=== PATIENT | male | born 1935 | race Caucasian/White ===

== ENCOUNTER 2019-12-09 17:07 | Inpatient (IN) | payer MEDICARE, OTHER ==
[~2019-12-09] VITALS: Ht 154.9 cm; Wt 44.5 kg
--- NOTE | 2019-12-09 17:32 | NUR ---
ED Nurse Note: Pt brought in by [facility] from [facility], reported PT was d/c'd 2 days ago for CVA; PT has dysphagia, A/O x 2; confused, verbal at times; reported PT is alllergic to green vegetables, no pain via FLACC; PT is here for GT placement. Will continue to monitor PT.
--- NOTE | 2019-12-09 17:33 | Emergency Room Report ---
History of Present Illness General Chief Complaint: General Complaint Source: Patient, Medical Record, EMS Present Illness HPI Patient was seen yesterday at [facility]. Apparently had a stroke. Family was not notified that he went to [facility]. He was discharged with a POLST of comfort care. When the family found out they are very upset and want the patient admitted to the hospital for G-tube insertion. Dr. Chakraborty sent the patient in. Although history is difficult to obtain patient denies pain at this time. He denies dyspnea. No vomiting or diarrhea. No dysuria. No joint pain. No rashes. No headache. He states he is thirsty. Allergies: Uncoded Allergies: Green vegetables (Allergy, Unknown, 12/10/19) Patient History Past Medical History: see triage record Social History: Denies: smoking Social History Narrative [facility] DNR status -born in [facility] Reviewed Nursing Documentation: PMH: Agreed; PSxH: Agreed Nursing Documentation-PMH Hx Hypertension: Yes Hx Cerebrovascular Accident: Yes Review of Systems All Other Systems: negative except mentioned in HPI Physical Exam Vital Signs Date Time Temp Pulse Resp B/P (MAP) Pulse Ox O2 Delivery O2 Flow Rate FiO2 12/09/19 17:17 98.1 96 18 134/96 (109) 98 Room Air Sp02 EP Interpretation: reviewed, normal General Appearance: alert, thin, Chronically Ill Head: normocephalic Eyes: bilateral eye EOMI - Eyes deviated right ENT: dry mucus membranes Neck: supple Respiratory: decreased breath sounds Cardiovascular #1: regular rate, rhythm Cardiovascular #2: 2+ radial (R) Gastrointestinal: normal inspection, non tender, no mass, non-distended, decreased bowel sounds, scaphoid Genitourinary: no CVA tenderness Musculoskeletal: back normal, other Neurologic: alert, oriented, DTRs symmetric - Increased, facial droop - Left, motor weakness, responsive, Babinski Psychiatric: other - Halting speech Skin: other - Poor turgor Medical Decision Making Diagnostic Impression: Primary Impression: Right lower lobe pneumonia Qualified Codes: J18.9 - Pneumonia, unspecified organism Additional Impressions: Status post stroke Failure to thrive Qualified Codes: R62.7 - Adult failure to thrive Hypernatremia Renal failure Qualified Codes: N19 - Unspecified kidney failure Dehydration Polycythemia UTI (urinary tract infection) Qualified Codes: N39.0 - Urinary tract infection, site not specified ER Course Patient post recent stroke sent for G-tube insertion. Clinically appears dehydrated and possibly septic. Differential includes dehydration, occult infection, dehydration, electrolyte imbalance, failure to thrive, acute stroke amongst others. Evaluation with EKG, chest x-ray and labs. CT recently done at [facility] [place] and not indicated at this time. Assessment of CODE STATUS after discussion with Dr. Chakraborty. Fluid resuscitation. Placed on traffic monitor specialist. Complex patient with several comorbidities. Antibiotics ordered after chest x-ray reviewed 1823 SEPSIS RE-EVALUATION: Called for elevated lactic acid. Fluid boluses already started. Patient still altered but slightly improved. Capillary fill good. Antibiotics already ordered for pneumonia. Multiple reasons for elevated lactic acid. I, Maverick Garcia MD, Performed the Sepsis Re-evaluation at 19:41. EKG no injury. Chest x-ray with right infiltrate and effusion. White count upper limit of normal. Elevated hemoglobin and hematocrit. Hyponatremia. Renal failure. Elevated BNP. Normal troponin. Pyuria. 22:26 second lactate found to be elevated. Second bolus to be given. Antibiotics already administered. Apparently the second lactic acid was drawn before any bolus was administered. Patient more conversant at this time. Patient admitted to medical floor. Laboratory Tests Test 12/09/19 18:40 12/09/19 20:40 White Blood Count 10.5 K/UL (4.8-10.8) Red Blood Count 5.89 M/UL (4.70-6.10) Hemoglobin 18.3 G/DL (14.2-18.0) *H Hematocrit 55.6 % (42.0-52.0) H Mean Corpuscular Volume 94 FL (80-99) Mean Corpuscular Hemoglobin 31.1 PG (27.0-31.0) H Mean Corpuscular Hemoglobin Concent 32.9 G/DL (32.0-36.0) Red Cell Distribution Width 13.1 % (11.6-14.8) Platelet Count 252 K/UL (150-450) Mean Platelet Volume 6.6 FL (6.5-10.1) Neutrophils (%) (Auto) 77.2 % (45.0-75.0) H Lymphocytes (%) (Auto) 13.4 % (20.0-45.0) L Monocytes (%) (Auto) 8.0 % (1.0-10.0) Eosinophils (%) (Auto) 0.3 % (0.0-3.0) Basophils (%) (Auto) 1.1 % (0.0-2.0) Erythrocyte Sedimentation Rate 7 MM/HR (0-20) Prothrombin Time 10.1 SEC (9.30-11.50) Prothrombin Time INR 0.9 (0.9-1.1) Activated Partial Thromboplast Time 25 SEC (23-33) Sodium Level 152 MMOL/L (136-145) H Potassium Level 3.2 MMOL/L (3.5-5.1) L Chloride Level 117 MMOL/L (98-107) H Carbon Dioxide Level 21 MMOL/L (21-32) Anion Gap 14 mmol/L (5-15) Blood Urea Nitrogen 30 mg/dL (7-18) H Creatinine 1.4 MG/DL (0.55-1.30) H Estimate Glomerular Filtration Rate mL/min (>60) Glucose Level 130 MG/DL (74-106) H Lactic Acid Level 3.20 mmol/L (0.4-2.0) H 4.10 mmol/L (0.66-2.22) H Uric Acid 8.1 MG/DL (2.6-7.2) H Calcium Level 9.8 MG/DL (8.5-10.1) Total Bilirubin 0.8 MG/DL (0.2-1.0) Aspartate Amino Transferase (AST) 31 U/L (15-37) Alanine Aminotransferase (ALT) 33 U/L (12-78) Alkaline Phosphatase 169 U/L (46-116) H Total Creatine Kinase 135 U/L (26-308) Troponin I 0.020 ng/mL (0.000-0.056) Pro-B-Type Natriuretic Peptide 4200 pg/mL (0-125) H Total Protein 9.2 G/DL (6.4-8.2) H Albumin 3.4 G/DL (3.4-5.0) Globulin 5.8 g/dL Albumin/Globulin Ratio 0.6 (1.0-2.7) L Lipase 69 U/L (73-393) L Urine Color Yellow Urine Appearance Cloudy Urine pH 5 (4.5-8.0) Urine Specific [place] 1.020 (1.005-1.035) Urine Protein 3+ (NEGATIVE) H Urine Glucose (UA) Negative (NEGATIVE) Urine Ketones 3+ (NEGATIVE) H Urine Blood 3+ (NEGATIVE) H Urine Nitrite Positive (NEGATIVE) H Urine Bilirubin Negative (NEGATIVE) Urine Urobilinogen Normal MG/DL (0.0-1.0) Urine Leukocyte Esterase 2+ (NEGATIVE) H Urine RBC 5-10 /HPF (0 - 0) H Urine WBC 30-40 /HPF (0 - 0) H Urine Squamous Epithelial Cells Moderate /LPF (NONE/OCC) H Urine Bacteria Many /HPF (NONE) H EKG Diagnostic Results Rate: normal Rhythm: other - Atrial fibrillation ST Segments: no acute changes - T inversions laterally Rhythm Strip Diag. Results EP Interpretation: yes Rhythm: no PVC's, no ectopy, other - Trial fibrillation Chest X-Ray Diagnostic Results Chest X-Ray Diagnostic Results : Chest X-Ray Ordered: Yes # of Views/Limited/Complete: 1 View Indication: Other EP Interpretation: Yes Interpretation: no effusion, no pneumothorax, other - Right lower lobe infiltrate Impression: Other Electronically Signed by: Electronically signed by Maverick Garcia MD Other X-Ray Diagnostic Results Other X-Ray Diagnostic Results : X-Ray ordered: Abdomen # of Views/Limited Vs Complete: 2 View Indication: Other EP Interpretation: Yes Interpretation: nonspecific bowel gas, no sbo, other - No masses, increased stool Impression: Other Electronically Signed by: Electronically signed by Maverick Garcia MD Last Vital Signs Date Time Temp Pulse Resp B/P (MAP) Pulse Ox O2 Delivery O2 Flow Rate FiO2 12/09/19 22:30 98.4 92 19 126/87 98 Room Air Status: improved Disposition: ADMITTED INPATIENT Condition: Serious Maverick Garcia MD Dec 09, 2019 17:33
[2019-12-09] MEDS ORDERED: Piperacillin/Tazobactam 3.375 GM in NS 110 ML IVPB ONE (18:30)
[2019-12-09] MEDS ORDERED: Vancomycin 1 GM in NS 275 ML IVPB ONE (18:30)
[2019-12-09 18:32] VITALS: BP 134/96
--- NOTE | 2019-12-09 19:15 | NUR ---
ED Nurse Note: Recieved report from am nurse to resume care, pt in bed awake, alert and oriented x 4, pt is speaking, pt has tourniquet on left arm, arm is purple, removed, pt also has saline lock in right upper arm with syringe in place, pt has not had meds ordered 3 hours ago, will resume care as ordered and start medications and prepare for admission, pt is incontinent of urine and stool, also given bath and linen change, noted with redness to sacryl,coccyx area.
[2019-12-09 19:18] LABS: ANION GAP 14 mmol/L (5-15); BLOOD UREA NITROGEN 30 mg/dL (7-18); CALCIUM 9.8 MG/DL (8.5-10.1); CARBON DIOXIDE 21 MMOL/L (21-32); CHLORIDE 117 MMOL/L (98-107); CREATININE 1.4 MG/DL (0.55-1.30); POTASSIUM 3.2 MMOL/L (3.5-5.1); SODIUM 152 MMOL/L (136-145)
[2019-12-09 19:25] LABS: BASOPHILS % (AUTO) 1.1 % (0.0-2.0); EOSINOPHILS % (AUTO) 0.3 % (0.0-3.0); HEMATOCRIT 55.6 % (42.0-52.0); LYMPHOCYTES % (AUTO) 13.4 % (20.0-45.0); MEAN CORPUSCULAR VOLUME 94 FL (80-99); NEUTROPHILS % (AUTO) 77.2 % (45.0-75.0); PLATELET COUNT 252 K/UL (150-450); RED BLOOD COUNT 5.89 M/UL (4.70-6.10); RED CELL DISTRIBUTION WIDTH 13.1 % (11.6-14.8); WHITE BLOOD COUNT 10.5 K/UL (4.8-10.8)
[2019-12-09 19:29] LABS: ALANINE AMINOTRANSFERASE 33 U/L (12-78); ALBUMIN 3.4 G/DL (3.4-5.0); ALBUMIN/GLOBULIN RATIO 0.6 (1.0-2.7); ALKALINE PHOSPHATASE 169 U/L (46-116); ASPARTATE AMINO TRANSFERASE 31 U/L (15-37); BILIRUBIN,TOTAL 0.8 MG/DL (0.2-1.0); CREATINE KINASE 135 U/L (26-308); INR 0.9 (0.9-1.1)
[2019-12-09 19:30] LABS: HEMOGLOBIN 18.3 G/DL (14.2-18.0)
[2019-12-09 20:00] VITALS: BP 126/87
--- NOTE | 2019-12-09 21:00 | NUR ---
ED Nurse Note: Pt continues to rest in bed, meds given as ordered, tolerating well with no s/s of adverse reaction noted, pt re-positioned and turned with pillow support, pt remains awake and alert, will continue to monitor and send to floor bed when IV meds given per protocol.
[2019-12-09 21:22] LABS: APPEARANCE,URINE CLOUDY; BILIRUBIN, URINE NEGATIVE (NEGATIVE); GLUCOSE, URINE (UA) NEGATIVE (NEGATIVE); KETONES,URINE 3+ (NEGATIVE); LEUKOCYTE ESTERASE ,URINE 2+ (NEGATIVE); NITRITE,URINE POSITIVE (NEGATIVE); PH,URINE 5 (4.5-8.0); PROTEIN,URINE 3+ (NEGATIVE); UROBILINOGEN,URINE NORMAL MG/DL (0.0-1.0)
[2019-12-09 21:24] LABS: COLOR,URINE YELLOW
[2019-12-09] MEDS ORDERED: Potassium Chloride 10 MEQ in D5 1/2NS 1,000 ML IV SCH (21:30)
[2019-12-09 22:30] VITALS: BP 126/87
[2019-12-09 22:35] VITALS: BP 124/71
[2019-12-09] MEDS ORDERED: Vancomycin 1gm vial IVPB ONE (22:43)
--- NOTE | 2019-12-09 23:15 | NUR ---
ED Nurse Note: Pt incontinent again, given bath and linen change, IV site patent with fluids infusing as ordered, report called to floor nurse, pt being taken for admission via [facility].
--- NOTE | 2019-12-09 23:50 | NUR ---
NURSE NOTES: Pt received from ER, without belongings, vancomycin 1gm running, verbal at times but talking to himself, slurred speech, no skin issues, no signs of distress or c/o pain, head of bed elevated, vitals 99.4T, 114HR 18rr 132/85BP 93 O2, will contact MD for orders.
[2019-12-10] MEDS ORDERED: ACETAMINOPHEN325 M1 ORAL (00:43)
[2019-12-10] MEDS ORDERED: POTASSIUM CHLO20 ME3 PO (00:43)
[2019-12-10] MEDS ORDERED: DOCUSATE SODIU100 M2 ORAL (00:43)
[2019-12-10] MEDS ORDERED: ACETAMINOPHEN650 MG RECTAL (00:43)
[2019-12-10] MEDS ORDERED: SIMETHICONE125 M1 PO (00:43)
[2019-12-10] MEDS ORDERED: ALBUTEROL2.5 MG/3 M INH (00:43)
[2019-12-10] MEDS ORDERED: MORPHINE SULFATE SL (00:43)
[2019-12-10] MEDS ORDERED: D5 1/2NS w/KCL 10meq 1,000 ML IV ONE (02:12)
[2019-12-10] MEDS: Potassium Chloride 10 MEQ in D5 1/2NS 1,000 ML IV SCH ×2 (03:11→10:06)
[2019-12-10 04:00] VITALS: BP 130/90
[2019-12-10] MEDS: Piperacillin/Tazobactam 3.375 GM in NS 110 ML IVPB SCH ×3 (05:39→21:03)
--- NOTE | 2019-12-10 07:15 | NUR ---
HAND-OFF: Report given to ENID Hagan.
--- NOTE | 2019-12-10 07:43 | NUR ---
NURSE NOTES: patient received asleep with nonlabored breathing. on fowlers position. IV access patent and intact. siderails are up x3, bed locked and alarm engaged. will cont to monitor.
[2019-12-10 08:00] VITALS: BP 133/88
[2019-12-10 08:28] LABS: BASOPHILS % (AUTO) 0.6 % (0.0-2.0); HEMATOCRIT 44.7 % (42.0-52.0); HEMOGLOBIN 15.2 G/DL (14.2-18.0); LYMPHOCYTES % (AUTO) 10.1 % (20.0-45.0); MEAN CORPUSCULAR VOLUME 94 FL (80-99); MONOCYTES % (AUTO) 7.8 % (1.0-10.0); NEUTROPHILS % (AUTO) 81.5 % (45.0-75.0); PLATELET COUNT 219 K/UL (150-450); RED BLOOD COUNT 4.76 M/UL (4.70-6.10); RED CELL DISTRIBUTION WIDTH 12.9 % (11.6-14.8); WHITE BLOOD COUNT 13.9 K/UL (4.8-10.8)
--- NOTE | 2019-12-10 09:00 | NUR ---
NURSE NOTES: hand off done with arsenio for CT Head. will cont the plan of care. Addendum: 12/10/19 at 1140 by MAXIME CASTANEDA LVN @ [id number] SCAN
[2019-12-10 09:05] LABS: ALANINE AMINOTRANSFERASE 43 U/L (12-78); ALBUMIN 2.6 G/DL (3.4-5.0); ALBUMIN/GLOBULIN RATIO 0.5 (1.0-2.7); ALKALINE PHOSPHATASE 130 U/L (46-116); ANION GAP 11 mmol/L (5-15); ASPARTATE AMINO TRANSFERASE 50 U/L (15-37); BILIRUBIN,TOTAL 0.9 MG/DL (0.2-1.0); BLOOD UREA NITROGEN 28 mg/dL (7-18); CALCIUM 8.5 MG/DL (8.5-10.1); CARBON DIOXIDE 20 MMOL/L (21-32); CHLORIDE 121 MMOL/L (98-107); CREATININE 1.3 MG/DL (0.55-1.30); SODIUM 151 MMOL/L (136-145)
[2019-12-10 09:12] LABS: POTASSIUM 2.6 MMOL/L (3.5-5.1)
--- NOTE | 2019-12-10 09:17 | NUR ---
NURSE NOTES: made Dr Chakraborty aware of the K+2.6. awaits for a call back.
[2019-12-10] MEDS: Pantoprazole Inj IVP SCH (09:49)
--- NOTE | 2019-12-10 10:00 | History and Physical Report ---
DATE OF ADMISSION: 12/09/2019 CHIEF COMPLAINT: Acute stroke. HISTORY OF PRESENT ILLNESS: The patient is an 84-year-old male. He has a history of congestive heart failure, chronic kidney disease, hypertension, and dementia. [facility] a [facility] facility with complaints of slurred speech, left-sided weakness, and left-sided facial droop. On evaluation in the ER, the patient's labs were significant for sodium of 152, potassium 3.2, lactic acid level 3.2. CT scan of the head is pending. UA did show 30 to 40 wbc's. PAST MEDICAL HISTORY: As above. PAST SURGICAL HISTORY: Unknown. CURRENT MEDICATIONS: Reconciled and reviewed. ALLERGIES: None. FAMILY HISTORY: None. SOCIAL HISTORY: There is no known history of tobacco, ethanol, or drugs. REVIEW OF SYSTEMS: Unobtainable as the patient is confused. PHYSICAL EXAMINATION: VITAL SIGNS: Temperature 98.9, pulse 92, respirations 19, and blood pressure 130/90. GENERAL: The patient is well developed, in no apparent distress. HEART: Regular rate and rhythm. LUNGS: Clear. ABDOMEN: Soft, nontender, and nondistended. EXTREMITIES: Without clubbing, cyanosis, or edema. NEUROLOGIC: The patient opens his eyes. There is a left facial droop noted and left-sided weakness. LABORATORY DATA: Labs were reviewed. ASSESSMENT: This is an 84-year-old male who presents with new-onset left-sided weakness and left-sided facial droop, slurred speech consistent with the acute stroke. PROBLEM LIST: 1. Acute CVA. 2. Sepsis and UTI. 3. Hypertension and congestive heart failure. 4. History of chronic kidney disease. PLAN: 1. Follow up CT scan of the head. 2. Cardiology, neuro, and ID consultations will be obtained. 3. Plan of care and the test results have been discussed with the patient's daughter, who is agreeable. We will continue the patient as DNR, but she would like to consider possible G-tube if needed. Jamie Chakraborty M.D. DR: KELLEY JOB#: [id number] CC:
--- NOTE | 2019-12-10 10:18 | Diagnostic Imaging Report ---
Indication: Headache Technique: Contiguous 5 mm thick transaxial imaging of the head obtained in a Siemens Sensation [address] scanner. Soft tissue and bone windows generated. Automatic Exposure Control was utilized. Total Dose length Product (DLP): [address] Dose Index Volume (CTDIvol): 62.7 mGy Comparison: none Findings: There is an abnormal area of low attenuation involving the right temporal lobe extending into the parietal lobe consistent with a acute to subacute CVA. There is no hemorrhage associated with this. The area of low attenuation is associated with sulcal effacement. There is some minimal mass effect on the posterior part of the right lateral ventricle which is slightly indented. There is also abnormal low attenuation in the right caudate lobe extending through the anterior limb of internal capsule into the putamen. This is in the same vascular distribution as the after mentioned infarct involving the cortex more laterally. There is evidence of encephalomalacia in the left posterior parietal lobe consistent with an old infarct. There is moderate prominence of the ventricles and basal cisterns and cerebral sulci globally consistent with the moderate atrophy. There is an aneurysm coil present within the right aspect of the suprasellar cistern. This there is mucosal thickening demonstrated within the right sphenoid sinus. IMPRESSION: Acute to subacute nonhemorrhagic CVA involving right middle cerebral artery territory with involvement of the right temporal lobe and parietal cortex as well as portion of the right basal ganglia. Moderate generalized atrophy. Evidence of extensive chronic small vessel disease involving periventricular white matter. Old infarct left posterior parietal lobe. 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 Critical value communication. Findings were discussed via telephone with the floor nurse on 4 E. 10:00 AM, 12/10/2019. The CT scanner at [facility] is accredited by the [employer] and the scans are performed using dose optimization techniques as appropriate to a performed exam including Automatic Exposure control.
[2019-12-10] MEDS: Heparin 5000 units/ml inj SUBQ SCH ×2 (10:23→21:04)
--- NOTE | 2019-12-10 10:25 | NUR ---
NURSE NOTES: received new order for K+2.6. Dr Chakraborty made aware of the result of CT head called made by radiologist and no new order obtained. will cont to monitor.
[2019-12-10] MEDS: [UNRECOGNIZED DRUG - OTHER] IV SCH ×2 (11:36→21:39)
[2019-12-10] MEDS: D5 IV SCH ×2 (11:36→21:39)
[2019-12-10] MEDS: POTASSIUM CHLORIDE IV SCH ×2 (11:36→21:39)
[2019-12-10 12:00] VITALS: BP 130/79
--- NOTE | 2019-12-10 12:22 | Diagnostic Imaging Report ---
Indication: Abdominal pain Comparison: None Single view of the abdomen obtained Findings: Bowel gas pattern is nonspecific. There is moderate fecal retention in the colon. The colon is moderately distended. No mass, ectopic calcifications, or abnormal gas collections are identified. The bones are osteopenic. Impression: Distended colon with moderate stool
--- NOTE | 2019-12-10 12:23 | Diagnostic Imaging Report ---
Indication: Dyspnea Comparison: None A single view chest radiograph was obtained. Findings: Exam is limited by rotation. There is mild pulmonary vascular congestion with cardiomegaly. Aorta is ectatic. Bones are osteopenic. IMPRESSION: Pulmonary vascular congestion
--- NOTE | 2019-12-10 13:53 | NUR ---
CASE MANAGEMENT:INITIAL REVIEW 84 YR OLD MALE BIBA FROM [facility] CC;GENERAL COMPLAINT. UNABLE TO SWALLOW SI;RLL PNA. POLYCYTHEMIA. FTT. 98.4 92 19 124/71 98% IN RA NA 151 K+ 3.2 BUN 30 AST 50 ALK PHOS 130 CXR - PULMONARY VASCULAR CONGESTION ABD XRAY - DISTENDED COLON IS;IVF NS BOLUS X1 VANCOMYCIN IV X1 ZOSYN IV X1 LEVAQUIN IV X1 ADMITTED TO MED SURG MED SURG STATUS DCP;FROM [facility]
--- NOTE | 2019-12-10 15:01 | NUR ---
RD ASSESSMENT & RECOMMENDATIONS SEE CARE ACTIVITY FOR COMPLETE ASSESSMENT DAILY ESTIMATED NEEDS: Needs based on Underweight, cardiac/ 49kg 30-35 kcals/kg 1654-3555 total kcals 1-1.5 g protein/kg 49-74 g total protein 25-30 mL/kg 6892-4147 total fluid mLs NUTRITION DIAGNOSIS: * Swallowing difficulty R/T dysphagia, s/p acute CVA as evidenced by NPO, pending COURT OPERATIONS CLERK eval, possible PEG placement. CURRENT DIET:NPO PO DIET RECOMMENDATIONS: IF SAFE FOR ORAL DIET -> LOW NA/ texture per COURT OPERATIONS CLERK ENTERAL NUTRITION RECOMMENDATIONS: IF MEDICALLY APPROPRIATE AND PART OF POC -> Glucerna 1.2 @ 55ml/hr x 24 hrs to provide 1320ml, 1584kcal, 79g prot, 1063ml free water * IF PART OF POC AND MEDICALLY INDICATED, OBTAIN GI ACCESS -> initiate Glucerna 1.2 @ 15ml/hr x 6 hrs -> advance 10ml q 4-6 hrs as tolerated to goal rate -> HOB over 30 degrees/ water flush per MDD ADDITIONAL RECOMMENDATIONS: * Calibrated bedscale wt for accurate CBW * F/up w/ COURT OPERATIONS CLERK rec: oral diet vs NPO * Check A1C and lipid panel: s/p acute CVA * Monitor lytes, replete as needed
--- NOTE | 2019-12-10 15:05 | NUR ---
SWALLOW / SPEECH THERAPY NOTE: REFERRED FOR A SWALLOW EVALUATION BY DR CLEMONS, SEE FULL REPORT. DYSPHAGIA RISK FACTORS FOR THIS ADVANCED AGED RIGHT-HAND DOMINANT 84 Y.O.M.: ACUTE ISSUES: 2 DAYS S/P RIGHT MCA CVA (12/08/19) PER CT HEAD AT [facility] [place] 12/10/19 PER CTA HEAD AT [facility]. PER [facility] [place] 12/10/19: Acute to subacute nonhemorrhagic CVA involving right middle cerebral artery territory with involvement of the right temporal lobe and parietal cortex as well as portion of the right basal ganglia. Moderate generalized atrophy. Evidence of extensive chronic small vessel disease involving periventricular white matter. Old infarct left posterior parietal lobe. 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 ADULT FTT WITH LIKELY WORSENED DYSPHAGIA (LIKELY PEG PLACEMENT PER FAMILY), RIGHT LL PNA, KIDNEY FAILURE, UTI, DEHYDRATION. H/O DYSPHAGIA (? 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 SOCIAL: PRIOR TO CVA, THE PATIENT WAS AT [facility]. HE HAS A DAUGHTER AND A SON-[place] AND IN [place]. SPOKE WITH HIS DAUGHTER BRIEFLY AND GAVE HER THE NAME OF THE [employer]. PER POLST, DNR AND INITIALLY COMFORT-FOCUSED WITH NO TUBE FEEDINGS BUT FAMILY NOW RECEPTIVE TO PEG (TRANSFERRED FROM [facility] AND D/C ON COMFORT CARE BUT FAMILY WANTS PEG NOW). PRIOR TO ADMIT AT SNF ON A CARB CONTROLLED REGULAR TEXTURE DIET AND THIN LIQUIDS WITH SF HPN TID WITH MEALS 09/04/19 AND DYSPHAGIA DX. NOW NPO. THE PATIENT IS ALERT WITH CUES AND SPEAKING AT SENTENCE LEVEL. SPEECH IS IMPRECISE BUT USUALLY INTELLGIBLE WITH IN CONTEXT WHEN TOPIC KNOWN. WILL HOLD ON PO TRIALS AT THIS TIME. INITIAL IMPRESSIONS: HIGH RISK FOR A SIGNIFICANT OROPHARYNGEAL DYSPHAGIA WITH SILENT ASPIRATION RISK (DUE TO NEW CVA AND OLD STROKES) NOT CONSISTENTLY ALERT ENOUGH FOR PO TRIAL TO SEE IF HE IS READY FOR A MODIFIED SWALLOW STUDY SEVERE FACIAL/LABIAL WEAKNESS ON THE LEFT TONGUE DEVIATES TO THE LEFT WITH PROTRUSION AND HAS GOOD ROM BUT HE HAS REDUCED SPEED OF MOVEMENT AND STRENGTH DIFFICULT TO TEST (LIKELY REDUCED ALSO SPEECH IS LESS PRECISE) RECOMMENDATIONS: CONSIDER KEEPING PATIENT NPO AND IF HE NEEDS PO MEDS CONSIDER 12 [place] NGT FOR MEDS AND FORMULA PER RD. COMPLETE MODIFIED BARIUM SWALLOW STUDY WHEN READY IN ORDER TO FURTHER ASSESS SWALLOW, DETERMINE SILENT ASPIRATION RISK, AND ATTEMPT TRIAL TX TECHNIQUES. SKILLED DYSPHAGIA MANAGEMENT, SWALLOW AND COMPENSATORY STRATEGY TRAINING, EDUCATION/COUNSELING. EDUCATED/TRAINED RN, SADIQ, IN POSTED ORAL CARE SIGN. Addendum: 12/10/19 at 1508 by MISTY ACEVEDO DAIRY POWDER MIXER OPERATOR D/W DR CLEMONS WHO AGREED WITH RECOMMENDATION
[2019-12-10 16:00] VITALS: BP 135/84
--- NOTE | 2019-12-10 18:39 | NUR ---
NURSE NOTES: DAUGHTERKAY CALLED AND WILL COME BY TOMORROW TO UPDATE THE POLST. WILL RELAY THE MSG TO INCOMING NURSE. WILL CONT THE PLAN OF CARE
--- NOTE | 2019-12-10 19:07 | NUR ---
HAND-OFF: Report given to
--- NOTE | 2019-12-10 19:20 | NUR ---
NURSE NOTES: Received patient comfortably sleeping, no SOB noted, kept clean and dry.
[2019-12-10 20:41] VITALS: BP 125/89
--- NOTE | 2019-12-10 22:18 | General Progress Note ---
Assessment/Plan Assessment/Plan: GI Consult Dictated Message left for family to discuss possible PEG Thank you Yanni Matute MD Subjective Allergies: Uncoded Allergies: Green vegetables (Allergy, Unknown, 12/10/19) Objective Last 24 Hour Vital Signs Date Time Temp Pulse Resp B/P (MAP) Pulse Ox O2 Delivery O2 Flow Rate FiO2 12/10/19 20:41 98.4 74 18 125/89 (101) 95 12/10/19 20:27 Room Air 12/10/19 16:00 98.2 100 18 135/84 (101) 97 12/10/19 12:00 98.4 87 18 130/79 (96) 97 12/10/19 09:00 Room Air 12/10/19 08:00 98.7 99 19 133/88 (103) 97 12/10/19 04:00 98.9 111 18 130/90 (103) 94 12/10/19 00:56 Room Air 12/09/19 23:45 98.4 92 19 124/71 98 Room Air 12/09/19 22:35 98.4 92 19 124/71 98 Room Air 12/09/19 22:30 98.4 92 19 126/87 98 Room Air Intake and Output 12/09/19 12/10/19 19:00 07:00 # Voids 3 Laboratory Tests 12/10/19 08:09: White Blood Count 13.9H, Red Blood Count 4.76, Hemoglobin 15.2, Hematocrit 44.7 , Mean Corpuscular Volume 94, Mean Corpuscular Hemoglobin 31.9H, Mean Corpuscular Hemoglobin Concent 33.9, Red Cell Distribution Width 12.9, Platelet Count 219, Mean Platelet Volume 6.5, Neutrophils (%) (Auto) 81.5H, Lymphocytes ( %) (Auto) 10.1L, Monocytes (%) (Auto) 7.8, Eosinophils (%) (Auto) 0.0, Basophils (%) (Auto) 0.6, Sodium Level 151H, Potassium Level 2.6*L, Chloride Level 121H, Carbon Dioxide Level 20L, Anion Gap 11, Blood Urea Nitrogen 28H, Creatinine 1.3, Estimat Glomerular Filtration Rate , Glucose Level 171H, Lactic Acid Level 1.40, Calcium Level 8.5, Total Bilirubin 0.9, Aspartate Amino Transf (AST/SGOT) 50H, Alanine Aminotransferase (ALT/SGPT) 43, Alkaline Phosphatase 130H, Total Protein 7.6, Albumin 2.6L, Globulin 5.0, Albumin/Globulin Ratio 0.5L Height (Feet): 5 Height (Inches): 5.00 Weight (Pounds): 120 Paul Matute MD Dec 10, 2019 22:17
--- NOTE | 2019-12-11 | Consultation ---
DATE OF CONSULTATION: 12/10/2019 GASTROENTEROLOGY CONSULTATION CONSULTING PHYSICIAN: Paul Matute M.D. CHIEF COMPLAINT: I was asked to see this patient by Dr. Jamie Chakraborty for possible gastrostomy tube placement. HISTORY OF PRESENT ILLNESS: The patient is an unfortunate 84-year-old white man with a history of stroke who was sent to a group home and now readmitted to the hospital due to slurring of his speech and worsening mental status. The patient has free water deficit and has been dehydrated with lactic acidosis. He has been resuscitated. The family apparently now wanting to proceed with a gastrostomy tube placement for feeding and nutritional support. I left the family a message to call me back to discuss these matters. The patient himself is unable to provide any history. Most of the information is only available from the chart. PAST MEDICAL HISTORY: History of congestive heart failure, chronic kidney disease, hypertension, dementia, status post stroke. FAMILY HISTORY: Unavailable. SOCIAL HISTORY: The patient is from a group home. Apparently has a daughter who looks after his affairs. REVIEW OF SYSTEMS: Unobtainable. ALLERGIES: Per chart report none. PHYSICAL EXAMINATION: GENERAL: Elderly white man, who is mumbling incoherently, seen in his room. HEENT: Normocephalic and atraumatic. NECK: Appears supple. CHEST: Coarse breath sounds. CARDIOVASCULAR: Regular rhythm and rate. ABDOMEN: Soft with a midline vertical scar above the umbilicus. EXTREMITIES: Revealed no edema. DIAGNOSTIC AND LABORATORY DATA: CT scan showed acute to subacute nonhemorrhagic stroke involving the right middle cerebral artery territory with mild generalized atrophy and chronic small vessel disease. The patient's labs today were notable for potassium of 2.6, some mild elevation in AST and alkaline phosphatase. His lactic acid has been declining to normal today. ASSESSMENT: This patient has a significant dehydration with free water deficit. These metabolic derangements are being treated with supportive care. A message has been left to the patient's daughter and discussed the patient's goals and values and plan of action. In the meantime, his fluid resuscitation can be continued and his electrolytes should be followed closely. Proton pump inhibitor has been given and can be continued for now. RECOMMENDATIONS: Per above discussion and per orders in the chart. Thank you for asking me to participate in the care of this patient. Paul Matute M.D. DR: DARLENE JOB#: [id number] CC: [email or web address]
[2019-12-11 00:22] VITALS: BP 130/84
[2019-12-11 04:10] VITALS: BP 115/87
[2019-12-11] MEDS: Piperacillin/Tazobactam 3.375 GM in NS 110 ML IVPB SCH ×3 (04:55→20:23)
[2019-12-11] MEDS: POTASSIUM CHLORIDE IV SCH ×2 (04:56→17:57)
[2019-12-11] MEDS: D5 IV SCH ×2 (04:56→17:57)
[2019-12-11] MEDS: [UNRECOGNIZED DRUG - OTHER] IV SCH ×2 (04:56→17:57)
[2019-12-11 06:42] LABS: BASOPHILS % (AUTO) 1.2 % (0.0-2.0); EOSINOPHILS % (AUTO) 2.1 % (0.0-3.0); HEMOGLOBIN 14.9 G/DL (14.2-18.0); LYMPHOCYTES % (AUTO) 18.9 % (20.0-45.0); MEAN CORPUSCULAR VOLUME 94 FL (80-99); MONOCYTES % (AUTO) 7.9 % (1.0-10.0); NEUTROPHILS % (AUTO) 69.9 % (45.0-75.0); PLATELET COUNT 224 K/UL (150-450); RED BLOOD COUNT 4.67 M/UL (4.70-6.10); RED CELL DISTRIBUTION WIDTH 12.9 % (11.6-14.8); WHITE BLOOD COUNT 9.2 K/UL (4.8-10.8)
--- NOTE | 2019-12-11 07:28 | NUR ---
HAND-OFF: Report given to Zhanna Marcelo RN.
--- NOTE | 2019-12-11 07:30 | NUR ---
NURSE NOTES: Nurse report given by SUBHASH Jones. Patient's in bed, sleeping in supine position, no s/s of distress or SOB, bed low and locked, call light within reach, pilot boat operator rails x 3, bed alarm is armed. IV is running fluid, no s/s of infiltration or tenderness. Will continue to monitor.
[2019-12-11 08:00] VITALS: BP 141/90
[2019-12-11 08:01] LABS: ALANINE AMINOTRANSFERASE 56 U/L (12-78); ALBUMIN 2.5 G/DL (3.4-5.0); ALBUMIN/GLOBULIN RATIO 0.5 (1.0-2.7); ALKALINE PHOSPHATASE 119 U/L (46-116); ANION GAP 13 mmol/L (5-15); ASPARTATE AMINO TRANSFERASE 70 U/L (15-37); BLOOD UREA NITROGEN 23 mg/dL (7-18); CALCIUM 8.7 MG/DL (8.5-10.1); CARBON DIOXIDE 20 MMOL/L (21-32); CHLORIDE 121 MMOL/L (98-107); CREATININE 1.3 MG/DL (0.55-1.30); POTASSIUM 3.1 MMOL/L (3.5-5.1); SODIUM 154 MMOL/L (136-145)
[2019-12-11] MEDS: Pantoprazole Inj IVP SCH (09:39)
--- NOTE | 2019-12-11 10:00 | General Progress Note ---
Assessment/Plan Problem List: (1) Dehydration ICD Codes: E86.0 - Dehydration SNOMED: 30073535 (2) Status post stroke ICD Codes: Z86.73 - Personal history of transient ischemic attack (TIA), and cerebral infarction without residual deficits SNOMED: 844908586 (3) Failure to thrive SNOMED: 24394215 Qualifiers: Qualified Codes: R62.7 - Adult failure to thrive (4) Renal failure ICD Codes: N19 - Unspecified kidney failure SNOMED: 43531745 Qualifiers: Qualified Codes: N19 - Unspecified kidney failure (5) UTI (urinary tract infection) ICD Codes: N39.0 - Urinary tract infection, site not specified SNOMED: 61939319 Qualifiers: Qualified Codes: N39.0 - Urinary tract infection, site not specified (6) Right lower lobe pneumonia ICD Codes: J18.9 - Pneumonia, unspecified organism SNOMED: 119725400 Qualifiers: Qualified Codes: J18.9 - Pneumonia, unspecified organism Status: stable Assessment/Plan: video swallow cardiac rx bp control neuro eval antiplt Subjective ROS Limited/Unobtainable: No Constitutional: Reports: malaise, weakness HEENT: Reports: no symptoms Cardiovascular: Reports: no symptoms Respiratory: Reports: no symptoms Gastrointestinal/Abdominal: Reports: difficulty swallowing Genitourinary: Reports: no symptoms Neurologic/Psychiatric: Reports: weakness Endocrine: Reports: no symptoms Hematologic/Lymphatic: Reports: no symptoms Allergies: Uncoded Allergies: Green vegetables (Allergy, Unknown, 12/10/19) Subjective no events. ct with +cva. +left facial droop and left sided weakness Objective Last 24 Hour Vital Signs Date Time Temp Pulse Resp B/P (MAP) Pulse Ox O2 Delivery O2 Flow Rate FiO2 12/11/19 04:10 98.5 77 16 115/87 (96) 95 12/11/19 00:22 98.2 81 18 130/84 (99) 95 12/10/19 20:41 98.4 74 18 125/89 (101) 95 12/10/19 20:27 Room Air 12/10/19 16:00 98.2 100 18 135/84 (101) 97 12/10/19 12:00 98.4 87 18 130/79 (96) 97 Intake and Output 12/10/19 12/11/19 19:00 07:00 Intake Total 420.0 ml 815.0 ml Output Total 800 ml Balance -380.0 ml 815.0 ml Intake IV Total 420.0 ml 815.0 ml Output Urine Total 800 ml # Voids 2 # Bowel Movements 1 Laboratory Tests 12/11/19 05:10: White Blood Count 9.2, Red Blood Count 4.67L, Hemoglobin 14.9, Hematocrit 44.0, Mean Corpuscular Volume 94, Mean Corpuscular Hemoglobin 31.9H, Mean Corpuscular Hemoglobin Concent 33.8, Red Cell Distribution Width 12.9, Platelet Count 224, Mean Platelet Volume 6.1L, Neutrophils (%) (Auto) 69.9, Lymphocytes (%) (Auto) 18.9L, Monocytes (%) (Auto) 7.9, Eosinophils (%) (Auto) 2.1, Basophils (%) (Auto ) 1.2, Sodium Level 154H, Potassium Level 3.1L, Chloride Level 121H, Carbon Dioxide Level 20L, Anion Gap 13, Blood Urea Nitrogen 23H, Creatinine 1.3, Estimat Glomerular Filtration Rate , Glucose Level 150H, Calcium Level 8.7, Magnesium Level 2.1, Total Bilirubin 1.0, Aspartate Amino Transf (AST/SGOT) 70H , Alanine Aminotransferase (ALT/SGPT) 56, Alkaline Phosphatase 119H, Total Protein 7.4, Albumin 2.5L, Globulin 4.9, Albumin/Globulin Ratio 0.5L Height (Feet): 5 Height (Inches): 5.00 Weight (Pounds): 120 General Appearance: WD/WN, alert Neck: supple Cardiovascular: regular rhythm Respiratory/Chest: chest wall non-tender, lungs clear Edema: no edema noted Arm (L), no edema noted Arm (R), no edema noted Leg (L), no edema noted Leg (R), no edema noted Pedal (L), no edema noted Pedal (R), no edema noted Generalized Neurologic: motor weakness Jamie Chakraborty MD Dec 11, 2019 10:00
[2019-12-11] MEDS: Heparin 5000 units/ml inj SUBQ SCH ×2 (10:13→20:24)
[2019-12-11 12:00] VITALS: BP 134/97
--- NOTE | 2019-12-11 14:13 | NUR ---
NURSE NOTES:WOUND CARE NOTES:Pt's skin assessment complete with Primary nurse in attendance. All bony prominences assessed. Sacrum and both hips without erythema or evidence of skin breakdown. Both heels boggy with non-blanching erythema.NO other skin concerns noted. Moisture Barrier Paste applied to buttocks. Optifoam drsg placed over Sacrum to minimize friction.Cavilon Skin Barrier applied to both heels. Each Heel covered with Optifoam drsg. Pt positioned with pillow on his side. Both heels floated off mattress with pillow. Recommendations:Apply Moisture Barrier Paste to Sacrum. Cover with Optifoam drsg. Change every 3 days and prn. Apply Cavilon Skin Barrier to both heels. Cover each heel with Optifoam drsg. Change every 7 days and PRN. Reposition at least every 2hours or as tolerated. Off-load heels with pillow.
--- NOTE | 2019-12-11 14:29 | NUR ---
CASE MANAGEMENT:REVIEW SI;DEHYDRATION. RENAL FAILURE. UTI. RLL PNA. FTT. 98.5 91 20 141/90 94% ON RA NA 154 K+ 3.1 CL 121 BUN 23 IS;KCL IN D5NS IV @ 100ML/HR ZOSYN IV Q8 HRS HEPARIN SUBQ Q12 HRS PROTONIX IV QD MED SURG STATUS PLAN;VIDEO SWALLOW STUDY NEURO EVAL DCP;FROM [facility]
[2019-12-11 16:00] VITALS: BP 148/94
--- NOTE | 2019-12-11 19:07 | NUR ---
HAND-OFF: Report given to SUBHASH Jones. Patient's stable, plan of care endorsed.
--- NOTE | 2019-12-11 19:31 | NUR ---
NURSE NOTES: Received patient asleep, no SOB, comfortable. Kept clean and dry.
[2019-12-11 20:44] VITALS: BP 131/92
--- NOTE | 2019-12-11 21:36 | General Progress Note ---
Assessment/Plan Status: stable Assessment/Plan: Assessment - dysphagia - hypernatremia - hypokalemia Recommendations - NPO - correct electrolytes - PEG placement Subjective Allergies: Uncoded Allergies: Green vegetables (Allergy, Unknown, 12/10/19) Subjective d/w DTR over the phone indications and risks of PEG placement explained all questions answered DTR requested to proceed with GT placement scheduled for am Objective Last 24 Hour Vital Signs Date Time Temp Pulse Resp B/P (MAP) Pulse Ox O2 Delivery O2 Flow Rate FiO2 12/11/19 20:58 Room Air 12/11/19 20:44 98.3 84 12 131/92 (105) 97 12/11/19 16:00 98.0 90 18 148/94 (112) 97 12/11/19 12:00 98.2 91 20 134/97 (109) 97 12/11/19 09:00 Room Air 12/11/19 08:00 98.0 77 18 141/90 (107) 94 12/11/19 04:10 98.5 77 16 115/87 (96) 95 12/11/19 00:22 98.2 81 18 130/84 (99) 95 Intake and Output 12/10/19 12/11/19 19:00 07:00 Intake Total 420.0 ml 815.0 ml Output Total 800 ml Balance -380.0 ml 815.0 ml Intake IV Total 420.0 ml 815.0 ml Output Urine Total 800 ml # Voids 2 # Bowel Movements 1 Laboratory Tests 12/11/19 05:10: White Blood Count 9.2, Red Blood Count 4.67L, Hemoglobin 14.9, Hematocrit 44.0, Mean Corpuscular Volume 94, Mean Corpuscular Hemoglobin 31.9H, Mean Corpuscular Hemoglobin Concent 33.8, Red Cell Distribution Width 12.9, Platelet Count 224, Mean Platelet Volume 6.1L, Neutrophils (%) (Auto) 69.9, Lymphocytes (%) (Auto) 18.9L, Monocytes (%) (Auto) 7.9, Eosinophils (%) (Auto) 2.1, Basophils (%) (Auto ) 1.2, Sodium Level 154H, Potassium Level 3.1L, Chloride Level 121H, Carbon Dioxide Level 20L, Anion Gap 13, Blood Urea Nitrogen 23H, Creatinine 1.3, Estimat Glomerular Filtration Rate , Glucose Level 150H, Calcium Level 8.7, Magnesium Level 2.1, Total Bilirubin 1.0, Aspartate Amino Transf (AST/SGOT) 70H , Alanine Aminotransferase (ALT/SGPT) 56, Alkaline Phosphatase 119H, Total Protein 7.4, Albumin 2.5L, Globulin 4.9, Albumin/Globulin Ratio 0.5L Height (Feet): 5 Height (Inches): 5.00 Weight (Pounds): 120 Paul Matute MD Dec 11, 2019 21:36
[2019-12-12 00:52] VITALS: BP 127/93
[2019-12-12] MEDS: POTASSIUM CHLORIDE IV SCH (04:11)
[2019-12-12] MEDS: [UNRECOGNIZED DRUG - OTHER] IV SCH (04:11)
[2019-12-12] MEDS: Piperacillin/Tazobactam 3.375 GM in NS 110 ML IVPB SCH ×3 (04:11→22:01)
[2019-12-12] MEDS: D5 IV SCH (04:11)
[2019-12-12 04:32] VITALS: BP 139/82
[2019-12-12 06:40] LABS: BASOPHILS % (AUTO) 1.1 % (0.0-2.0); EOSINOPHILS % (AUTO) 1.8 % (0.0-3.0); HEMATOCRIT 46.2 % (42.0-52.0); HEMOGLOBIN 15.5 G/DL (14.2-18.0); INR 0.9 (0.9-1.1); LYMPHOCYTES % (AUTO) 14.5 % (20.0-45.0); MEAN CORPUSCULAR VOLUME 94 FL (80-99); MONOCYTES % (AUTO) 6.1 % (1.0-10.0); NEUTROPHILS % (AUTO) 76.5 % (45.0-75.0); PLATELET COUNT 247 K/UL (150-450); RED BLOOD COUNT 4.93 M/UL (4.70-6.10); WHITE BLOOD COUNT 10.9 K/UL (4.8-10.8)
--- NOTE | 2019-12-12 07:20 | NUR ---
HAND-OFF: Report given to Danya De Guzman LVN.
[2019-12-12 07:27] LABS: ALANINE AMINOTRANSFERASE 50 U/L (12-78); ALBUMIN 2.6 G/DL (3.4-5.0); ALBUMIN/GLOBULIN RATIO 0.5 (1.0-2.7); ALKALINE PHOSPHATASE 117 U/L (46-116); ANION GAP 15 mmol/L (5-15); ASPARTATE AMINO TRANSFERASE 41 U/L (15-37); BILIRUBIN,TOTAL 0.9 MG/DL (0.2-1.0); BLOOD UREA NITROGEN 19 mg/dL (7-18); CALCIUM 8.9 MG/DL (8.5-10.1); CARBON DIOXIDE 21 MMOL/L (21-32); CHLORIDE 123 MMOL/L (98-107); CREATININE 1.3 MG/DL (0.55-1.30); POTASSIUM 2.8 MMOL/L (3.5-5.1); SODIUM 157 MMOL/L (136-145)
--- NOTE | 2019-12-12 07:35 | NUR ---
NURSE NOTES: patient received in bed A/A/Ox2. impulsive. on fowlers position. contracted. IV access patent and intact. IVF infusing well. kept patient NPO. keep bed in the lowest position. siderails are up x3, bed locked and alarm engaged. will cont to monitor.
--- NOTE | 2019-12-12 07:40 | General Progress Note ---
Assessment/Plan Problem List: (1) Dehydration ICD Codes: E86.0 - Dehydration SNOMED: 05131622 (2) Status post stroke ICD Codes: Z86.73 - Personal history of transient ischemic attack (TIA), and cerebral infarction without residual deficits SNOMED: 762121543 (3) Failure to thrive SNOMED: 42536355 Qualifiers: Qualified Codes: R62.7 - Adult failure to thrive (4) Renal failure ICD Codes: N19 - Unspecified kidney failure SNOMED: 59565995 Qualifiers: Qualified Codes: N19 - Unspecified kidney failure (5) UTI (urinary tract infection) ICD Codes: N39.0 - Urinary tract infection, site not specified SNOMED: 23269212 Qualifiers: Qualified Codes: N39.0 - Urinary tract infection, site not specified (6) Right lower lobe pneumonia ICD Codes: J18.9 - Pneumonia, unspecified organism SNOMED: 770158006 Qualifiers: Qualified Codes: J18.9 - Pneumonia, unspecified organism Status: stable Assessment/Plan: GT tomorrow ivf adjusted repeat labs tonite and tomorrow cardiac rx bp control neuro eval antiplt Subjective ROS Limited/Unobtainable: No Constitutional: Reports: malaise, weakness HEENT: Reports: no symptoms Cardiovascular: Reports: no symptoms Respiratory: Reports: no symptoms Gastrointestinal/Abdominal: Reports: no symptoms Genitourinary: Reports: no symptoms Neurologic/Psychiatric: Reports: pre-existing deficit Endocrine: Reports: no symptoms Hematologic/Lymphatic: Reports: no symptoms Allergies: Uncoded Allergies: Green vegetables (Allergy, Unknown, 12/10/19) All Systems: reviewed and negative except above Subjective lethargic. failed swallow eval. on ivf. Na elevated. Objective Last 24 Hour Vital Signs Date Time Temp Pulse Resp B/P (MAP) Pulse Ox O2 Delivery O2 Flow Rate FiO2 12/12/19 04:32 96.8 94 18 139/82 (101) 94 12/12/19 00:52 98.7 87 16 127/93 (104) 92 12/11/19 20:58 Room Air 12/11/19 20:44 98.3 84 12 131/92 (105) 97 12/11/19 16:00 98.0 90 18 148/94 (112) 97 12/11/19 12:00 98.2 91 20 134/97 (109) 97 12/11/19 09:00 Room Air 12/11/19 08:00 98.0 77 18 141/90 (107) 94 Intake and Output 12/11/19 12/12/19 19:00 07:00 Intake Total 100 ml 542.5 ml Output Total 500 ml Balance 100 ml 42.5 ml Intake IV Total 100 ml 542.5 ml Output Urine Total 500 ml # Voids 2 Laboratory Tests 12/12/19 05:50: White Blood Count 10.9H, Red Blood Count 4.93, Hemoglobin 15.5, Hematocrit 46.2 , Mean Corpuscular Volume 94, Mean Corpuscular Hemoglobin 31.4H, Mean Corpuscular Hemoglobin Concent 33.5, Red Cell Distribution Width 13.0, Platelet Count 247, Mean Platelet Volume 6.7, Neutrophils (%) (Auto) 76.5H, Lymphocytes ( %) (Auto) 14.5L, Monocytes (%) (Auto) 6.1, Eosinophils (%) (Auto) 1.8, Basophils (%) (Auto) 1.1, Prothrombin Time 10.1, Prothromb Time International Ratio 0.9, Sodium Level 157H, Potassium Level 2.8L, Chloride Level 123H, Carbon Dioxide Level 21, Anion Gap 15, Blood Urea Nitrogen 19H, Creatinine 1.3, Estimat Glomerular Filtration Rate , Glucose Level 147H, Calcium Level 8.9, Total Bilirubin 0.9, Aspartate Amino Transf (AST/SGOT) 41H, Alanine Aminotransferase (ALT/SGPT) 50, Alkaline Phosphatase 117H, Total Protein 7.8, Albumin 2.6L, Globulin 5.2, Albumin/Globulin Ratio 0.5L Height (Feet): 5 Height (Inches): 5.00 Weight (Pounds): 121 General Appearance: WD/WN, lethargic, confused Cardiovascular: regular rhythm Respiratory/Chest: lungs clear, normal breath sounds Abdomen: normal bowel sounds, non tender, soft, no organomegaly Edema: no edema noted Arm (L), no edema noted Arm (R), no edema noted Leg (L), no edema noted Leg (R), no edema noted Pedal (L), no edema noted Pedal (R), no edema noted Generalized Neurologic: motor weakness Jamie Chakraborty MD Dec 12, 2019 07:40
[2019-12-12 08:00] VITALS: BP 129/90
[2019-12-12] MEDS: Heparin 5000 units/ml inj SUBQ SCH ×2 (08:34→21:00)
[2019-12-12] MEDS: D5W w/KCl 20mEq 1,000 ML IV SCH ×2 (08:46→22:01)
--- NOTE | 2019-12-12 09:00 | NUR ---
NURSE NOTES: Dr Chakraborty made aware of the K+2.8. present. will cont to monitor.
[2019-12-12] MEDS: Pantoprazole Inj IVP SCH (10:05)
[2019-12-12 12:05] VITALS: BP 137/106
[2019-12-12] MEDS ORDERED: Varibar Nectar 240ml MC PRN (12:15)
[2019-12-12] MEDS ORDERED: Varibar Pudding 230ml MC PRN (12:15)
[2019-12-12] MEDS ORDERED: Varibar Honey 250ml MC PRN (12:15)
--- NOTE | 2019-12-12 13:57 | NUR ---
SWALLOW AND SPEECH THERAPY NOTE: COMPLETED MODIFIED BARIUM SWALLOW STUDY, SEE FULL REPORT TO FOLLOW. 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 PRIOR TO STUDY, REQUIRED MILD AMOUNTS OF THICK WHITISH PHLEGM REMOVED FROM THE BACK OF HIS THROAT. THIN LIQUIDS: CUP SIP: TRACE AUDIBLE ASPIRATION BELOW THE VOCAL FOLDS WITH EJECTION DUE TO DELAYED SWALLOW, LATE CLOSURE OF LARYNGEAL VESTIBULE, AND REDUCED HYOLARYNGEAL EXCURSION. TSP (X2): NO ASPIRATION BUT HAD TRACE LARYNGEAL PENETRATION (LP) ABOVE THE VOCAL FOLDS WITH EJECTION AND BEFORE THE SWALLOW DUE TO DELAYED SWALLOW AND LATE CLOSURE OF LARYNGEAL VESTIBULE. ADDITIONAL ASPIRATION RISK AFTER THE SWALLOW DUE TO REDUCED OROPHARYNGEAL DYSMOTILITY AND RESIDUE THAT HE DID NOT FEEL. NECTAR THICK LIQUIDS CUP SIP: NO ASPIRATION BUT HAD TRACE AND AUDIBLE LP TO THE VOCAL FOLDS NOT EJECTED DUE TO DELAYED SWALLOW, LATE AND INCOMPLETE LARYNGEAL VESTIBULE CLOSURE (LVC), AND HYOLARYNGEAL EXCURSION. TSP: NO ASPIRATION BUT HAD TRACE SILENT LP ABOVE VOCAL FOLDS WITH EJECTION DUE TO LATE SWALLOW/LVC. ADDITIONAL ASPIRATION AFTER THE SWALLOW DUE TO REDUCED OROPHARYNGEAL DYSMOTILITY AND POOR SENSATION FOR RESIDUE. ESOPHAGEAL PHASE: LIMITED VIEW BUT APPEARED GROSSLY FUNCTIONAL TRIAL TX: SOMETIMES BENEFITS FROM SMALLER AMOUNTS (TSP), EXTRA HARD SWALLOWS (2-3), MORE TIME. UNABLE TO TUCK CHIN BUT THIS WOULD MAKE IT MORE DIFFICULT TO MOVE BOLUS POSTERIORLY. REQUIRED SUCTION AFTER STUDY AND NOT GIVEN ADDITIONAL CONSISTENCIES DUE POOR BOLUS TRANSPORT, WEAK SWALLOW, AND SIGNIFICANT OROPHARYNGEAL RESIDUE AFTER THE SWALLOW. RECOMMENDATIONS: CONTINUE WITH NPO STATUS AND ORAL CARE/SUCTION PEG TOMORROW DISCUSSED ABOVE INFORMATION WITH PATIENT, HIS DTR, AND DR. CLEMONS SKILLED DYSPHAGIA MANAGEMENT AND TX AND REPEAT MBSS AN OUTPATIENT AFTER THERAPY AT [facility] FOR A FEW WEEKS. ADDITIONAL RISK OF Addendum: 12/12/19 at 1358 by MISTY ACEVEDO PUFF IRON OPERATOR SWALLOW STATUS: PATIENT SEEN FOR MODIFIED BARIUM SWALLOW STUDY, SEE SUMMARY WITH FULL REPORT TO FOLLOW. SPOKE TO PATIENT'S DTR ABOUT STUDY RESULTS AND SHE IS RECEPTIVE TO PEG WHICH IS PLANNED FOR TOMORROW WITH DR PAREDES. D/W DR CLEMONS, PATIENT, AND RN (DONNA) RESULTS OF STUDY AND PLAN FOR PEG. PLAN: KEEP NPO AND CONTINUE ORAL CARE/SUCTION PRN PEG TOMORROW F/UP WITH SKILLED DYSPHAGIA MANAGEMENT AND TX, REPEAT MOD BARIUM SWALLOW OUTPT WHEN HE HAS THERAPY FOR A FEW WEEKS AT SNF.
--- NOTE | 2019-12-12 14:57 | NUR ---
NURSE NOTES: CONSENT OBTAINED FOR EGD WITH PEG FROM KAY BOLDEN. ALSO, INFORMED DAUGHTER TO UPDATE THE POLST AND STATED THAT ONLY DO NOTE RESUSCITATE BUT PLACE GTUBE. ASKED TO SEND PATIENT'S ADVANCE DIRECTIVE. INFORMED AIYANA, DIRECTOR REGARDING THE MATTER ABOVE. WILL CONT THE PLAN OF CARE.
[2019-12-12 16:00] VITALS: BP 119/71
--- NOTE | 2019-12-12 17:00 | NUR ---
CASE MANAGEMENT:REVIEW SI;FTT. DEHYDRATION. RENAL FAILURE. UTI. RLL PNA. 96.8 101 20 139/82 91% ON RA IS;IVF D5 @ 100 ML/HR ZOSYN IV Q8 HRS HEPARIN SUBQ Q12 HRS MED SURG STATUS DCP;FROM [facility]
[2019-12-12 18:42] LABS: ANION GAP 15 mmol/L (5-15); BLOOD UREA NITROGEN 20 mg/dL (7-18); CALCIUM 8.9 MG/DL (8.5-10.1); CARBON DIOXIDE 22 MMOL/L (21-32); CHLORIDE 120 MMOL/L (98-107); CREATININE 1.4 MG/DL (0.55-1.30); POTASSIUM 3.2 MMOL/L (3.5-5.1); SODIUM 157 MMOL/L (136-145)
--- NOTE | 2019-12-12 18:53 | NUR ---
HAND-OFF: Report given to
--- NOTE | 2019-12-12 19:50 | NUR ---
NURSE NOTES: Received patient awake, confused, resting in bed, kept clean and dry.
[2019-12-12 20:10] VITALS: BP 149/92
--- NOTE | 2019-12-12 20:15 | General Progress Note ---
Assessment/Plan Status: stable Assessment/Plan: Assessment - dysphagia - hypernatremia - hypokalemia Recommendations - NPO - abx - correct electrolytes - PEG placement Subjective Allergies: Uncoded Allergies: Green vegetables (Allergy, Unknown, 12/10/19) Subjective confused no change scheduled for TH am Objective Last 24 Hour Vital Signs Date Time Temp Pulse Resp B/P (MAP) Pulse Ox O2 Delivery O2 Flow Rate FiO2 12/12/19 20:10 98.2 78 16 149/92 (111) 98 12/12/19 16:00 97.5 101 19 119/71 (87) 93 12/12/19 12:05 97.5 100 20 137/106 (116) 91 12/12/19 09:00 Room Air 12/12/19 08:00 97.7 93 18 129/90 (103) 96 12/12/19 04:32 96.8 94 18 139/82 (101) 94 12/12/19 00:52 98.7 87 16 127/93 (104) 92 12/11/19 20:58 Room Air 12/11/19 20:44 98.3 84 12 131/92 (105) 97 Intake and Output 12/11/19 12/12/19 19:00 07:00 Intake Total 100 ml 542.5 ml Output Total 500 ml Balance 100 ml 42.5 ml Intake IV Total 100 ml 542.5 ml Output Urine Total 500 ml # Voids 2 Laboratory Tests 12/12/19 05:50: White Blood Count 10.9H, Red Blood Count 4.93, Hemoglobin 15.5, Hematocrit 46.2 , Mean Corpuscular Volume 94, Mean Corpuscular Hemoglobin 31.4H, Mean Corpuscular Hemoglobin Concent 33.5, Red Cell Distribution Width 13.0, Platelet Count 247, Mean Platelet Volume 6.7, Neutrophils (%) (Auto) 76.5H, Lymphocytes ( %) (Auto) 14.5L, Monocytes (%) (Auto) 6.1, Eosinophils (%) (Auto) 1.8, Basophils (%) (Auto) 1.1, Prothrombin Time 10.1, Prothromb Time International Ratio 0.9, Sodium Level 157H, Potassium Level 2.8L, Chloride Level 123H, Carbon Dioxide Level 21, Anion Gap 15, Blood Urea Nitrogen 19H, Creatinine 1.3, Estimat Glomerular Filtration Rate , Glucose Level 147H, Calcium Level 8.9, Total Bilirubin 0.9, Aspartate Amino Transf (AST/SGOT) 41H, Alanine Aminotransferase (ALT/SGPT) 50, Alkaline Phosphatase 117H, Total Protein 7.8, Albumin 2.6L, Globulin 5.2, Albumin/Globulin Ratio 0.5L 12/12/19 17:50: Sodium Level 157H, Potassium Level 3.2L, Chloride Level 120H, Carbon Dioxide Level 22, Anion Gap 15, Blood Urea Nitrogen 20H, Creatinine 1.4H, Estimat Glomerular Filtration Rate , Glucose Level 176H, Calcium Level 8.9 Height (Feet): 5 Height (Inches): 5.00 Weight (Pounds): 121 Paul Matute MD Dec 12, 2019 20:15
[2019-12-13] VITALS (9 sets, daily range): BP systolic 112–150; BP diastolic 76–100
[2019-12-13] MEDS: Piperacillin/Tazobactam 3.375 GM in NS 110 ML IVPB SCH ×3 (04:54→21:01)
[2019-12-13] MEDS: D5W w/KCl 20mEq 1,000 ML IV SCH ×4 (04:54→21:00)
[2019-12-13 07:15] LABS: ANION GAP 11 mmol/L (5-15); BLOOD UREA NITROGEN 19 mg/dL (7-18); CARBON DIOXIDE 23 MMOL/L (21-32); CHLORIDE 122 MMOL/L (98-107); CREATININE 1.4 MG/DL (0.55-1.30); POTASSIUM 3.1 MMOL/L (3.5-5.1); SODIUM 156 MMOL/L (136-145)
--- NOTE | 2019-12-13 07:27 | General Progress Note ---
Assessment/Plan Problem List: (1) Dehydration ICD Codes: E86.0 - Dehydration SNOMED: 78914425 (2) Status post stroke ICD Codes: Z86.73 - Personal history of transient ischemic attack (TIA), and cerebral infarction without residual deficits SNOMED: 888928676 (3) Failure to thrive SNOMED: 81330322 Qualifiers: Qualified Codes: R62.7 - Adult failure to thrive (4) Renal failure ICD Codes: N19 - Unspecified kidney failure SNOMED: 35995964 Qualifiers: Qualified Codes: N19 - Unspecified kidney failure (5) UTI (urinary tract infection) ICD Codes: N39.0 - Urinary tract infection, site not specified SNOMED: 56099541 Qualifiers: Qualified Codes: N39.0 - Urinary tract infection, site not specified (6) Right lower lobe pneumonia ICD Codes: J18.9 - Pneumonia, unspecified organism SNOMED: 099534241 Qualifiers: Qualified Codes: J18.9 - Pneumonia, unspecified organism Status: stable Assessment/Plan: GT today ivf increased replace k cardiac rx bp control antiplt Subjective ROS Limited/Unobtainable: No Constitutional: Reports: malaise, weakness HEENT: Reports: no symptoms Cardiovascular: Reports: no symptoms Respiratory: Reports: no symptoms Gastrointestinal/Abdominal: Reports: difficulty swallowing Genitourinary: Reports: no symptoms Neurologic/Psychiatric: Reports: pre-existing deficit Endocrine: Reports: no symptoms Hematologic/Lymphatic: Reports: no symptoms Allergies: Uncoded Allergies: Green vegetables (Allergy, Unknown, 12/10/19) All Systems: reviewed and negative except above Subjective lethargic. failed swallow eval. on ivf. Na elevated- trending down. Objective Last 24 Hour Vital Signs Date Time Temp Pulse Resp B/P (MAP) Pulse Ox O2 Delivery O2 Flow Rate FiO2 12/13/19 04:01 97.8 92 16 134/83 (100) 96 12/13/19 00:10 98.2 82 16 112/78 (89) 92 12/12/19 20:12 Room Air 12/12/19 20:10 98.2 78 16 149/92 (111) 98 12/12/19 16:00 97.5 101 19 119/71 (87) 93 12/12/19 12:05 97.5 100 20 137/106 (116) 91 12/12/19 09:00 Room Air 12/12/19 08:00 97.7 93 18 129/90 (103) 96 Intake and Output 12/12/19 12/13/19 19:00 07:00 Intake Total 882.5 ml 565.0 ml Balance 882.5 ml 565.0 ml Intake IV Total 882.5 ml 565.0 ml # Voids 2 Laboratory Tests 12/12/19 17:50: Sodium Level 157H, Potassium Level 3.2L, Chloride Level 120H, Carbon Dioxide Level 22, Anion Gap 15, Blood Urea Nitrogen 20H, Creatinine 1.4H, Estimat Glomerular Filtration Rate , Glucose Level 176H, Calcium Level 8.9 12/13/19 06:00: Sodium Level 156H, Potassium Level 3.1L, Chloride Level 122H, Carbon Dioxide Level 23, Anion Gap 11, Blood Urea Nitrogen 19H, Creatinine 1.4H, Estimat Glomerular Filtration Rate , Glucose Level 139H, Calcium Level 9.0 Height (Feet): 5 Height (Inches): 5.00 Weight (Pounds): 121 General Appearance: WD/WN, alert Neck: supple Cardiovascular: normal rate, regular rhythm Respiratory/Chest: chest wall non-tender, lungs clear, normal breath sounds, no respiratory distress Abdomen: normal bowel sounds, non tender, soft, no organomegaly Edema: no edema noted Arm (L), no edema noted Arm (R), no edema noted Leg (L), no edema noted Leg (R), no edema noted Pedal (L), no edema noted Pedal (R), no edema noted Generalized Neurologic: motor weakness Jamie Chakraborty MD Dec 13, 2019 07:27
--- NOTE | 2019-12-13 07:33 | NUR ---
HAND-OFF: Report given to Angelo Eden RN.
--- NOTE | 2019-12-13 07:51 | NUR ---
NURSE NOTES: received report from SUBHASH Jones. patient in bed, sleeping. no respiratory distress noted. no facial grimacing. EGD/PEG placement scheduled today.consent in the chart signed by daughter. IV on LFA24 running [id number]@125/hr. bed in the lowest position and locked. call light within reach. will continue to provide plan of care.
[2019-12-13] MEDS: Heparin 5000 units/ml inj SUBQ SCH ×2 (09:00→21:02)
[2019-12-13] MEDS: Pantoprazole Inj IVP SCH (09:07)
--- NOTE | 2019-12-13 10:39 | Anethesia Preoperative Eval ---
Anesthesia Pre-op PMH/ROS General Date of Evaluation: Dec 13, 2019 Time of Evaluation: 10:32 Anesthesiologist: Miguel ASA Score: ASA 4 Mallampati Score Class I : Soft palate, uvula, fauces, pillars visible Class II: Soft palate, uvula, fauces visible Class III: Soft palate, base of uvula visible Class IV: Only hard plate visible Mallampati Classification: Class III Surgeon: Cornell Diagnosis: Dysphagia Surgical Procedure: EGD PEG placement Anesthesia History: none Family History: no anesthesia problems Allergies: Uncoded Allergies: Green vegetables (Allergy, Unknown, 12/10/19) Medications: see eMAR Patient NPO?: Yes Past Medical History Cardiovascular: Reports: HTN, other - CHF; Denies: CAD, [place], valve dz, arrhythmia Pulmonary: Denies: asthma, COPD, LIN[place], other Gastrointestinal/Genitourinary: Reports: GERD, CRI, other - DYsphagia Neurologic/Psychiatric: Reports: dementia, CVA; Denies: depression/anxiety, TIA, other Endocrine: Reports: hypothyroidism; Denies: DM, steroids, other HEENT: Denies: cataract (L), cataract (R), glaucoma, [place] (L[place] (R[place] other Hematology/Immune: Reports: anemia; Denies: DVT, bleeding disorder, other Musculoskeletal/Integumentary: Reports: OA, other - contrructed; Denies: RA, DJD, DDD, edema Other: other - malnourished PMH Narrative: as above PSxH Narrative: see H&P Anesthesia Pre-op Phys. Exam Physician Exam Last Vital Signs Date Time Temp Pulse Resp B/P (MAP) Pulse Ox O2 Delivery O2 Flow Rate FiO2 12/13/19 08:00 97.2 85 20 120/83 (95) 98 12/12/19 20:12 Room Air Constitutional: NAD Neurologic: other - unable to obtaine Cardiovascular: RRR, no M/R/G Respiratory: CTA Gastrointestinal: S/NT/ND Airway Exam Mallampati Score: Class III MO: limited Neck: stiff ROM: limited Teeth: missing Dentures: no upper, no lower Anesthesia Pre-op A/P Labs Chemistry Test 12/12/19 17:50 12/13/19 06:00 Sodium Level 157 MMOL/L (136-145) H 156 MMOL/L (136-145) H Potassium Level 3.2 MMOL/L (3.5-5.1) L 3.1 MMOL/L (3.5-5.1) L Chloride Level 120 MMOL/L (98-107) H 122 MMOL/L (98-107) H Carbon Dioxide Level 22 MMOL/L (21-32) 23 MMOL/L (21-32) Anion Gap 15 mmol/L (5-15) 11 mmol/L (5-15) Blood Urea Nitrogen 20 mg/dL (7-18) H 19 mg/dL (7-18) H Creatinine 1.4 MG/DL (0.55-1.30) H 1.4 MG/DL (0.55-1.30) H Estimat Glomerular Filtration Rate mL/min (>60) mL/min (>60) Glucose Level 176 MG/DL (74-106) H 139 MG/DL (74-106) H Calcium Level 8.9 MG/DL (8.5-10.1) 9.0 MG/DL (8.5-10.1) Risk Assessment & Plan Assessment: ASA 4 Plan: Roland Ruiz MD Dec 13, 2019 10:39
--- NOTE | 2019-12-13 10:50 | NUR ---
NURSE NOTES: patient left unit via gurney for EGD/PEG placement with fair condition. consent in the chart. IV on LH 22g saline lock. LFA24g. peripheral IV intact.
[2019-12-13] MEDS ORDERED: fentaNYL 100 mcg/2 mL IV ONE (11:00)
[2019-12-13] MEDS ORDERED: Propofol 200mg/20ml IV ONE (11:00)
--- NOTE | 2019-12-13 11:03 | General Progress Note ---
Assessment/Plan Status: stable Assessment/Plan: Assessment - dysphagia - hypernatremia - hypokalemia Recommendations - NPO - abx - correct electrolytes - PEG placement today Subjective Allergies: Uncoded Allergies: Green vegetables (Allergy, Unknown, 12/10/19) Subjective confused no change scheduled for PEG today labs noted Objective Last 24 Hour Vital Signs Date Time Temp Pulse Resp B/P (MAP) Pulse Ox O2 Delivery O2 Flow Rate FiO2 12/13/19 09:00 Room Air 12/13/19 08:00 97.2 85 20 120/83 (95) 98 12/13/19 04:01 97.8 92 16 134/83 (100) 96 12/13/19 00:10 98.2 82 16 112/78 (89) 92 12/12/19 20:12 Room Air 12/12/19 20:10 98.2 78 16 149/92 (111) 98 12/12/19 16:00 97.5 101 19 119/71 (87) 93 12/12/19 12:05 97.5 100 20 137/106 (116) 91 Intake and Output 12/12/19 12/13/19 19:00 07:00 Intake Total 882.5 ml 620.0 ml Balance 882.5 ml 620.0 ml Intake IV Total 882.5 ml 620.0 ml # Voids 2 Laboratory Tests 12/12/19 17:50: Sodium Level 157H, Potassium Level 3.2L, Chloride Level 120H, Carbon Dioxide Level 22, Anion Gap 15, Blood Urea Nitrogen 20H, Creatinine 1.4H, Estimat Glomerular Filtration Rate , Glucose Level 176H, Calcium Level 8.9 12/13/19 06:00: Sodium Level 156H, Potassium Level 3.1L, Chloride Level 122H, Carbon Dioxide Level 23, Anion Gap 11, Blood Urea Nitrogen 19H, Creatinine 1.4H, Estimat Glomerular Filtration Rate , Glucose Level 139H, Calcium Level 9.0 Height (Feet): 5 Height (Inches): 5.00 Weight (Pounds): 121 Paul Matute MD Dec 13, 2019 11:03
--- NOTE | 2019-12-13 11:04 | Pre-Procedure Note/Attestation ---
Pre-Procedure Note/Attestation Complete Prior to Procedure Planned Procedure: not applicable Procedure Narrative: PEG Indications for Procedure Pre-Operative Diagnosis: dysphagia Attestation I attest that I discussed the nature of the procedure; its benefits; risks and complications; and alternatives (and the risks and benefits of such alternatives ), prior to the procedure, with the patient (or the patient's legal quality audit representative). I attest that, if there was a reasonable possibility of needing a blood transfusion, the patient (or the patient's legal quality audit representative) was given the [facility] standardized written summary, pursuant to the [place] Blood Safety Act ([place] Health and Safety Code # 1645, as amended). I attest that I re-evaluated the patient just prior to the surgery and that there has been no change in the patient's H&P, except as documented below: Paul Matute MD Dec 13, 2019 11:03
[2019-12-13] MEDS ORDERED: NS 500ML IVPB ONE (11:10)
--- NOTE | 2019-12-13 11:32 | Endoscopy Procedure Note ---
Endoscopy Procedure Note General Indication for Procedure: dysphagia Procedures Performed: EGD Operative Findings/Diagnosis: s/p grisel II, cardia fold vs polyp biopsied, failed PEG Specimen: yes Pt Tolerated Procedure Well: Yes Estimated Blood Loss: none Anesthesia Anesthesiologist: Jeanne Anesthesia: MAC Medications Medication Given: see anesthesia record Inserted Devices Implant(s) used?: No GI Core Measures 50 yrs or older w/o bx or poly: Not Applicable 10yrs. F/U recommended: Not Applicable Paul Matute MD Dec 13, 2019 11:31
--- NOTE | 2019-12-13 11:33 | Brief Operative Note ---
Immediate Post Operative Note Operative Note Chief Complaint: dysphagia Pre-op Diagnosis: dysphagia Procedure: EGD Bx Post-op Diagnosis: s/p Moncho II, cardia fold biopsied, failed PEG landmarks Surgeon: mayi Anesthesiologist: Jeanne Anesthesia: MAC Specimen: yes Complications: none Condition: stable Fluids: recorded Implant(s) used?: No Paul Matute MD Dec 13, 2019 11:33
--- NOTE | 2019-12-13 11:41 | Immediate Post-Op Evaluation ---
Immediate Post-Op Evalulation Immediate Post-Op Evalulation Procedure: EGD with Bx Date of Evaluation: Dec 13, 2019 Time of Evaluation: 11:39 IV Fluids: 300 Blood Products: none Estimated Blood Loss: none Urinary Output: none Blood Pressure Systolic: 116 Blood Pressure Diastolic: 72 Pulse Rate: 86 Respiratory Rate: 20 O2 Sat by Pulse Oximetry: 99 Temperature (Fahrenheit): 97.5 Pain Score (1-10): 1 Nausea: No Vomiting: No Complications none Patient Status: reacts, patent, none Hydration Status: adequate Roland Rivera MD Dec 13, 2019 11:41
--- NOTE | 2019-12-13 12:11 | NUR ---
NURSE NOTES: Patient came back to unit after procedure. Falied PEG placement. done EGD with biopsy and sent polyp. VS 122/94/79.97.2, 12, no respiratory distress noted with 2l via NC. no facial grimacing noted. received report from SUBHASH Ojeda,OR.
--- NOTE | 2019-12-13 12:45 | Diagnostic Imaging Report ---
Indication: History of TIA and infarct, history of altered mental status Technique: Grayscale and duplex images of the bilateral extracranial carotid and vertebral arteries Comparison: none Findings: Bilaterally, grayscale and duplex images demonstrate atherosclerotic plaquing resulting in less than 50% diameter narrowing. Normal Doppler waveforms. Diffusely somewhat slow flow velocities bilaterally. Patent bilateral vertebral arteries, antegrade flow. Impression: Less than 50% diameter stenosis bilaterally All stenosis was measured based on the NASCET criteria. Velocity criteria are extrapolated from diameter data as defined by the Society of radiologists in ultrasound consensus conference. Radiology 2003:229; 340-346
--- NOTE | 2019-12-13 13:18 | Consultation ---
History of Present Illness General Date patient seen: Dec 13, 2019 Chief Complaint: General Complaint Present Illness HPI The patient is an unfortunate 84-year-old white man with a history of stroke who was sent to a snf and now readmitted to the hospital due to slurring of his speech and worsening mental status. The patient has free water deficit and has been dehydrated with lactic acidosis. He has been resuscitated. The family apparently now wanting to proceed with a gastrostomy tube placement for feeding and nutritional support. The patient himself is unable to provide any history. Most of the information is only available from the chart. Unable to have PEG via GI scope given prior gastric surgery. Surgery called to evaluate and assist with care. patient seen, chart reviewed, patient examined. Allergies: Uncoded Allergies: Green vegetables (Allergy, Unknown, 12/10/19) Medication History Scheduled Docusate Sodium (Docusate Sodium), 100 MG ORAL DAILY, (Reported) Potassium Chloride (Potassium Chloride), 20 MEQ PO DAILY, (Reported) Scheduled PRN Acetaminophen* (Acetaminophen*), 650 MG RECTAL Q6H PRN for temp >100.3, ( Reported) Acetaminophen* (Acetaminophen 325MG Tablet*), 650 MG ORAL Q6H PRN for Mild Pain (Pain Scale 1-3), (Reported) Albuterol Sulfate* (Albuterol Sulfate Hhn*), 3 ML INH Q6H PRN for Shortness of Breath, (Reported) Simethicone (Simethicone), 125 MG PO Q6HR PRN for stomach pain/bloating, ( Reported) [Morphine Sulfate], 0.25 ML SL Q4HR PRN for respiratory distress, (Reported) Patient History Limited by: medical condition History Provided By: Medical Record, PMD Healthcare decision maker Anay Molina Resuscitation status Do Not Resuscitate Advanced Directive on File Past Medical/Surgical History Past Medical/Surgical History: (1) Dehydration (2) Polycythemia (3) Hypernatremia (4) Renal failure (5) UTI (urinary tract infection) (6) Right lower lobe pneumonia (7) Status post stroke (8) Failure to thrive Review of Systems All Other Systems: negative except mentioned in HPI ROS Narrative unable to provide given medical condition Physical Exam General Appearance: no apparent distress Lines, tubes and drains: peripheral HEENT: mucous membranes moist Neck: normal inspection Respiratory/Chest: normal breath sounds, no respiratory distress, no accessory muscle use Cardiovascular/Chest: normal rate, regular rhythm, regularly irregular Abdomen: soft, no organomegaly, no mass, other Extremities: non-tender, normal inspection, no calf tenderness Skin Exam: warm/dry Neurologic: unresponsiveness Last 24 Hour Vital Signs Date Time Temp Pulse Resp B/P (MAP) Pulse Ox O2 Delivery O2 Flow Rate FiO2 12/13/19 12:00 97.4 79 20 125/76 (92) 98 12/13/19 12:00 97.2 83 19 122/94 98 Nasal Cannula 2 12/13/19 11:45 80 18 124/94 100 Nasal Cannula 2 12/13/19 11:41 86 20 99 12/13/19 11:40 82 18 115/83 100 Nasal Cannula 2 12/13/19 11:36 97.6 82 19 131/90 100 Nasal Cannula 2 12/13/19 09:00 Room Air 12/13/19 08:00 97.2 85 20 120/83 (95) 98 12/13/19 04:01 97.8 92 16 134/83 (100) 96 12/13/19 00:10 98.2 82 16 112/78 (89) 92 12/12/19 20:12 Room Air 12/12/19 20:10 98.2 78 16 149/92 (111) 98 12/12/19 16:00 97.5 101 19 119/71 (87) 93 Intake and Output 12/12/19 12/13/19 19:00 07:00 Intake Total 882.5 ml 620.0 ml Balance 882.5 ml 620.0 ml Intake IV Total 882.5 ml 620.0 ml # Voids 2 Laboratory Tests Test 12/12/19 17:50 12/13/19 06:00 Sodium Level 157 MMOL/L (136-145) H 156 MMOL/L (136-145) H Potassium Level 3.2 MMOL/L (3.5-5.1) L 3.1 MMOL/L (3.5-5.1) L Chloride Level 120 MMOL/L (98-107) H 122 MMOL/L (98-107) H Carbon Dioxide Level 22 MMOL/L (21-32) 23 MMOL/L (21-32) Anion Gap 15 mmol/L (5-15) 11 mmol/L (5-15) Blood Urea Nitrogen 20 mg/dL (7-18) H 19 mg/dL (7-18) H Creatinine 1.4 MG/DL (0.55-1.30) H 1.4 MG/DL (0.55-1.30) H Estimat Glomerular Filtration Rate mL/min (>60) mL/min (>60) Glucose Level 176 MG/DL (74-106) H 139 MG/DL (74-106) H Calcium Level 8.9 MG/DL (8.5-10.1) 9.0 MG/DL (8.5-10.1) Height (Feet): 5 Height (Inches): 5.00 Weight (Pounds): 121 Medications Current Medications Medications (Trade) Dose Ordered Sig/Leandra Route PRN Reason Start Time Stop Time Status Last Admin Dose Admin Barium Sulfate (Varibar Honey) 250 ml NOW PRN MC RAD 12/12/19 12:15 12/15/19 12:14 Barium Sulfate (Varibar Hauula) 240 ml NOW PRN MC RAD 12/12/19 12:15 12/15/19 12:14 Barium Sulfate (Varibar Pudding) 230 ml NOW PRN MC RAD 12/12/19 12:15 12/15/19 12:14 Dextrose/ Electrolytes 1,000 ml @ 125 mls/hr Q8H IV 12/13/19 07:26 01/12/20 07:25 12/13/19 07:26 Heparin Sodium (Porcine) (Heparin 5000 units/ml) 5,000 units EVERY 12 HOURS SUBQ 12/10/19 09:00 01/09/20 08:59 12/11/19 20:24 Pantoprazole (Protonix) 40 mg DAILY IVP 12/10/19 09:00 01/09/20 08:59 12/13/19 09:07 Piperacillin Sod/ Tazobactam Sod 3.375 gm/Sodium Chloride 110 ml @ 27.5 mls/hr EVERY 8 HOURS IVPB 12/10/19 06:00 12/17/19 05:59 12/13/19 04:54 Assessment/Plan Problem List: (1) Failure to thrive Assessment & Plan: This is a 84-year-old male with failure to thrive, unfortunate history of stroke unable to have significant oral intake and indicating recommended for feeding tube placement. Unfortunately given prior gastric surgery unable to have endoscopic PEG tube placement. Surgical feeding tube placement indicated recommended. Will discuss with patient's family to obtain consent and schedule when appropriate. Thank you for let me participate in patient's care DAILY ESTIMATED NEEDS: Needs based on Underweight, cardiac/ 49kg 30-35 kcals/kg 8312-0911 total kcals 1-1.5 g protein/kg 49-74 g total protein 25-30 mL/kg 0052-9560 total fluid mLs NUTRITION DIAGNOSIS: * Swallowing difficulty R/T dysphagia, s/p acute CVA as evidenced by NPO, pending COMPONENT ASSEMBLER eval, possible PEG placement. CURRENT DIET:NPO PO DIET RECOMMENDATIONS: IF SAFE FOR ORAL DIET -> LOW NA/ texture per COMPONENT ASSEMBLER ENTERAL NUTRITION RECOMMENDATIONS: IF MEDICALLY APPROPRIATE AND PART OF POC -> Glucerna 1.2 @ 55ml/hr x 24 hrs to provide 1320ml, 1584kcal, 79g prot, 1063ml free water * IF PART OF POC AND MEDICALLY INDICATED, OBTAIN GI ACCESS -> initiate Glucerna 1.2 @ 15ml/hr x 6 hrs -> advance 10ml q 4-6 hrs as tolerated to goal rate -> HOB over 30 degrees/ water flush per MDD ADDITIONAL RECOMMENDATIONS: * Calibrated bedscale wt for accurate CBW * F/up w/ COMPONENT ASSEMBLER rec: oral diet vs NPO * Check A1C and lipid panel: s/p acute CVA * Monitor lytes, replete as needed Pt's skin assessment complete with Primary nurse in attendance. All bony prominences assessed. Sacrum and both hips without erythema or evidence of skin breakdown. Both heels boggy with non-blanching erythema.NO other skin concerns noted. Moisture Barrier Paste applied to buttocks. Optifoam drsg placed over Sacrum to minimize friction.Cavilon Skin Barrier applied to both heels. Each Heel covered with Optifoam drsg. Pt positioned with pillow on his side. Both heels floated off mattress with pillow. Recommendations:Apply Moisture Barrier Paste to Sacrum. Cover with Optifoam drsg. Change every 3 days and prn. Apply Cavilon Skin Barrier to both heels. Cover each heel with Optifoam drsg. Change every 7 days and PRN. Reposition at least every 2hours or as tolerated. Off-load heels with pillow. SNOMED: [id number] Qualifiers: Qualified Codes: R62.7 - Adult failure to thrive Andrei Fischer Dec 13, 2019 13:18
--- NOTE | 2019-12-13 13:49 | NUR ---
NURSE NOTES: patient failed PEG placement procedure. Notified Dr. Matute and waiting for new diet order for the patient.
--- NOTE | 2019-12-13 14:05 | NUR ---
RD ASSESSMENT & RECOMMENDATIONS SEE CARE ACTIVITY FOR COMPLETE ASSESSMENT DAILY ESTIMATED NEEDS: Needs based on Underweight, cardiac/ 49kg 30-35 kcals/kg 9902-2570 total kcals 1-1.5 g protein/kg 49-74 g total protein 25-30 mL/kg 8688-3624 total fluid mLs NUTRITION DIAGNOSIS: * Swallowing difficulty R/T dysphagia, s/p acute CVA as evidenced by s/p MBSS w/ rec for nonoral feeds, pending surgical PEG placement, remains NPO. CURRENT DIET:NPO ENTERAL NUTRITION RECOMMENDATIONS: W/ GI access: Glucerna 1.2 @ 55ml/hr x 24 hrs to provide 1320ml, 1584kcal, 79g prot, 1063ml free water * W/ GI access: -> initiate Glucerna 1.2 @ 15ml/hr x 6 hrs -> advance 10ml q 4-6 hrs as tolerated to goal rate -> HOB over 30 degrees/ water flush per MD ADDITIONAL RECOMMENDATIONS: * Calibrated bedscale wt for accurate CBW * Consider NGT feeds until surgical PEG placement done -> pt is NPO day 4 today * Check A1C and lipid panel: s/p acute CVA * Monitor lytes, replete as needed * NISS w/ TF: elev FBSs
--- NOTE | 2019-12-13 14:10 | 48 Hour Post Anesthesia Eval ---
Post Anesthesia Evaluation Procedure: EGD with Bx Date of Evaluation: Dec 13, 2019 Time of Evaluation: 14:09 Blood Pressure Systolic: 104 0: 58 Pulse Rate: 76 Respiratory Rate: 20 Temperature (Fahrenheit): 97.6 O2 Sat by Pulse Oximetry: 98 Airway: patent Nausea: No Vomiting: No Pain Intensity: 1 Hydration Status: adequate Cardiopulmonary Status: stable Mental Status/LOC: patient returned to baseline Follow-up Care/Observations: n/a Post-Anesthesia Complications: none Follow-up care needed: N/A Roland Rivera MD Dec 13, 2019 14:10
--- NOTE | 2019-12-13 14:37 | NUR ---
CASE MANAGEMENT:REVIEW SI;FTT. DEHYDRATION. RENAL FAILURE. UTI. RLL PNA. 97.6 83 20 131/90 98% 2L NC IS;K CL IV X1 IVF D5 @125 ML/HR HEPARIN SUBQ Q12 HRS ZOSYN IV Q8 HRS S/P GTUBE PLACEMENT MED SURG STATUS DCP;FROM [facility]
--- NOTE | 2019-12-13 16:01 | NUR ---
NOTES: REVIEWED MOD BARIUM SWALLOW STUDY IMAGES, SEE UPDATED SUMMARY BELOW AND FULL REPORT IN CARE ACTIVITY SECTION. PATIENT UNABLE TO HAVE PEG TODAY PER RN, NEEDS NGT 12 [place] OVER NOW AND OVER THE WEEKEND UNTIL HE CAN HAVE THE PEG PLACEMENT. CONTINUE WITH ORAL CARE/SUCTION PRN. 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 PRIOR TO STUDY, REQUIRED MILD AMOUNTS OF THICK WHITISH PHLEGM REMOVED FROM THE BACK OF HIS THROAT. THIN LIQUIDS: CUP SIP: TRACE TO 5% AUDIBLE ASPIRATION NOT EJECTED DUE TO DELAYED SWALLOW, LATE CLOSURE OF LARYNGEAL VESTIBULE, AND REDUCED HYOLARYNGEAL EXCURSION. TSP (X2): NO ASPIRATION BUT HAD TRACE LARYNGEAL PENETRATION (LP) ABOVE THE VOCAL FOLDS WITH EJECTION AND BEFORE THE SWALLOW DUE TO DELAYED SWALLOW AND LATE CLOSURE OF LARYNGEAL VESTIBULE. ADDITIONAL ASPIRATION RISK AFTER THE SWALLOW DUE TO REDUCED OROPHARYNGEAL DYSMOTILITY AND RESIDUE THAT HE DID NOT FEEL. NECTAR THICK LIQUIDS CUP SIP: NO ASPIRATION BUT HAD TRACE AND AUDIBLE LP TO THE VOCAL FOLDS NOT EJECTED DUE TO DELAYED SWALLOW, LATE AND INCOMPLETE LARYNGEAL VESTIBULE CLOSURE (LVC), AND HYOLARYNGEAL EXCURSION. TSP: NO ASPIRATION BUT HAD TRACE SILENT LP ABOVE VOCAL FOLDS WITH EJECTION DUE TO LATE SWALLOW/LVC. ADDITIONAL ASPIRATION AFTER THE SWALLOW DUE TO REDUCED OROPHARYNGEAL DYSMOTILITY AND POOR SENSATION FOR RESIDUE. HIGH ASPIRATION/PENETRATION RISK AND REDUCED SWALLOW EFFICIENCY DUE TO THE FOLLOWING COMPONENTS: Oral Impairment Lip Closure (MOUTH OPEN ? APRAXIC / SOB ALSO POURED IN LIQUID) L SIDE WORSE Tongue Control Bolus transport/lingual motion Oral residue Init. pharyngeal swallow Pharyngeal Impairment Laryngeal elevation (LE) Epiglottic movement Laryng vestibular closure Pharyngeal stripping wave PES Opening Tongue base retraction Pharyngeal residue Decreased pharyngeal sensation ESOPHAGEAL PHASE: LIMITED VIEW BUT APPEARED GROSSLY FUNCTIONAL TRIAL TX: SOMETIMES BENEFITS FROM SMALLER AMOUNTS (TSP), EXTRA HARD SWALLOWS (2-3), MORE TIME. UNABLE TO TUCK CHIN BUT THIS WOULD MAKE IT MORE DIFFICULT TO MOVE BOLUS POSTERIORLY. REQUIRED SUCTION AFTER STUDY AND NOT GIVEN ADDITIONAL CONSISTENCIES DUE POOR BOLUS TRANSPORT, WEAK SWALLOW, AND SIGNIFICANT OROPHARYNGEAL RESIDUE AFTER THE SWALLOW. RECOMMENDATIONS: CONTINUE WITH NPO STATUS AND ORAL CARE/SUCTION PEG TOMORROW (NOT SUCCESSFUL PER RN TODAY) DISCUSSED ABOVE INFORMATION WITH PATIENT, HIS DTR, AND DR. CLEMONS SKILLED DYSPHAGIA MANAGEMENT AND TX AND REPEAT MBSS AN OUTPATIENT AFTER THERAPY AT SNF FOR A FEW WEEKS.
--- NOTE | 2019-12-13 16:24 | NUR ---
CHARGE NURSE NOTE: Carotid duplex result (50% stenosis bilaterally) reported to . No new orders given.
--- NOTE | 2019-12-13 16:28 | Consultation ---
Consult Note Consult Note HISTORY OF PRESENT ILLNESS: The patient is an 84-year-old male. He has a history of congestive heart failure, chronic kidney disease, hypertension, and dementia. He was transferred from a residential facility with complaints of slurred speech, left-sided weakness, and left-sided facial droop. On evaluation in the ER, the patient's labs were significant for sodium of 152, potassium 3.2, lactic acid level 3.2. CT scan of the head is pending. UA did show 30 to 40 wbc's. he has been hydrated over last few days, he underwent gastrostomy tube placement attemp today however was unsuccessful due to his previous gastric surgery. PAST MEDICAL HISTORY: As above. PAST SURGICAL HISTORY: Unknown. previous gastric surgery CURRENT MEDICATIONS: Reconciled and reviewed. ALLERGIES: None. FAMILY HISTORY: None. SOCIAL HISTORY: There is no known history of tobacco, ethanol, or drugs. REVIEW OF SYSTEMS: Unobtainable as the patient is confused. PHYSICAL EXAMINATION: VITAL SIGNS: Temperature 98.9, pulse 92, respirations 19, and blood pressure 130/90. GENERAL: The patient is well developed, in no apparent distress. HEART: Regular rate and rhythm. LUNGS: Clear. ABDOMEN: Soft, nontender, and nondistended. EXTREMITIES: Without clubbing, cyanosis, or edema. NEUROLOGIC: The patient opens his eyes. There is a left facial droop noted and left-sided weakness. LABORATORY DATA: Labs were reviewed. ASSESSMENT: This is an 84-year-old male who presents with new-onset left-sided weakness and left-sided facial droop, slurred speech consistent with the acute stroke. PROBLEM LIST: 1. Acute CVA. 2. Sepsis and UTI. 3. Hypertension and congestive heart failure. 4. History of chronic kidney disease. 5. Failure to thrive PLAN: 1. Follow up CT scan of the head. 2. Cardiology, neuro, and ID consultations will be obtained. 3. I have assumed care due Insurance. 4. surgical consultation due to need for open gastrostomy requested Salomón Bacon M.D. Salomón Bacon MD Dec 13, 2019 16:28
--- NOTE | 2019-12-13 17:03 | NUR ---
CHARGE NURSE NOTE: Pt failed swallow eval. according to [facility]. She recommends NG tube insertion for feeding and meds. notified, message left. Awaiting call back.
--- NOTE | 2019-12-13 19:30 | NUR ---
HAND-OFF: Report given to SUBHASH Perez.
--- NOTE | 2019-12-13 19:50 | NUR ---
NURSE NOTES: Received pt from SUBHASH Stephens. AAO x 1, on NC 2 L. IV site intact and running IVF. Inserted NG tube and called x ray department for NGT placement. No labored breathing. Bed locked, lowest position, alarm on, side rails up, call light within reach. Will continue to monitor.
--- NOTE | 2019-12-13 21:31 | Diagnostic Imaging Report ---
Indication: Abdominal pain Comparison: 12/09/2019 Single view of the abdomen obtained Findings: Is an NG tube has been passed and is in good position with the catheter projected over the stomach lumen. There are dilated loops of bowel which appear to be primarily large bowel. This is, in general similar in appearance from the previous exam. Extensive vascular calcifications are present. Bones are osteopenic. IMPRESSION: Nasogastric tube in good position. No significant change otherwise
--- NOTE | 2019-12-13 22:30 | NUR ---
NURSE NOTES: NGT placement confirmed by x ray. Received order Jevity 1.2 @ 30cc/hr from Dr. Bacon. Order noted and carried out
--- NOTE | 2019-12-13 23:46 | Operative Note - Dictated ---
DATE OF OPERATION: 12/13/2019 GASTROENTEROLOGY PROCEDURE REPORT PROCEDURE: Upper gastrointestinal endoscopy with enteroscopy and biopsy. SURGEON: Paul Matute M.D. ANESTHESIA: Please see the separate anesthesiologist notes for details. PRE-ENDOSCOPIC DIAGNOSIS: Dysphagia. POST-ENDOSCOPIC DIAGNOSES: 1. Attempted, but failed gastrostomy tube placement. 2. Polyp versus fold in the gastric cardia, status post biopsy. DESCRIPTION OF PROCEDURE: The procedure its risks, indications, alternatives, and possible complications were explained to the patient's family and informed consent was obtained. The patient was sedated and a diagnostic upper endoscope was introduced through the oropharynx and advanced to the stomach. Upon entering the stomach, it was apparent that the patient had a distal gastrectomy with Billroth II anastomosis. There was a thickened fold in the cardia, which was biopsied. The location for placement of gastrostomy tube could not be identified by usual palpation and transillumination techniques and therefore a gastrostomy tube placement was aborted. The endoscope was removed and the patient was sent to recovery in good condition. COMPLICATIONS: None. ASSESSMENT: This patient has had a distal gastrectomy with Billroth II anastomosis. Safe landmark for placement of the gastrostomy tube using a standard endoscopic technique could not be identified and therefore the patient will have to undergo surgical evaluation for feeding tube placement. RECOMMENDATIONS: 1. Follow up biopsy results. 2. Surgical consultation. Paul Matute M.D. DR: ANNMARIE JOB#: [id number] CC: SRIDHAR
[2019-12-14] VITALS: BP 155/106
[2019-12-14 04:00] VITALS: BP 133/95
[2019-12-14] MEDS: Piperacillin/Tazobactam 3.375 GM in NS 110 ML IVPB SCH ×3 (05:33→21:00)
[2019-12-14] MEDS: D5W w/KCl 20mEq 1,000 ML IV SCH ×3 (05:36→21:00)
--- NOTE | 2019-12-14 06:17 | NUR ---
NURSE NOTES: Pt tolerating well NGT feeding. HOB elevated. Will continue to monitor.
[2019-12-14 06:45] LABS: ALANINE AMINOTRANSFERASE 30 U/L (12-78); ALBUMIN 2.4 G/DL (3.4-5.0); ALBUMIN/GLOBULIN RATIO 0.5 (1.0-2.7); ALKALINE PHOSPHATASE 102 U/L (46-116); ANION GAP 9 mmol/L (5-15); ASPARTATE AMINO TRANSFERASE 21 U/L (15-37); BILIRUBIN,TOTAL 0.9 MG/DL (0.2-1.0); BLOOD UREA NITROGEN 14 mg/dL (7-18); CALCIUM 8.2 MG/DL (8.5-10.1); CARBON DIOXIDE 26 MMOL/L (21-32); CHLORIDE 113 MMOL/L (98-107); CREATININE 1.3 MG/DL (0.55-1.30); SODIUM 147 MMOL/L (136-145)
[2019-12-14 06:49] LABS: POTASSIUM 2.7 MMOL/L (3.5-5.1)
--- NOTE | 2019-12-14 06:54 | NUR ---
NURSE NOTES: Left message to Dr. Bacon for 2.7 K level. Waiting for call back.
--- NOTE | 2019-12-14 07:03 | NUR ---
HAND-OFF: Report given to SUBHASH Stephens.
--- NOTE | 2019-12-14 07:50 | NUR ---
NURSE NOTES: received report from SUBHASH Hinds. patient in bed. disoriented. limited verbal response d/t impaired cognition. no respiratory distress noted. no facial grimacing. NG tube running Jevity 1.2 @30/hr. HOB at all times. soft restraints on both wrists for not removing devices. skin intact. IV on Right wrist intact. running d5w 30meq@125/hr. bed in the lowest position and locked. call light within reach. alarm on. will continue to provide plan of care.
--- NOTE | 2019-12-14 07:53 | NUR ---
NURSE NOTES: patient potassium 2.7 this morning. received call from Dr. Bacon. give patient Potassium 10meq/100ml x 4bags. order noted and carried out.
[2019-12-14 08:00] VITALS: BP 136/94
[2019-12-14] MEDS: Pantoprazole Inj IVP SCH (08:27)
[2019-12-14] MEDS: Heparin 5000 units/ml inj SUBQ SCH ×2 (08:28→21:00)
--- NOTE | 2019-12-14 10:29 | Pulmonology Progress Note ---
Assessment/Plan Assessment/Plan PROBLEM LIST: 1. Acute CVA. 2. Sepsis and UTI. 3. Hypertension and congestive heart failure. 4. History of chronic kidney disease. 5. Failure to thrive PLAN: 1. Follow up CT scan of the head. 2. Cardiology, neuro, and ID consultations will be obtained. 3. I have assumed care due Insurance. 4. Surgical consultation noted due to need for open gastrostomy requested Salomón Bacon M.D. Subjective Interval Events: Hypokalemic this AM Constitutional: Reports: no symptoms HEENT: Repors: no symptoms Respiratory: Reports: no symptoms Cardiovascular: Reports: no symptoms Gastrointestinal/Abdominal: Reports: no symptoms Allergies: Uncoded Allergies: Green vegetables (Allergy, Unknown, 12/10/19) Objective Last 24 Hour Vital Signs Date Time Temp Pulse Resp B/P (MAP) Pulse Ox O2 Delivery O2 Flow Rate FiO2 12/14/19 08:00 97.4 82 18 136/94 (108) 96 12/14/19 04:00 97.5 78 18 133/95 (108) 96 12/14/19 00:00 97.7 91 20 155/106 (122) 98 12/13/19 21:00 Room Air 12/13/19 20:00 97.3 100 20 150/100 (117) 96 12/13/19 16:00 97.5 82 20 137/100 (112) 99 12/13/19 14:10 76 20 98 12/13/19 12:00 97.4 79 20 125/76 (92) 98 12/13/19 12:00 97.2 83 19 122/94 98 Nasal Cannula 2 12/13/19 11:45 80 18 124/94 100 Nasal Cannula 2 12/13/19 11:41 86 20 99 12/13/19 11:40 82 18 115/83 100 Nasal Cannula 2 12/13/19 11:36 97.6 82 19 131/90 100 Nasal Cannula 2 Intake and Output 12/13/19 12/14/19 19:00 07:00 Intake Total 1487.5 ml 1430 ml Balance 1487.5 ml 1430 ml Intake IV Total 1487.5 ml 1250 ml Tube Feeding 180 ml # Voids 3 # Bowel Movements 1 General Appearance: no acute distress HEENT: normocephalic Respiratory/Chest: chest wall non-tender, lungs clear Cardiovascular: normal peripheral pulses, normal rate Abdomen: normal bowel sounds Laboratory Tests 12/14/19 05:28: Sodium Level 147H, Potassium Level 2.7*L, Chloride Level 113H, Carbon Dioxide Level 26, Anion Gap 9, Blood Urea Nitrogen 14, Creatinine 1.3, Estimat Glomerular Filtration Rate , Glucose Level 212H, Calcium Level 8.2L, Total Bilirubin 0.9, Aspartate Amino Transf (AST/SGOT) 21, Alanine Aminotransferase ( ALT/SGPT) 30, Alkaline Phosphatase 102, Total Protein 7.4, Albumin 2.4L, Globulin 5.0, Albumin/Globulin Ratio 0.5L Current Medications Medications (Trade) Dose Ordered Sig/Leandra Route PRN Reason Start Time Stop Time Status Last Admin Dose Admin Barium Sulfate (Varibar Honey) 250 ml NOW PRN MC RAD 12/12/19 12:15 12/15/19 12:14 Barium Sulfate (Varibar [place]) 240 ml NOW PRN MC RAD 12/12/19 12:15 12/15/19 12:14 Barium Sulfate (Varibar Pudding) 230 ml NOW PRN MC RAD 12/12/19 12:15 12/15/19 12:14 Dextrose/ Electrolytes 1,000 ml @ 125 mls/hr Q8H IV 12/13/19 07:26 01/12/20 07:25 12/14/19 05:36 Heparin Sodium (Porcine) (Heparin 5000 units/ml) 5,000 units EVERY 12 HOURS SUBQ 12/10/19 09:00 01/09/20 08:59 12/14/19 08:28 Pantoprazole (Protonix) 40 mg DAILY IVP 12/10/19 09:00 01/09/20 08:59 12/14/19 08:27 Piperacillin Sod/ Tazobactam Sod 3.375 gm/Sodium Chloride 110 ml @ 27.5 mls/hr EVERY 8 HOURS IVPB 12/10/19 06:00 12/17/19 05:59 12/14/19 05:33 Potassium Chloride 100 ml @ 100 mls/hr NOW ONCE IVPB 12/14/19 10:00 12/14/19 10:59 Potassium Chloride 100 ml @ 100 mls/hr NOW ONCE IVPB 12/14/19 11:00 12/14/19 11:59 Salomón Bacon MD Dec 14, 2019 10:29
[2019-12-14 12:00] VITALS: BP 129/89
--- NOTE | 2019-12-14 14:55 | Surgery Progress Note ---
Surgery Progress Note Subjective Additional Comments no acute events comfortable appearing Objective Last 24 Hour Vital Signs Date Time Temp Pulse Resp B/P (MAP) Pulse Ox O2 Delivery O2 Flow Rate FiO2 12/14/19 12:00 98.4 85 18 129/89 (102) 96 12/14/19 09:00 Room Air 12/14/19 08:00 97.4 82 18 136/94 (108) 96 12/14/19 04:00 97.5 78 18 133/95 (108) 96 12/14/19 00:00 97.7 91 20 155/106 (122) 98 12/13/19 21:00 Room Air 12/13/19 20:00 97.3 100 20 150/100 (117) 96 12/13/19 16:00 97.5 82 20 137/100 (112) 99 I&O Intake and Output 12/13/19 12/14/19 19:00 07:00 Intake Total 1487.5 ml 1487.5 ml Balance 1487.5 ml 1487.5 ml Intake IV Total 1487.5 ml 1277.5 ml Tube Feeding 210 ml # Voids 3 # Bowel Movements 1 Dressing: other Wound: other Drains: other Cardiovascular: RSR Respiratory: clear, decreased breath sounds Abdomen: soft, non-tender, present bowel sounds, other Extremities: no tenderness, no cyanosis Laboratory Tests Test 12/14/19 05:28 Sodium Level 147 MMOL/L (136-145) H Potassium Level 2.7 MMOL/L (3.5-5.1) *L Chloride Level 113 MMOL/L (98-107) H Carbon Dioxide Level 26 MMOL/L (21-32) Anion Gap 9 mmol/L (5-15) Blood Urea Nitrogen 14 mg/dL (7-18) Creatinine 1.3 MG/DL (0.55-1.30) Estimat Glomerular Filtration Rate mL/min (>60) Glucose Level 212 MG/DL (74-106) H Calcium Level 8.2 MG/DL (8.5-10.1) L Total Bilirubin 0.9 MG/DL (0.2-1.0) Aspartate Amino Transf (AST/SGOT) 21 U/L (15-37) Alanine Aminotransferase (ALT/SGPT) 30 U/L (12-78) Alkaline Phosphatase 102 U/L (46-116) Total Protein 7.4 G/DL (6.4-8.2) Albumin 2.4 G/DL (3.4-5.0) L Globulin 5.0 g/dL Albumin/Globulin Ratio 0.5 (1.0-2.7) L Plan Problems: (1) Failure to thrive Assessment & Plan: This is a 84-year-old male with failure to thrive, unfortunate history of stroke unable to have significant oral intake and indicating recommended for feeding tube placement. Unfortunately given prior gastric surgery unable to have endoscopic PEG tube placement. Surgical feeding tube placement indicated recommended. Will discuss with patient's family to obtain consent and schedule when appropriate. Thank you for let me participate in patient's care DAILY ESTIMATED NEEDS: Needs based on Underweight, cardiac/ 49kg 30-35 kcals/kg 4109-5703 total kcals 1-1.5 g protein/kg 49-74 g total protein 25-30 mL/kg 9584-2234 total fluid mLs NUTRITION DIAGNOSIS: * Swallowing difficulty R/T dysphagia, s/p acute CVA as evidenced by NPO, pending SMOKING PIPE MOUNTER eval, possible PEG placement. CURRENT DIET:NPO PO DIET RECOMMENDATIONS: IF SAFE FOR ORAL DIET -> LOW NA/ texture per SMOKING PIPE MOUNTER ENTERAL NUTRITION RECOMMENDATIONS: IF MEDICALLY APPROPRIATE AND PART OF POC -> Glucerna 1.2 @ 55ml/hr x 24 hrs to provide 1320ml, 1584kcal, 79g prot, 1063ml free water * IF PART OF POC AND MEDICALLY INDICATED, OBTAIN GI ACCESS -> initiate Glucerna 1.2 @ 15ml/hr x 6 hrs -> advance 10ml q 4-6 hrs as tolerated to goal rate -> HOB over 30 degrees/ water flush per MDD ADDITIONAL RECOMMENDATIONS: * Calibrated bedscale wt for accurate CBW * F/up w/ SMOKING PIPE MOUNTER rec: oral diet vs NPO * Check A1C and lipid panel: s/p acute CVA * Monitor lytes, replete as needed Pt's skin assessment complete with Primary nurse in attendance. All bony prominences assessed. Sacrum and both hips without erythema or evidence of skin breakdown. Both heels boggy with non-blanching erythema.NO other skin concerns noted. Moisture Barrier Paste applied to buttocks. Optifoam drsg placed over Sacrum to minimize friction.Cavilon Skin Barrier applied to both heels. Each Heel covered with Optifoam drsg. Pt positioned with pillow on his side. Both heels floated off mattress with pillow. Recommendations:Apply Moisture Barrier Paste to Sacrum. Cover with Optifoam drsg. Change every 3 days and prn. Apply Cavilon Skin Barrier to both heels. Cover each heel with Optifoam drsg. Change every 7 days and PRN. Reposition at least every 2hours or as tolerated. Off-load heels with pillow. Andrei Fischer Dec 14, 2019 14:55
--- NOTE | 2019-12-14 15:26 | NUR ---
CASE MANAGEMENT:REVIEW SI;AC CVA. SEPSIS. UTI. FTT. 98.4 91 20 155/106 96% ON RA IS;K CL IV IVF D5 @ 125 ML/HR HEPARIN SUBQ Q12 HRS ZOSYN IB Q8 HRS MED SURG STATUS DCP;FROM [facility]
--- NOTE | 2019-12-14 15:57 | Diagnostic Imaging Report ---
Indication: Dysphagia Procedure and findings: A single garage door hanger fluoroscopic image of the neck performed in the lateral projection followed by real-time fluoroscopic video/cine imaging performed in a lateral projection in conjunction with the speech pathologist evaluation. Variable consistencies of barium given per mouth. Findings: Significant abnormalities of both oral and pharyngeal phases of swallowing are demonstrated. Total fluoroscopic time: 212 seconds. Total number of fluoroscopic images obtained: 7 Patient was notably drowsy and not alert. There are positioning challenges. Trace aspiration was noted on several challenges with thin barium.. No aspiration demonstrated with nectar. Laryngeal penetration was noted on several challenges. Abnormal video swallow. Please refer to speech pathology evaluation for more information.
[2019-12-14 16:00] VITALS: BP 146/101
--- NOTE | 2019-12-14 16:15 | General Progress Note ---
Assessment/Plan Status: stable Assessment/Plan: Assessment - dysphagia - hypernatremia - s/p past distal gastrectomy with Moncho II - hypokalemia Recommendations - NPO - abx - correct electrolytes - NGT feeds - surgical f/u Subjective Allergies: Uncoded Allergies: Green vegetables (Allergy, Unknown, 12/10/19) Subjective confused no change has NGT Objective Last 24 Hour Vital Signs Date Time Temp Pulse Resp B/P (MAP) Pulse Ox O2 Delivery O2 Flow Rate FiO2 12/14/19 16:00 97.8 79 18 146/101 (116) 98 12/14/19 12:00 98.4 85 18 129/89 (102) 96 12/14/19 09:00 Room Air 12/14/19 08:00 97.4 82 18 136/94 (108) 96 12/14/19 04:00 97.5 78 18 133/95 (108) 96 12/14/19 00:00 97.7 91 20 155/106 (122) 98 12/13/19 21:00 Room Air 12/13/19 20:00 97.3 100 20 150/100 (117) 96 Intake and Output 12/13/19 12/14/19 19:00 07:00 Intake Total 1487.5 ml 1487.5 ml Balance 1487.5 ml 1487.5 ml Intake IV Total 1487.5 ml 1277.5 ml Tube Feeding 210 ml # Voids 3 # Bowel Movements 1 Laboratory Tests 12/14/19 05:28: Sodium Level 147H, Potassium Level 2.7*L, Chloride Level 113H, Carbon Dioxide Level 26, Anion Gap 9, Blood Urea Nitrogen 14, Creatinine 1.3, Estimat Glomerular Filtration Rate , Glucose Level 212H, Calcium Level 8.2L, Total Bilirubin 0.9, Aspartate Amino Transf (AST/SGOT) 21, Alanine Aminotransferase ( ALT/SGPT) 30, Alkaline Phosphatase 102, Total Protein 7.4, Albumin 2.4L, Globulin 5.0, Albumin/Globulin Ratio 0.5L Height (Feet): 5 Height (Inches): 5.00 Weight (Pounds): 121 Paul Matute MD Dec 14, 2019 16:15
--- NOTE | 2019-12-14 19:10 | NUR ---
NURSE NOTES: Received pt from SUBHASH Stephens. Pt AAO x 1, confused. Pt tolerating NGT feeding well. HOB elevated. IV site intact and running IVF. Bilateral soft restraints in place and skin under the restraints intact. No acute distress noted. Bed locked, lowest position, side rails up, call light within reach. Will continue to monitor.
--- NOTE | 2019-12-14 19:36 | NUR ---
HAND-OFF: Report given to SUBHASH Hinds.
[2019-12-14 20:00] VITALS: BP 141/96
[2019-12-15] VITALS: BP 150/102
[2019-12-15 04:00] VITALS: BP 150/103
[2019-12-15] MEDS: D5W w/KCl 20mEq 1,000 ML IV SCH ×2 (05:08→14:17)
[2019-12-15] MEDS: Piperacillin/Tazobactam 3.375 GM in NS 110 ML IVPB SCH ×3 (05:08→21:08)
--- NOTE | 2019-12-15 07:01 | NUR ---
HAND-OFF: Report given to SUBHASH Stephens.
[2019-12-15 07:19] LABS: ANION GAP 9 mmol/L (5-15); BLOOD UREA NITROGEN 8 mg/dL (7-18); CALCIUM 8.3 MG/DL (8.5-10.1); CARBON DIOXIDE 25 MMOL/L (21-32); CHLORIDE 108 MMOL/L (98-107); CREATININE 1.1 MG/DL (0.55-1.30); SODIUM 142 MMOL/L (136-145)
[2019-12-15 07:20] LABS: BASOPHILS % (AUTO) 0.7 % (0.0-2.0); EOSINOPHILS % (AUTO) 7.5 % (0.0-3.0); HEMOGLOBIN 15.5 G/DL (14.2-18.0); LYMPHOCYTES % (AUTO) 19.9 % (20.0-45.0); MEAN CORPUSCULAR VOLUME 93 FL (80-99); MONOCYTES % (AUTO) 7.6 % (1.0-10.0); NEUTROPHILS % (AUTO) 64.4 % (45.0-75.0); PLATELET COUNT 247 K/UL (150-450); RED BLOOD COUNT 4.86 M/UL (4.70-6.10); RED CELL DISTRIBUTION WIDTH 12.6 % (11.6-14.8); WHITE BLOOD COUNT 9.7 K/UL (4.8-10.8)
--- NOTE | 2019-12-15 07:26 | NUR ---
NURSE NOTES: received report from SUBHASH Hinds. patient in bed. sleeping.no respiratory distress noted. no facial grimacing. IV on Left upper arm running Zosyn and fD5w 30meq kcl @125/hr. condom cath draining. holding NG tube feeding d/t possible gt surgical procedure today. HOB at all times. soft restraint on both wrists for preventing pulling out devices. bed in the lowest position and locked. call light within reach. alarm on. will continue to provide plan of care.
[2019-12-15 08:00] VITALS: BP 113/81
[2019-12-15 08:03] LABS: POTASSIUM 2.7 MMOL/L (3.5-5.1)
--- NOTE | 2019-12-15 08:11 | NUR ---
NURSE NOTES: Potassium 2.7 this morning. received note from SUBHASH Melgar,Charge nurse. notified Dr. Bacon and waiting for further order. Patient had episodes of diarrhea x4 since yesterday. C diff toxin negative.
[2019-12-15] MEDS: Heparin 5000 units/ml inj SUBQ SCH ×2 (08:15→21:11)
[2019-12-15] MEDS: Pantoprazole Inj IVP SCH (08:39)
--- NOTE | 2019-12-15 08:51 | NUR ---
NURSE NOTES patient had an diarrhea. Patient has had episode of diarrhea x 5times since yesterday. C-diff negative. Notified Dr. Bacon and waiting for further order.
--- NOTE | 2019-12-15 09:12 | NUR ---
NURSE NOTES: Called Dr. Fischer regarding gastric tube insertion procedure. Dr. Fischer said no plan for the procedure today since it is tuesday today. ok to resume ng tube feeding.
--- NOTE | 2019-12-15 09:56 | Pulmonology Progress Note ---
Assessment/Plan Assessment/Plan PROBLEM LIST: 1. Acute CVA. 2. Sepsis and UTI. 3. Hypertension and congestive heart failure. 4. History of chronic kidney disease. 5. Failure to thrive 6. Diarrhea 7. Hypokalemia PLAN: 1. Replace K 2. Cardiology, neuro, and ID consultations will be obtained. 3. I have assumed care due Insurance. 4. Surgical consultation noted due to need for open gastrostomy requested 5. Sent stool for c diff Salomón Bacon M.D. Subjective Interval Events: Tolerating enteral feedings; has diarrhea Constitutional: Reports: no symptoms HEENT: Repors: no symptoms Respiratory: Reports: no symptoms Cardiovascular: Reports: no symptoms Gastrointestinal/Abdominal: Reports: no symptoms Allergies: Uncoded Allergies: Green vegetables (Allergy, Unknown, 12/10/19) Objective Last 24 Hour Vital Signs Date Time Temp Pulse Resp B/P (MAP) Pulse Ox O2 Delivery O2 Flow Rate FiO2 12/15/19 09:00 Room Air 12/15/19 08:00 98.4 80 20 113/81 (92) 96 12/15/19 04:00 98.6 85 16 150/103 (119) 96 12/15/19 00:00 98.2 85 18 150/102 (118) 92 12/14/19 20:00 97.8 100 18 141/96 (111) 98 12/14/19 19:57 Room Air 12/14/19 16:00 97.8 79 18 146/101 (116) 98 12/14/19 12:00 98.4 85 18 129/89 (102) 96 Intake and Output 12/14/19 12/15/19 19:00 07:00 Intake Total 1622.5 ml 150 ml Output Total 500 ml Balance 1122.5 ml 150 ml Intake IV Total 1262.5 ml Tube Feeding 360 ml 150 ml Output Urine Total 500 ml # Bowel Movements 2 General Appearance: no acute distress HEENT: normocephalic Respiratory/Chest: chest wall non-tender, lungs clear Cardiovascular: normal peripheral pulses Abdomen: normal bowel sounds Microbiology Date/Time Source Procedure Growth Status 12/14/19 19:05 Stool Clostridium difficile Toxin Assay - Final Complete Laboratory Tests 12/15/19 06:00: White Blood Count 9.7, Red Blood Count 4.86, Hemoglobin 15.5, Hematocrit 45.0, Mean Corpuscular Volume 93, Mean Corpuscular Hemoglobin 31.9H, Mean Corpuscular Hemoglobin Concent 34.4, Red Cell Distribution Width 12.6, Platelet Count 247, Mean Platelet Volume 7.1, Neutrophils (%) (Auto) 64.4, Lymphocytes (%) (Auto) 19.9L, Monocytes (%) (Auto) 7.6, Eosinophils (%) (Auto) 7.5H, Basophils (%) ( Auto) 0.7, Sodium Level 142, Potassium Level 2.7*L, Chloride Level 108H, Carbon Dioxide Level 25, Anion Gap 9, Blood Urea Nitrogen 8, Creatinine 1.1, Estimat Glomerular Filtration Rate , Glucose Level 240H, Calcium Level 8.3L Current Medications Medications (Trade) Dose Ordered Sig/Leandra Route PRN Reason Start Time Stop Time Status Last Admin Dose Admin Dextrose/ Electrolytes 1,000 ml @ 125 mls/hr Q8H IV 12/13/19 07:26 01/12/20 07:25 12/15/19 05:08 Heparin Sodium (Porcine) (Heparin 5000 units/ml) 5,000 units EVERY 12 HOURS SUBQ 12/10/19 09:00 01/09/20 08:59 12/14/19 21:00 Pantoprazole (Protonix) 40 mg DAILY IVP 12/10/19 09:00 01/09/20 08:59 12/15/19 08:39 Piperacillin Sod/ Tazobactam Sod 3.375 gm/Sodium Chloride 110 ml @ 27.5 mls/hr EVERY 8 HOURS IVPB 12/10/19 06:00 12/17/19 05:59 12/15/19 05:08 Salomón Bacon MD Dec 15, 2019 09:56
--- NOTE | 2019-12-15 10:00 | NUR ---
NURSE NOTES: Seen by Dr. Bacon. new order of Kdur 60meq once via NG tube for low potassium level. lomotil 7.5mg via NG tube for diarrhea. Order noted and carried out. Addendum: 12/15/19 at 1256 by SANJU JORGENSEN RN lomotil 1mg/7.5ml
[2019-12-15 12:00] VITALS: BP 116/92
--- NOTE | 2019-12-15 13:27 | Surgery Progress Note ---
Surgery Progress Note Subjective Additional Comments no acute events comfortable plan for surgery tuesday or tuesday Objective Last 24 Hour Vital Signs Date Time Temp Pulse Resp B/P (MAP) Pulse Ox O2 Delivery O2 Flow Rate FiO2 12/15/19 12:00 98.2 81 18 116/92 (100) 96 12/15/19 09:00 Room Air 12/15/19 08:00 98.4 80 20 113/81 (92) 96 12/15/19 04:00 98.6 85 16 150/103 (119) 96 12/15/19 00:00 98.2 85 18 150/102 (118) 92 12/14/19 20:00 97.8 100 18 141/96 (111) 98 12/14/19 19:57 Room Air 12/14/19 16:00 97.8 79 18 146/101 (116) 98 I&O Intake and Output 12/14/19 12/15/19 19:00 07:00 Intake Total 1622.5 ml 302.5 ml Output Total 500 ml Balance 1122.5 ml 302.5 ml Intake IV Total 1262.5 ml 152.5 ml Tube Feeding 360 ml 150 ml Output Urine Total 500 ml # Bowel Movements 2 Cardiovascular: RSR Respiratory: clear Abdomen: soft, flat, non-tender, present bowel sounds, other Extremities: no tenderness, no cyanosis Laboratory Tests Test 12/15/19 06:00 White Blood Count 9.7 K/UL (4.8-10.8) Red Blood Count 4.86 M/UL (4.70-6.10) Hemoglobin 15.5 G/DL (14.2-18.0) Hematocrit 45.0 % (42.0-52.0) Mean Corpuscular Volume 93 FL (80-99) Mean Corpuscular Hemoglobin 31.9 PG (27.0-31.0) H Mean Corpuscular Hemoglobin Concent 34.4 G/DL (32.0-36.0) Red Cell Distribution Width 12.6 % (11.6-14.8) Platelet Count 247 K/UL (150-450) Mean Platelet Volume 7.1 FL (6.5-10.1) Neutrophils (%) (Auto) 64.4 % (45.0-75.0) Lymphocytes (%) (Auto) 19.9 % (20.0-45.0) L Monocytes (%) (Auto) 7.6 % (1.0-10.0) Eosinophils (%) (Auto) 7.5 % (0.0-3.0) H Basophils (%) (Auto) 0.7 % (0.0-2.0) Sodium Level 142 MMOL/L (136-145) Potassium Level 2.7 MMOL/L (3.5-5.1) *L Chloride Level 108 MMOL/L (98-107) H Carbon Dioxide Level 25 MMOL/L (21-32) Anion Gap 9 mmol/L (5-15) Blood Urea Nitrogen 8 mg/dL (7-18) Creatinine 1.1 MG/DL (0.55-1.30) Estimat Glomerular Filtration Rate mL/min (>60) Glucose Level 240 MG/DL (74-106) H Calcium Level 8.3 MG/DL (8.5-10.1) L Plan Problems: (1) Failure to thrive Assessment & Plan: This is a 84-year-old male with failure to thrive, unfortunate history of stroke unable to have significant oral intake and indicating recommended for feeding tube placement. Unfortunately given prior gastric surgery unable to have endoscopic PEG tube placement. Surgical feeding tube placement indicated recommended. Will discuss with patient's family to obtain consent and schedule when appropriate. Thank you for let me participate in patient's care spoke with family obtained consent will plan for surgical feeding tube placement tuesday or tuesday DAILY ESTIMATED NEEDS: Needs based on Underweight, cardiac/ 49kg 30-35 kcals/kg 8982-7950 total kcals 1-1.5 g protein/kg 49-74 g total protein 25-30 mL/kg 5133-7157 total fluid mLs NUTRITION DIAGNOSIS: * Swallowing difficulty R/T dysphagia, s/p acute CVA as evidenced by NPO, pending FAMILY SUPPORT WORKER eval, possible PEG placement. CURRENT DIET:NPO PO DIET RECOMMENDATIONS: IF SAFE FOR ORAL DIET -> LOW NA/ texture per FAMILY SUPPORT WORKER ENTERAL NUTRITION RECOMMENDATIONS: IF MEDICALLY APPROPRIATE AND PART OF POC -> Glucerna 1.2 @ 55ml/hr x 24 hrs to provide 1320ml, 1584kcal, 79g prot, 1063ml free water * IF PART OF POC AND MEDICALLY INDICATED, OBTAIN GI ACCESS -> initiate Glucerna 1.2 @ 15ml/hr x 6 hrs -> advance 10ml q 4-6 hrs as tolerated to goal rate -> HOB over 30 degrees/ water flush per MDD ADDITIONAL RECOMMENDATIONS: * Calibrated bedscale wt for accurate CBW * F/up w/ FAMILY SUPPORT WORKER rec: oral diet vs NPO * Check A1C and lipid panel: s/p acute CVA * Monitor lytes, replete as needed Pt's skin assessment complete with Primary nurse in attendance. All bony prominences assessed. Sacrum and both hips without erythema or evidence of skin breakdown. Both heels boggy with non-blanching erythema.NO other skin concerns noted. Moisture Barrier Paste applied to buttocks. Optifoam drsg placed over Sacrum to minimize friction.Cavilon Skin Barrier applied to both heels. Each Heel covered with Optifoam drsg. Pt positioned with pillow on his side. Both heels floated off mattress with pillow. Recommendations:Apply Moisture Barrier Paste to Sacrum. Cover with Optifoam drsg. Change every 3 days and prn. Apply Cavilon Skin Barrier to both heels. Cover each heel with Optifoam drsg. Change every 7 days and PRN. Reposition at least every 2hours or as tolerated. Off-load heels with pillow. Andrei Fischer Dec 15, 2019 13:27
--- NOTE | 2019-12-15 13:45 | NUR ---
NURSE NOTES: After patient tried to pull out NG tube during hygiene care, not able to flush tube with syringe. Notified Dr Matute and received order reinsert tube d/t possible kink and get KUB for placement. order noted and carried out.
--- NOTE | 2019-12-15 14:00 | NUR ---
NURSE NOTES: RN inserted NG tube advanced till 55. auscultated tube placement. secure tube on nose. called radiology for KUB.
--- NOTE | 2019-12-15 14:00 | NUR ---
NURSE NOTES: Patient left hand swollen +2. IV on left upper arm running d5w 20meq@125. IV site intact. RN disconnect IV. inserted IV on right upper arm and continue to infuse IV fluid. will continue to monitor.
--- NOTE | 2019-12-15 14:29 | Diagnostic Imaging Report ---
EXAM: XR Abdomen, 2 Views CLINICAL HISTORY: NGT TECHNIQUE: Frontal view of the abdomen/pelvis with upright view of the abdomen. COMPARISON: 12/13/19 FINDINGS/IMPRESSION: The sidehole of the enteric tube is near the GE junction. Recommend advancing another 5 cm.
--- NOTE | 2019-12-15 15:00 | NUR ---
NURSE NOTES: KUB for ng tube placement resulted. recommended advance 5cm more. residential air sealing technician ng tube 5cm more till 60. auscultated tube placement. HOB at all times. no difficulty flush. no resistance.
[2019-12-15 16:00] VITALS: BP 153/101
--- NOTE | 2019-12-15 19:28 | NUR ---
HAND-OFF: Report given to SUBHASH Schaefer.
[2019-12-15 20:00] VITALS: BP 141/92
--- NOTE | 2019-12-15 20:00 | NUR ---
NURSE NOTES: Patient in bed, asleep, unable to make needs known. Respiration is even and unlabored. NG tube noted, feeding noted. Kept clean and comfortable. provided safe environment. Abdomen is soft and non distended. Skin is warm and dry to touch. Bed in low and locked position. Provided safe environment. Call light is at bedside. Will continue plan of care.
--- NOTE | 2019-12-15 20:20 | General Progress Note ---
Assessment/Plan Status: stable Assessment/Plan: Assessment - dysphagia - hypernatremia - s/p past distal gastrectomy with Moncho II - hypokalemia Recommendations - NPO - abx - correct electrolytes - NGT feeds - surgical f/u Subjective Allergies: Uncoded Allergies: Green vegetables (Allergy, Unknown, 12/10/19) Subjective confused no change has NGT Objective Last 24 Hour Vital Signs Date Time Temp Pulse Resp B/P (MAP) Pulse Ox O2 Delivery O2 Flow Rate FiO2 12/15/19 16:00 97.8 85 18 153/101 (118) 96 12/15/19 12:00 98.2 81 18 116/92 (100) 96 12/15/19 09:00 Room Air 12/15/19 08:00 98.4 80 20 113/81 (92) 96 12/15/19 04:00 98.6 85 16 150/103 (119) 96 12/15/19 00:00 98.2 85 18 150/102 (118) 92 Intake and Output 12/14/19 12/15/19 19:00 07:00 Intake Total 1622.5 ml 302.5 ml Output Total 500 ml Balance 1122.5 ml 302.5 ml Intake IV Total 1262.5 ml 152.5 ml Tube Feeding 360 ml 150 ml Output Urine Total 500 ml # Bowel Movements 2 Laboratory Tests 12/15/19 06:00: White Blood Count 9.7, Red Blood Count 4.86, Hemoglobin 15.5, Hematocrit 45.0, Mean Corpuscular Volume 93, Mean Corpuscular Hemoglobin 31.9H, Mean Corpuscular Hemoglobin Concent 34.4, Red Cell Distribution Width 12.6, Platelet Count 247, Mean Platelet Volume 7.1, Neutrophils (%) (Auto) 64.4, Lymphocytes (%) (Auto) 19.9L, Monocytes (%) (Auto) 7.6, Eosinophils (%) (Auto) 7.5H, Basophils (%) ( Auto) 0.7, Sodium Level 142, Potassium Level 2.7*L, Chloride Level 108H, Carbon Dioxide Level 25, Anion Gap 9, Blood Urea Nitrogen 8, Creatinine 1.1, Estimat Glomerular Filtration Rate , Glucose Level 240H, Calcium Level 8.3L Height (Feet): 5 Height (Inches): 5.00 Weight (Pounds): 121 Paul Matute MD Dec 15, 2019 20:20
[2019-12-16] VITALS: BP 125/85
[2019-12-16] MEDS: D5W w/KCl 20mEq 1,000 ML IV SCH ×4 (00:13→17:05)
[2019-12-16 04:00] VITALS: BP 140/93
[2019-12-16] MEDS: Piperacillin/Tazobactam 3.375 GM in NS 110 ML IVPB SCH ×3 (05:40→21:39)
--- NOTE | 2019-12-16 07:31 | NUR ---
HAND-OFF: Report given to SUBHASH Jacobson.
--- NOTE | 2019-12-16 07:32 | NUR ---
NURSE NOTES: Received patient in bed,awake, verbally responsive but patient is confused.No s/s of pain or discomfort. NGT is on left nares with 60cm. IV's are intact, no s/s of infiltrations. Patient is on bilateral soft restraints due to episodes of trying to pull out NGT. Will continue to monitor. HOB elevated and Formula is running. Frequent visual check for safety and needs. Will continue plan of care.
[2019-12-16 08:00] VITALS: BP 133/96
[2019-12-16] MEDS: Pantoprazole Inj IVP SCH (08:46)
[2019-12-16] MEDS: Heparin 5000 units/ml inj SUBQ SCH ×2 (08:48→21:29)
[2019-12-16 09:38] LABS: BASOPHILS % (AUTO) 0.9 % (0.0-2.0); EOSINOPHILS % (AUTO) 4.2 % (0.0-3.0); HEMATOCRIT 45.8 % (42.0-52.0); LYMPHOCYTES % (AUTO) 12.6 % (20.0-45.0); MEAN CORPUSCULAR VOLUME 91 FL (80-99); MONOCYTES % (AUTO) 7.1 % (1.0-10.0); NEUTROPHILS % (AUTO) 75.1 % (45.0-75.0); PLATELET COUNT 271 K/UL (150-450); RED BLOOD COUNT 5.02 M/UL (4.70-6.10); RED CELL DISTRIBUTION WIDTH 12.5 % (11.6-14.8); WHITE BLOOD COUNT 13.3 K/UL (4.8-10.8)
[2019-12-16 09:54] LABS: ANION GAP 7 mmol/L (5-15); BLOOD UREA NITROGEN 10 mg/dL (7-18); CALCIUM 8.3 MG/DL (8.5-10.1); CARBON DIOXIDE 24 MMOL/L (21-32); CHLORIDE 105 MMOL/L (98-107); CREATININE 1.1 MG/DL (0.55-1.30); POTASSIUM 3.3 MMOL/L (3.5-5.1); SODIUM 136 MMOL/L (136-145)
--- NOTE | 2019-12-16 11:18 | Pulmonology Progress Note ---
Assessment/Plan Assessment/Plan PROBLEM LIST: 1. Acute CVA. 2. Sepsis and UTI. 3. Hypertension and congestive heart failure. 4. History of chronic kidney disease. 5. Failure to thrive 6. Diarrhea 7. Hypokalemia PLAN: 1. Replaced K 2. Cardiology, neuro, and ID consultations noted. 3. I have assumed care due Insurance. 4. Surgical consultation noted due to need for open gastrostomy requested 5. Sent stool for c diff Salomón Bacon M.D. Subjective Interval Events: None new Constitutional: Reports: no symptoms HEENT: Repors: no symptoms Respiratory: Reports: no symptoms Cardiovascular: Reports: no symptoms Gastrointestinal/Abdominal: Reports: no symptoms Allergies: Uncoded Allergies: Green vegetables (Allergy, Unknown, 12/10/19) Objective Last 24 Hour Vital Signs Date Time Temp Pulse Resp B/P (MAP) Pulse Ox O2 Delivery O2 Flow Rate FiO2 12/16/19 09:00 Room Air 12/16/19 08:00 98.5 99 20 133/96 (108) 92 12/16/19 04:00 98.0 85 22 140/93 (109) 95 12/16/19 00:00 98.3 81 22 125/85 (98) 95 12/15/19 20:58 Room Air 12/15/19 20:00 98.6 88 22 141/92 (108) 96 12/15/19 16:00 97.8 85 18 153/101 (118) 96 12/15/19 12:00 98.2 81 18 116/92 (100) 96 Intake and Output 12/15/19 12/16/19 19:00 07:00 Intake Total 1617.5 ml 1532.5 ml Output Total 1000 ml 750 ml Balance 617.5 ml 782.5 ml Intake Free Water 50 ml 200 ml IV Total 1567.5 ml 1332.5 ml Tube Feeding 0 ml 0 ml Output Urine Total 1000 ml 750 ml # Bowel Movements 2 2 General Appearance: no acute distress HEENT: normocephalic Respiratory/Chest: chest wall non-tender, lungs clear Cardiovascular: normal peripheral pulses, normal rate Abdomen: normal bowel sounds Microbiology Date/Time Source Procedure Growth Status 12/14/19 19:05 Stool Clostridium difficile Toxin Assay - Final Complete Laboratory Tests 12/16/19 09:15: White Blood Count 13.3H, Red Blood Count 5.02, Hemoglobin 16.0, Hematocrit 45.8 , Mean Corpuscular Volume 91, Mean Corpuscular Hemoglobin 31.9H, Mean Corpuscular Hemoglobin Concent 34.9, Red Cell Distribution Width 12.5, Platelet Count 271, Mean Platelet Volume 7.0, Neutrophils (%) (Auto) 75.1H, Lymphocytes ( %) (Auto) 12.6L, Monocytes (%) (Auto) 7.1, Eosinophils (%) (Auto) 4.2H, Basophils (%) (Auto) 0.9, Sodium Level 136, Potassium Level 3.3L, Chloride Level 105, Carbon Dioxide Level 24, Anion Gap 7, Blood Urea Nitrogen 10, Creatinine 1.1, Estimat Glomerular Filtration Rate , Glucose Level 231H, Calcium Level 8.3L Current Medications Medications (Trade) Dose Ordered Sig/Leandra Route PRN Reason Start Time Stop Time Status Last Admin Dose Admin Dextrose/ Electrolytes 1,000 ml @ 125 mls/hr Q8H IV 12/13/19 07:26 01/12/20 07:25 12/16/19 08:47 Heparin Sodium (Porcine) (Heparin 5000 units/ml) 5,000 units EVERY 12 HOURS SUBQ 12/10/19 09:00 01/09/20 08:59 12/16/19 08:48 Loperamide HCl (Imodium) 1 mg BID PRN NG Diarrhea 12/15/19 10:15 01/14/20 10:14 12/15/19 10:50 Pantoprazole (Protonix) 40 mg DAILY IVP 12/10/19 09:00 01/09/20 08:59 12/16/19 08:46 Piperacillin Sod/ Tazobactam Sod 3.375 gm/Sodium Chloride 110 ml @ 27.5 mls/hr EVERY 8 HOURS IVPB 12/10/19 06:00 12/17/19 05:59 12/16/19 05:40 Salomón Bacon MD Dec 16, 2019 11:18
--- NOTE | 2019-12-16 11:21 | Surgery Progress Note ---
Surgery Progress Note Subjective Additional Comments doing okay alert responsive Objective Last 24 Hour Vital Signs Date Time Temp Pulse Resp B/P (MAP) Pulse Ox O2 Delivery O2 Flow Rate FiO2 12/16/19 09:00 Room Air 12/16/19 08:00 98.5 99 20 133/96 (108) 92 12/16/19 04:00 98.0 85 22 140/93 (109) 95 12/16/19 00:00 98.3 81 22 125/85 (98) 95 12/15/19 20:58 Room Air 12/15/19 20:00 98.6 88 22 141/92 (108) 96 12/15/19 16:00 97.8 85 18 153/101 (118) 96 12/15/19 12:00 98.2 81 18 116/92 (100) 96 I&O Intake and Output 12/15/19 12/16/19 19:00 07:00 Intake Total 1617.5 ml 1532.5 ml Output Total 1000 ml 750 ml Balance 617.5 ml 782.5 ml Intake Free Water 50 ml 200 ml IV Total 1567.5 ml 1332.5 ml Tube Feeding 0 ml 0 ml Output Urine Total 1000 ml 750 ml # Bowel Movements 2 2 Dressing: dry Wound: clean Cardiovascular: RSR Respiratory: clear Abdomen: soft, non-tender, present bowel sounds, non-distended Extremities: no edema, no tenderness, no cyanosis Laboratory Tests Test 12/16/19 09:15 White Blood Count 13.3 K/UL (4.8-10.8) H Red Blood Count 5.02 M/UL (4.70-6.10) Hemoglobin 16.0 G/DL (14.2-18.0) Hematocrit 45.8 % (42.0-52.0) Mean Corpuscular Volume 91 FL (80-99) Mean Corpuscular Hemoglobin 31.9 PG (27.0-31.0) H Mean Corpuscular Hemoglobin Concent 34.9 G/DL (32.0-36.0) Red Cell Distribution Width 12.5 % (11.6-14.8) Platelet Count 271 K/UL (150-450) Mean Platelet Volume 7.0 FL (6.5-10.1) Neutrophils (%) (Auto) 75.1 % (45.0-75.0) H Lymphocytes (%) (Auto) 12.6 % (20.0-45.0) L Monocytes (%) (Auto) 7.1 % (1.0-10.0) Eosinophils (%) (Auto) 4.2 % (0.0-3.0) H Basophils (%) (Auto) 0.9 % (0.0-2.0) Sodium Level 136 MMOL/L (136-145) Potassium Level 3.3 MMOL/L (3.5-5.1) L Chloride Level 105 MMOL/L (98-107) Carbon Dioxide Level 24 MMOL/L (21-32) Anion Gap 7 mmol/L (5-15) Blood Urea Nitrogen 10 mg/dL (7-18) Creatinine 1.1 MG/DL (0.55-1.30) Estimat Glomerular Filtration Rate mL/min (>60) Glucose Level 231 MG/DL (74-106) H Calcium Level 8.3 MG/DL (8.5-10.1) L Plan Problems: (1) Failure to thrive Assessment & Plan: This is a 84-year-old male with failure to thrive, unfortunate history of stroke unable to have significant oral intake and indicating recommended for feeding tube placement. Unfortunately given prior gastric surgery unable to have endoscopic PEG tube placement. Surgical feeding tube placement indicated recommended. Will discuss with patient's family to obtain consent and schedule when appropriate. Thank you for let me participate in patient's care spoke with family obtained consent will plan for surgical feeding tube placement tuesday or tuesday DAILY ESTIMATED NEEDS: Needs based on Underweight, cardiac/ 49kg 30-35 kcals/kg 4838-3727 total kcals 1-1.5 g protein/kg 49-74 g total protein 25-30 mL/kg 8812-9044 total fluid mLs NUTRITION DIAGNOSIS: * Swallowing difficulty R/T dysphagia, s/p acute CVA as evidenced by NPO, pending RACK WORKER eval, possible PEG placement. CURRENT DIET:NPO PO DIET RECOMMENDATIONS: IF SAFE FOR ORAL DIET -> LOW NA/ texture per RACK WORKER ENTERAL NUTRITION RECOMMENDATIONS: IF MEDICALLY APPROPRIATE AND PART OF POC -> Glucerna 1.2 @ 55ml/hr x 24 hrs to provide 1320ml, 1584kcal, 79g prot, 1063ml free water * IF PART OF POC AND MEDICALLY INDICATED, OBTAIN GI ACCESS -> initiate Glucerna 1.2 @ 15ml/hr x 6 hrs -> advance 10ml q 4-6 hrs as tolerated to goal rate -> HOB over 30 degrees/ water flush per MDD ADDITIONAL RECOMMENDATIONS: * Calibrated bedscale wt for accurate CBW * F/up w/ RACK WORKER rec: oral diet vs NPO * Check A1C and lipid panel: s/p acute CVA * Monitor lytes, replete as needed Pt's skin assessment complete with Primary nurse in attendance. All bony prominences assessed. Sacrum and both hips without erythema or evidence of skin breakdown. Both heels boggy with non-blanching erythema.NO other skin concerns noted. Moisture Barrier Paste applied to buttocks. Optifoam drsg placed over Sacrum to minimize friction.Cavilon Skin Barrier applied to both heels. Each Heel covered with Optifoam drsg. Pt positioned with pillow on his side. Both heels floated off mattress with pillow. Recommendations:Apply Moisture Barrier Paste to Sacrum. Cover with Optifoam drsg. Change every 3 days and prn. Apply Cavilon Skin Barrier to both heels. Cover each heel with Optifoam drsg. Change every 7 days and PRN. Reposition at least every 2hours or as tolerated. Off-load heels with pillow. Andrei Fischer Dec 16, 2019 11:21
[2019-12-16 12:00] VITALS: BP 129/91
--- NOTE | 2019-12-16 12:52 | NUR ---
NURSE NOTES: potassium 20 MEQ was ordered by [address] Fontanez due to potassium level of 3.3 today and administered med.
[2019-12-16 16:00] VITALS: BP 125/84
--- NOTE | 2019-12-16 16:32 | General Progress Note ---
Assessment/Plan Status: stable Assessment/Plan: Assessment - dysphagia - hypernatremia - s/p past distal gastrectomy with Moncho II - hypokalemia Recommendations - NPO - abx - correct electrolytes - NGT feeds - surgical f/u Subjective Allergies: Uncoded Allergies: Green vegetables (Allergy, Unknown, 12/10/19) Subjective confused no change has NGT Objective Last 24 Hour Vital Signs Date Time Temp Pulse Resp B/P (MAP) Pulse Ox O2 Delivery O2 Flow Rate FiO2 12/16/19 16:00 98.5 94 20 125/84 (98) 95 12/16/19 12:00 98.5 90 20 129/91 (104) 95 12/16/19 09:00 Room Air 12/16/19 08:00 98.5 99 20 133/96 (108) 92 12/16/19 04:00 98.0 85 22 140/93 (109) 95 12/16/19 00:00 98.3 81 22 125/85 (98) 95 12/15/19 20:58 Room Air 12/15/19 20:00 98.6 88 22 141/92 (108) 96 Intake and Output 12/15/19 12/16/19 19:00 07:00 Intake Total 1617.5 ml 1687.5 ml Output Total 1000 ml 750 ml Balance 617.5 ml 937.5 ml Intake Free Water 50 ml 200 ml IV Total 1567.5 ml 1457.5 ml Tube Feeding 0 ml 30 ml Output Urine Total 1000 ml 750 ml # Bowel Movements 2 2 Laboratory Tests 12/16/19 09:15: White Blood Count 13.3H, Red Blood Count 5.02, Hemoglobin 16.0, Hematocrit 45.8 , Mean Corpuscular Volume 91, Mean Corpuscular Hemoglobin 31.9H, Mean Corpuscular Hemoglobin Concent 34.9, Red Cell Distribution Width 12.5, Platelet Count 271, Mean Platelet Volume 7.0, Neutrophils (%) (Auto) 75.1H, Lymphocytes ( %) (Auto) 12.6L, Monocytes (%) (Auto) 7.1, Eosinophils (%) (Auto) 4.2H, Basophils (%) (Auto) 0.9, Sodium Level 136, Potassium Level 3.3L, Chloride Level 105, Carbon Dioxide Level 24, Anion Gap 7, Blood Urea Nitrogen 10, Creatinine 1.1, Estimat Glomerular Filtration Rate , Glucose Level 231H, Calcium Level 8.3L Height (Feet): 5 Height (Inches): 5.00 Weight (Pounds): 121 Paul Matute MD Dec 16, 2019 16:32
--- NOTE | 2019-12-16 18:01 | NUR ---
NURSE NOTES: Reassessed need of restraint. Removed restraints and monitored patient. Patient tired to remove NGT and IV's. Explained the importance of following plan of care but patient is unable to understand. Diversional activities done but unsuccessful. Will continue with restraint.
--- NOTE | 2019-12-16 19:00 | NUR ---
NURSE NOTES: NGT is in place and patient is tolerating well to tube feeding. No new skin issue.Proper incontinent care and re position done throughout shift.
--- NOTE | 2019-12-16 19:30 | NUR ---
HAND-OFF: Report given to Nazanin and endorsed plan of care.
[2019-12-16 20:00] VITALS: BP 145/90
--- NOTE | 2019-12-16 20:00 | NUR ---
NURSE NOTES: RECEIVED PATIENT FROM SUBHASH GOMES. PATIENT IS ASLEEP, AROUSABLE TO VOICE, ON ROOM AIR, NO ACUTE DISTRESS NOTED. NGT IN PLACE, ON LEFT NARE, INTACT, RUNNING CONTINUOUS JEVITY AT 30CC. IV ARE INTACT AND PATENT. RESTRAINTS ON BILATERAL WRISTS. PULSES PRESENT. BED IS LOCKED AND LOW, BED ALARMS ACTIVE, SIDE RAILS UP X2 AND CALL LIGHT IS WITHIN REACH. WILL CONTINUE TO MONITOR.
[2019-12-17] VITALS: BP 150/92
[2019-12-17] MEDS: D5W w/KCl 20mEq 1,000 ML IV SCH ×3 (01:52→23:26)
[2019-12-17 04:00] VITALS: BP 145/85
[2019-12-17 07:57] LABS: EOSINOPHILS % (AUTO) 6.6 % (0.0-3.0); HEMATOCRIT 43.7 % (42.0-52.0); HEMOGLOBIN 15.1 G/DL (14.2-18.0); LYMPHOCYTES % (AUTO) 18.4 % (20.0-45.0); MEAN CORPUSCULAR VOLUME 92 FL (80-99); MONOCYTES % (AUTO) 8.2 % (1.0-10.0); NEUTROPHILS % (AUTO) 65.7 % (45.0-75.0); PLATELET COUNT 255 K/UL (150-450); RED BLOOD COUNT 4.73 M/UL (4.70-6.10); RED CELL DISTRIBUTION WIDTH 12.7 % (11.6-14.8); WHITE BLOOD COUNT 11.4 K/UL (4.8-10.8)
[2019-12-17 08:00] VITALS: BP 122/82
--- NOTE | 2019-12-17 08:06 | NUR ---
HAND-OFF: Report given to SUBHASH SANCHEZ.
--- NOTE | 2019-12-17 08:07 | NUR ---
NURSE NOTES: Received patient in bed asleep. IV lines intact and patent. NG tube in place, with feeding ongoing. Right soft wrist restraint in place, pulse palpable, no skin issues noted on site. Condom catheter in place draining yellow colored urine. HOB elevated. Bed locked in lowest position. Call light within reach. Will continue plan of care.
[2019-12-17 08:19] LABS: ANION GAP 7 mmol/L (5-15); BLOOD UREA NITROGEN 8 mg/dL (7-18); CALCIUM 8.4 MG/DL (8.5-10.1); CARBON DIOXIDE 27 MMOL/L (21-32); CHLORIDE 103 MMOL/L (98-107); POTASSIUM 3.8 MMOL/L (3.5-5.1); SODIUM 137 MMOL/L (136-145)
--- NOTE | 2019-12-17 09:59 | Pulmonology Progress Note ---
Assessment/Plan Assessment/Plan PROBLEM LIST: 1. Acute CVA. 2. Sepsis and UTI. Resolved 3. Hypertension and congestive heart failure. 4. History of chronic kidney disease. 5. Failure to thrive 6. Diarrhea; resolved; C diff negative 7. Hypokalemia; corrected PLAN: 1. Replaced K 2. Cardiology, neuro, and ID consultations noted. 3. I have assumed care due Insurance. 4. Surgical consultation noted due to need for open gastrostomy requested 5. Sent stool for c diff'; negative 6. Surgical G tube per Dr Keen Salomón Bacon M.D. Subjective Interval Events: None new Constitutional: Reports: no symptoms HEENT: Repors: no symptoms Respiratory: Reports: no symptoms Cardiovascular: Reports: no symptoms Gastrointestinal/Abdominal: Reports: no symptoms Allergies: Uncoded Allergies: Green vegetables (Allergy, Unknown, 12/10/19) Objective Last 24 Hour Vital Signs Date Time Temp Pulse Resp B/P (MAP) Pulse Ox O2 Delivery O2 Flow Rate FiO2 12/17/19 08:00 98.2 81 20 122/82 (95) 95 12/17/19 04:00 97.8 85 22 145/85 (105) 99 12/17/19 00:00 98.2 87 23 150/92 (111) 100 12/16/19 21:00 Room Air 12/16/19 20:00 98.5 85 23 145/90 (108) 100 12/16/19 16:00 98.5 94 20 125/84 (98) 95 12/16/19 12:00 98.5 90 20 129/91 (104) 95 Intake and Output 12/16/19 12/17/19 19:00 07:00 Intake Total 1987.5 ml 922.5 ml Output Total 450 ml Balance 1987.5 ml 472.5 ml Intake Free Water 90 ml 30 ml IV Total 1567.5 ml 862.5 ml Tube Feeding 330 ml 30 ml Output Urine Total 450 ml # Voids 2 General Appearance: no acute distress HEENT: normocephalic Respiratory/Chest: chest wall non-tender, lungs clear Cardiovascular: normal peripheral pulses Abdomen: normal bowel sounds Microbiology Date/Time Source Procedure Growth Status 12/14/19 19:05 Stool Clostridium difficile Toxin Assay - Final Complete Laboratory Tests 12/17/19 06:10: White Blood Count 11.4H, Red Blood Count 4.73, Hemoglobin 15.1, Hematocrit 43.7 , Mean Corpuscular Volume 92, Mean Corpuscular Hemoglobin 31.9H, Mean Corpuscular Hemoglobin Concent 34.6, Red Cell Distribution Width 12.7, Platelet Count 255, Mean Platelet Volume 6.6, Neutrophils (%) (Auto) 65.7, Lymphocytes (% ) (Auto) 18.4L, Monocytes (%) (Auto) 8.2, Eosinophils (%) (Auto) 6.6H, Basophils (%) (Auto) 1.0, Sodium Level 137, Potassium Level 3.8, Chloride Level 103, Carbon Dioxide Level 27, Anion Gap 7, Blood Urea Nitrogen 8, Creatinine 1.0 , Estimat Glomerular Filtration Rate , Glucose Level 218H, Calcium Level 8.4L Current Medications Medications (Trade) Dose Ordered Sig/Leandra Route PRN Reason Start Time Stop Time Status Last Admin Dose Admin Dextrose/ Electrolytes 1,000 ml @ 125 mls/hr Q8H IV 12/13/19 07:26 01/12/20 07:25 12/17/19 01:52 Heparin Sodium (Porcine) (Heparin 5000 units/ml) 5,000 units EVERY 12 HOURS SUBQ 12/10/19 09:00 01/09/20 08:59 12/16/19 21:29 Loperamide HCl (Imodium) 1 mg BID PRN NG Diarrhea 12/15/19 10:15 01/14/20 10:14 12/15/19 10:50 Pantoprazole (Protonix) 40 mg DAILY IVP 12/10/19 09:00 01/09/20 08:59 12/16/19 08:46 Salomón Bacon MD Dec 17, 2019 09:59
[2019-12-17] MEDS: Pantoprazole Inj IVP SCH (10:05)
[2019-12-17] MEDS: Heparin 5000 units/ml inj SUBQ SCH ×3 (10:07→21:00)
--- NOTE | 2019-12-17 11:35 | Surgery Progress Note ---
Surgery Progress Note Subjective Additional Comments OR tomorrow no acute events Objective Last 24 Hour Vital Signs Date Time Temp Pulse Resp B/P (MAP) Pulse Ox O2 Delivery O2 Flow Rate FiO2 12/17/19 09:00 Room Air 12/17/19 08:00 98.2 81 20 122/82 (95) 95 12/17/19 04:00 97.8 85 22 145/85 (105) 99 12/17/19 00:00 98.2 87 23 150/92 (111) 100 12/16/19 21:00 Room Air 12/16/19 20:00 98.5 85 23 145/90 (108) 100 12/16/19 16:00 98.5 94 20 125/84 (98) 95 12/16/19 12:00 98.5 90 20 129/91 (104) 95 I&O Intake and Output 12/16/19 12/17/19 19:00 07:00 Intake Total 1987.5 ml 922.5 ml Output Total 450 ml Balance 1987.5 ml 472.5 ml Intake Free Water 90 ml 30 ml IV Total 1567.5 ml 862.5 ml Tube Feeding 330 ml 30 ml Output Urine Total 450 ml # Voids 2 Dressing: dry Wound: clean Cardiovascular: RSR Respiratory: clear Abdomen: soft, non-tender, present bowel sounds Extremities: no edema, no tenderness, no cyanosis Laboratory Tests Test 12/17/19 06:10 White Blood Count 11.4 K/UL (4.8-10.8) H Red Blood Count 4.73 M/UL (4.70-6.10) Hemoglobin 15.1 G/DL (14.2-18.0) Hematocrit 43.7 % (42.0-52.0) Mean Corpuscular Volume 92 FL (80-99) Mean Corpuscular Hemoglobin 31.9 PG (27.0-31.0) H Mean Corpuscular Hemoglobin Concent 34.6 G/DL (32.0-36.0) Red Cell Distribution Width 12.7 % (11.6-14.8) Platelet Count 255 K/UL (150-450) Mean Platelet Volume 6.6 FL (6.5-10.1) Neutrophils (%) (Auto) 65.7 % (45.0-75.0) Lymphocytes (%) (Auto) 18.4 % (20.0-45.0) L Monocytes (%) (Auto) 8.2 % (1.0-10.0) Eosinophils (%) (Auto) 6.6 % (0.0-3.0) H Basophils (%) (Auto) 1.0 % (0.0-2.0) Sodium Level 137 MMOL/L (136-145) Potassium Level 3.8 MMOL/L (3.5-5.1) Chloride Level 103 MMOL/L (98-107) Carbon Dioxide Level 27 MMOL/L (21-32) Anion Gap 7 mmol/L (5-15) Blood Urea Nitrogen 8 mg/dL (7-18) Creatinine 1.0 MG/DL (0.55-1.30) Estimat Glomerular Filtration Rate mL/min (>60) Glucose Level 218 MG/DL (74-106) H Calcium Level 8.4 MG/DL (8.5-10.1) L Plan Problems: (1) Failure to thrive Assessment & Plan: This is a 84-year-old male with failure to thrive, unfortunate history of stroke unable to have significant oral intake and indicating recommended for feeding tube placement. Unfortunately given prior gastric surgery unable to have endoscopic PEG tube placement. Surgical feeding tube placement indicated recommended. Will discuss with patient's family to obtain consent and schedule when appropriate. Thank you for let me participate in patient's care spoke with family obtained consent will plan for surgical feeding tube placement tomorrow npo p mn DAILY ESTIMATED NEEDS: Needs based on Underweight, cardiac/ 49kg 30-35 kcals/kg 1339-8680 total kcals 1-1.5 g protein/kg 49-74 g total protein 25-30 mL/kg 8575-0590 total fluid mLs NUTRITION DIAGNOSIS: * Swallowing difficulty R/T dysphagia, s/p acute CVA as evidenced by NPO, pending ENTERTAINMENT AGENT eval, possible PEG placement. CURRENT DIET:NPO PO DIET RECOMMENDATIONS: IF SAFE FOR ORAL DIET -> LOW NA/ texture per ENTERTAINMENT AGENT ENTERAL NUTRITION RECOMMENDATIONS: IF MEDICALLY APPROPRIATE AND PART OF POC -> Glucerna 1.2 @ 55ml/hr x 24 hrs to provide 1320ml, 1584kcal, 79g prot, 1063ml free water * IF PART OF POC AND MEDICALLY INDICATED, OBTAIN GI ACCESS -> initiate Glucerna 1.2 @ 15ml/hr x 6 hrs -> advance 10ml q 4-6 hrs as tolerated to goal rate -> HOB over 30 degrees/ water flush per MDD ADDITIONAL RECOMMENDATIONS: * Calibrated bedscale wt for accurate CBW * F/up w/ ENTERTAINMENT AGENT rec: oral diet vs NPO * Check A1C and lipid panel: s/p acute CVA * Monitor lytes, replete as needed Pt's skin assessment complete with Primary nurse in attendance. All bony prominences assessed. Sacrum and both hips without erythema or evidence of skin breakdown. Both heels boggy with non-blanching erythema.NO other skin concerns noted. Moisture Barrier Paste applied to buttocks. Optifoam drsg placed over Sacrum to minimize friction.Cavilon Skin Barrier applied to both heels. Each Heel covered with Optifoam drsg. Pt positioned with pillow on his side. Both heels floated off mattress with pillow. Recommendations:Apply Moisture Barrier Paste to Sacrum. Cover with Optifoam drsg. Change every 3 days and prn. Apply Cavilon Skin Barrier to both heels. Cover each heel with Optifoam drsg. Change every 7 days and PRN. Reposition at least every 2hours or as tolerated. Off-load heels with pillow. Andrei Fischer Dec 17, 2019 11:35
--- NOTE | 2019-12-17 11:36 | Pre-Procedure Note/Attestation ---
Pre-Procedure Note/Attestation Complete Prior to Procedure Procedure Narrative: gastric vs small bowel feeding tube insertion Indications for Procedure Pre-Operative Diagnosis: failure to thrive, malnutrition Attestation I attest that I discussed the nature of the procedure; its benefits; risks and complications; and alternatives (and the risks and benefits of such alternatives ), prior to the procedure, with the patient (or the patient's legal operations support representative). I attest that, if there was a reasonable possibility of needing a blood transfusion, the patient (or the patient's legal operations support representative) was given the [facility] standardized written summary, pursuant to the [place] Blood Safety Act ([place] Health and Safety Code # 1645, as amended). I attest that I re-evaluated the patient just prior to the surgery and that there has been no change in the patient's H&P, except as documented below: Andrei Fischer Dec 17, 2019 11:36
[2019-12-17 12:00] VITALS: BP 134/88
--- NOTE | 2019-12-17 12:26 | Anethesia Preoperative Eval ---
Anesthesia Pre-op PMH/ROS General Date of Evaluation: Dec 17, 2019 Time of Evaluation: 11:55 Anesthesiologist: Renee ASA Score: ASA 4 Mallampati Score Class I : Soft palate, uvula, fauces, pillars visible Class II: Soft palate, uvula, fauces visible Class III: Soft palate, base of uvula visible Class IV: Only hard plate visible Mallampati Classification: Class III Surgeon: Aaliyah Diagnosis: Unable to feed self Surgical Procedure: Open G-Tube Placement Anesthesia History: none Family History: no anesthesia problems Allergies: Uncoded Allergies: Green vegetables (Allergy, Unknown, 12/10/19) Medications: see eMAR Patient NPO?: Yes Past Medical History Cardiovascular: Reports: HTN, other - CHF Gastrointestinal/Genitourinary: Reports: GERD, CRI, other - Dysphagia Neurologic/Psychiatric: Reports: dementia, CVA Endocrine: Reports: hypothyroidism Hematology/Immune: Reports: anemia Musculoskeletal/Integumentary: 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 Exam Physician Exam Last Vital Signs Date Time Temp Pulse Resp B/P (MAP) Pulse Ox O2 Delivery O2 Flow Rate FiO2 12/17/19 12:00 97.7 84 20 134/88 (103) 96 12/17/19 09:00 Room Air 12/13/19 12:00 2 Constitutional: NAD Neurologic: CN 2-12 intact Cardiovascular: RRR Respiratory: CTA Gastrointestinal: S/NT/ND Airway Exam Mallampati Score: Class III MO: limited ROM: limited Teeth: missing, intact Anesthesia Pre-op A/P Labs Hematology Test 12/17/19 06:10 White Blood Count 11.4 K/UL (4.8-10.8) H Red Blood Count 4.73 M/UL (4.70-6.10) Hemoglobin 15.1 G/DL (14.2-18.0) Hematocrit 43.7 % (42.0-52.0) Mean Corpuscular Volume 92 FL (80-99) Mean Corpuscular Hemoglobin 31.9 PG (27.0-31.0) H Mean Corpuscular Hemoglobin Concent 34.6 G/DL (32.0-36.0) Red Cell Distribution Width 12.7 % (11.6-14.8) Platelet Count 255 K/UL (150-450) Mean Platelet Volume 6.6 FL (6.5-10.1) Neutrophils (%) (Auto) 65.7 % (45.0-75.0) Lymphocytes (%) (Auto) 18.4 % (20.0-45.0) L Monocytes (%) (Auto) 8.2 % (1.0-10.0) Eosinophils (%) (Auto) 6.6 % (0.0-3.0) H Basophils (%) (Auto) 1.0 % (0.0-2.0) Chemistry Test 12/17/19 06:10 Sodium Level 137 MMOL/L (136-145) Potassium Level 3.8 MMOL/L (3.5-5.1) Chloride Level 103 MMOL/L (98-107) Carbon Dioxide Level 27 MMOL/L (21-32) Anion Gap 7 mmol/L (5-15) Blood Urea Nitrogen 8 mg/dL (7-18) Creatinine 1.0 MG/DL (0.55-1.30) Estimat Glomerular Filtration Rate mL/min (>60) Glucose Level 218 MG/DL (74-106) H Calcium Level 8.4 MG/DL (8.5-10.1) L Risk Assessment & Plan Assessment: ASA 4 Plan: GA Status Change Before Surgery: No Pre-Antibiotics Drug: Jose Guadalupe Zavala MD Dec 17, 2019 12:26
--- NOTE | 2019-12-17 13:03 | NUR ---
*-* INSURANCE *-* ALL CLINICALS AND REVIEWS HAVE BEEN FAXED TO: [facility] [employer] F: [phone]
--- NOTE | 2019-12-17 13:37 | NUR ---
RD ASSESSMENT & RECOMMENDATIONS SEE CARE ACTIVITY FOR COMPLETE ASSESSMENT DAILY ESTIMATED NEEDS: Needs based on Underweight, cardiac/ 49kg 30-35 kcals/kg 7261-4382 total kcals 1-1.5 g protein/kg 49-74 g total protein 25-30 mL/kg 6630-6186 total fluid mLs NUTRITION DIAGNOSIS: * Swallowing difficulty R/T dysphagia, s/p acute CVA as evidenced by s/p MBSS w/ rec for nonoral feeds, pending surgical PEG placement, on NGT feeds. CURRENT TF:Jevity 1.2 @30 ml ENTERAL NUTRITION RECOMMENDATIONS: W/ GI access: Glucerna 1.2 @ 55ml/hr x 24 hrs to provide 1320ml, 1584kcal, 79g prot, 1063ml free water * W/ GI access: -> initiate Glucerna 1.2 @ 15ml/hr x 6 hrs -> advance 10ml q 4-6 hrs as tolerated to goal rate -> HOB over 30 degrees/ water flush per MD ADDITIONAL RECOMMENDATIONS: * Calibrated bedscale wt for accurate CBW * Consider NGT feeds until surgical PEG placement done * Rec NISS w/ continuous TF's. * Check A1C and lipid panel: s/p acute CVA * Monitor lytes, replete as needed .
--- NOTE | 2019-12-17 14:42 | NUR ---
NURSE NOTES: New consent for Gtube placement secured from daughter, Celsa Molina, placed in chart. NPO post midnight as ordered.
[2019-12-17 16:00] VITALS: BP 127/87
--- NOTE | 2019-12-17 16:28 | NUR ---
CASE MANAGEMENT:REVIEW 12/15/2019 SI;ACUTE CVA. SEPSIS. UTI. FTT. 98.6 88 22 153/101 96% ON RA K+ 2.7 CA 8.2 IS;IVF D5 @ 125 ML/HR ZOSYN IV Q8 HRS HEPARIN SUBQ Q12 HRS MED SURG STATUS CASE MANAGEMENT:REVIEW 12/16/2019 SI;ACUTE CVA. SEPSIS. UTI. FTT 98.5 87 23 145/90 95% ON RA K+ 3.3 IS;IVF D5 @ 125 ML/HR ZOSYN IV Q8 HRS HEPARIN SUBQ Q12 HRS MED SURG STATUS CASE MANAGEMENT:REVIEW 12/17/2019 SI;ACUTE CVA. SEPSIS. UTI. FTT 98.2 87 23 150/92 95% ON RA IS;IVF D5 @ 125 ML/HR ZOSYN IV Q8 HRS HEPARIN SUBQ Q12 HRS MED SURG STATUS DCP;FROM [facility]
--- NOTE | 2019-12-17 19:43 | NUR ---
HAND-OFF: Report given to randal.
[2019-12-17 20:00] VITALS: BP 136/80
--- NOTE | 2019-12-17 20:06 | NUR ---
NURSE NOTES: Received patient in bed, asleep, no acute distress noted, IV site is clean dry and intact. Patient is bed bound, confused, disoriented, has a right wrist restraint on, will be closely monitored for comfort and safety. Has NG tube placed through left nostril, on Jevity 1.2 at 30 cc hour. Patient is scheduled for GTube placement on 12/18/2019, will be NPO post midnight. Call light is within reach, bed is lowered, locked, alarm is on, will continue to monitor for comfort and safety.
--- NOTE | 2019-12-17 21:29 | General Progress Note ---
Assessment/Plan Status: stable Assessment/Plan: Assessment - dysphagia - hypernatremia - s/p past distal gastrectomy with Moncho II - hypokalemia Recommendations - NPO - abx - correct electrolytes - NGT feeds - surgical f/u Subjective Allergies: Uncoded Allergies: Green vegetables (Allergy, Unknown, 12/10/19) Subjective confused no change has NGT Objective Last 24 Hour Vital Signs Date Time Temp Pulse Resp B/P (MAP) Pulse Ox O2 Delivery O2 Flow Rate FiO2 12/17/19 16:00 97.9 89 20 127/87 (100) 95 12/17/19 12:00 97.7 84 20 134/88 (103) 96 12/17/19 09:00 Room Air 12/17/19 08:00 98.2 81 20 122/82 (95) 95 12/17/19 04:00 97.8 85 22 145/85 (105) 99 12/17/19 00:00 98.2 87 23 150/92 (111) 100 Intake and Output 12/16/19 12/17/19 19:00 07:00 Intake Total 1987.5 ml 922.5 ml Output Total 450 ml Balance 1987.5 ml 472.5 ml Intake Free Water 90 ml 30 ml IV Total 1567.5 ml 862.5 ml Tube Feeding 330 ml 30 ml Output Urine Total 450 ml # Voids 2 Laboratory Tests 12/17/19 06:10: White Blood Count 11.4H, Red Blood Count 4.73, Hemoglobin 15.1, Hematocrit 43.7 , Mean Corpuscular Volume 92, Mean Corpuscular Hemoglobin 31.9H, Mean Corpuscular Hemoglobin Concent 34.6, Red Cell Distribution Width 12.7, Platelet Count 255, Mean Platelet Volume 6.6, Neutrophils (%) (Auto) 65.7, Lymphocytes (% ) (Auto) 18.4L, Monocytes (%) (Auto) 8.2, Eosinophils (%) (Auto) 6.6H, Basophils (%) (Auto) 1.0, Sodium Level 137, Potassium Level 3.8, Chloride Level 103, Carbon Dioxide Level 27, Anion Gap 7, Blood Urea Nitrogen 8, Creatinine 1.0 , Estimat Glomerular Filtration Rate , Glucose Level 218H, Calcium Level 8.4L Height (Feet): 5 Height (Inches): 5.00 Weight (Pounds): 121 Khorrami,Payman MD Dec 17, 2019 21:29
[2019-12-18] VITALS (13 sets, daily range): BP systolic 117–157; BP diastolic 72–97
[2019-12-18] MEDS: D5W w/KCl 20mEq 1,000 ML IV SCH ×3 (05:15→22:01)
--- NOTE | 2019-12-18 07:24 | NUR ---
HAND-OFF: Report given to Jade CULLEN.
--- NOTE | 2019-12-18 07:25 | NUR ---
NURSE NOTES: Received patient in bed asleep. NG tube feeding off. Kept on NPO for bowel feeding placement. IV lines intact and patent. Condom catheter in place draining yellow colored urine. HOB elevated. Bed locked in lowest position. Call light within reach. Will continue plan of care.
[2019-12-18 08:39] LABS: EOSINOPHILS % (AUTO) 6.7 % (0.0-3.0); HEMATOCRIT 45.4 % (42.0-52.0); HEMOGLOBIN 15.6 G/DL (14.2-18.0); LYMPHOCYTES % (AUTO) 17.9 % (20.0-45.0); MEAN CORPUSCULAR VOLUME 92 FL (80-99); MONOCYTES % (AUTO) 7.1 % (1.0-10.0); NEUTROPHILS % (AUTO) 67.3 % (45.0-75.0); PLATELET COUNT 295 K/UL (150-450); RED BLOOD COUNT 4.94 M/UL (4.70-6.10); RED CELL DISTRIBUTION WIDTH 12.9 % (11.6-14.8); WHITE BLOOD COUNT 12.3 K/UL (4.8-10.8)
[2019-12-18 08:43] LABS: INR 0.9 (0.9-1.1)
[2019-12-18] MEDS ORDERED: Lidocaine 1% MPF 10mg/ml 5ml ONE (08:53)
[2019-12-18] MEDS ORDERED: fentaNYL 100 mcg/2 mL IV ONE (08:53)
[2019-12-18] MEDS ORDERED: Propofol 200mg/20ml IV ONE (08:53)
[2019-12-18] MEDS ORDERED: NS Irrig 1000ml IRRIG ONE (08:54)
[2019-12-18 08:56] LABS: ALANINE AMINOTRANSFERASE 21 U/L (12-78); ALBUMIN 2.2 G/DL (3.4-5.0); ALBUMIN/GLOBULIN RATIO 0.4 (1.0-2.7); ALKALINE PHOSPHATASE 114 U/L (46-116); ANION GAP 10 mmol/L (5-15); ASPARTATE AMINO TRANSFERASE 18 U/L (15-37); BILIRUBIN,TOTAL 0.4 MG/DL (0.2-1.0); BLOOD UREA NITROGEN 12 mg/dL (7-18); CALCIUM 9.1 MG/DL (8.5-10.1); CARBON DIOXIDE 27 MMOL/L (21-32); CHLORIDE 102 MMOL/L (98-107); POTASSIUM 4.4 MMOL/L (3.5-5.1); SODIUM 139 MMOL/L (136-145)
[2019-12-18] MEDS ORDERED: Rocuronium Bromide 50mg/5ml Inj IV ONE (09:00)
[2019-12-18] MEDS: Heparin 5000 units/ml inj SUBQ SCH (09:00)
[2019-12-18] MEDS: Pantoprazole Inj IVP SCH (09:00)
--- NOTE | 2019-12-18 09:00 | NUR ---
NURSE NOTES: Patient brought down for procedure.
[2019-12-18] MEDS ORDERED: Sterile Water Irrig 1000ml IRRIG ONE (09:02)
[2019-12-18] MEDS ORDERED: Glycopyrrolate 0.2mg/ml 1ml Vial ONE (09:02)
[2019-12-18] MEDS ORDERED: Neostigmine 1mg/ml 10ml Inj ONE (09:02)
[2019-12-18] MEDS ORDERED: NS Irrig 1000ml ONE (09:02)
[2019-12-18] MEDS ORDERED: LR 1000ml 1,000 ML IVLG SCH (10:13)
[2019-12-18] MEDS ORDERED: fentaNYL 100 mcg/2 mL IV PRN (10:15)
[2019-12-18] MEDS ORDERED: DiphenhydrAMINE 50mg/ml Inj IVP PRN ×2 (10:15→14:00)
--- NOTE | 2019-12-18 10:15 | Pulmonology Progress Note ---
Assessment/Plan Assessment/Plan PROBLEM LIST: 1. Acute CVA. 2. Sepsis and UTI. Resolved 3. Hypertension and congestive heart failure. 4. History of chronic kidney disease. 5. Failure to thrive 6. Diarrhea; resolved; C diff negative 7. Hypokalemia; corrected PLAN: 1. Replaced K 2. Cardiology, neuro, and ID consultations noted. 3. I have assumed care due Insurance. 4. Surgical consultation noted due to need for open gastrostomy requested 5. Sent stool for c diff'; negative 6. Surgical G tube per Dr Keen/scheduled for today Salomón Bacon M.D. Subjective Interval Events: None new; for surgical GT today Constitutional: Reports: no symptoms HEENT: Repors: no symptoms Respiratory: Reports: no symptoms Cardiovascular: Reports: no symptoms Gastrointestinal/Abdominal: Reports: no symptoms Genitourinary: Reports: no symptoms Neurologic: Reports: no symptoms Allergies: Uncoded Allergies: Green vegetables (Allergy, Unknown, 12/10/19) Objective Last 24 Hour Vital Signs Date Time Temp Pulse Resp B/P (MAP) Pulse Ox O2 Delivery O2 Flow Rate FiO2 12/18/19 08:00 98.0 77 18 135/97 (110) 95 12/18/19 05:34 98.1 81 18 139/81 (100) 95 12/18/19 04:00 98.1 81 18 139/81 (100) 97 12/18/19 00:00 97.5 72 18 120/72 (88) 98 12/17/19 21:33 Room Air 12/17/19 20:00 97.2 80 18 136/80 (98) 98 12/17/19 16:00 97.9 89 20 127/87 (100) 95 12/17/19 12:00 97.7 84 20 134/88 (103) 96 Intake and Output 12/17/19 12/18/19 19:00 07:00 Output Total 1100 ml 1300 ml Balance -1100 ml -1300 ml Output Urine Total 1100 ml 1300 ml # Voids 2 1 # Bowel Movements 1 1 General Appearance: no acute distress HEENT: normocephalic Respiratory/Chest: chest wall non-tender, lungs clear Cardiovascular: normal peripheral pulses Abdomen: normal bowel sounds Laboratory Tests 12/18/19 07:10: White Blood Count 12.3H, Red Blood Count 4.94, Hemoglobin 15.6, Hematocrit 45.4 , Mean Corpuscular Volume 92, Mean Corpuscular Hemoglobin 31.5H, Mean Corpuscular Hemoglobin Concent 34.2, Red Cell Distribution Width 12.9, Platelet Count 295, Mean Platelet Volume 6.8, Neutrophils (%) (Auto) 67.3, Lymphocytes (% ) (Auto) 17.9L, Monocytes (%) (Auto) 7.1, Eosinophils (%) (Auto) 6.7H, Basophils (%) (Auto) 1.0, Prothrombin Time 9.7, Prothromb Time International Ratio 0.9, Activated Partial Thromboplast Time 27, Sodium Level 139, Potassium Level 4.4, Chloride Level 102, Carbon Dioxide Level 27, Anion Gap 10, Blood Urea Nitrogen 12, Creatinine 1.0, Estimat Glomerular Filtration Rate , Glucose Level 148H, Calcium Level 9.1, Total Bilirubin 0.4, Aspartate Amino Transf (AST/ SGOT) 18, Alanine Aminotransferase (ALT/SGPT) 21, Alkaline Phosphatase 114, Total Protein 7.2, Albumin 2.2L, Globulin 5.0, Albumin/Globulin Ratio 0.4L Current Medications Medications (Trade) Dose Ordered Sig/Leandra Route PRN Reason Start Time Stop Time Status Last Admin Dose Admin Dextrose/ Electrolytes 1,000 ml @ 125 mls/hr Q8H IV 12/13/19 07:26 01/12/20 07:25 12/18/19 05:15 Heparin Sodium (Porcine) (Heparin 5000 units/ml) 5,000 units EVERY 12 HOURS SUBQ 12/10/19 09:00 01/09/20 08:59 12/17/19 20:48 Loperamide HCl (Imodium) 1 mg BID PRN NG Diarrhea 12/15/19 10:15 01/14/20 10:14 12/15/19 10:50 Pantoprazole (Protonix) 40 mg DAILY IVP 12/10/19 09:00 01/09/20 08:59 12/17/19 10:05 Salomón Bacon MD Dec 18, 2019 10:15
--- NOTE | 2019-12-18 10:55 | Immediate Post-Op Evaluation ---
Immediate Post-Op Evalulation Immediate Post-Op Evalulation Procedure: Laparotomy, open placement of jejunostomy feeding tube Date of Evaluation: Dec 18, 2019 Time of Evaluation: 10:54 IV Fluids: 1000 Blood Products: none Estimated Blood Loss: min Urinary Output: n/a Blood Pressure Systolic: 156 Blood Pressure Diastolic: 87 Pulse Rate: 88 Respiratory Rate: 22 O2 Sat by Pulse Oximetry: 99 Temperature (Fahrenheit): 97.4 Pain Score (1-10): 1 Nausea: No Vomiting: No Complications none Patient Status: reacts, patent, extubated, none Roland Rivera MD Dec 18, 2019 10:55
--- NOTE | 2019-12-18 11:40 | NUR ---
NURSE NOTES: Patient back in unit, received report from Franchesca Landa. Kept on NPO and dressing to be left untouched as instructed by Dr Fischer. Left IV site intact and patent. Right IV site taken out at OR.
--- NOTE | 2019-12-18 12:15 | NUR ---
D/C SUMMARY/SWALLOW STATUS: PER RN, DANIEL, PEG WAS PLACED THIS MORNING FOR NURSING HOME NUTRITION/HYDRATION SUPPORT. PATIENT PARTIALLY MET GOALS: GOAL MET FOR STAFF TRAINING/RETURN DEMONSTRATION FOR ONGOING ORAL CARE S/P PEG PLACEMENT. CONTINUE NPO STATUS D/C FROM [facility]
--- NOTE | 2019-12-18 13:48 | Brief Operative Note ---
Immediate Post Operative Note Operative Note Pre-op Diagnosis: failure to thrive, malnutrition Procedure: open jejunostomy feeding tube insertion lysis of adhesions open peritoneal mass biopsy Post-op Diagnosis: same as pre-op Surgeon: raúl fischer md Anesthesiologist: kj Anesthesia: general Specimen: yes Complications: none Condition: stable Fluids: see records Estimated Blood Loss: minimal Drains: other Implant(s) used?: No Andrei Fischer Dec 18, 2019 13:48
[2019-12-18] MEDS ORDERED: Acetaminophen 650 MG SUPP RECTAL PRN (14:00)
[2019-12-18] MEDS ORDERED: Metoclopramide 10mg/2ml Inj IVP PRN ×2 (14:00)
[2019-12-18] MEDS ORDERED: Morphine Sulfate 4mg/ml Inj (IV USE ONLY) IVP PRN (14:00)
[2019-12-18] MEDS ORDERED: Morphine Sulfate 2mg/ml Inj(IV/IM USE ONLY) IVP PRN ×2 (14:00)
--- NOTE | 2019-12-18 14:11 | NUR ---
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 97.1 HR 91 RR 20 B/P 117/85 WBC 12.3 IS; CEFAZOLIN IV IVF D5NS @ 125ML/HR PROTONIX IV HEPARIN SUBC MED/SURG STATUS
[2019-12-18] MEDS: ceFAZolin sod 2 GM in D5W 110 ML IV SCH ×2 (15:02→22:01)
--- NOTE | 2019-12-18 18:08 | General Progress Note ---
Assessment/Plan Status: stable Assessment/Plan: Assessment - dysphagia - hypernatremia - s/p past distal gastrectomy with Moncho II - hypokalemia Recommendations - NPO - abx - correct electrolytes - post op care - surgical f/u Subjective Allergies: Uncoded Allergies: Green vegetables (Allergy, Unknown, 12/10/19) Subjective confused no change seen this am preop Objective Last 24 Hour Vital Signs Date Time Temp Pulse Resp B/P (MAP) Pulse Ox O2 Delivery O2 Flow Rate FiO2 12/18/19 11:26 97.1 91 20 117/85 100 Nasal Cannula 3 12/18/19 11:20 89 21 121/93 100 Nasal Cannula 3 12/18/19 11:15 94 22 127/90 100 Nasal Cannula 3 12/18/19 11:10 95 18 130/86 100 Simple Mask 6 12/18/19 11:00 89 21 139/91 100 Simple Mask 6 12/18/19 10:55 92 19 136/93 100 Simple Mask 6 12/18/19 10:55 88 22 99 12/18/19 10:48 97.4 101 14 157/87 100 Simple Mask 6 12/18/19 09:00 Room Air 12/18/19 08:00 98.0 77 18 135/97 (110) 95 12/18/19 05:34 98.1 81 18 139/81 (100) 95 12/18/19 04:00 98.1 81 18 139/81 (100) 97 12/18/19 00:00 97.5 72 18 120/72 (88) 98 12/17/19 21:33 Room Air 12/17/19 20:00 97.2 80 18 136/80 (98) 98 Intake and Output 12/17/19 12/18/19 19:00 07:00 Output Total 1100 ml 1300 ml Balance -1100 ml -1300 ml Output Urine Total 1100 ml 1300 ml # Voids 2 1 # Bowel Movements 1 1 Laboratory Tests 12/18/19 07:10: White Blood Count 12.3H, Red Blood Count 4.94, Hemoglobin 15.6, Hematocrit 45.4 , Mean Corpuscular Volume 92, Mean Corpuscular Hemoglobin 31.5H, Mean Corpuscular Hemoglobin Concent 34.2, Red Cell Distribution Width 12.9, Platelet Count 295, Mean Platelet Volume 6.8, Neutrophils (%) (Auto) 67.3, Lymphocytes (% ) (Auto) 17.9L, Monocytes (%) (Auto) 7.1, Eosinophils (%) (Auto) 6.7H, Basophils (%) (Auto) 1.0, Prothrombin Time 9.7, Prothromb Time International Ratio 0.9, Activated Partial Thromboplast Time 27, Sodium Level 139, Potassium Level 4.4, Chloride Level 102, Carbon Dioxide Level 27, Anion Gap 10, Blood Urea Nitrogen 12, Creatinine 1.0, Estimat Glomerular Filtration Rate , Glucose Level 148H, Calcium Level 9.1, Total Bilirubin 0.4, Aspartate Amino Transf (AST/ SGOT) 18, Alanine Aminotransferase (ALT/SGPT) 21, Alkaline Phosphatase 114, Total Protein 7.2, Albumin 2.2L, Globulin 5.0, Albumin/Globulin Ratio 0.4L Height (Feet): 5 Height (Inches): 1.00 Weight (Pounds): 120 Paul Matute MD Dec 18, 2019 18:08
--- NOTE | 2019-12-18 19:52 | NUR ---
HAND-OFF: Report given to
--- NOTE | 2019-12-18 20:00 | NUR ---
NURSE NOTES Received patient in bed with right arm soft wrist restraint and restraint site asymptomatic and pulse present. No s/s of pain or acute distress noted. IV lines intact and patent. Condom catheter in place draining yellow colored urine. HOB elevated. Bed locked in lowest position. Call light within reach. Will continue plan of care.
[2019-12-19] VITALS (7 sets, daily range): BP systolic 115–138; BP diastolic 73–91
--- NOTE | 2019-12-19 | Operative Note - Dictated ---
DATE OF OPERATION: 12/18/2019 PREOPERATIVE DIAGNOSES: 1. Failure to thrive. 2. Malnutrition. 3. Inability to place PEG tube given prior major gastric surgery. POSTOPERATIVE DIAGNOSES: 1. Failure to thrive. 2. Malnutrition. 3. Inability to place PEG tube given prior major gastric surgery. OPERATION PERFORMED: 1. Open jejunostomy feeding tube insertion. 2. Open lysis of adhesions. 3. Peritoneal mass biopsy. ATTENDING SURGEON: Andrei Fischer M.D. INTERNET PROGRAMMER: None. ANESTHESIOLOGIST: Roland Rivera M.D. ANESTHESIA: General GETA. ESTIMATED BLOOD LOSS: Minimal. IV FLUIDS: Please see anesthesia records. COMPLICATIONS: None. DRAINS: None. COUNTS: Sponge and needle count correct x2. WOUND CLASSIFICATION: Class 3. ANTIBIOTICS: A 2 g Ancef IV given one hour prior to cut time. SPECIMENS: Peritoneal mass. INDICATIONS FOR PROCEDURE: This is an 84-year-old male with recently worsening failure to thrive and malnutrition who was scheduled to have an endoscopic feeding tube placement recently, but was identified to have prior gastric surgery and unable to proceed with endoscopic feeding tube placement. Therefore, surgery was called to evaluate at which time the patient was seen and identified to have a midline incision. Further GI evaluation identifying Billroth II prior gastrectomy. The risks, benefits, and alternatives to surgical intervention were discussed with the patient's family who consents for his surgeries and the remainder of his caring. Explained understanding, and had no previous knowledge of patient's gastric surgery and consented to procedure. Plan for open jejunostomy feeding tube placement. High risk nature of the procedure given patient's major prior gastric surgery discussed and understood by family. OPERATIVE NOTE: The patient was taken to the operating room and placed on the table in supine position with bilateral arms out. All bony prominences well padded. SCDs were placed. Preoperative time-out taken to identify the patient, procedure, operative staff and surgical staff. A 2 g Ancef IV were given one hour prior to cut time. The abdomen was clipped, prepped, and draped in the standard surgical fashion. The prior patient's upper supraumbilical midline incision was utilized and a fresh #10 scalpel was used and an incision was made. Incision was carried down through the subcutaneous tissue to the fascia, which was elevated, incised. Entry into the abdomen was obtained without complication. Upon entering the abdomen, there was significant adhesions noted and next 30 minutes were spent performing a lysis of adhesions until the bowel could be appropriately identified and anatomy noted. In performing lysis of adhesions, two things were clearly identified. One, the patient had some colonic redundancy and dilatation. The colon was evaluated and noted to be dilated with redundant but no obstruction, clear identifiable volvulus or other abnormality was noted. Potential functional dilatation in nature. Furthermore, there was also multiple peritoneal and mesenteric small masses that were hard to identify. Given these findings, two small sample biopsies were taken one from the perineum and one from the mesentery, both of which were identified to be similar and sent to pathology for review. As the anatomy was clearly differentiated, the ligament of Treitz was noted and followed distally until the g-j b2 was identified. Portion of the remaining stomach and the retrocolic gastrojejunostomy that was performed was significantly adhesed with surrounding adhesions and were left undisrupted. The distal B-II limb of jejunum was identified and followed proximally 15 to 20 centimeters distal to the gastrojejunal area that was clear and free of adhesions and suitable for jejunostomy feeding tube placement. A small incision was made in the abdominal wall in the left upper quadrant and the incision was utilized to place an 18-Yemeni red rubber tube. Following this, a small enterotomy was made in the pre determined space. Once the feeding jejunostomy tube was positioned accurately and the tube was secured within the enterotomy using a pursestring 3-0 Vicryl suture. The tube was then Witzled in place with multiple 3-0 silk interrupted sutures. Approximately a 4 to 5 cm tunneling Witzel was made. The proximal end of it was sutured to the peritoneal lining using interrupted 3-0 silk sutures and secured appropriately. Once the tube was appropriately fashioned and positioning, it was anchored to the skin using a 2-0 nylon suture. At this time, the abdomen was inspected. No bleeding was identified. No other clear abnormalities were noted. No bleeding from lysis of adhesions noted. No bleeding from peritoneal and mesenteric mass biopsies noted. The tube was adequately positioned without complication, kinking, or obstruction. At this time, we began the conclusion of the procedure. The fascia was reapproximated using a 0 PDS running suture followed by cleansing of the wound and closure of the skin incision using surgical christian. Dressings were applied. The patient tolerated the procedure well, was extubated and taken to postanesthetic care unit in stable condition Andrei Fischer M.D. DR: Mohit JOB#: [id number] CC: [email or web address]
--- NOTE | 2019-12-19 | NUR ---
NURSE NOTES: Held scheduled heparin @ 2100 due to s/p procedure lap placement of jejunotomy tube.
[2019-12-19] MEDS: D5W w/KCl 20mEq 1,000 ML IV SCH (05:50)
--- NOTE | 2019-12-19 07:29 | NUR ---
HAND-OFF: Report given to SUBHASH Hansen.
--- NOTE | 2019-12-19 08:18 | 48 Hour Post Anesthesia Eval ---
Post Anesthesia Evaluation Procedure: Laparotomy, open placement of jejunostomy feeding tube Date of Evaluation: Dec 19, 2019 Time of Evaluation: 08:16 Blood Pressure Systolic: 132 0: 86 Pulse Rate: 92 Respiratory Rate: 18 Temperature (Fahrenheit): 98.3 O2 Sat by Pulse Oximetry: 97 Airway: patent Nausea: No Vomiting: No Pain Intensity: 1 Hydration Status: adequate Cardiopulmonary Status: Stable Mental Status/LOC: patient returned to baseline Follow-up Care/Observations: 0 Post-Anesthesia Complications: 0 Follow-up care needed: N/A Jose Guadalupe Duran MD Dec 19, 2019 08:18
[2019-12-19 08:20] LABS: BASOPHILS % (AUTO) 0.4 % (0.0-2.0); EOSINOPHILS % (AUTO) 0.6 % (0.0-3.0); HEMATOCRIT 47.7 % (42.0-52.0); HEMOGLOBIN 16.4 G/DL (14.2-18.0); LYMPHOCYTES % (AUTO) 9.2 % (20.0-45.0); MEAN CORPUSCULAR VOLUME 93 FL (80-99); MONOCYTES % (AUTO) 5.3 % (1.0-10.0); NEUTROPHILS % (AUTO) 84.4 % (45.0-75.0); PLATELET COUNT 347 K/UL (150-450); RED BLOOD COUNT 5.14 M/UL (4.70-6.10); RED CELL DISTRIBUTION WIDTH 13.6 % (11.6-14.8); WHITE BLOOD COUNT 17.4 K/UL (4.8-10.8)
[2019-12-19 08:36] LABS: ANION GAP 6 mmol/L (5-15); BLOOD UREA NITROGEN 15 mg/dL (7-18); CALCIUM 9.3 MG/DL (8.5-10.1); CARBON DIOXIDE 31 MMOL/L (21-32); CHLORIDE 99 MMOL/L (98-107); CREATININE 0.9 MG/DL (0.55-1.30); POTASSIUM 5.2 MMOL/L (3.5-5.1); SODIUM 136 MMOL/L (136-145)
--- NOTE | 2019-12-19 08:49 | NUR ---
NURSE NOTES: Received patient in bed asleep. No SOB or acute distress. O2 via nasal cannula in place. Condom catheter in place. IV line intact and patent. HOB elevated. Bed locked in lowest position. Call light within reach. Will continue plan of care.
--- NOTE | 2019-12-19 09:43 | Pulmonology Progress Note ---
Assessment/Plan Assessment/Plan PROBLEM LIST: 1. Acute CVA. 2. Sepsis and UTI. Resolved 3. Hypertension and congestive heart failure. 4. History of chronic kidney disease. 5. Failure to thrive 6. Diarrhea; resolved; C diff negative 7. Hypokalemia; corrected; now hyperkalemic PLAN: 1. S/p feeding tube placement 2. Cardiology, neuro, and ID consultations noted. 3. I have assumed care due Insurance. 4. Surgical consultation noted due to need for open gastrostomy 5. Sent stool for c diff'; negative 6. Surgical G tube per Dr Keen/done yesterday Salomón Bacon M.D. Subjective Interval Events: S/p feeding tube placement (open) Constitutional: Reports: no symptoms HEENT: Repors: no symptoms Respiratory: Reports: no symptoms Cardiovascular: Reports: no symptoms Allergies: Uncoded Allergies: Green vegetables (Allergy, Unknown, 12/10/19) Objective Last 24 Hour Vital Signs Date Time Temp Pulse Resp B/P (MAP) Pulse Ox O2 Delivery O2 Flow Rate FiO2 12/19/19 08:18 92 18 97 12/19/19 08:00 97.8 98 20 115/84 (94) 93 12/19/19 04:00 98.3 92 18 132/86 (101) 97 12/19/19 00:00 98.9 92 18 132/88 (103) 97 12/18/19 21:00 Room Air 12/18/19 20:00 98.8 90 20 128/88 (101) 95 12/18/19 16:00 97.7 68 20 135/85 (102) 94 12/18/19 11:26 97.1 91 20 117/85 100 Nasal Cannula 3 12/18/19 11:20 89 21 121/93 100 Nasal Cannula 3 12/18/19 11:15 94 22 127/90 100 Nasal Cannula 3 12/18/19 11:10 95 18 130/86 100 Simple Mask 6 12/18/19 11:00 89 21 139/91 100 Simple Mask 6 12/18/19 10:55 92 19 136/93 100 Simple Mask 6 12/18/19 10:55 88 22 99 12/18/19 10:48 97.4 101 14 157/87 100 Simple Mask 6 Intake and Output 12/18/19 12/19/19 19:00 07:00 Intake Total 2760 ml 1375 ml Output Total 105 ml Balance 2655 ml 1375 ml IV Total 2760 ml 1375 ml Output Urine Total 100 ml Estimated Blood Loss 5 ml # Voids 3 3 General Appearance: no acute distress HEENT: normocephalic Respiratory/Chest: chest wall non-tender Cardiovascular: normal peripheral pulses, normal rate Abdomen: normal bowel sounds Laboratory Tests 12/19/19 07:15: White Blood Count 17.4H, Red Blood Count 5.14, Hemoglobin 16.4, Hematocrit 47.7 , Mean Corpuscular Volume 93, Mean Corpuscular Hemoglobin 31.9H, Mean Corpuscular Hemoglobin Concent 34.4, Red Cell Distribution Width 13.6, Platelet Count 347, Mean Platelet Volume 6.5, Neutrophils (%) (Auto) 84.4H, Lymphocytes ( %) (Auto) 9.2L, Monocytes (%) (Auto) 5.3, Eosinophils (%) (Auto) 0.6, Basophils (%) (Auto) 0.4, Sodium Level 136, Potassium Level 5.2H, Chloride Level 99, Carbon Dioxide Level 31, Anion Gap 6, Blood Urea Nitrogen 15, Creatinine 0.9, Estimat Glomerular Filtration Rate , Glucose Level 171H, Calcium Level 9.3 Current Medications Medications (Trade) Dose Ordered Sig/Leandra Route PRN Reason Start Time Stop Time Status Last Admin Dose Admin Acetaminophen (Tylenol) 650 mg Q4H PRN RECTAL FEVER 12/18/19 14:00 01/17/20 13:59 Al Hydroxide/Mg Hydroxide (Mylanta) 15 ml Q6H PRN ORAL DYSPEPSIA 12/18/19 14:00 01/17/20 13:59 Dextrose/ Electrolytes 1,000 ml @ 125 mls/hr Q8H IV 12/13/19 07:26 01/12/20 07:25 12/19/19 05:50 Diphenhydramine HCl (Benadryl) 12.5 mg Q6H PRN IVP Itching/Pruritis 12/18/19 14:00 01/17/20 13:59 Heparin Sodium (Porcine) (Heparin 5000 units/ml) 5,000 units EVERY 12 HOURS SUBQ 12/10/19 09:00 01/09/20 08:59 12/17/19 20:48 Loperamide HCl (Imodium) 1 mg BID PRN NG Diarrhea 12/15/19 10:15 01/14/20 10:14 12/15/19 10:50 Metoclopramide HCl (Reglan) 10 mg Q6H PRN IVP Nausea & Vomiting 12/18/19 14:00 01/17/20 13:59 Morphine Sulfate (Morphine Sulfate) 1 mg Q4H PRN IVP pain scale 1-3 12/18/19 14:00 12/25/19 13:59 Morphine Sulfate (Morphine Sulfate) 2 mg Q4H PRN IVP pain scale 4-6 12/18/19 14:00 12/25/19 13:59 Morphine Sulfate (Morphine Sulfate) 4 mg Q4H PRN IVP pain score 7-10 12/18/19 14:00 12/25/19 13:59 Pantoprazole (Protonix) 40 mg DAILY IVP 12/10/19 09:00 01/09/20 08:59 12/17/19 10:05 Salomón Bacon MD Dec 19, 2019 09:43
[2019-12-19] MEDS: Pantoprazole Inj IVP SCH ×2 (10:24→21:19)
[2019-12-19] MEDS: Heparin 5000 units/ml inj SUBQ SCH ×2 (10:26→21:20)
--- NOTE | 2019-12-19 10:35 | Consultation ---
Consult Note Consult Note I was asked to eval the patient for abnormal electrolyte and HyperKalemia Patient seen- non historian Lethargic afebrile tachycardic gargling upperchest and ronchi lower on auscultation + decrease BS Rt> LT Tachycardic abd, slight tender- has GT in no edema Labs reviewed . Assessment/Plan HyperKalemia, in view of normal renal functions, Partly hemolysis Moderate respiratory distress: CHF vs Pneumonia Tachycardia and Leukocytosis ? UTI Hyperglycemia other conditions: 1. Acute CVA. 2. Sepsis and UTI. under treatment 3. Hypertension and congestive heart failure. 4. History of chronic kidney disease. 5. Failure to thrive 6. Diarrhea; resolved; C diff negative 7.s/p Hypokalemia; corrected; CXR stat one dose Lasix Urine tests per orders Valdo Anderson MD Dec 19, 2019 10:35
[2019-12-19 10:59] LABS: ALANINE AMINOTRANSFERASE 17 U/L (12-78); ALBUMIN 2.3 G/DL (3.4-5.0); ALKALINE PHOSPHATASE 119 U/L (46-116); ASPARTATE AMINO TRANSFERASE 33 U/L (15-37); BILIRUBIN,TOTAL 0.6 MG/DL (0.2-1.0); PHOSPHORUS 4.2 MG/DL (2.5-4.9)
[2019-12-19 11:00] LABS: BILIRUBIN,DIRECT < 0.1 MG/DL (0.0-0.3)
--- NOTE | 2019-12-19 14:20 | NUR ---
NURSE NOTES: Iv line reinserted to right arm g24. Restraint in place.
--- NOTE | 2019-12-19 15:00 | NUR ---
NURSE NOTES: May resume tube feeding as per Dr Fischer. Feeding currently at 10cc/hr. Flushing done.
--- NOTE | 2019-12-19 15:19 | Surgery Progress Note ---
Surgery Progress Note Subjective Procedure Performed open jejunostomy feeding tube insertion lysis of adhesions open peritoneal mass biopsy Additional Comments doing well dressings clean tube okay okay to start using j tube for feeding and meds d/c planning Objective Last 24 Hour Vital Signs Date Time Temp Pulse Resp B/P (MAP) Pulse Ox O2 Delivery O2 Flow Rate FiO2 12/19/19 12:00 98.0 109 19 132/91 (105) 98 12/19/19 09:00 Room Air 12/19/19 08:18 92 18 97 12/19/19 08:00 97.8 98 20 115/84 (94) 93 12/19/19 04:00 98.3 92 18 132/86 (101) 97 12/19/19 00:00 98.9 92 18 132/88 (103) 97 12/18/19 21:00 Room Air 12/18/19 20:00 98.8 90 20 128/88 (101) 95 12/18/19 16:00 97.7 68 20 135/85 (102) 94 I&O Intake and Output 12/18/19 12/19/19 19:00 07:00 Intake Total 2760 ml 1375 ml Output Total 105 ml Balance 2655 ml 1375 ml IV Total 2760 ml 1375 ml Output Urine Total 100 ml Estimated Blood Loss 5 ml # Voids 3 3 Dressing: dry Wound: clean Drains: other Cardiovascular: RSR Respiratory: clear Abdomen: non-tender, present bowel sounds Extremities: no tenderness, no cyanosis Laboratory Tests Test 12/19/19 07:15 White Blood Count 17.4 K/UL (4.8-10.8) H Red Blood Count 5.14 M/UL (4.70-6.10) Hemoglobin 16.4 G/DL (14.2-18.0) Hematocrit 47.7 % (42.0-52.0) Mean Corpuscular Volume 93 FL (80-99) Mean Corpuscular Hemoglobin 31.9 PG (27.0-31.0) H Mean Corpuscular Hemoglobin Concent 34.4 G/DL (32.0-36.0) Red Cell Distribution Width 13.6 % (11.6-14.8) Platelet Count 347 K/UL (150-450) Mean Platelet Volume 6.5 FL (6.5-10.1) Neutrophils (%) (Auto) 84.4 % (45.0-75.0) H Lymphocytes (%) (Auto) 9.2 % (20.0-45.0) L Monocytes (%) (Auto) 5.3 % (1.0-10.0) Eosinophils (%) (Auto) 0.6 % (0.0-3.0) Basophils (%) (Auto) 0.4 % (0.0-2.0) Sodium Level 136 MMOL/L (136-145) Potassium Level 5.2 MMOL/L (3.5-5.1) H Chloride Level 99 MMOL/L (98-107) Carbon Dioxide Level 31 MMOL/L (21-32) Anion Gap 6 mmol/L (5-15) Blood Urea Nitrogen 15 mg/dL (7-18) Creatinine 0.9 MG/DL (0.55-1.30) Estimat Glomerular Filtration Rate mL/min (>60) Glucose Level 171 MG/DL (74-106) H Hemoglobin A1c 6.0 % (4.3-6.0) Uric Acid 3.8 MG/DL (2.6-7.2) Calcium Level 9.3 MG/DL (8.5-10.1) Phosphorus Level 4.2 MG/DL (2.5-4.9) Magnesium Level 1.8 MG/DL (1.8-2.4) Total Bilirubin 0.6 MG/DL (0.2-1.0) Direct Bilirubin < 0.1 MG/DL (0.0-0.3) Aspartate Amino Transf (AST/SGOT) 33 U/L (15-37) Alanine Aminotransferase (ALT/SGPT) 17 U/L (12-78) Alkaline Phosphatase 119 U/L (46-116) H C-Reactive Protein, Quantitative 19.3 mg/dL (0.00-0.90) H Pro-B-Type Natriuretic Peptide 3035 pg/mL (0-125) H Total Protein 6.9 G/DL (6.4-8.2) Albumin 2.3 G/DL (3.4-5.0) L Thyroid Stimulating Hormone (TSH) 1.894 uiU/mL (0.358-3.740) Plan Problems: (1) Failure to thrive Assessment & Plan: This is a 84-year-old male with failure to thrive, unfortunate history of stroke unable to have significant oral intake and indicating recommended for feeding tube placement. Unfortunately given prior gastric surgery unable to have endoscopic PEG tube placement. Surgical feeding tube placement indicated recommended. Will discuss with patient's family to obtain consent and schedule when appropriate. Thank you for let me participate in patient's care spoke with family obtained consent s/p j tube +CRYSTAL path noted exam okay tube okay start using tube for feeds and meds please make sure to flush after each use christian to be removed in 1 week okay to d/c f/u 1 week for staple removal and wound check DAILY ESTIMATED NEEDS: Needs based on Underweight, cardiac/ 49kg 30-35 kcals/kg 5441-7525 total kcals 1-1.5 g protein/kg 49-74 g total protein 25-30 mL/kg 0599-6937 total fluid mLs NUTRITION DIAGNOSIS: * Swallowing difficulty R/T dysphagia, s/p acute CVA as evidenced by NPO, pending FILM FLAT INSPECTOR eval, possible PEG placement. CURRENT DIET:NPO PO DIET RECOMMENDATIONS: IF SAFE FOR ORAL DIET -> LOW NA/ texture per FILM FLAT INSPECTOR ENTERAL NUTRITION RECOMMENDATIONS: IF MEDICALLY APPROPRIATE AND PART OF POC -> Glucerna 1.2 @ 55ml/hr x 24 hrs to provide 1320ml, 1584kcal, 79g prot, 1063ml free water * IF PART OF POC AND MEDICALLY INDICATED, OBTAIN GI ACCESS -> initiate Glucerna 1.2 @ 15ml/hr x 6 hrs -> advance 10ml q 4-6 hrs as tolerated to goal rate -> HOB over 30 degrees/ water flush per MDD ADDITIONAL RECOMMENDATIONS: * Calibrated bedscale wt for accurate CBW * F/up w/ FILM FLAT INSPECTOR rec: oral diet vs NPO * Check A1C and lipid panel: s/p acute CVA * Monitor lytes, replete as needed Pt's skin assessment complete with Primary nurse in attendance. All bony prominences assessed. Sacrum and both hips without erythema or evidence of skin breakdown. Both heels boggy with non-blanching erythema.NO other skin concerns noted. Moisture Barrier Paste applied to buttocks. Optifoam drsg placed over Sacrum to minimize friction.Cavilon Skin Barrier applied to both heels. Each Heel covered with Optifoam drsg. Pt positioned with pillow on his side. Both heels floated off mattress with pillow. Recommendations:Apply Moisture Barrier Paste to Sacrum. Cover with Optifoam drsg. Change every 3 days and prn. Apply Cavilon Skin Barrier to both heels. Cover each heel with Optifoam drsg. Change every 7 days and PRN. Reposition at least every 2hours or as tolerated. Off-load heels with pillow. Andrei Fischer Dec 19, 2019 15:19
--- NOTE | 2019-12-19 16:24 | NUR ---
CASE MANAGEMENT:REVIEW SI;S/P GT PLACEMENT. 98.9 109 20 132/91 93% ON RA WBC 17.4 BNO 3035 IS;CEFAZOLIN IV Q8 HRS REGLAN IV Q6 HRS HEPARIN SUBQ Q12 HRS MED SURG STATUS DCP;[facility]
--- NOTE | 2019-12-19 19:29 | NUR ---
NURSE NOTES Pt is in bed asleep, no acute distress noted. Received patient in bed with right arm soft wrist restraint and restraint site asymptomatic and pulse present. No s/s of pain or acute distress noted. IV lines intact and patent. Condom catheter in place draining yellow colored urine. JT patent and running feeding. JT flushed and no residual noted.HOB elevated. Bed locked in lowest position. Call light within reach. Will continue plan of care.
--- NOTE | 2019-12-19 19:58 | NUR ---
HAND-OFF: Report given to
--- NOTE | 2019-12-19 20:35 | General Progress Note ---
Assessment/Plan Status: stable Assessment/Plan: Assessment - dysphagia - s/p j tube - hypernatremia - s/p past distal gastrectomy with Moncho II - hypokalemia Recommendations - J tube feeds - abx - post op care - surgical f/u Subjective Allergies: Uncoded Allergies: Green vegetables (Allergy, Unknown, 12/10/19) Subjective confused no change seen this am Objective Last 24 Hour Vital Signs Date Time Temp Pulse Resp B/P (MAP) Pulse Ox O2 Delivery O2 Flow Rate FiO2 12/19/19 16:00 97.9 110 20 138/86 (103) 97 12/19/19 12:00 98.0 109 19 132/91 (105) 98 12/19/19 09:00 Room Air 12/19/19 08:18 92 18 97 12/19/19 08:00 97.8 98 20 115/84 (94) 93 12/19/19 04:00 98.3 92 18 132/86 (101) 97 12/19/19 00:00 98.9 92 18 132/88 (103) 97 12/18/19 21:00 Room Air Intake and Output 12/18/19 12/19/19 19:00 07:00 Intake Total 2760 ml 1375 ml Output Total 105 ml Balance 2655 ml 1375 ml IV Total 2760 ml 1375 ml Output Urine Total 100 ml Estimated Blood Loss 5 ml # Voids 3 3 Laboratory Tests 12/19/19 07:15: White Blood Count 17.4H, Red Blood Count 5.14, Hemoglobin 16.4, Hematocrit 47.7 , Mean Corpuscular Volume 93, Mean Corpuscular Hemoglobin 31.9H, Mean Corpuscular Hemoglobin Concent 34.4, Red Cell Distribution Width 13.6, Platelet Count 347, Mean Platelet Volume 6.5, Neutrophils (%) (Auto) 84.4H, Lymphocytes ( %) (Auto) 9.2L, Monocytes (%) (Auto) 5.3, Eosinophils (%) (Auto) 0.6, Basophils (%) (Auto) 0.4, Sodium Level 136, Potassium Level 5.2H, Chloride Level 99, Carbon Dioxide Level 31, Anion Gap 6, Blood Urea Nitrogen 15, Creatinine 0.9, Estimat Glomerular Filtration Rate , Glucose Level 171H, Hemoglobin A1c 6.0, Uric Acid 3.8, Calcium Level 9.3, Phosphorus Level 4.2, Magnesium Level 1.8, Total Bilirubin 0.6, Direct Bilirubin < 0.1, Aspartate Amino Transf (AST/SGOT) 33, Alanine Aminotransferase (ALT/SGPT) 17, Alkaline Phosphatase 119H, C- Reactive Protein, Quantitative 19.3H, Pro-B-Type Natriuretic Peptide 3035H, Total Protein 6.9, Albumin 2.3L, Thyroid Stimulating Hormone (TSH) 1.894 Height (Feet): 5 Height (Inches): 1.00 Weight (Pounds): 123 Objective elalbay WM NCAT supple CTA RR abd soft ND, (+) J tube no edema OBS Paul Matute MD Dec 19, 2019 20:35
[2019-12-20] VITALS (16 sets, daily range): BP systolic 95–134; BP diastolic 56–103
--- NOTE | 2019-12-20 00:51 | Diagnostic Imaging Report ---
Indication: Dyspnea Comparison: 12/09/2019 A single view chest radiograph was obtained. Findings: There is a crescentic lucency at the right lung base in the setting of a completely opacified right hemithorax with nonvisualization of the right hemidiaphragm. Based on the appearance is is probably just below the diaphragm and the peritoneal cavity. The patient has a history of a recent gastrostomy placement and therefore the air is probably accounted for by the recent procedure. The right hemithorax is completely opacified. There is some associated volume loss with this indicating that this is likely accounted for by atelectasis. The left lung appears slightly hyperexpanded. The heart is stable. Aorta is ectatic. IMPRESSION: Crescentic focus of air at the right lung base. This is likely just below the diaphragm and the peritoneum and likely accounted for by recent gastrostomy. Please correlate clinically. Complete opacification of the right hemithorax. This is likely largely accounted for by atelectasis.
--- NOTE | 2019-12-20 07:25 | NUR ---
HAND-OFF: Report given to SUBHASH Lord.
--- NOTE | 2019-12-20 07:54 | NUR ---
NURSE NOTES: Patient alert x1, non verbal; on Nasal cannula 2 Liters, no sing of distress and shortness of breath; no sign of chest pain; Condom cath in place, drains yellow urine; IV Right For-Arm 24G TKO; feeding tube Jevity 1.2 running at 30cc continuous, will flush as ordered, no residual; head of the bed elevated, side rails up x2, breaks engaged, bed at lowest position, bed alarm on; will keep monitoring.
[2019-12-20 08:38] LABS: HEMATOCRIT 46.9 % (42.0-52.0); MEAN CORPUSCULAR VOLUME 93 FL (80-99); PLATELET COUNT 382 K/UL (150-450); RED BLOOD COUNT 5.02 M/UL (4.70-6.10); RED CELL DISTRIBUTION WIDTH 13.3 % (11.6-14.8); WHITE BLOOD COUNT 17.5 K/UL (4.8-10.8)
[2019-12-20 09:02] LABS: ALANINE AMINOTRANSFERASE 13 U/L (12-78); ALBUMIN 2.3 G/DL (3.4-5.0); ALBUMIN/GLOBULIN RATIO 0.4 (1.0-2.7); ALKALINE PHOSPHATASE 124 U/L (46-116); ANION GAP 4 mmol/L (5-15); ASPARTATE AMINO TRANSFERASE 19 U/L (15-37); BILIRUBIN,TOTAL 0.8 MG/DL (0.2-1.0); BLOOD UREA NITROGEN 17 mg/dL (7-18); CALCIUM 9.5 MG/DL (8.5-10.1); CARBON DIOXIDE 32 MMOL/L (21-32); CHLORIDE 100 MMOL/L (98-107); CHOLESTEROL 151 MG/DL (< 200); CREATININE 1.2 MG/DL (0.55-1.30); HDL CHOLESTEROL 45 MG/DL (40-60); PHOSPHORUS 3.3 MG/DL (2.5-4.9); POTASSIUM 5.1 MMOL/L (3.5-5.1); SODIUM 136 MMOL/L (136-145); TRIGLYCERIDES 78 MG/DL (30-150)
[2019-12-20] MEDS: Pantoprazole Inj IVP SCH ×2 (09:05→21:08)
[2019-12-20] MEDS: Heparin 5000 units/ml inj SUBQ SCH ×2 (09:05→21:09)
--- NOTE | 2019-12-20 09:19 | Nephrology Progress Note ---
Assessment/Plan Problem List: (1) Hyperkalemia (2) Right lower lobe pneumonia (3) Hyperglycemia (4) Leukocytosis Assessment HyperKalemia, in view of normal renal functions, Partly hemolysis Moderate respiratory distress: CHF vs Pneumonia Tachycardia and Leukocytosis ? UTI Hyperglycemia Leukocytosis other conditions: 1. Acute CVA. 2. Sepsis and UTI. under treatment 3. Hypertension and congestive heart failure. 4. History of chronic kidney disease. 5. Failure to thrive 6. Diarrhea; resolved; C diff negative 7.s/p Hypokalemia; corrected; Plan CXR Right lung Opacification one dose Lasix again discussed with Pulmonary Urine tests per orders Subjective ROS Limited/Unobtainable: No Constitutional: Reports: malaise, weakness Objective Objective Last 24 Hour Vital Signs Date Time Temp Pulse Resp B/P (MAP) Pulse Ox O2 Delivery O2 Flow Rate FiO2 12/20/19 08:00 97.8 70 19 132/79 (96) 100 12/20/19 04:00 97.6 95 20 134/87 (103) 98 12/19/19 23:54 98.2 98 20 117/73 (88) 97 12/19/19 21:00 Room Air 12/19/19 20:00 98.6 98 20 125/91 (102) 97 12/19/19 16:00 97.9 110 20 138/86 (103) 97 12/19/19 12:00 98.0 109 19 132/91 (105) 98 Intake and Output 12/19/19 12/20/19 19:00 07:00 Intake Total 270 ml Output Total 1300 ml Balance -1300 ml 270 ml Intake Free Water 40 ml Tube Feeding 230 ml Output Urine Total 1300 ml Laboratory Tests 12/20/19 07:20: White Blood Count 17.5H, Red Blood Count 5.02, Hemoglobin 16.0, Hematocrit 46.9 , Mean Corpuscular Volume 93, Mean Corpuscular Hemoglobin 31.9H, Mean Corpuscular Hemoglobin Concent 34.2, Red Cell Distribution Width 13.3, Platelet Count 382, Mean Platelet Volume 6.3L, Neutrophils (%) (Auto) , Lymphocytes (%) ( Auto) , Monocytes (%) (Auto) , Eosinophils (%) (Auto) , Basophils (%) (Auto) , Neutrophils % (Manual) [Pending], Lymphocytes % (Manual) [Pending], Platelet Estimate [Pending], Platelet Morphology [Pending], Sodium Level 136, Potassium Level 5.1, Chloride Level 100, Carbon Dioxide Level 32, Anion Gap 4L, Blood Urea Nitrogen 17, Creatinine 1.2, Estimat Glomerular Filtration Rate , Glucose Level 151H, Uric Acid 4.9, Calcium Level 9.5, Phosphorus Level 3.3, Magnesium Level 2.1, Total Bilirubin 0.8, Aspartate Amino Transf (AST/SGOT) 19, Alanine Aminotransferase (ALT/SGPT) 13, Alkaline Phosphatase 124H, C-Reactive Protein, Quantitative 25.4H, Pro-B-Type Natriuretic Peptide 3712H, Total Protein 7.8, Albumin 2.3L, Globulin 5.5, Albumin/Globulin Ratio 0.4L, Triglycerides Level 78 , Cholesterol Level 151, LDL Cholesterol 87, HDL Cholesterol 45, Cholesterol/ HDL Ratio 3.4, Vitamin B12 Level [Pending], Folate [Pending] Height (Feet): 5 Height (Inches): 1.00 Weight (Pounds): 123 General Appearance: no apparent distress, lethargic Neck: limited range of motion Cardiovascular: tachycardia Respiratory/Chest: decreased breath sounds Abdomen: soft Valdo Anderson MD Dec 20, 2019 09:19
--- NOTE | 2019-12-20 10:23 | Pulmonology Progress Note ---
Assessment/Plan Assessment/Plan PROBLEM LIST: 1. Acute CVA. 2. Sepsis and UTI. Resolved 3. Hypertension and congestive heart failure. 4. History of chronic kidney disease. 5. Failure to thrive 6. Diarrhea; resolved; C diff negative 7. R lung opacification; will transfer to ICU and do bedside bronchoscopy; discussed with daughter (albert) who agrees PLAN: 1. S/p feeding tube placement 2. Cardiology, neuro, and ID consultations noted. 3. I have assumed care due Insurance. 4. Surgical consultation noted due to need for open gastrostomy 5. Sent stool for c diff'; negative 6. Surgical G tube per Dr Keen/done 7. Will do bronch; I suspect R main stem mucus plug Salomón Bacon M.D. Subjective Interval Events: Received Lasix yesterday; CXR today shows complete R lung opacification Constitutional: Reports: no symptoms HEENT: Repors: no symptoms Respiratory: Reports: no symptoms Cardiovascular: Reports: no symptoms Gastrointestinal/Abdominal: Reports: no symptoms Allergies: Uncoded Allergies: Green vegetables (Allergy, Unknown, 12/10/19) Objective Last 24 Hour Vital Signs Date Time Temp Pulse Resp B/P (MAP) Pulse Ox O2 Delivery O2 Flow Rate FiO2 12/20/19 09:00 Room Air 12/20/19 08:00 97.8 70 19 132/79 (96) 100 12/20/19 04:00 97.6 95 20 134/87 (103) 98 12/19/19 23:54 98.2 98 20 117/73 (88) 97 12/19/19 21:00 Room Air 12/19/19 20:00 98.6 98 20 125/91 (102) 97 12/19/19 16:00 97.9 110 20 138/86 (103) 97 12/19/19 12:00 98.0 109 19 132/91 (105) 98 Intake and Output 12/19/19 12/20/19 19:00 07:00 Intake Total 270 ml Output Total 1300 ml Balance -1300 ml 270 ml Intake Free Water 40 ml Tube Feeding 230 ml Output Urine Total 1300 ml General Appearance: no acute distress HEENT: normocephalic Respiratory/Chest: decreased breath sounds Cardiovascular: normal peripheral pulses, normal rate Abdomen: normal bowel sounds Laboratory Tests 12/20/19 07:20: White Blood Count 17.5H, Red Blood Count 5.02, Hemoglobin 16.0, Hematocrit 46.9 , Mean Corpuscular Volume 93, Mean Corpuscular Hemoglobin 31.9H, Mean Corpuscular Hemoglobin Concent 34.2, Red Cell Distribution Width 13.3, Platelet Count 382, Mean Platelet Volume 6.3L, Neutrophils (%) (Auto) , Lymphocytes (%) ( Auto) , Monocytes (%) (Auto) , Eosinophils (%) (Auto) , Basophils (%) (Auto) , Neutrophils % (Manual) [Pending], Lymphocytes % (Manual) [Pending], Platelet Estimate [Pending], Platelet Morphology [Pending], Sodium Level 136, Potassium Level 5.1, Chloride Level 100, Carbon Dioxide Level 32, Anion Gap 4L, Blood Urea Nitrogen 17, Creatinine 1.2, Estimat Glomerular Filtration Rate , Glucose Level 151H, Uric Acid 4.9, Calcium Level 9.5, Phosphorus Level 3.3, Magnesium Level 2.1, Total Bilirubin 0.8, Aspartate Amino Transf (AST/SGOT) 19, Alanine Aminotransferase (ALT/SGPT) 13, Alkaline Phosphatase 124H, C-Reactive Protein, Quantitative 25.4H, Pro-B-Type Natriuretic Peptide 3712H, Total Protein 7.8, Albumin 2.3L, Globulin 5.5, Albumin/Globulin Ratio 0.4L, Triglycerides Level 78 , Cholesterol Level 151, LDL Cholesterol 87, HDL Cholesterol 45, Cholesterol/ HDL Ratio 3.4, Vitamin B12 Level 656, Folate 13.0 Current Medications Medications (Trade) Dose Ordered Sig/Leandra Route PRN Reason Start Time Stop Time Status Last Admin Dose Admin Acetaminophen (Tylenol) 650 mg Q4H PRN RECTAL FEVER 12/18/19 14:00 01/17/20 13:59 Furosemide (Lasix) 20 mg ONCE IV 12/20/19 09:30 12/20/19 10:30 Heparin Sodium (Porcine) (Heparin 5000 units/ml) 5,000 units EVERY 12 HOURS SUBQ 12/10/19 09:00 01/09/20 08:59 12/20/19 09:05 Loperamide HCl (Imodium) 1 mg BID PRN NG Diarrhea 12/15/19 10:15 01/14/20 10:14 12/15/19 10:50 Metoclopramide HCl (Reglan) 10 mg Q6H PRN IVP Nausea & Vomiting 12/18/19 14:00 01/17/20 13:59 Morphine Sulfate (Morphine Sulfate) 1 mg Q4H PRN IVP pain scale 1-3 12/18/19 14:00 12/25/19 13:59 Morphine Sulfate (Morphine Sulfate) 2 mg Q4H PRN IVP pain scale 4-6 12/18/19 14:00 12/25/19 13:59 Morphine Sulfate (Morphine Sulfate) 4 mg Q4H PRN IVP pain score 7-10 12/18/19 14:00 12/25/19 13:59 Pantoprazole (Protonix) 40 mg Q12HR IVP 12/19/19 21:00 01/09/20 08:59 12/20/19 09:05 Salomón Bacon MD Dec 20, 2019 10:23
--- NOTE | 2019-12-20 11:00 | NUR ---
NURSE NOTES: Per Nursing Car Seat Coverer order, patient transferred to ICU room J; I gave report to SUBHASH Schaefer at ICU; patient was stable upon transfer; belonging lists transferred with [email or web address]; per MD Bacon verbal order I receive telephone consent for Bronchoscopy; consent received from patient's next of kin, Celsa;consent given to the receiving nurse, Silvano;
--- NOTE | 2019-12-20 11:01 | NUR ---
NURSE NOTES: Late entry: PT is A/O x 1; non verbal, transferred to ICU per MD Jordi request for bedside bronchoscopy, PT transported with oxygen tank 2L-NC, placed on monitoring analyst saturating at 91%; PT received with condom cath patent intact draining, PIV on R-forearm 22g running TKO, skin issues L-hand swollen, and ecchymosis bilateral forearms, will continue to monitor PT while awaiting on MD Jordi.
[2019-12-20] MEDS ORDERED: Lidocaine HCl 2% Jelly 6ml Tube TOPIC ONE (12:00)
--- NOTE | 2019-12-20 12:23 | NUR ---
P.T Note: Pt was transferred to ICU for further medical monitoring and management. SARAH P.T services. please reorder P.T when stable to mobilize pt.
[2019-12-20] MEDS ORDERED: Acetaminophen 650 MG SUPP RECTAL PRN (12:32)
[2019-12-20] MEDS ORDERED: Morphine Sulfate 2mg/ml Inj(IV/IM USE ONLY) IVP PRN ×2 (12:33)
[2019-12-20] MEDS ORDERED: Morphine Sulfate 4mg/ml Inj (IV USE ONLY) IVP PRN (12:33)
[2019-12-20] MEDS ORDERED: Metoclopramide 10mg/2ml Inj IVP PRN (12:33)
--- NOTE | 2019-12-20 13:17 | NUR ---
RADIOLOGY DEPT., CHEST X-RAY POST BRONCHSCOPY COMPLETED.-P.DYE
--- NOTE | 2019-12-20 13:17 | Diagnostic Imaging Report ---
Indication: Dyspnea Comparison: 12/20/2019 at 00:26 A single view chest radiograph was obtained. Findings: Study performed at 12:38 The right lung is reexpanded in the upper lung field. There is persistent atelectasis of the right lower lobe. There is a crescentic lucency at the right lung base which may be a small right basilar pneumothorax or possibly air just under the diaphragm. There is evidence of interstitial edema within both lungs. The heart is enlarged. IMPRESSION: Tiny right basilar pneumothorax versus air under the right hemidiaphragm. Given the gastrostomy placement on 12/13/2019, this is probably air within the abdomen. Interval reexpansion of the right upper lobe. Pulmonary edema
--- NOTE | 2019-12-20 13:37 | NUR ---
SHIP OFFICERSENIOR QA AUTOMATION ENGINEER SI: S/P GT, S/P BRONCHOSCOPY T. 98.2 HR 112 RR 25 B/P 127/93 BNP 3712 CK 25.4 NA 151 IS: HEPARIN SUBC PROTONIX IV ICU STATUS
--- NOTE | 2019-12-20 14:15 | NUR ---
NURSE NOTES: Late entry: PT VS stable; HR 109, saturating at 90%, will continue to monitor.
--- NOTE | 2019-12-20 14:16 | NUR ---
RD ASSESSMENT & RECOMMENDATIONS SEE CARE ACTIVITY FOR COMPLETE ASSESSMENT DAILY ESTIMATED NEEDS: Needs based on Underweight, cardiac/ 49kg 30-35 kcals/kg 2047-4899 total kcals 1-1.5 g protein/kg 49-74 g total protein 25-30 mL/kg 4000-9100 total fluid mLs NUTRITION DIAGNOSIS: * Swallowing difficulty R/T dysphagia, s/p acute CVA as evidenced by s/p MBSS w/ rec for nonoral feeds, s/p surgical PEJ placement. CURRENT DIET:NPO (CURRENT TF:Jevity 1.2 @30 ml) ENTERAL NUTRITION RECOMMENDATIONS: Glucerna 1.2 @ 55ml/hr x 24 hrs to provide 1320ml, 1584kcal, 79g prot, 1063ml free water * W/ GI access: -> initiate Glucerna 1.2 @ 15ml/hr x 6 hrs -> advance 10ml q 4-6 hrs as tolerated to goal rate -> HOB over 30 degrees/ water flush per MD ADDITIONAL RECOMMENDATIONS: * Calibrated bedscale wt for accurate CBW * Monitor tolerance to glucerna 1.2 * Rec NISS w/ continuous TF's. * Check A1C and lipid panel: Lipid panel wnl; A1C 6.0 pre DM * Monitor lytes, K, hydration status * NISS w/ TF: elev FBSs
--- NOTE | 2019-12-20 15:58 | Surgery Progress Note ---
Surgery Progress Note Subjective Procedure Performed open jejunostomy feeding tube insertion lysis of adhesions open peritoneal mass biopsy Additional Comments cxr noted bronch performed today improved air from surgery exam stable Objective Last 24 Hour Vital Signs Date Time Temp Pulse Resp B/P (MAP) Pulse Ox O2 Delivery O2 Flow Rate FiO2 12/20/19 14:20 12.0 50 12/20/19 14:00 8.0 40 12/20/19 14:00 104 26 118/85 (96) 100 12/20/19 13:00 104 25 105/82 (90) 100 12/20/19 12:00 100 12/20/19 12:00 113 25 120/77 (91) 100 12/20/19 11:30 111 25 117/93 (101) 94 12/20/19 11:00 98.2 112 25 127/103 (111) 93 12/20/19 09:00 Room Air 12/20/19 08:00 97.8 70 19 132/79 (96) 100 12/20/19 04:00 97.6 95 20 134/87 (103) 98 12/19/19 23:54 98.2 98 20 117/73 (88) 97 12/19/19 21:00 Room Air 12/19/19 20:00 98.6 98 20 125/91 (102) 97 12/19/19 16:00 97.9 110 20 138/86 (103) 97 I&O Intake and Output 12/19/19 12/20/19 19:00 07:00 Intake Total 300 ml Output Total 1300 ml Balance -1300 ml 300 ml Intake Free Water 40 ml Tube Feeding 260 ml Output Urine Total 1300 ml Dressing: dry Wound: clean Drains: other Cardiovascular: RSR Respiratory: decreased breath sounds Abdomen: soft, present bowel sounds, other, non-distended Extremities: no tenderness, no cyanosis Laboratory Tests Test 12/20/19 07:20 12/20/19 12:53 White Blood Count 17.5 K/UL (4.8-10.8) H Red Blood Count 5.02 M/UL (4.70-6.10) Hemoglobin 16.0 G/DL (14.2-18.0) Hematocrit 46.9 % (42.0-52.0) Mean Corpuscular Volume 93 FL (80-99) Mean Corpuscular Hemoglobin 31.9 PG (27.0-31.0) H Mean Corpuscular Hemoglobin Concent 34.2 G/DL (32.0-36.0) Red Cell Distribution Width 13.3 % (11.6-14.8) Platelet Count 382 K/UL (150-450) Mean Platelet Volume 6.3 FL (6.5-10.1) L Neutrophils (%) (Auto) % (45.0-75.0) Lymphocytes (%) (Auto) % (20.0-45.0) Monocytes (%) (Auto) % (1.0-10.0) Eosinophils (%) (Auto) % (0.0-3.0) Basophils (%) (Auto) % (0.0-2.0) Differential Total Cells Counted 100 Neutrophils % (Manual) 83 % (45-75) H Lymphocytes % (Manual) 8 % (20-45) L Monocytes % (Manual) 7 % (1-10) Eosinophils % (Manual) 2 % (0-3) Basophils % (Manual) 0 % (0-2) Band Neutrophils 0 % (0-8) Platelet Estimate Adequate Platelet Morphology Normal Red Blood Cell Morphology Normal Sodium Level 136 MMOL/L (136-145) Potassium Level 5.1 MMOL/L (3.5-5.1) Chloride Level 100 MMOL/L (98-107) Carbon Dioxide Level 32 MMOL/L (21-32) Anion Gap 4 mmol/L (5-15) L Blood Urea Nitrogen 17 mg/dL (7-18) Creatinine 1.2 MG/DL (0.55-1.30) Estimat Glomerular Filtration Rate mL/min (>60) Glucose Level 151 MG/DL (74-106) H Uric Acid 4.9 MG/DL (2.6-7.2) Calcium Level 9.5 MG/DL (8.5-10.1) Phosphorus Level 3.3 MG/DL (2.5-4.9) Magnesium Level 2.1 MG/DL (1.8-2.4) Total Bilirubin 0.8 MG/DL (0.2-1.0) Aspartate Amino Transf (AST/SGOT) 19 U/L (15-37) Alanine Aminotransferase (ALT/SGPT) 13 U/L (12-78) Alkaline Phosphatase 124 U/L (46-116) H C-Reactive Protein, Quantitative 25.4 mg/dL (0.00-0.90) H Pro-B-Type Natriuretic Peptide 3712 pg/mL (0-125) H Total Protein 7.8 G/DL (6.4-8.2) Albumin 2.3 G/DL (3.4-5.0) L Globulin 5.5 g/dL Albumin/Globulin Ratio 0.4 (1.0-2.7) L Triglycerides Level 78 MG/DL (30-150) Cholesterol Level 151 MG/DL (< 200) LDL Cholesterol 87 mg/dL (<100) HDL Cholesterol 45 MG/DL (40-60) Cholesterol/HDL Ratio 3.4 (3.3-4.4) Vitamin B12 Level 656 PG/ML (193-986) Folate 13.0 NG/ML (8.6-58.9) Arterial Blood pH 7.427 (7.350-7.450) Arterial Blood Partial Pressure CO2 40.1 mmHg (35.0-45.0) Arterial Blood Partial Pressure O2 89.0 mmHg (75.0-100.0) Arterial Blood HCO3 25.8 mmol/L (22.0-26.0) Arterial Blood Oxygen Saturation 96.2 % (95-100) Arterial Blood Base Excess 1.4 (-2-2) Alan Test Positive Plan Problems: (1) Failure to thrive Assessment & Plan: This is a 84-year-old male with failure to thrive, unfortunate history of stroke unable to have significant oral intake and indicating recommended for feeding tube placement. Unfortunately given prior gastric surgery unable to have endoscopic PEG tube placement. Surgical feeding tube placement indicated recommended. Will discuss with patient's family to obtain consent and schedule when appropriate. Thank you for let me participate in patient's care spoke with family obtained consent s/p j tube +CRYSTAL path noted exam okay tube okay start using tube for feeds and meds please make sure to flush after each use christian to be removed in 1 week okay to d/c f/u 1 week for staple removal and wound check DAILY ESTIMATED NEEDS: Needs based on Underweight, cardiac/ 49kg 30-35 kcals/kg 0910-3966 total kcals 1-1.5 g protein/kg 49-74 g total protein 25-30 mL/kg 9047-7734 total fluid mLs NUTRITION DIAGNOSIS: * Swallowing difficulty R/T dysphagia, s/p acute CVA as evidenced by NPO, pending AUTOMOBILE ACCESSORIES INSTALLER eval, possible PEG placement. CURRENT DIET:NPO PO DIET RECOMMENDATIONS: IF SAFE FOR ORAL DIET -> LOW NA/ texture per AUTOMOBILE ACCESSORIES INSTALLER ENTERAL NUTRITION RECOMMENDATIONS: IF MEDICALLY APPROPRIATE AND PART OF POC -> Glucerna 1.2 @ 55ml/hr x 24 hrs to provide 1320ml, 1584kcal, 79g prot, 1063ml free water * IF PART OF POC AND MEDICALLY INDICATED, OBTAIN GI ACCESS -> initiate Glucerna 1.2 @ 15ml/hr x 6 hrs -> advance 10ml q 4-6 hrs as tolerated to goal rate -> HOB over 30 degrees/ water flush per MDD ADDITIONAL RECOMMENDATIONS: * Calibrated bedscale wt for accurate CBW * F/up w/ AUTOMOBILE ACCESSORIES INSTALLER rec: oral diet vs NPO * Check A1C and lipid panel: s/p acute CVA * Monitor lytes, replete as needed Pt's skin assessment complete with Primary nurse in attendance. All bony prominences assessed. Sacrum and both hips without erythema or evidence of skin breakdown. Both heels boggy with non-blanching erythema.NO other skin concerns noted. Moisture Barrier Paste applied to buttocks. Optifoam drsg placed over Sacrum to minimize friction.Cavilon Skin Barrier applied to both heels. Each Heel covered with Optifoam drsg. Pt positioned with pillow on his side. Both heels floated off mattress with pillow. Recommendations:Apply Moisture Barrier Paste to Sacrum. Cover with Optifoam drsg. Change every 3 days and prn. Apply Cavilon Skin Barrier to both heels. Cover each heel with Optifoam drsg. Change every 7 days and PRN. Reposition at least every 2hours or as tolerated. Off-load heels with pillow. Andrei Fischer Dec 20, 2019 15:57
--- NOTE | 2019-12-20 16:20 | NUR ---
*-* INSURANCE *-* ALL CLINICALS AND REVIEWS HAVE BEEN FAXED TO: [facility] Babybe F: [phone]
--- NOTE | 2019-12-20 17:27 | NUR ---
NURSE NOTES: Late entry: Walked into PT room after watching plant maintenance worker show SVT @ HR 171; PT had thick green emesis, immediately suctioned, asked staff for help, RT Evette called to assist, PT was deep suctioned orally via bite block and via nasal trumpet. PT placed on non-rebreather saturating at 100%. JOSEPH Mora made aware, called PT POA daughter twice, and left voicemail to call back. MD Aaliyah made aware and MD Jordi made aware. PT placed on R-lateral position, HOB elevated, will continue to monitor and await call back from daughter. PT is DNR, comfort focused treatment according to POLST.
--- NOTE | 2019-12-20 17:30 | NUR ---
NURSE NOTES: Dr Bacon and Dr Fischer were contacted regarding pt's vomiting episode. Per Dr. Bacon's instructions, pt's DPOA was to be contacted and updated on pt's status to recommend intubation, since current POLST states DNR and Comfort measures. Per MD instructions, DPOA, Anay Molina (daughter) was contacted x2, left voicemail and left ICU's direct line to call back. MD was updated. Currently waiting for callback.
--- NOTE | 2019-12-20 18:54 | NUR ---
NURSE NOTES: MD Jordi made rounds, update given about PT having episode of dark green emesis, orders given to suction as needed/tolerated, keep PT comfortable / follow PT POLST; orders to order followup CXR tomorrow morning. Will place orders on behalf of .
--- NOTE | 2019-12-20 19:30 | NUR ---
HAND-OFF: Report and PT given to SUBHASH Guevara & SUBHASH See.
--- NOTE | 2019-12-20 19:30 | NUR ---
NURSE NOTES: Received pt in no acute distress. Lethargic, withdraws to pain, eyes closed but grimaces to pain. HOB elevated, on 100% non rebreather mask saturating 99-100%. Afib on the monitor; BP stable. Afebrile. PIV site on right wrist area intact, IV at TKO. Pt's left arm /hand swollen. Right wrist restraint on. Right arm with scattered ecchymosis. Denies pain, denies SOB. Currently NPO. No emesis noted. J tube intact, currently clamped. Condom cath intact. Will continue to monitor and follow through with plan of care.
--- NOTE | 2019-12-20 19:59 | Pre-Procedure Note/Attestation ---
Pre-Procedure Note/Attestation Complete Prior to Procedure Planned Procedure: not applicable Procedure Narrative: Bronchoscopy and lavage Indications for Procedure Pre-Operative Diagnosis: Mucus plug Attestation I attest that I discussed the nature of the procedure; its benefits; risks and complications; and alternatives (and the risks and benefits of such alternatives ), prior to the procedure, with the patient (or the patient's legal telephone service representative). I attest that, if there was a reasonable possibility of needing a blood transfusion, the patient (or the patient's legal telephone service representative) was given the [facility] standardized written summary, pursuant to the [place] Blood Safety Act ([place] Health and Safety Code # 1645, as amended). I attest that I re-evaluated the patient just prior to the surgery and that there has been no change in the patient's H&P, except as documented below: Salomón Bacon MD Dec 20, 2019 19:59
--- NOTE | 2019-12-20 20:12 | General Progress Note ---
Assessment/Plan Status: stable Assessment/Plan: Assessment - dysphagia - s/p open surgical j tube - N/V - tachy - s/p past distal gastrectomy with Moncho II Recommendations - hold J tube feeds - J tube to gravity - abx - Reglan - although utility limited with ABDIAZIZ - surgical f/u - ICU care Subjective Allergies: Uncoded Allergies: Green vegetables (Allergy, Unknown, 12/10/19) Subjective confused no change seen early this am subsequently transferred to ICU emesis report noted Objective Last 24 Hour Vital Signs Date Time Temp Pulse Resp B/P (MAP) Pulse Ox O2 Delivery O2 Flow Rate FiO2 12/20/19 18:00 127 31 132/100 (111) 98 12/20/19 17:00 124 29 101/75 (84) 93 12/20/19 16:00 98.6 118 26 112/84 (93) 91 12/20/19 16:00 114 12/20/19 15:00 112 25 95/77 (83) 91 12/20/19 14:20 12.0 50 12/20/19 14:00 8.0 40 12/20/19 14:00 104 26 118/85 (96) 100 12/20/19 13:00 104 25 105/82 (90) 100 12/20/19 12:00 100 12/20/19 12:00 98.3 113 25 120/77 (91) 100 12/20/19 12:00 117 12/20/19 11:30 111 25 117/93 (101) 94 12/20/19 11:06 117 12/20/19 11:00 98.2 112 25 127/103 (111) 93 12/20/19 09:00 Room Air 12/20/19 08:00 97.8 70 19 132/79 (96) 100 12/20/19 04:00 97.6 95 20 134/87 (103) 98 12/19/19 23:54 98.2 98 20 117/73 (88) 97 12/19/19 21:00 Room Air Intake and Output 12/19/19 12/20/19 19:00 07:00 Intake Total 300 ml Output Total 1300 ml Balance -1300 ml 300 ml Intake Free Water 40 ml Tube Feeding 260 ml Output Urine Total 1300 ml Laboratory Tests 12/20/19 07:20: White Blood Count 17.5H, Red Blood Count 5.02, Hemoglobin 16.0, Hematocrit 46.9 , Mean Corpuscular Volume 93, Mean Corpuscular Hemoglobin 31.9H, Mean Corpuscular Hemoglobin Concent 34.2, Red Cell Distribution Width 13.3, Platelet Count 382, Mean Platelet Volume 6.3L, Neutrophils (%) (Auto) , Lymphocytes (%) ( Auto) , Monocytes (%) (Auto) , Eosinophils (%) (Auto) , Basophils (%) (Auto) , Differential Total Cells Counted 100, Neutrophils % (Manual) 83H, Lymphocytes % (Manual) 8L, Monocytes % (Manual) 7, Eosinophils % (Manual) 2, Basophils % ( Manual) 0, Band Neutrophils 0, Platelet Estimate Adequate, Platelet Morphology Normal, Red Blood Cell Morphology Normal, Sodium Level 136, Potassium Level 5.1 , Chloride Level 100, Carbon Dioxide Level 32, Anion Gap 4L, Blood Urea Nitrogen 17, Creatinine 1.2, Estimat Glomerular Filtration Rate , Glucose Level 151H, Uric Acid 4.9, Calcium Level 9.5, Phosphorus Level 3.3, Magnesium Level 2.1, Total Bilirubin 0.8, Aspartate Amino Transf (AST/SGOT) 19, Alanine Aminotransferase (ALT/SGPT) 13, Alkaline Phosphatase 124H, C-Reactive Protein, Quantitative 25.4H, Pro-B-Type Natriuretic Peptide 3712H, Total Protein 7.8, Albumin 2.3L, Globulin 5.5, Albumin/Globulin Ratio 0.4L, Triglycerides Level 78 , Cholesterol Level 151, LDL Cholesterol 87, HDL Cholesterol 45, Cholesterol/ HDL Ratio 3.4, Vitamin B12 Level 656, Folate 13.0 12/20/19 12:53: Arterial Blood pH 7.427, Arterial Blood Partial Pressure CO2 40.1, Arterial Blood Partial Pressure O2 89.0, Arterial Blood HCO3 25.8, Arterial Blood Oxygen Saturation 96.2, Arterial Blood Base Excess 1.4, Alan Test Positive Height (Feet): 5 Height (Inches): 1.00 Weight (Pounds): 123 Objective elalbay WM NCAT supple CTA RR abd soft ND, (+) J tube no edema OBS Paul Matute MD Dec 20, 2019 20:11
--- NOTE | 2019-12-20 22:00 | NUR ---
NURSE NOTES: Sleeping, no distress. Remains Afib on the scope at 120-130 bpm with RVR. HOB elevated. No nausea, no vomiting
[2019-12-21] VITALS (24 sets, daily range): BP systolic 88–116; BP diastolic 55–72
--- NOTE | 2019-12-21 | NUR ---
NURSE NOTES: Calm, asleep, still on 100% NRBM. Sats 100%. Skin warm temp 100.1 axillary. Condom cath intact. Remains on afib
--- NOTE | 2019-12-21 00:30 | Operative Note - Dictated ---
DATE OF OPERATION: 12/20/2019 This is an awake bronchoscopy. INDICATIONS: Right lung collapse. PREOPERATIVE DIAGNOSIS: Right lung mucus plug. POSTOPERATIVE DIAGNOSIS: Resolution of right lung mucus plug. FINDINGS: The patient underwent an open G-tube placement yesterday. Postprocedure, he was noted to be dyspneic. An x-ray chest was obtained, which showed complete opacification of the right lung. This morning, I have spoken with the patient's daughter, Anay, and planned to do an awake bronchoscopy to minimize risk of intubation. The patient is a DNR/DNI. PROCEDURE: After informed consent obtained from the patient's daughter, the patient was taken to the ICU where the patient was lay supine and placed on nasal oxygen. A bronchoscope was inserted through the right naris after topical lidocaine only and no conscious sedation. trachea, there were copious tracheal secretions that were noted . Next, the bronchoscope was introduced through the vocal cords into the trachea. There were immediate findings of large amount of secretions and mucous plugging noted in the right mainstem, this was suctioned copiously using saline. There were no complications. The patient was orally. A nasal trumpet was placed as well as oral airway. The patient has a non-rebreather mask. A postoperative x-ray demonstrated almost complete resolution of the right lung atelectasis. Salomón Bacon M.D. DR: ZACK JOB#: [id number] CC:
--- NOTE | 2019-12-21 02:00 | NUR ---
NURSE NOTES: Sleeping, HOB elevated; no distress.
--- NOTE | 2019-12-21 04:00 | NUR ---
NURSE NOTES: Wound dressing on sacral area changed. No BM. Complete bed bath given. Redressed abdominal incision, christian intact; no drainage, no bleeding on the incision site. JTube dressing changed as well. BP obtained from right thigh. O2 changwed to 3l/m via NC, sats 93-95%. Will continue to monitor
[2019-12-21 05:09] LABS: HEMATOCRIT 42.3 % (42.0-52.0); HEMOGLOBIN 14.6 G/DL (14.2-18.0); MEAN CORPUSCULAR VOLUME 93 FL (80-99); PLATELET COUNT 386 K/UL (150-450); RED BLOOD COUNT 4.53 M/UL (4.70-6.10); RED CELL DISTRIBUTION WIDTH 13.4 % (11.6-14.8)
[2019-12-21 05:39] LABS: WHITE BLOOD COUNT 26.4 K/UL (4.8-10.8)
[2019-12-21 05:52] LABS: ALANINE AMINOTRANSFERASE 9 U/L (12-78); ALBUMIN 2.1 G/DL (3.4-5.0); ALBUMIN/GLOBULIN RATIO 0.4 (1.0-2.7); ALKALINE PHOSPHATASE 116 U/L (46-116); ANION GAP 9 mmol/L (5-15); ASPARTATE AMINO TRANSFERASE 17 U/L (15-37); BLOOD UREA NITROGEN 23 mg/dL (7-18); CALCIUM 9.3 MG/DL (8.5-10.1); CARBON DIOXIDE 29 MMOL/L (21-32); CHLORIDE 99 MMOL/L (98-107); CREATININE 1.3 MG/DL (0.55-1.30); PHOSPHORUS 3.8 MG/DL (2.5-4.9); POTASSIUM 4.8 MMOL/L (3.5-5.1); SODIUM 137 MMOL/L (136-145)
--- NOTE | 2019-12-21 07:17 | NUR ---
HAND-OFF: Report given to Abby CULLEN.
--- NOTE | 2019-12-21 08:00 | NUR ---
NURSE NOTES: Received change of shift report from Ismael CULLEN. Pt is asleep, awakens to touch, confused. Pt is currently on 3L of oxygen via nasal cannula at 100% O2Sat with bilateral inspiratory and expiratory rhonchi/rales noted on auscultation. AFib on cutter brake lining, heart rate fluctuating from 90's to 110's. Temp 99F axillary. Right FA #[id number] peripheral IV access present, currently TKO. JTube in place, clamped, dressing intact, patent when flushed. Feeding is currently on hold, post vomiting episode from previous day/shift. Abdomen is round, soft, nontender to touch with hypoactive bowel sounds. Condom cath is in place draining clear, dark yellow urine. Midline abdominal surgical incision is noted with christian intact and site pink/dry, covered with dressing. Skin has sacral and bilateral DTIs, covered with optifoam dressings. HOB at 30degrees, bed locked, three side rails up. Will continue to monitor pt and follow plan of care per MD orders and protocol. Addendum: 12/21/19 at 1700 by MG DIAL RN Pt has soft wrist restraint on right wrist due to attempts to pull out IV lines, condom cath, and nasal cannula. Skin integrity at restraint site remains within normal limits.
--- NOTE | 2019-12-21 09:12 | NUR ---
RADIOLOGY DEPT., CHEST AND ABDOMEN X-RAYS COMPLETED.-P.DYE
--- NOTE | 2019-12-21 10:00 | NUR ---
NURSE NOTES: Pt was seen by Jordi. Order was received for IV fluid D5NS at 50ml/hour and transfer pt to tele. Orders were processed and charge nurse notified regarding transfer order. AM meds were administered and JT flushed with 30ml water. Per Dr Bacon feeding is to be held "for now".
[2019-12-21] MEDS: Pantoprazole Inj IVP SCH ×2 (10:08→20:41)
[2019-12-21] MEDS: D5NS 1,000 ML IV SCH (10:08)
[2019-12-21] MEDS: Heparin 5000 units/ml inj SUBQ SCH ×2 (10:10→20:45)
--- NOTE | 2019-12-21 12:00 | NUR ---
NURSE NOTES: Pt was seen by wound care nurse and pt was examined and wound assessment and dressings were changed with the wound care nurse for sacral and bilateral heel areas. Pt was also seen by Dr Fischer. Per MD, surgical staple site on midline abdominal incision is ok to be left open to air. MD aware that feeding is currently on hold. No additional orders were received.
--- NOTE | 2019-12-21 12:51 | Nephrology Progress Note ---
Assessment/Plan Problem List: (1) Hyperkalemia (2) Right lower lobe pneumonia (3) Hyperglycemia (4) Leukocytosis Assessment HyperKalemia, in view of normal renal functions, Partly hemolysis Moderate respiratory distress: CHF vs Pneumonia Tachycardia and Leukocytosis ? UTI Hyperglycemia Leukocytosis other conditions: 1. Acute CVA. 2. Sepsis and UTI. under treatment 3. Hypertension and congestive heart failure. 4. History of chronic kidney disease. 5. Failure to thrive 6. Diarrhea; resolved; C diff negative 7.s/p Hypokalemia; corrected; Plan s/p CXR Right lung Opacification- had bronch per ID and pulmonary monitor renal parameters Urine tests per orders Subjective ROS Limited/Unobtainable: Yes Objective Objective Last 24 Hour Vital Signs Date Time Temp Pulse Resp B/P (MAP) Pulse Ox O2 Delivery O2 Flow Rate FiO2 12/21/19 07:00 99.0 123 23 97/70 (79) 100 12/21/19 06:00 120 25 100/69 (79) 94 12/21/19 05:00 115 24 90/72 (78) 93 12/21/19 04:00 117 12/21/19 04:00 Nasal Cannula 3.0 12/21/19 04:00 100.3 117 31 91/64 (73) 99 12/21/19 03:00 120 29 97/69 (78) 100 12/21/19 02:00 126 36 102/70 (81) 100 12/21/19 01:00 128 29 90/58 (69) 100 12/21/19 00:00 100.1 137 38 92/62 (72) 98 12/21/19 00:00 137 12/21/19 00:00 Non-Rebreather 10.0 12/20/19 23:00 129 34 101/77 (85) 100 12/20/19 22:00 119 29 107/86 (93) 98 12/20/19 21:00 119 28 109/71 (84) 96 12/20/19 20:00 Non-Rebreather 10.0 12/20/19 20:00 132 12/20/19 20:00 132 23 126/56 (79) 96 12/20/19 19:00 121 28 114/96 (102) 99 12/20/19 18:00 127 31 132/100 (111) 98 12/20/19 17:00 124 29 101/75 (84) 93 12/20/19 16:00 98.6 118 26 112/84 (93) 91 12/20/19 16:00 114 12/20/19 15:00 112 25 95/77 (83) 91 12/20/19 14:20 12.0 50 12/20/19 14:00 8.0 40 12/20/19 14:00 104 26 118/85 (96) 100 12/20/19 13:00 104 25 105/82 (90) 100 Intake and Output 12/20/19 12/21/19 19:00 07:00 Intake Total 270 ml 0 ml Output Total 450 ml 655 ml Balance -180 ml -655 ml Tube Feeding 220 ml 0 ml Other 50 ml Output Urine Total 450 ml 655 ml Laboratory Tests 12/20/19 12:53: Arterial Blood pH 7.427, Arterial Blood Partial Pressure CO2 40.1, Arterial Blood Partial Pressure O2 89.0, Arterial Blood HCO3 25.8, Arterial Blood Oxygen Saturation 96.2, Arterial Blood Base Excess 1.4, Alan Test Positive 12/21/19 03:20: White Blood Count 26.4#*H, Red Blood Count 4.53L, Hemoglobin 14.6, Hematocrit 42.3, Mean Corpuscular Volume 93, Mean Corpuscular Hemoglobin 32.2H, Mean Corpuscular Hemoglobin Concent 34.5, Red Cell Distribution Width 13.4, Platelet Count 386, Mean Platelet Volume 6.1L, Neutrophils (%) (Auto) , Lymphocytes (%) ( Auto) , Monocytes (%) (Auto) , Eosinophils (%) (Auto) , Basophils (%) (Auto) , Differential Total Cells Counted 100, Neutrophils % (Manual) 91H, Lymphocytes % (Manual) 4L, Monocytes % (Manual) 5, Eosinophils % (Manual) 0, Basophils % ( Manual) 0, Band Neutrophils 0, Platelet Estimate Adequate, Platelet Morphology Normal, Red Blood Cell Morphology Normal, Sodium Level 137, Potassium Level 4.8 , Chloride Level 99, Carbon Dioxide Level 29, Anion Gap 9, Blood Urea Nitrogen 23H, Creatinine 1.3, Estimat Glomerular Filtration Rate , Glucose Level 149H, Calcium Level 9.3, Phosphorus Level 3.8, Magnesium Level 1.9, Total Bilirubin 1.0, Aspartate Amino Transf (AST/SGOT) 17, Alanine Aminotransferase (ALT/SGPT) 9L, Alkaline Phosphatase 116, C-Reactive Protein, Quantitative 32.6H, Pro-B- Type Natriuretic Peptide 5160H, Total Protein 7.1, Albumin 2.1L, Globulin 5.0, Albumin/Globulin Ratio 0.4L Height (Feet): 5 Height (Inches): 1.00 Weight (Pounds): 131 General Appearance: mild distress Cardiovascular: tachycardia Respiratory/Chest: decreased breath sounds, rhonchi - bilaterally Abdomen: distended, other - PEG Valdo Anderson MD Dec 21, 2019 12:51
--- NOTE | 2019-12-21 12:54 | Diagnostic Imaging Report ---
Indication: Dyspnea Comparison: 12/20/2019 A single view chest radiograph was obtained. Findings: Interstitial and pulmonary vascular prominence have increased since yesterday. Heart is enlarged. There is evidence of a right pleural effusion. IMPRESSION: Worsening CHF
--- NOTE | 2019-12-21 12:56 | Diagnostic Imaging Report ---
Indication: Abdominal pain Comparison: None Single view of the abdomen obtained Findings: Distended small bowel noted as well as distended colon. Surgical skin christian noted. Torres catheter noted projected over the mid abdomen. Free air demonstrated. IMPRESSION: Suspected generalized ileus. Recent abdominal surgery.
--- NOTE | 2019-12-21 13:09 | Pulmonology Progress Note ---
Assessment/Plan Assessment/Plan PROBLEM LIST: 1. Acute CVA. 2. Sepsis and UTI. Resolved 3. Hypertension and congestive heart failure. 4. History of chronic kidney disease. 5. Failure to thrive 6. Diarrhea; resolved; C diff negative 7. R lung opacification;now resolved after bronchoscopy PLAN: 1. S/p feeding tube placement; tube feedings on hold 2. Cardiology, neuro, and ID consultations noted. 3. I have assumed care due Insurance. 4. Surgical consultation noted due to need for open gastrostomy 5. Sent stool for c diff'; negative 6. Surgical G tube per Dr Keen/done 7. Start abx Salomón Bacon M.D. Subjective Interval Events: Followup CXR shows resolution of R lung collapse Constitutional: Reports: no symptoms HEENT: Repors: no symptoms Respiratory: Reports: dry cough, shortness of breath Cardiovascular: Reports: no symptoms Gastrointestinal/Abdominal: Reports: no symptoms Genitourinary: Reports: no symptoms Allergies: Uncoded Allergies: Green vegetables (Allergy, Unknown, 12/10/19) Objective Last 24 Hour Vital Signs Date Time Temp Pulse Resp B/P (MAP) Pulse Ox O2 Delivery O2 Flow Rate FiO2 12/21/19 12:00 107 12/21/19 12:00 99.1 105 23 97/70 (79) 100 12/21/19 11:00 110 28 88/61 (70) 100 12/21/19 10:00 103 28 100/56 (71) 100 12/21/19 09:00 107 30 88/56 (67) 100 12/21/19 08:00 124 12/21/19 08:00 121 25 90/62 (71) 98 12/21/19 07:00 99.0 123 23 97/70 (79) 100 12/21/19 06:00 120 25 100/69 (79) 94 12/21/19 05:00 115 24 90/72 (78) 93 12/21/19 04:00 117 12/21/19 04:00 Nasal Cannula 3.0 12/21/19 04:00 100.3 117 31 91/64 (73) 99 12/21/19 03:00 120 29 97/69 (78) 100 12/21/19 02:00 126 36 102/70 (81) 100 12/21/19 01:00 128 29 90/58 (69) 100 12/21/19 00:00 100.1 137 38 92/62 (72) 98 12/21/19 00:00 137 12/21/19 00:00 Non-Rebreather 10.0 12/20/19 23:00 129 34 101/77 (85) 100 12/20/19 22:00 119 29 107/86 (93) 98 12/20/19 21:00 119 28 109/71 (84) 96 12/20/19 20:00 Non-Rebreather 10.0 12/20/19 20:00 132 12/20/19 20:00 132 23 126/56 (79) 96 12/20/19 19:00 121 28 114/96 (102) 99 12/20/19 18:00 127 31 132/100 (111) 98 12/20/19 17:00 124 29 101/75 (84) 93 12/20/19 16:00 98.6 118 26 112/84 (93) 91 12/20/19 16:00 114 12/20/19 15:00 112 25 95/77 (83) 91 12/20/19 14:20 12.0 50 12/20/19 14:00 8.0 40 12/20/19 14:00 104 26 118/85 (96) 100 Intake and Output 12/20/19 12/21/19 19:00 07:00 Intake Total 270 ml 0 ml Output Total 450 ml 655 ml Balance -180 ml -655 ml Tube Feeding 220 ml 0 ml Other 50 ml Output Urine Total 450 ml 655 ml General Appearance: no acute distress HEENT: normocephalic Respiratory/Chest: chest wall non-tender, decreased breath sounds Cardiovascular: normal peripheral pulses, normal rate Abdomen: normal bowel sounds Laboratory Tests 12/21/19 03:20: White Blood Count 26.4#*H, Red Blood Count 4.53L, Hemoglobin 14.6, Hematocrit 42.3, Mean Corpuscular Volume 93, Mean Corpuscular Hemoglobin 32.2H, Mean Corpuscular Hemoglobin Concent 34.5, Red Cell Distribution Width 13.4, Platelet Count 386, Mean Platelet Volume 6.1L, Neutrophils (%) (Auto) , Lymphocytes (%) ( Auto) , Monocytes (%) (Auto) , Eosinophils (%) (Auto) , Basophils (%) (Auto) , Differential Total Cells Counted 100, Neutrophils % (Manual) 91H, Lymphocytes % (Manual) 4L, Monocytes % (Manual) 5, Eosinophils % (Manual) 0, Basophils % ( Manual) 0, Band Neutrophils 0, Platelet Estimate Adequate, Platelet Morphology Normal, Red Blood Cell Morphology Normal, Sodium Level 137, Potassium Level 4.8 , Chloride Level 99, Carbon Dioxide Level 29, Anion Gap 9, Blood Urea Nitrogen 23H, Creatinine 1.3, Estimat Glomerular Filtration Rate , Glucose Level 149H, Calcium Level 9.3, Phosphorus Level 3.8, Magnesium Level 1.9, Total Bilirubin 1.0, Aspartate Amino Transf (AST/SGOT) 17, Alanine Aminotransferase (ALT/SGPT) 9L, Alkaline Phosphatase 116, C-Reactive Protein, Quantitative 32.6H, Pro-B- Type Natriuretic Peptide 5160H, Total Protein 7.1, Albumin 2.1L, Globulin 5.0, Albumin/Globulin Ratio 0.4L Current Medications Medications (Trade) Dose Ordered Sig/Leandra Route PRN Reason Start Time Stop Time Status Last Admin Dose Admin Acetaminophen (Tylenol) 650 mg Q4H PRN RECTAL FEVER 12/20/19 12:32 01/19/20 12:31 Dextrose/Sodium Chloride 1,000 ml @ 50 mls/hr Q20H IV 12/21/19 09:15 01/20/20 09:14 12/21/19 10:08 Heparin Sodium (Porcine) (Heparin 5000 units/ml) 5,000 units EVERY 12 HOURS SUBQ 12/20/19 21:00 01/09/20 08:59 12/21/19 10:10 Loperamide HCl (Imodium) 1 mg BIDPRN PRN NG Diarrhea 12/20/19 12:33 01/19/20 12:32 Metoclopramide HCl (Reglan) 10 mg Q6H PRN IVP Nausea & Vomiting 12/20/19 12:33 01/19/20 12:32 Morphine Sulfate (Morphine Sulfate) 1 mg Q4H PRN IVP pain scale 1-3 12/20/19 12:33 12/27/19 12:32 Morphine Sulfate (Morphine Sulfate) 2 mg Q4H PRN IVP pain scale 4-6 12/20/19 12:33 12/27/19 12:32 Morphine Sulfate (Morphine Sulfate) 4 mg Q4H PRN IVP pain score 7-10 12/20/19 12:33 12/27/19 12:32 Pantoprazole (Protonix) 40 mg Q12HR IVP 12/20/19 21:00 01/09/20 08:59 12/21/19 10:08 Salomón Bacon MD Dec 21, 2019 13:09
[2019-12-21] MEDS ORDERED: Cefepime HCl 1 GM in D5W 55 ML IVPB SCH (14:00)
--- NOTE | 2019-12-21 14:00 | NUR ---
NURSE NOTES: Bladder scan was done at bedside with result 219ml urine in bladder while pt has condom-cath. Dr Anderson was notified and per MD order, Torres catheter was inserted, 16F. Pt tolerated procedure well with no distress noted. Urine specimen was also collected and sent to lab per Dr Anderson's order.
[2019-12-21 14:35] LABS: APPEARANCE,URINE CLEAR; BILIRUBIN, URINE NEGATIVE (NEGATIVE); GLUCOSE, URINE (UA) NEGATIVE (NEGATIVE); KETONES,URINE NEGATIVE (NEGATIVE); LEUKOCYTE ESTERASE ,URINE 1+ (NEGATIVE); NITRITE,URINE NEGATIVE (NEGATIVE); PH,URINE 5 (4.5-8.0); PROTEIN,URINE 1+ (NEGATIVE); UROBILINOGEN,URINE NORMAL MG/DL (0.0-1.0)
[2019-12-21 14:37] LABS: COLOR,URINE YELLOW
--- NOTE | 2019-12-21 14:43 | NUR ---
*-* INSURANCE *-* ALL CLINICALS AND REVIEWS HAVE BEEN FAXED TO: [facility] 10X10 Room F: [phone]
--- NOTE | 2019-12-21 14:46 | General Progress Note ---
Assessment/Plan Status: stable Assessment/Plan: Assessment - dysphagia - s/p open surgical j tube - N/V - ? due to Ileus - tachy - s/p past distal gastrectomy with Moncho II Recommendations - hold J tube feeds - follow KUB / exam - abx - Reglan - although utility limited with ABDIAZIZ - surgical f/u - feeds when OK with surgery - ICU care Subjective Allergies: Uncoded Allergies: Green vegetables (Allergy, Unknown, 12/10/19) Subjective confused no change seen in ICU TF off KUB ordered -- Ileus Objective Last 24 Hour Vital Signs Date Time Temp Pulse Resp B/P (MAP) Pulse Ox O2 Delivery O2 Flow Rate FiO2 12/21/19 12:00 107 12/21/19 12:00 99.1 105 23 97/70 (79) 100 12/21/19 11:00 110 28 88/61 (70) 100 12/21/19 10:00 103 28 100/56 (71) 100 12/21/19 09:00 107 30 88/56 (67) 100 12/21/19 08:00 124 12/21/19 08:00 121 25 90/62 (71) 98 12/21/19 07:00 99.0 123 23 97/70 (79) 100 12/21/19 06:00 120 25 100/69 (79) 94 12/21/19 05:00 115 24 90/72 (78) 93 12/21/19 04:00 117 12/21/19 04:00 Nasal Cannula 3.0 12/21/19 04:00 100.3 117 31 91/64 (73) 99 12/21/19 03:00 120 29 97/69 (78) 100 12/21/19 02:00 126 36 102/70 (81) 100 12/21/19 01:00 128 29 90/58 (69) 100 12/21/19 00:00 100.1 137 38 92/62 (72) 98 12/21/19 00:00 137 12/21/19 00:00 Non-Rebreather 10.0 12/20/19 23:00 129 34 101/77 (85) 100 12/20/19 22:00 119 29 107/86 (93) 98 12/20/19 21:00 119 28 109/71 (84) 96 12/20/19 20:00 Non-Rebreather 10.0 12/20/19 20:00 132 12/20/19 20:00 132 23 126/56 (79) 96 12/20/19 19:00 121 28 114/96 (102) 99 12/20/19 18:00 127 31 132/100 (111) 98 12/20/19 17:00 124 29 101/75 (84) 93 12/20/19 16:00 98.6 118 26 112/84 (93) 91 12/20/19 16:00 114 12/20/19 15:00 112 25 95/77 (83) 91 Intake and Output 12/20/19 12/21/19 19:00 07:00 Intake Total 270 ml 0 ml Output Total 450 ml 655 ml Balance -180 ml -655 ml Tube Feeding 220 ml 0 ml Other 50 ml Output Urine Total 450 ml 655 ml Laboratory Tests 12/21/19 03:20: White Blood Count 26.4#*H, Red Blood Count 4.53L, Hemoglobin 14.6, Hematocrit 42.3, Mean Corpuscular Volume 93, Mean Corpuscular Hemoglobin 32.2H, Mean Corpuscular Hemoglobin Concent 34.5, Red Cell Distribution Width 13.4, Platelet Count 386, Mean Platelet Volume 6.1L, Neutrophils (%) (Auto) , Lymphocytes (%) ( Auto) , Monocytes (%) (Auto) , Eosinophils (%) (Auto) , Basophils (%) (Auto) , Differential Total Cells Counted 100, Neutrophils % (Manual) 91H, Lymphocytes % (Manual) 4L, Monocytes % (Manual) 5, Eosinophils % (Manual) 0, Basophils % ( Manual) 0, Band Neutrophils 0, Platelet Estimate Adequate, Platelet Morphology Normal, Red Blood Cell Morphology Normal, Sodium Level 137, Potassium Level 4.8 , Chloride Level 99, Carbon Dioxide Level 29, Anion Gap 9, Blood Urea Nitrogen 23H, Creatinine 1.3, Estimat Glomerular Filtration Rate , Glucose Level 149H, Calcium Level 9.3, Phosphorus Level 3.8, Magnesium Level 1.9, Total Bilirubin 1.0, Aspartate Amino Transf (AST/SGOT) 17, Alanine Aminotransferase (ALT/SGPT) 9L, Alkaline Phosphatase 116, C-Reactive Protein, Quantitative 32.6H, Pro-B- Type Natriuretic Peptide 5160H, Total Protein 7.1, Albumin 2.1L, Globulin 5.0, Albumin/Globulin Ratio 0.4L 12/21/19 14:20: Urine Color Yellow, Urine Appearance Clear, Urine pH 5, Urine Specific [place] 1.015, Urine Protein 1+H, Urine Glucose (UA) Negative, Urine Ketones Negative, Urine Blood Negative, Urine Nitrite Negative, Urine Bilirubin Negative, Urine Urobilinogen Normal, Urine Leukocyte Esterase 1+H, Urine RBC [Pending], Urine WBC [Pending], Urine Squamous Epithelial Cells [Pending], Urine Bacteria [ Pending] Height (Feet): 5 Height (Inches): 1.00 Weight (Pounds): 131 Objective brigette WM NCAT supple CTA RR abd soft ND, (+) J tube no edema OBS Paul Matute MD Dec 21, 2019 14:45
--- NOTE | 2019-12-21 15:48 | NUR ---
CHIEF ULTRASOUND TECHNOLOGIST NOTE Pt was transferred to ICU on 12/20/2019. Pt was sleeping when SW attempted to assess pt. Per chart review, pt is A&O 1x and non-verbal. Copy of POLST- DNR and POA in the chart. Per chart review, pt resides at [address] [address] SW left a vm to pt's daughter/POA Celsa Molina [phone] for call back. Other emergency contact listed: Mohan Jesse ([facility]) [phone]. SW will continue to F/U. Signed: 12/21/19 at 1551 by EFREM LOPEZ <Co-Signature Required>
--- NOTE | 2019-12-21 16:00 | NUR ---
NURSE NOTES: Spoke with pt's DPOA over the phone who stated she will stop by tomorrow approximately from [phone] to fill out a new POLST. Per DPOA, it is confirmed she would like pt to remain DNR. Pressure releasing mattress was ordered and placed on pt's bed for wound prevention/management.
--- NOTE | 2019-12-21 16:24 | NUR ---
NURSE NOTES:WOUND CARE FOLLOW-UP NOTES:Skin Assessment completed with Primary nurse in attendance. All bony prominences including both hips and sacrum assessed and no evidence of skin breakdown noted. Lateral R heel boggy with Non-blanching erythema(L)3cm x (W)3.5cm. Medial and posterior L heel Boggy with Non-blanchable erythema(L)4.5cm x (W)5.5cm. No other Skin concerns noted. Wound Tx are effective and continued as ordered. All wound prevention protocols continued as care-planned.
--- NOTE | 2019-12-21 18:00 | NUR ---
NURSE NOTES: Pt had BM, green liquid stool. Pt was cleaned, sacral dressing, gown/bed linens were changed. JT site dressing was changed. Pt was repositioned.
--- NOTE | 2019-12-21 19:30 | NUR ---
HAND-OFF: Report given to Ismael CULLEN/Mayi CULLEN.
--- NOTE | 2019-12-21 19:30 | NUR ---
NURSE NOTES: Received patient in bed asleep arousal to self with unintelligible words. Patient tolerating 3L NC with bilateral inspiratory and expiratory rhonchi noted in upper lobe and diminished sounds at bases. 22 gauge PIV site clean dry patent with D5NS at 50mL/Hr. Abdominal incision clean, dry, with christian open to air. J-tube on left side abdomen clean dry and clamped. 16F Torres catheter draining clear yellow urine. Sacral stage II dressing noted, clean dry intact. Bilateral upper extremity ecchymosis noted on, with nonpitting edema of the left upper arm. Plan of care will include monitoring blood pressure and oxygen saturation. will continue to monitor.
--- NOTE | 2019-12-21 21:00 | NUR ---
NURSE NOTES Patient was sleeping, arousable to self with unintelligible moans. shallow breathing with rhonchi noted in bilateral upper lobes and diminished lung sounds in lower lobes. Pulse oximetry registered O2 saturation at 88% on 3L NC. Patient was then placed on nonrebreather mask saturating at 96-98%. will continue to monitor.
[2019-12-22] VITALS (11 sets, daily range): BP systolic 90–113; BP diastolic 55–75
--- NOTE | 2019-12-22 04:29 | NUR ---
NURSE NOTES: Patient registered an axillary temperature of 100.0. Cooling measures attempted. Temperature re-checked via axillary registering 100.5. PRN tylenol suppository was administered. will continue to monitor.
[2019-12-22] MEDS: D5NS 1,000 ML IV SCH ×2 (05:20→06:15)
[2019-12-22 05:49] LABS: HEMATOCRIT 40.8 % (42.0-52.0); HEMOGLOBIN 13.7 G/DL (14.2-18.0); MEAN CORPUSCULAR VOLUME 95 FL (80-99); PLATELET COUNT 327 K/UL (150-450); RED BLOOD COUNT 4.29 M/UL (4.70-6.10); RED CELL DISTRIBUTION WIDTH 13.2 % (11.6-14.8)
--- NOTE | 2019-12-22 06:05 | NUR ---
NURSE NOTES: patient transferred to telemetry rm 204-1. patient arousable and oriented to self with unintelligible moans noted. respirations even and shallow tolerating 3L NC with oxygen saturation at 98%. abdomen soft flat with J-tube clean dry clamped on left side and incision with christian, dry and open to air. skin warm dry with ecchymosis noted on bilateral upper extremities. left arm nonpitting edema noted with left side weakness. bilateral lower extremities contracted. sacral DTI dressing clean dry intact. 16F Torres catheter draining light cj urine. patients dentures in container sent with patient. Hand off report given to SUBHASH Silver.
[2019-12-22 06:06] LABS: WHITE BLOOD COUNT 24.2 K/UL (4.8-10.8)
--- NOTE | 2019-12-22 06:07 | NUR ---
NURSE NOTES: Received patient from ICU, stable, sleeping, responsive to stimuli, no distress at this time. IV site asymptomatic, intact, right hand soft restraint, feed on hold per , RIZWANA tube stoma intact, 14 sutures on mid abdomen, stg II wound on sacrum, optifoam on bony prominences, F/C draining to gravity, patent, Report given by SUBHASH Cárdenas. Belonging list checked and signed, bed low & locked, side rails up x3, will continue to monitor and reassess
[2019-12-22] MEDS ORDERED: Acetaminophen 650 MG SUPP RECTAL PRN (06:23)
[2019-12-22] MEDS ORDERED: Metoclopramide 10mg/2ml Inj IVP PRN (06:24)
[2019-12-22] MEDS ORDERED: Morphine Sulfate 2mg/ml Inj(IV/IM USE ONLY) IVP PRN ×2 (06:25)
[2019-12-22] MEDS ORDERED: Morphine Sulfate 4mg/ml Inj (IV USE ONLY) IVP PRN (06:26)
[2019-12-22 06:34] LABS: ANION GAP 7 mmol/L (5-15); BLOOD UREA NITROGEN 27 mg/dL (7-18); CALCIUM 9.1 MG/DL (8.5-10.1); CARBON DIOXIDE 31 MMOL/L (21-32); CHLORIDE 104 MMOL/L (98-107); CREATININE 1.2 MG/DL (0.55-1.30); POTASSIUM 3.9 MMOL/L (3.5-5.1); SODIUM 141 MMOL/L (136-145)
--- NOTE | 2019-12-22 06:41 | General Progress Note ---
Assessment/Plan Status: stable Assessment/Plan: Assessment/Plan Status: stable Assessment/Plan: Assessment - dysphagia - s/p open surgical j tube - N/V - ? due to Ileus - tachy - s/p past distal gastrectomy with Moncho II Recommendations - hold J tube feeds - KUB / exam>>>Ileus - abx - Reglan - although utility limited with ABDIAZIZ - surgical f/u - feeds when OK with surgery -? DNR Subjective ROS Limited/Unobtainable: No Allergies: Uncoded Allergies: Green vegetables (Allergy, Unknown, 12/10/19) Objective Last 24 Hour Vital Signs Date Time Temp Pulse Resp B/P (MAP) Pulse Ox O2 Delivery O2 Flow Rate FiO2 12/22/19 05:00 105 26 113/75 (88) 100 12/22/19 04:00 99.5 102 25 106/75 (85) 100 12/22/19 04:00 Non-Rebreather 12.0 12/22/19 04:00 110 12/22/19 03:00 99 24 100/66 (77) 100 12/22/19 02:00 96 23 105/62 (76) 100 12/22/19 01:26 98.9 12/22/19 01:00 112 30 104/55 (71) 98 12/22/19 00:00 100.5 108 28 106/73 (84) 98 12/22/19 00:00 101 12/22/19 00:00 Non-Rebreather 12.0 12/21/19 23:00 113 28 114/69 (84) 98 12/21/19 22:00 109 30 105/67 (80) 99 12/21/19 21:00 113 27 116/70 (85) 94 12/21/19 20:00 Nasal Cannula 3.0 12/21/19 20:00 99.3 98 24 100/56 (71) 96 12/21/19 20:00 98 12/21/19 19:00 104 26 89/56 (67) 100 12/21/19 18:00 103 28 88/57 (67) 100 12/21/19 17:00 104 28 90/70 (77) 100 12/21/19 16:00 Nasal Cannula 3.0 12/21/19 16:00 106 12/21/19 16:00 103 27 110/60 (77) 100 12/21/19 15:00 103 27 88/63 (71) 100 12/21/19 14:00 109 28 94/55 (68) 97 12/21/19 13:00 105 27 97/56 (70) 99 12/21/19 12:00 107 12/21/19 12:00 Nasal Cannula 3.0 12/21/19 12:00 99.1 105 23 97/70 (79) 100 12/21/19 11:00 110 28 88/61 (70) 100 12/21/19 10:00 103 28 100/56 (71) 100 12/21/19 09:00 107 30 88/56 (67) 100 12/21/19 08:00 Nasal Cannula 3.0 12/21/19 08:00 124 12/21/19 08:00 121 25 90/62 (71) 98 12/21/19 07:00 99.0 123 23 97/70 (79) 100 Intake and Output 12/21/19 12/22/19 19:00 07:00 Intake Total 560 ml 500 ml Output Total 290 ml 280 ml Balance 270 ml 220 ml IV Total 560 ml 500 ml Tube Feeding 0 ml 0 ml Output Urine Total 290 ml 280 ml # Bowel Movements 1 Laboratory Tests 12/21/19 14:20: Urine Color Yellow, Urine Appearance Clear, Urine pH 5, Urine Specific [place] 1.015, Urine Protein 1+H, Urine Glucose (UA) Negative, Urine Ketones Negative, Urine Blood Negative, Urine Nitrite Negative, Urine Bilirubin Negative, Urine Urobilinogen Normal, Urine Leukocyte Esterase 1+H, Urine RBC 0, Urine WBC 0-2, Urine Squamous Epithelial Cells Occasional, Urine Amorphous Sediment FewH, Urine Bacteria Occasional 12/22/19 05:00: White Blood Count 24.2*H, Red Blood Count 4.29L, Hemoglobin 13.7L, Hematocrit 40.8L, Mean Corpuscular Volume 95, Mean Corpuscular Hemoglobin 31.9H, Mean Corpuscular Hemoglobin Concent 33.5, Red Cell Distribution Width 13.2, Platelet Count 327, Mean Platelet Volume 5.8L, Neutrophils (%) (Auto) , Lymphocytes (%) ( Auto) , Monocytes (%) (Auto) , Eosinophils (%) (Auto) , Basophils (%) (Auto) , Neutrophils % (Manual) [Pending], Lymphocytes % (Manual) [Pending], Platelet Estimate [Pending], Platelet Morphology [Pending], Sodium Level 141, Potassium Level 3.9, Chloride Level 104, Carbon Dioxide Level 31, Anion Gap 7, Blood Urea Nitrogen 27H, Creatinine 1.2, Estimat Glomerular Filtration Rate , Glucose Level 162H, Calcium Level 9.1 Height (Feet): 5 Height (Inches): 1.00 Weight (Pounds): 131 General Appearance: lethargic EENT: normal ENT inspection Neck: supple Cardiovascular: normal rate Respiratory/Chest: decreased breath sounds Abdomen: soft, hypoactive bowel sounds Extremities: non-tender David Hutchison MD Dec 22, 2019 06:41
--- NOTE | 2019-12-22 07:44 | NUR ---
HAND-OFF: Report given to SUBHASH Zaman patient in stable condition,plan of care endorsed.
--- NOTE | 2019-12-22 07:54 | NUR ---
NURSE NOTES: Received patient from [facility]. Patient is resting comfortably in bed. Opens eyes to touch. Mumbles when spoken to. Right wrist restraints in place-will evaluate need for continuation. Oxygen in place. Repositioned for comfort. Left J tube site clean dry and intact. Fall precautions in place, CAll frey within patients reached. Will follow.
[2019-12-22] MEDS: Pantoprazole Inj IVP SCH ×2 (08:56→20:20)
[2019-12-22] MEDS: Heparin 5000 units/ml inj SUBQ SCH ×2 (08:57→20:21)
--- NOTE | 2019-12-22 09:24 | Nephrology Progress Note ---
Assessment/Plan Problem List: (1) Hyperkalemia (2) Right lower lobe pneumonia (3) Hyperglycemia (4) Leukocytosis Assessment HyperKalemia, in view of normal renal functions, Partly hemolysis Moderate respiratory distress: CHF vs Pneumonia Tachycardia and Leukocytosis ? UTI Hyperglycemia Leukocytosis other conditions: 1. Acute CVA. 2. Sepsis and UTI. under treatment 3. Hypertension and congestive heart failure. 4. History of chronic kidney disease. 5. Failure to thrive 6. Diarrhea; resolved; C diff negative 7.s/p Hypokalemia; corrected; Plan Stable from renal stand s/p CXR Right lung Opacification- had bronch- WIll repeat CXR today per ID and pulmonary monitor renal parameters Urine tests per orders Subjective ROS Limited/Unobtainable: No Constitutional: Reports: malaise, weakness Objective Objective Last 24 Hour Vital Signs Date Time Temp Pulse Resp B/P (MAP) Pulse Ox O2 Delivery O2 Flow Rate FiO2 12/22/19 08:00 97.5 105 21 93/63 (73) 93 12/22/19 06:15 101 12/22/19 06:10 99.0 101 20 101/68 (79) 97 12/22/19 05:00 105 26 113/75 (88) 100 12/22/19 04:00 99.5 102 25 106/75 (85) 100 12/22/19 04:00 Non-Rebreather 12.0 12/22/19 04:00 110 12/22/19 03:00 99 24 100/66 (77) 100 12/22/19 02:00 96 23 105/62 (76) 100 12/22/19 01:26 98.9 12/22/19 01:00 112 30 104/55 (71) 98 12/22/19 00:00 100.5 108 28 106/73 (84) 98 12/22/19 00:00 101 12/22/19 00:00 Non-Rebreather 12.0 12/21/19 23:00 113 28 114/69 (84) 98 12/21/19 22:00 109 30 105/67 (80) 99 12/21/19 21:00 113 27 116/70 (85) 94 12/21/19 20:00 Nasal Cannula 3.0 12/21/19 20:00 99.3 98 24 100/56 (71) 96 12/21/19 20:00 98 12/21/19 19:00 104 26 89/56 (67) 100 12/21/19 18:00 103 28 88/57 (67) 100 12/21/19 17:00 104 28 90/70 (77) 100 12/21/19 16:00 Nasal Cannula 3.0 12/21/19 16:00 106 12/21/19 16:00 103 27 110/60 (77) 100 12/21/19 15:00 103 27 88/63 (71) 100 12/21/19 14:00 109 28 94/55 (68) 97 12/21/19 13:00 105 27 97/56 (70) 99 12/21/19 12:00 107 12/21/19 12:00 Nasal Cannula 3.0 12/21/19 12:00 99.1 105 23 97/70 (79) 100 12/21/19 11:00 110 28 88/61 (70) 100 12/21/19 10:00 103 28 100/56 (71) 100 Intake and Output 12/21/19 12/22/19 19:00 07:00 Intake Total 560 ml 500 ml Output Total 290 ml 280 ml Balance 270 ml 220 ml IV Total 560 ml 500 ml Tube Feeding 0 ml 0 ml Output Urine Total 290 ml 280 ml # Bowel Movements 1 Laboratory Tests 12/21/19 14:20: Urine Color Yellow, Urine Appearance Clear, Urine pH 5, Urine Specific [place] 1.015, Urine Protein 1+H, Urine Glucose (UA) Negative, Urine Ketones Negative, Urine Blood Negative, Urine Nitrite Negative, Urine Bilirubin Negative, Urine Urobilinogen Normal, Urine Leukocyte Esterase 1+H, Urine RBC 0, Urine WBC 0-2, Urine Squamous Epithelial Cells Occasional, Urine Amorphous Sediment FewH, Urine Bacteria Occasional 12/22/19 05:00: White Blood Count 24.2*H, Red Blood Count 4.29L, Hemoglobin 13.7L, Hematocrit 40.8L, Mean Corpuscular Volume 95, Mean Corpuscular Hemoglobin 31.9H, Mean Corpuscular Hemoglobin Concent 33.5, Red Cell Distribution Width 13.2, Platelet Count 327, Mean Platelet Volume 5.8L, Neutrophils (%) (Auto) , Lymphocytes (%) ( Auto) , Monocytes (%) (Auto) , Eosinophils (%) (Auto) , Basophils (%) (Auto) , Differential Total Cells Counted 100, Neutrophils % (Manual) 86H, Lymphocytes % (Manual) 6L, Monocytes % (Manual) 8, Eosinophils % (Manual) 0, Basophils % ( Manual) 0, Band Neutrophils 0, Platelet Estimate Adequate, Platelet Morphology Normal, Red Blood Cell Morphology Normal, Sodium Level 141, Potassium Level 3.9 , Chloride Level 104, Carbon Dioxide Level 31, Anion Gap 7, Blood Urea Nitrogen 27H, Creatinine 1.2, Estimat Glomerular Filtration Rate , Glucose Level 162H, Calcium Level 9.1 Height (Feet): 5 Height (Inches): 1.00 Weight (Pounds): 148 General Appearance: lethargic Cardiovascular: tachycardia Respiratory/Chest: decreased breath sounds Abdomen: soft Valdo Anderson MD Dec 22, 2019 09:24
--- NOTE | 2019-12-22 09:37 | Surgery Progress Note ---
Surgery Progress Note Subjective Procedure Performed open jejunostomy feeding tube insertion lysis of adhesions open peritoneal mass biopsy Additional Comments no acute events downgraded kub / cxr noted - worsening chf / ileus Objective Last 24 Hour Vital Signs Date Time Temp Pulse Resp B/P (MAP) Pulse Ox O2 Delivery O2 Flow Rate FiO2 12/22/19 08:00 97.5 105 21 93/63 (73) 93 12/22/19 06:15 101 12/22/19 06:10 99.0 101 20 101/68 (79) 97 12/22/19 05:00 105 26 113/75 (88) 100 12/22/19 04:00 99.5 102 25 106/75 (85) 100 12/22/19 04:00 Non-Rebreather 12.0 12/22/19 04:00 110 12/22/19 03:00 99 24 100/66 (77) 100 12/22/19 02:00 96 23 105/62 (76) 100 12/22/19 01:26 98.9 12/22/19 01:00 112 30 104/55 (71) 98 12/22/19 00:00 100.5 108 28 106/73 (84) 98 12/22/19 00:00 101 12/22/19 00:00 Non-Rebreather 12.0 12/21/19 23:00 113 28 114/69 (84) 98 12/21/19 22:00 109 30 105/67 (80) 99 12/21/19 21:00 113 27 116/70 (85) 94 12/21/19 20:00 Nasal Cannula 3.0 12/21/19 20:00 99.3 98 24 100/56 (71) 96 12/21/19 20:00 98 12/21/19 19:00 104 26 89/56 (67) 100 12/21/19 18:00 103 28 88/57 (67) 100 12/21/19 17:00 104 28 90/70 (77) 100 12/21/19 16:00 Nasal Cannula 3.0 12/21/19 16:00 106 12/21/19 16:00 103 27 110/60 (77) 100 12/21/19 15:00 103 27 88/63 (71) 100 12/21/19 14:00 109 28 94/55 (68) 97 12/21/19 13:00 105 27 97/56 (70) 99 12/21/19 12:00 107 12/21/19 12:00 Nasal Cannula 3.0 12/21/19 12:00 99.1 105 23 97/70 (79) 100 12/21/19 11:00 110 28 88/61 (70) 100 12/21/19 10:00 103 28 100/56 (71) 100 I&O Intake and Output 12/21/19 12/22/19 19:00 07:00 Intake Total 560 ml 500 ml Output Total 290 ml 280 ml Balance 270 ml 220 ml IV Total 560 ml 500 ml Tube Feeding 0 ml 0 ml Output Urine Total 290 ml 280 ml # Bowel Movements 1 Dressing: dry Wound: clean Cardiovascular: RSR Respiratory: clear, decreased breath sounds Abdomen: soft, non-tender, decreased bowel sounds Extremities: no tenderness, no cyanosis Laboratory Tests Test 12/21/19 14:20 12/22/19 05:00 Urine Color Yellow Urine Appearance Clear Urine pH 5 (4.5-8.0) Urine Specific Joseph 1.015 (1.005-1.035) Urine Protein 1+ (NEGATIVE) H Urine Glucose (UA) Negative (NEGATIVE) Urine Ketones Negative (NEGATIVE) Urine Blood Negative (NEGATIVE) Urine Nitrite Negative (NEGATIVE) Urine Bilirubin Negative (NEGATIVE) Urine Urobilinogen Normal MG/DL (0.0-1.0) Urine Leukocyte Esterase 1+ (NEGATIVE) H Urine RBC 0 /HPF (0 - 0) Urine WBC 0-2 /HPF (0 - 0) Urine Squamous Epithelial Cells Occasional /LPF Urine Amorphous Sediment Few /LPF (NONE) H Urine Bacteria Occasional /HPF (NONE) White Blood Count 24.2 K/UL (4.8-10.8) *H Red Blood Count 4.29 M/UL (4.70-6.10) L Hemoglobin 13.7 G/DL (14.2-18.0) L Hematocrit 40.8 % (42.0-52.0) L Mean Corpuscular Volume 95 FL (80-99) Mean Corpuscular Hemoglobin 31.9 PG (27.0-31.0) H Mean Corpuscular Hemoglobin Concent 33.5 G/DL (32.0-36.0) Red Cell Distribution Width 13.2 % (11.6-14.8) Platelet Count 327 K/UL (150-450) Mean Platelet Volume 5.8 FL (6.5-10.1) L Neutrophils (%) (Auto) % (45.0-75.0) Lymphocytes (%) (Auto) % (20.0-45.0) Monocytes (%) (Auto) % (1.0-10.0) Eosinophils (%) (Auto) % (0.0-3.0) Basophils (%) (Auto) % (0.0-2.0) Differential Total Cells Counted 100 Neutrophils % (Manual) 86 % (45-75) H Lymphocytes % (Manual) 6 % (20-45) L Monocytes % (Manual) 8 % (1-10) Eosinophils % (Manual) 0 % (0-3) Basophils % (Manual) 0 % (0-2) Band Neutrophils 0 % (0-8) Platelet Estimate Adequate Platelet Morphology Normal Red Blood Cell Morphology Normal Sodium Level 141 MMOL/L (136-145) Potassium Level 3.9 MMOL/L (3.5-5.1) Chloride Level 104 MMOL/L (98-107) Carbon Dioxide Level 31 MMOL/L (21-32) Anion Gap 7 mmol/L (5-15) Blood Urea Nitrogen 27 mg/dL (7-18) H Creatinine 1.2 MG/DL (0.55-1.30) Estimat Glomerular Filtration Rate mL/min (>60) Glucose Level 162 MG/DL (74-106) H Calcium Level 9.1 MG/DL (8.5-10.1) Plan Problems: (1) Failure to thrive Assessment & Plan: This is a 84-year-old male with failure to thrive, unfortunate history of stroke unable to have significant oral intake and indicating recommended for feeding tube placement. Unfortunately given prior gastric surgery unable to have endoscopic PEG tube placement. Surgical feeding tube placement indicated recommended. Will discuss with patient's family to obtain consent and schedule when appropriate. Thank you for let me participate in patient's care spoke with family obtained consent s/p j tube +CRYSTAL path noted exam okay tube okay trial tube feeds 10 cc/hr please make sure to flush after each use christian to be removed in 1 week okay to d/c f/u 1 week for staple removal and wound check DAILY ESTIMATED NEEDS: Needs based on Underweight, cardiac/ 49kg 30-35 kcals/kg 1997-8622 total kcals 1-1.5 g protein/kg 49-74 g total protein 25-30 mL/kg 5460-3401 total fluid mLs NUTRITION DIAGNOSIS: * Swallowing difficulty R/T dysphagia, s/p acute CVA as evidenced by NPO, pending [employer]PUT[employer]CHIT[employer] eval, possible PEG placement. CURRENT DIET:NPO PO DIET RECOMMENDATIONS: IF SAFE FOR ORAL DIET -> LOW NA/ texture per [employer]IT[employer] ENTERAL NUTRITION RECOMMENDATIONS: IF MEDICALLY APPROPRIATE AND PART OF POC -> Glucerna 1.2 @ 55ml/hr x 24 hrs to provide 1320ml, 1584kcal, 79g prot, 1063ml free water * IF PART OF POC AND MEDICALLY INDICATED, OBTAIN GI ACCESS -> initiate Glucerna 1.2 @ 15ml/hr x 6 hrs -> advance 10ml q 4-6 hrs as tolerated to goal rate -> HOB over 30 degrees/ water flush per MDD ADDITIONAL RECOMMENDATIONS: * Calibrated bedscale wt for accurate CBW * F/up w/ [employer]CHIT[employer] rec: oral diet vs NPO * Check A1C and lipid panel: s/p acute CVA * Monitor lytes, replete as needed Pt's skin assessment complete with Primary nurse in attendance. All bony prominences assessed. Sacrum and both hips without erythema or evidence of skin breakdown. Both heels boggy with non-blanching erythema.NO other skin concerns noted. Moisture Barrier Paste applied to buttocks. Optifoam drsg placed over Sacrum to minimize friction.Cavilon Skin Barrier applied to both heels. Each Heel covered with Optifoam drsg. Pt positioned with pillow on his side. Both heels floated off mattress with pillow. Recommendations:Apply Moisture Barrier Paste to Sacrum. Cover with Optifoam drsg. Change every 3 days and prn. Apply Cavilon Skin Barrier to both heels. Cover each heel with Optifoam drsg. Change every 7 days and PRN. Reposition at least every 2hours or as tolerated. Off-load heels with pillow. Andrei Fischer Dec 22, 2019 09:37
--- NOTE | 2019-12-22 09:52 | Pulmonology Progress Note ---
Assessment/Plan Assessment/Plan PROBLEM LIST: 1. Acute CVA. 2. Sepsis and UTI. Resolved 3. Hypertension and congestive heart failure. 4. History of chronic kidney disease. 5. Failure to thrive 6. Diarrhea; resolved; C diff negative 7. R lung opacification;now resolved after bronchoscopy PLAN: 1. S/p feeding tube placement; tube feedings on hold 2. Cardiology, neuro, and ID consultations noted. 3. I have assumed care due Insurance. 4. Surgical consultation noted due to need for open gastrostomy 5. Sent stool for c diff'; negative 6. Surgical G tube per Dr Keen/done 7. Start abx 8. Begin TF per surgery Salomón Bacon M.D. Subjective Interval Events: None new; now in tele Constitutional: Reports: no symptoms HEENT: Repors: no symptoms Respiratory: Reports: no symptoms Cardiovascular: Reports: no symptoms Gastrointestinal/Abdominal: Reports: no symptoms Allergies: Uncoded Allergies: Green vegetables (Allergy, Unknown, 12/10/19) Objective Last 24 Hour Vital Signs Date Time Temp Pulse Resp B/P (MAP) Pulse Ox O2 Delivery O2 Flow Rate FiO2 12/22/19 08:00 97.5 105 21 93/63 (73) 93 12/22/19 06:15 101 12/22/19 06:10 99.0 101 20 101/68 (79) 97 12/22/19 05:00 105 26 113/75 (88) 100 12/22/19 04:00 99.5 102 25 106/75 (85) 100 12/22/19 04:00 Non-Rebreather 12.0 12/22/19 04:00 110 12/22/19 03:00 99 24 100/66 (77) 100 12/22/19 02:00 96 23 105/62 (76) 100 12/22/19 01:26 98.9 12/22/19 01:00 112 30 104/55 (71) 98 12/22/19 00:00 100.5 108 28 106/73 (84) 98 12/22/19 00:00 101 12/22/19 00:00 Non-Rebreather 12.0 12/21/19 23:00 113 28 114/69 (84) 98 12/21/19 22:00 109 30 105/67 (80) 99 12/21/19 21:00 113 27 116/70 (85) 94 12/21/19 20:00 Nasal Cannula 3.0 12/21/19 20:00 99.3 98 24 100/56 (71) 96 12/21/19 20:00 98 12/21/19 19:00 104 26 89/56 (67) 100 12/21/19 18:00 103 28 88/57 (67) 100 12/21/19 17:00 104 28 90/70 (77) 100 12/21/19 16:00 Nasal Cannula 3.0 12/21/19 16:00 106 12/21/19 16:00 103 27 110/60 (77) 100 12/21/19 15:00 103 27 88/63 (71) 100 12/21/19 14:00 109 28 94/55 (68) 97 12/21/19 13:00 105 27 97/56 (70) 99 12/21/19 12:00 107 12/21/19 12:00 Nasal Cannula 3.0 12/21/19 12:00 99.1 105 23 97/70 (79) 100 12/21/19 11:00 110 28 88/61 (70) 100 12/21/19 10:00 103 28 100/56 (71) 100 Intake and Output 12/21/19 12/22/19 19:00 07:00 Intake Total 560 ml 500 ml Output Total 290 ml 280 ml Balance 270 ml 220 ml IV Total 560 ml 500 ml Tube Feeding 0 ml 0 ml Output Urine Total 290 ml 280 ml # Bowel Movements 1 General Appearance: no acute distress HEENT: normocephalic Respiratory/Chest: chest wall non-tender, lungs clear Cardiovascular: normal peripheral pulses Abdomen: soft, non tender Laboratory Tests 12/21/19 14:20: Urine Color Yellow, Urine Appearance Clear, Urine pH 5, Urine Specific [place] 1.015, Urine Protein 1+H, Urine Glucose (UA) Negative, Urine Ketones Negative, Urine Blood Negative, Urine Nitrite Negative, Urine Bilirubin Negative, Urine Urobilinogen Normal, Urine Leukocyte Esterase 1+H, Urine RBC 0, Urine WBC 0-2, Urine Squamous Epithelial Cells Occasional, Urine Amorphous Sediment FewH, Urine Bacteria Occasional 12/22/19 05:00: White Blood Count 24.2*H, Red Blood Count 4.29L, Hemoglobin 13.7L, Hematocrit 40.8L, Mean Corpuscular Volume 95, Mean Corpuscular Hemoglobin 31.9H, Mean Corpuscular Hemoglobin Concent 33.5, Red Cell Distribution Width 13.2, Platelet Count 327, Mean Platelet Volume 5.8L, Neutrophils (%) (Auto) , Lymphocytes (%) ( Auto) , Monocytes (%) (Auto) , Eosinophils (%) (Auto) , Basophils (%) (Auto) , Differential Total Cells Counted 100, Neutrophils % (Manual) 86H, Lymphocytes % (Manual) 6L, Monocytes % (Manual) 8, Eosinophils % (Manual) 0, Basophils % ( Manual) 0, Band Neutrophils 0, Platelet Estimate Adequate, Platelet Morphology Normal, Red Blood Cell Morphology Normal, Sodium Level 141, Potassium Level 3.9 , Chloride Level 104, Carbon Dioxide Level 31, Anion Gap 7, Blood Urea Nitrogen 27H, Creatinine 1.2, Estimat Glomerular Filtration Rate , Glucose Level 162H, Calcium Level 9.1 Current Medications Medications (Trade) Dose Ordered Sig/Leandra Route PRN Reason Start Time Stop Time Status Last Admin Dose Admin Acetaminophen (Tylenol) 650 mg Q4H PRN RECTAL FEVER 12/22/19 06:23 01/19/20 06:22 Cefepime HCl 1 gm/ Dextrose 55 ml @ 110 mls/hr Q24H IVPB 12/22/19 14:00 12/28/19 13:59 Dextrose/Sodium Chloride 1,000 ml @ 50 mls/hr Q20H IV 12/22/19 06:15 01/20/20 09:14 Heparin Sodium (Porcine) (Heparin 5000 units/ml) 5,000 units EVERY 12 HOURS SUBQ 12/22/19 09:00 01/09/20 08:59 12/22/19 08:57 Loperamide HCl (Imodium) 1 mg BIDPRN PRN NG Diarrhea 12/22/19 06:24 01/19/20 06:23 Metoclopramide HCl (Reglan) 10 mg Q6H PRN IVP Nausea & Vomiting 12/22/19 06:24 01/19/20 06:23 Morphine Sulfate (Morphine Sulfate) 1 mg Q4H PRN IVP pain scale 1-3 12/22/19 06:25 12/27/19 06:24 Morphine Sulfate (Morphine Sulfate) 2 mg Q4H PRN IVP pain scale 4-6 12/22/19 06:25 12/27/19 06:24 Morphine Sulfate (Morphine Sulfate) 4 mg Q4H PRN IVP pain score 7-10 12/22/19 06:26 12/27/19 06:25 Pantoprazole (Protonix) 40 mg Q12HR IVP 12/22/19 09:00 01/09/20 08:59 12/22/19 08:56 Salomón Bacon MD Dec 22, 2019 09:52
--- NOTE | 2019-12-22 10:05 | NUR ---
RADIOLOGY DEPT., CHEST X-RAY DONE.-P.DYE
--- NOTE | 2019-12-22 11:09 | Diagnostic Imaging Report ---
EXAM: XR Chest, 1 View CLINICAL HISTORY: COUGH TECHNIQUE: Frontal view of the chest. COMPARISON: Chest x-ray 12/21/19 FINDINGS: Lungs: Worsening vascular congestion and interstitial prominence. Worsening bilateral lower lobe opacities may be atelectasis/airspace disease and/or small pleural effusions, worse on the right. Pleural space: See above. No pneumothorax. Heart: Cardiomegaly. Mediastinum: Unremarkable. Bones/joints: Unremarkable. Upper abdomen: Gassy bowel loops in the upper abdomen. IMPRESSION: Worsening vascular congestion and interstitial prominence. Worsening bilateral lower lobe opacities may be atelectasis/airspace disease and/or small pleural effusions, worse on the right.
[2019-12-22] MEDS: Piperacillin/Tazobactam 3.375 GM in NS 110 ML IVPB SCH ×2 (11:36→20:20)
[2019-12-22] MEDS ORDERED: D5NS 1000ml IV ONE (13:01)
[2019-12-22] MEDS ORDERED: Sterile Water Irrig 1000ml IRRIG ONE (13:01)
[2019-12-22] MEDS ORDERED: NS 275ml ONE (13:01)
[2019-12-22] MEDS ORDERED: Cefepime HCl 1 GM in D5W 55 ML IVPB SCH (14:00)
--- NOTE | 2019-12-22 15:30 | Consultation ---
DATE OF CONSULTATION: 12/22/2019 INFECTIOUS DISEASES CONSULTATION CONSULTING PHYSICIAN: Jojo Li M.D. REFERRING PHYSICIAN: Salomón Bacon M.D. REASON FOR CONSULTATION: Leukocytosis. HISTORY OF PRESENTING ILLNESS: This is an 84-year-old gentleman with history of hypertension, congestive heart failure, chronic kidney disease, dementia, who was transferred from a retirement facility with weakness and facial droop. He underwent G-tube placement that was unsuccessful due to prior gastric surgery. Subsequently, he had a partial gastrectomy with Billroth II surgery and he had a jejunostomy tube placed with lysis of adhesion. He has had increasing leukocytosis and he also was found to have a peritoneal mass that has been biopsied and Infectious Diseases consultation has been obtained for antibiotics. PAST MEDICAL HISTORY: 1. History of hypertension. 2. Congestive heart failure. 3. Chronic kidney disease. 4. Dementia. 5. Status post G-tube placement. 6. History of lysis of adhesion. SOCIAL HISTORY: No history of smoking, alcohol, or drug use. FAMILY HISTORY: Unknown. REVIEW OF SYSTEMS: Unable to obtain currently. MEDICATIONS: As an inpatient, he is on Reglan, Tylenol. ALLERGIES: To green vegetables. PHYSICAL EXAMINATION: VITAL SIGNS: Temperature of 97.5, T-max of 100.5, pulse of 105, respiratory rate 21, blood pressure 93/63, O2 saturation of 93%. HEENT: Pupils equally reactive to light and accommodation. Mouth appears clean without thrush. NECK: Supple. No adenopathy. No JVD. CARDIOVASCULAR: Regular rate and rhythm. No murmurs. LUNGS: Clear to auscultation bilaterally. No crackles. No wheezes. ABDOMEN: Soft. Wound was clean. G-tube noted. EXTREMITIES: No cyanosis, no clubbing, no edema. LABORATORY AND DIAGNOSTIC DATA: White count of 25.4 yesterday, white count of 24.2 today, hemoglobin 13.7, hematocrit 40.8, MCV 95, platelet count 327. Sodium 141, potassium 3.9, chloride 104, bicarb 31, BUN 27, creatinine 1.2, glucose 162, calcium 9.1. Total bilirubin 1. AST 17, ALT 9, alkaline phosphatase 116. C-reactive protein of 32. Beta natriuretic peptide 5160. Total protein 7.1, albumin 2.1, cholesterol of 151. UA showing 30 to 40 white cells on 12/09/2019, 0 to 2 white cells on 12/21/2019. On 12/14/2019, stool for C. difficile is negative. Rectal swab was negative for VRE. Nasal swab was negative for MRSA. On 12/09/2019, urine culture grew Aerococcus 60,000 to 70,000 colonies. Chest x-ray showing worsening CHF. Abdominal x-ray showing suspected ileus. CT head showing acute to subacute nonhemorrhagic CVA involving the right middle cerebral artery with involvement of the right temporal lobe and parietal cortex. 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 ASSESSMENT: This is an 84-year-old gentleman with history of hypertension, congestive heart failure, who underwent Billroth II surgery as well as G-tube placement and now has: 1. Leukocytosis, this could be reactive. 2. We will also like to rule out pneumonia. 3. Aerococcus urinary tract infection. PLAN: 1. We will start the patient on Zosyn. 2. We will follow up the patient clinically. 3. We will follow up cultures. I would like to thank, Dr. Bacon, for this consultation. Jojo Li M.D. DR: ADAM JOB#: [id number] CC: Salomón Bacon M.D.; Fax#: [phone]
--- NOTE | 2019-12-22 16:28 | NUR ---
[facility]NA[facility] ROOM 12/22/2019 SI: S/P GT, S/P BRONCHOSCOPY T 97.5 HR 105 RR 21 B/P 93/63 SATS 93% 12L/NRB WBC 24.2 BUN 27 GLU 162 IS: HEPARIN SUBC PROTONIX IV CEFEPIME IV Q24H ZOSYN IV Q8H IVF @ 50 mL/HR TELE STATUS
--- NOTE | 2019-12-22 18:00 | NUR ---
NURSE NOTES: Tube feeding started at [address] Fischer's order. Patient tolerating well. No residual. Will follow.
--- NOTE | 2019-12-22 19:26 | NUR ---
HAND-OFF: Report given to Paxton Shen. Patient's daughter Celsa came in at 1915 to sign new POLST form.Stated she spoke with Abby. Endorsed to night Rn to notify MD. will follow.
--- NOTE | 2019-12-22 19:32 | NUR ---
NURSE NOTES: Received patient from SUBHASH Zaman, patient in stable condition, on O2 3Ln/c, Iv site intact, asymptomatic, Gt stoma intact, Glucerna 1.2 running @10cc/hr, F/C draining to gravity, patent, bed low&locked , side rails up x3, call light within reach, family at bedside. Daughter signed new POL, Dr. Bacon aware.
[2019-12-23] VITALS: BP 88/59
[2019-12-23] MEDS: D5NS 1,000 ML IV SCH ×2 (02:18→22:24)
[2019-12-23] MEDS: Piperacillin/Tazobactam 3.375 GM in NS 110 ML IVPB SCH ×3 (03:54→20:24)
[2019-12-23 04:00] VITALS: BP 108/63
--- NOTE | 2019-12-23 07:38 | NUR ---
NURSE NOTES: Received patient from Paxton Shen. Patient laying comfortably in bed. Opens eyes to light touch. able to focus eyes when spoken to. Mumbles words which are hard to understand. Oral suction provided with thick meraz secretions. Mouth care provided. Jtube clean dry and intact running Glucerna 1.2 @ 10 ML/HR. no residual noted. Left upper and lower extremities Flaccid. Able to move Right arm but very weak. Fall/Aspiration precautions in place. Call frey within patients reached. Will follow.
[2019-12-23 08:00] VITALS: BP 116/71
--- NOTE | 2019-12-23 08:23 | General Progress Note ---
Assessment/Plan Status: stable Assessment/Plan: Assessment/Plan Status: stable Assessment/Plan: Assessment - dysphagia - s/p open surgical j tube - N/V - ? due to Ileus - tachy - s/p past distal gastrectomy with Moncho II Recommendations - KUB / exam>>>Ileus - abx - Reglan - although utility limited with ABDIAZIZ - surgical f/u - JTF started at 10 cc -FU surg recs -DNR Subjective ROS Limited/Unobtainable: No Allergies: Uncoded Allergies: Green vegetables (Allergy, Unknown, 12/10/19) Objective Last 24 Hour Vital Signs Date Time Temp Pulse Resp B/P (MAP) Pulse Ox O2 Delivery O2 Flow Rate FiO2 12/23/19 04:00 101 12/23/19 04:00 97.0 100 20 108/63 (78) 95 12/23/19 00:19 98.9 12/23/19 00:00 132 12/23/19 00:00 99.2 110 20 88/59 (69) 97 12/22/19 21:00 Non-Rebreather 12.0 12/22/19 20:00 108 12/22/19 20:00 99.6 106 20 90/59 (69) 97 12/22/19 16:00 97.2 97 20 105/57 (73) 97 12/22/19 16:00 98 12/22/19 12:00 112 12/22/19 12:00 98.3 104 19 104/68 (80) 97 Intake and Output 12/22/19 12/23/19 19:00 07:00 Output Total 900 ml Balance -900 ml Output Urine Total 900 ml Height (Feet): 5 Height (Inches): 1.00 Weight (Pounds): 147 General Appearance: lethargic EENT: normal ENT inspection Neck: supple Cardiovascular: normal rate Respiratory/Chest: decreased breath sounds Abdomen: soft, hypoactive bowel sounds Extremities: non-tender David Hutchison MD Dec 23, 2019 08:23
[2019-12-23] MEDS: Pantoprazole Inj IVP SCH ×2 (08:38→20:24)
[2019-12-23] MEDS: Heparin 5000 units/ml inj SUBQ SCH ×2 (08:38→20:25)
[2019-12-23 09:14] LABS: HEMATOCRIT 37.9 % (42.0-52.0); HEMOGLOBIN 12.6 G/DL (14.2-18.0); MEAN CORPUSCULAR VOLUME 95 FL (80-99); PLATELET COUNT 392 K/UL (150-450); RED CELL DISTRIBUTION WIDTH 13.1 % (11.6-14.8); WHITE BLOOD COUNT 19.6 K/UL (4.8-10.8)
[2019-12-23 09:54] LABS: ALANINE AMINOTRANSFERASE 11 U/L (12-78); ALBUMIN 1.6 G/DL (3.4-5.0); ALBUMIN/GLOBULIN RATIO 0.3 (1.0-2.7); ALKALINE PHOSPHATASE 118 U/L (46-116); ANION GAP 7 mmol/L (5-15); ASPARTATE AMINO TRANSFERASE 11 U/L (15-37); BILIRUBIN,TOTAL 0.6 MG/DL (0.2-1.0); BLOOD UREA NITROGEN 27 mg/dL (7-18); CALCIUM 8.9 MG/DL (8.5-10.1); CARBON DIOXIDE 30 MMOL/L (21-32); CHLORIDE 110 MMOL/L (98-107); CREATININE 1.1 MG/DL (0.55-1.30); PHOSPHORUS 2.5 MG/DL (2.5-4.9); SODIUM 146 MMOL/L (136-145)
[2019-12-23 09:58] LABS: POTASSIUM 2.6 MMOL/L (3.5-5.1)
--- NOTE | 2019-12-23 10:13 | NUR ---
NURSE NOTES: Message left to Dr. Anderson re: critical Potassium level result of 2.9. Awaiting call back.
--- NOTE | 2019-12-23 10:45 | Infectious Diseases Prog Note ---
Assessment/Plan Assessment/Plan A; Sepsis Pneumonia UTI Right MCA CVA HPN Sacral pressure ulcer s/p J tube placement P: Continue Zosyn Discontinue Cefepime Subjective ROS Limited/Unobtainable: Yes Constitutional: Denies: fever Allergies: Uncoded Allergies: Green vegetables (Allergy, Unknown, 12/10/19) Objective Vital Signs Last 24 Hour Vital Signs Date Time Temp Pulse Resp B/P (MAP) Pulse Ox O2 Delivery O2 Flow Rate FiO2 12/23/19 08:00 98.1 71 18 116/71 (86) 93 12/23/19 08:00 98 12/23/19 04:00 101 12/23/19 04:00 97.0 100 20 108/63 (78) 95 12/23/19 00:19 98.9 12/23/19 00:00 132 12/23/19 00:00 99.2 110 20 88/59 (69) 97 12/22/19 21:00 Non-Rebreather 12.0 12/22/19 20:00 108 12/22/19 20:00 99.6 106 20 90/59 (69) 97 12/22/19 16:00 97.2 97 20 105/57 (73) 97 12/22/19 16:00 98 12/22/19 12:00 112 12/22/19 12:00 98.3 104 19 104/68 (80) 97 Height (Feet): 5 Height (Inches): 1.00 Weight (Pounds): 147 General Appearance: no acute distress HEENT: mucous membranes moist Respiratory/Chest: lungs clear Cardiovascular: normal rate Abdomen: soft, non tender, other - J tube in place, midline ssurgical christian Extremities: no edema Skin: ulcers, other - sacral Neurologic/Psychiatric: unresponsiveness Musculoskeletal: atrophy Laboratory Tests Test 12/23/19 08:50 White Blood Count 19.6 K/UL (4.8-10.8) H Red Blood Count 4.00 M/UL (4.70-6.10) L Hemoglobin 12.6 G/DL (14.2-18.0) L Hematocrit 37.9 % (42.0-52.0) L Mean Corpuscular Volume 95 FL (80-99) Mean Corpuscular Hemoglobin 31.6 PG (27.0-31.0) H Mean Corpuscular Hemoglobin Concent 33.3 G/DL (32.0-36.0) Red Cell Distribution Width 13.1 % (11.6-14.8) Platelet Count 392 K/UL (150-450) Mean Platelet Volume 6.0 FL (6.5-10.1) L Neutrophils (%) (Auto) % (45.0-75.0) Lymphocytes (%) (Auto) % (20.0-45.0) Monocytes (%) (Auto) % (1.0-10.0) Eosinophils (%) (Auto) % (0.0-3.0) Basophils (%) (Auto) % (0.0-2.0) Differential Total Cells Counted 100 Neutrophils % (Manual) 85 % (45-75) H Lymphocytes % (Manual) 8 % (20-45) L Monocytes % (Manual) 5 % (1-10) Eosinophils % (Manual) 2 % (0-3) Basophils % (Manual) 0 % (0-2) Band Neutrophils 0 % (0-8) Platelet Estimate Adequate Platelet Morphology Normal Red Blood Cell Morphology Normal Sodium Level 146 MMOL/L (136-145) H Potassium Level 2.6 MMOL/L (3.5-5.1) *L Chloride Level 110 MMOL/L (98-107) H Carbon Dioxide Level 30 MMOL/L (21-32) Anion Gap 7 mmol/L (5-15) Blood Urea Nitrogen 27 mg/dL (7-18) H Creatinine 1.1 MG/DL (0.55-1.30) Estimat Glomerular Filtration Rate mL/min (>60) Glucose Level 174 MG/DL (74-106) H Calcium Level 8.9 MG/DL (8.5-10.1) Phosphorus Level 2.5 MG/DL (2.5-4.9) Magnesium Level 2.1 MG/DL (1.8-2.4) Total Bilirubin 0.6 MG/DL (0.2-1.0) Aspartate Amino Transf (AST/SGOT) 11 U/L (15-37) L Alanine Aminotransferase (ALT/SGPT) 11 U/L (12-78) L Alkaline Phosphatase 118 U/L (46-116) H Troponin I 0.000 ng/mL (0.000-0.056) C-Reactive Protein, Quantitative 33.0 mg/dL (0.00-0.90) H Pro-B-Type Natriuretic Peptide 7413 pg/mL (0-125) H Total Protein 6.4 G/DL (6.4-8.2) Albumin 1.6 G/DL (3.4-5.0) L Globulin 4.8 g/dL Albumin/Globulin Ratio 0.3 (1.0-2.7) L Current Medications Medications (Trade) Dose Ordered Sig/Leandra Route PRN Reason Start Time Stop Time Status Last Admin Dose Admin Acetaminophen (Tylenol) 650 mg Q4H PRN RECTAL FEVER 12/22/19 06:23 01/19/20 06:22 12/22/19 23:49 Cefepime HCl 1 gm/ Dextrose 55 ml @ 110 mls/hr Q24H IVPB 12/22/19 14:00 12/28/19 13:59 12/22/19 13:34 Dextrose/Sodium Chloride 1,000 ml @ 50 mls/hr Q20H IV 12/22/19 06:15 01/20/20 09:14 12/23/19 02:18 Heparin Sodium (Porcine) (Heparin 5000 units/ml) 5,000 units EVERY 12 HOURS SUBQ 12/22/19 09:00 01/09/20 08:59 12/23/19 08:38 Loperamide HCl (Imodium) 1 mg BIDPRN PRN NG Diarrhea 12/22/19 06:24 01/19/20 06:23 Metoclopramide HCl (Reglan) 10 mg Q6H PRN IVP Nausea & Vomiting 12/22/19 06:24 01/19/20 06:23 Morphine Sulfate (Morphine Sulfate) 1 mg Q4H PRN IVP pain scale 1-3 12/22/19 06:25 12/27/19 06:24 Morphine Sulfate (Morphine Sulfate) 2 mg Q4H PRN IVP pain scale 4-6 12/22/19 06:25 12/27/19 06:24 Morphine Sulfate (Morphine Sulfate) 4 mg Q4H PRN IVP pain score 7-10 12/22/19 06:26 12/27/19 06:25 Pantoprazole (Protonix) 40 mg Q12HR IVP 12/22/19 09:00 01/09/20 08:59 12/23/19 08:38 Piperacillin Sod/ Tazobactam Sod 3.375 gm/Sodium Chloride 110 ml @ 27.5 mls/hr Q8H IVPB 12/22/19 12:00 12/29/19 11:59 12/23/19 03:54 Potassium Chloride 100 ml @ 100 mls/hr Q1H IVPB 12/23/19 10:45 12/23/19 14:44 Yobani Red MD Dec 23, 2019 10:45
--- NOTE | 2019-12-23 11:29 | Pulmonology Progress Note ---
Assessment/Plan Assessment/Plan PROBLEM LIST: 1. Acute CVA. 2. Sepsis and UTI. Resolved 3. Hypertension and congestive heart failure. 4. History of chronic kidney disease. 5. Failure to thrive 6. Diarrhea; resolved; C diff negative 7. R lung opacification;now resolved after bronchoscopy PLAN: 1. S/p feeding tube placement; tube feedings on hold 2. Cardiology, neuro, and ID consultations noted. 3. I have assumed care due Insurance. 4. Surgical consultation noted due to need for open gastrostomy 5. Sent stool for c diff'; negative 6. Surgical G tube per Dr Keen/done 7. Start abx 8. Begin TF per surgery; however ileus noted; will hold off 9. Remains DNR and DNI; discussed with daughter Salomón Bacon M.D. Subjective Interval Events: None new Constitutional: Reports: no symptoms HEENT: Repors: no symptoms Respiratory: Reports: no symptoms Cardiovascular: Reports: no symptoms Gastrointestinal/Abdominal: Reports: no symptoms Genitourinary: Reports: no symptoms Neurologic: Reports: no symptoms Allergies: Uncoded Allergies: Green vegetables (Allergy, Unknown, 12/10/19) Objective Last 24 Hour Vital Signs Date Time Temp Pulse Resp B/P (MAP) Pulse Ox O2 Delivery O2 Flow Rate FiO2 12/23/19 09:00 Non-Rebreather 12.0 12/23/19 08:00 98.1 71 18 116/71 (86) 93 12/23/19 08:00 98 12/23/19 04:00 101 12/23/19 04:00 97.0 100 20 108/63 (78) 95 12/23/19 00:19 98.9 12/23/19 00:00 132 12/23/19 00:00 99.2 110 20 88/59 (69) 97 12/22/19 21:00 Non-Rebreather 12.0 12/22/19 20:00 108 12/22/19 20:00 99.6 106 20 90/59 (69) 97 12/22/19 16:00 97.2 97 20 105/57 (73) 97 12/22/19 16:00 98 12/22/19 12:00 112 12/22/19 12:00 98.3 104 19 104/68 (80) 97 Intake and Output 12/22/19 12/23/19 19:00 07:00 Intake Total 10 ml Output Total 900 ml Balance -900 ml 10 ml Tube Feeding 10 ml Output Urine Total 900 ml General Appearance: no acute distress HEENT: normocephalic Respiratory/Chest: chest wall non-tender, lungs clear Cardiovascular: normal peripheral pulses Abdomen: normal bowel sounds Laboratory Tests 12/23/19 08:50: White Blood Count 19.6H, Red Blood Count 4.00L, Hemoglobin 12.6L, Hematocrit 37.9L, Mean Corpuscular Volume 95, Mean Corpuscular Hemoglobin 31.6H, Mean Corpuscular Hemoglobin Concent 33.3, Red Cell Distribution Width 13.1, Platelet Count 392, Mean Platelet Volume 6.0L, Neutrophils (%) (Auto) , Lymphocytes (%) ( Auto) , Monocytes (%) (Auto) , Eosinophils (%) (Auto) , Basophils (%) (Auto) , Differential Total Cells Counted 100, Neutrophils % (Manual) 85H, Lymphocytes % (Manual) 8L, Monocytes % (Manual) 5, Eosinophils % (Manual) 2, Basophils % ( Manual) 0, Band Neutrophils 0, Platelet Estimate Adequate, Platelet Morphology Normal, Red Blood Cell Morphology Normal, Sodium Level 146H, Potassium Level 2.6 *L, Chloride Level 110H, Carbon Dioxide Level 30, Anion Gap 7, Blood Urea Nitrogen 27H, Creatinine 1.1, Estimat Glomerular Filtration Rate , Glucose Level 174H, Calcium Level 8.9, Phosphorus Level 2.5, Magnesium Level 2.1, Total Bilirubin 0.6, Aspartate Amino Transf (AST/SGOT) 11L, Alanine Aminotransferase ( ALT/SGPT) 11L, Alkaline Phosphatase 118H, Troponin I 0.000, C-Reactive Protein, Quantitative 33.0H, Pro-B-Type Natriuretic Peptide 7413H, Total Protein 6.4, Albumin 1.6L, Globulin 4.8, Albumin/Globulin Ratio 0.3L Current Medications Medications (Trade) Dose Ordered Sig/Leandra Route PRN Reason Start Time Stop Time Status Last Admin Dose Admin Acetaminophen (Tylenol) 650 mg Q4H PRN RECTAL FEVER 12/22/19 06:23 01/19/20 06:22 12/22/19 23:49 Dextrose/Sodium Chloride 1,000 ml @ 50 mls/hr Q20H IV 12/22/19 06:15 01/20/20 09:14 12/23/19 02:18 Heparin Sodium (Porcine) (Heparin 5000 units/ml) 5,000 units EVERY 12 HOURS SUBQ 12/22/19 09:00 01/09/20 08:59 12/23/19 08:38 Loperamide HCl (Imodium) 1 mg BIDPRN PRN NG Diarrhea 12/22/19 06:24 01/19/20 06:23 Metoclopramide HCl (Reglan) 10 mg Q6H PRN IVP Nausea & Vomiting 12/22/19 06:24 01/19/20 06:23 Morphine Sulfate (Morphine Sulfate) 1 mg Q4H PRN IVP pain scale 1-3 12/22/19 06:25 12/27/19 06:24 Morphine Sulfate (Morphine Sulfate) 2 mg Q4H PRN IVP pain scale 4-6 12/22/19 06:25 12/27/19 06:24 Morphine Sulfate (Morphine Sulfate) 4 mg Q4H PRN IVP pain score 7-10 12/22/19 06:26 12/27/19 06:25 Pantoprazole (Protonix) 40 mg Q12HR IVP 12/22/19 09:00 01/09/20 08:59 12/23/19 08:38 Piperacillin Sod/ Tazobactam Sod 3.375 gm/Sodium Chloride 110 ml @ 27.5 mls/hr Q8H IVPB 12/22/19 12:00 12/29/19 11:59 12/23/19 03:54 Potassium Chloride 100 ml @ 100 mls/hr Q1H IVPB 12/23/19 11:00 12/23/19 14:59 12/23/19 10:57 Salomón Bacon MD Dec 23, 2019 11:29
--- NOTE | 2019-12-23 11:45 | NUR ---
NURSE NOTES: Dr. Costa in to see patient. spoke with daughter Celsa over the phone to clarify code status. Patient is DNR/DNI. POLST signed.
[2019-12-23 12:00] VITALS: BP 110/70
--- NOTE | 2019-12-23 12:34 | Nephrology Progress Note ---
Assessment/Plan Problem List: (1) Hyperkalemia (2) Right lower lobe pneumonia (3) Hyperglycemia (4) Leukocytosis (5) Electrolyte imbalance Assessment: low K on 12/23 Assessment HyperKalemia, in view of normal renal functions, Partly hemolysis Moderate respiratory distress: CHF vs Pneumonia Tachycardia and Leukocytosis ? UTI Hyperglycemia Leukocytosis other conditions: 1. Acute CVA. 2. Sepsis and UTI. under treatment 3. Hypertension and congestive heart failure. 4. History of chronic kidney disease. 5. Failure to thrive 6. Diarrhea; resolved; C diff negative 7.s/p Hypokalemia; corrected; Plan Stable from renal stand K IV and PO s/p CXR Right lung Opacification- had bronch- WIll repeat CXR today per ID and pulmonary monitor renal parameters Urine tests per orders Subjective ROS Limited/Unobtainable: No Constitutional: Reports: malaise, weakness Objective Objective Last 24 Hour Vital Signs Date Time Temp Pulse Resp B/P (MAP) Pulse Ox O2 Delivery O2 Flow Rate FiO2 12/23/19 12:00 98.9 103 17 110/70 (83) 98 12/23/19 09:00 Non-Rebreather 12.0 12/23/19 08:00 98.1 71 18 116/71 (86) 93 12/23/19 08:00 98 12/23/19 04:00 101 12/23/19 04:00 97.0 100 20 108/63 (78) 95 12/23/19 00:19 98.9 12/23/19 00:00 132 12/23/19 00:00 99.2 110 20 88/59 (69) 97 12/22/19 21:00 Non-Rebreather 12.0 12/22/19 20:00 108 12/22/19 20:00 99.6 106 20 90/59 (69) 97 12/22/19 16:00 97.2 97 20 105/57 (73) 97 12/22/19 16:00 98 Intake and Output 12/22/19 12/23/19 19:00 07:00 Intake Total 10 ml Output Total 900 ml Balance -900 ml 10 ml Tube Feeding 10 ml Output Urine Total 900 ml Current Medications Medications (Trade) Dose Ordered Sig/Leandra Route PRN Reason Start Time Stop Time Status Last Admin Dose Admin Acetaminophen (Tylenol) 650 mg Q4H PRN RECTAL FEVER 12/22/19 06:23 01/19/20 06:22 12/22/19 23:49 Dextrose/Sodium Chloride 1,000 ml @ 50 mls/hr Q20H IV 12/22/19 06:15 01/20/20 09:14 12/23/19 02:18 Heparin Sodium (Porcine) (Heparin 5000 units/ml) 5,000 units EVERY 12 HOURS SUBQ 12/22/19 09:00 01/09/20 08:59 12/23/19 08:38 Loperamide HCl (Imodium) 1 mg BIDPRN PRN NG Diarrhea 12/22/19 06:24 01/19/20 06:23 Metoclopramide HCl (Reglan) 10 mg Q6H PRN IVP Nausea & Vomiting 12/22/19 06:24 01/19/20 06:23 Morphine Sulfate (Morphine Sulfate) 1 mg Q4H PRN IVP pain scale 1-3 12/22/19 06:25 12/27/19 06:24 Morphine Sulfate (Morphine Sulfate) 2 mg Q4H PRN IVP pain scale 4-6 12/22/19 06:25 12/27/19 06:24 Morphine Sulfate (Morphine Sulfate) 4 mg Q4H PRN IVP pain score 7-10 12/22/19 06:26 12/27/19 06:25 Pantoprazole (Protonix) 40 mg Q12HR IVP 12/22/19 09:00 01/09/20 08:59 12/23/19 08:38 Piperacillin Sod/ Tazobactam Sod 3.375 gm/Sodium Chloride 110 ml @ 27.5 mls/hr Q8H IVPB 12/22/19 12:00 12/29/19 11:59 12/23/19 12:16 Potassium Chloride 100 ml @ 100 mls/hr Q1H IVPB 12/23/19 11:00 12/23/19 14:59 12/23/19 12:16 Potassium Chloride (K-Dur) 20 meq TWICE A DAY GT 12/23/19 11:30 01/22/20 11:29 12/23/19 12:17 Laboratory Tests 12/23/19 08:50: White Blood Count 19.6H, Red Blood Count 4.00L, Hemoglobin 12.6L, Hematocrit 37.9L, Mean Corpuscular Volume 95, Mean Corpuscular Hemoglobin 31.6H, Mean Corpuscular Hemoglobin Concent 33.3, Red Cell Distribution Width 13.1, Platelet Count 392, Mean Platelet Volume 6.0L, Neutrophils (%) (Auto) , Lymphocytes (%) ( Auto) , Monocytes (%) (Auto) , Eosinophils (%) (Auto) , Basophils (%) (Auto) , Differential Total Cells Counted 100, Neutrophils % (Manual) 85H, Lymphocytes % (Manual) 8L, Monocytes % (Manual) 5, Eosinophils % (Manual) 2, Basophils % ( Manual) 0, Band Neutrophils 0, Platelet Estimate Adequate, Platelet Morphology Normal, Red Blood Cell Morphology Normal, Sodium Level 146H, Potassium Level 2.6 *L, Chloride Level 110H, Carbon Dioxide Level 30, Anion Gap 7, Blood Urea Nitrogen 27H, Creatinine 1.1, Estimat Glomerular Filtration Rate , Glucose Level 174H, Calcium Level 8.9, Phosphorus Level 2.5, Magnesium Level 2.1, Total Bilirubin 0.6, Aspartate Amino Transf (AST/SGOT) 11L, Alanine Aminotransferase ( ALT/SGPT) 11L, Alkaline Phosphatase 118H, Troponin I 0.000, C-Reactive Protein, Quantitative 33.0H, Pro-B-Type Natriuretic Peptide 7413H, Total Protein 6.4, Albumin 1.6L, Globulin 4.8, Albumin/Globulin Ratio 0.3L Height (Feet): 5 Height (Inches): 1.00 Weight (Pounds): 147 General Appearance: mild distress Cardiovascular: tachycardia Respiratory/Chest: decreased breath sounds Abdomen: soft Valdo Anderson MD Dec 23, 2019 12:34
[2019-12-23 16:00] VITALS: BP 120/76
--- NOTE | 2019-12-23 19:10 | NUR ---
NURSE NOTES: Received patient from SUBHASH Zaman, patient in stable condition, on O2 3Ln/c, Iv site intact, asymptomatic, Gt stoma intact, Glucerna 1.2 running @10cc/hr, F/C draining to gravity, patent, bed low&locked , side rails up x3, call light within reach, will continue to monitor and reassess.
--- NOTE | 2019-12-23 19:10 | NUR ---
HAND-OFF: Report given to Paxton Shen. Plan of care endorsed.
[2019-12-23 20:00] VITALS: BP 123/73
[2019-12-24] VITALS: BP 114/75
[2019-12-24 04:00] VITALS: BP 108/77
[2019-12-24] MEDS: Piperacillin/Tazobactam 3.375 GM in NS 110 ML IVPB SCH ×3 (04:13→20:21)
[2019-12-24 08:00] VITALS: BP 115/77
--- NOTE | 2019-12-24 08:00 | NUR ---
NURSE NOTES: Patient stable AOx0 with no s/sx of distress. RR even and unlabored on 3L NC. Torres draining well to gravity. Abdominal sutures dry and intact. Side rails upx2, call light within reach, bed low and locked. Will continue to monitor.
--- NOTE | 2019-12-24 08:00 | NUR ---
HAND-OFF: Report given to SUBHASH Altman, patient in stable condition, plan of care of endorsed.
[2019-12-24 08:23] LABS: BASOPHILS % (AUTO) 0.7 % (0.0-2.0); EOSINOPHILS % (AUTO) 3.2 % (0.0-3.0); HEMATOCRIT 39.8 % (42.0-52.0); HEMOGLOBIN 13.1 G/DL (14.2-18.0); LYMPHOCYTES % (AUTO) 9.1 % (20.0-45.0); MEAN CORPUSCULAR VOLUME 96 FL (80-99); MONOCYTES % (AUTO) 5.8 % (1.0-10.0); NEUTROPHILS % (AUTO) 81.2 % (45.0-75.0); PLATELET COUNT 399 K/UL (150-450); RED BLOOD COUNT 4.13 M/UL (4.70-6.10); RED CELL DISTRIBUTION WIDTH 13.2 % (11.6-14.8); WHITE BLOOD COUNT 15.2 K/UL (4.8-10.8)
[2019-12-24 08:51] LABS: ALANINE AMINOTRANSFERASE < 6 U/L (12-78); ALBUMIN 1.6 G/DL (3.4-5.0); ALBUMIN/GLOBULIN RATIO 0.3 (1.0-2.7); ALKALINE PHOSPHATASE 112 U/L (46-116); ANION GAP 7 mmol/L (5-15); ASPARTATE AMINO TRANSFERASE 12 U/L (15-37); BILIRUBIN,TOTAL 0.6 MG/DL (0.2-1.0); BLOOD UREA NITROGEN 25 mg/dL (7-18); CARBON DIOXIDE 28 MMOL/L (21-32); CHLORIDE 114 MMOL/L (98-107); CREATININE 1.1 MG/DL (0.55-1.30); PHOSPHORUS 2.8 MG/DL (2.5-4.9); POTASSIUM 3.1 MMOL/L (3.5-5.1); SODIUM 149 MMOL/L (136-145)
--- NOTE | 2019-12-24 09:04 | Nephrology Progress Note ---
Assessment/Plan Problem List: (1) Hyperkalemia (2) Right lower lobe pneumonia (3) Hyperglycemia (4) Leukocytosis (5) Electrolyte imbalance Assessment: low K improving Assessment HyperKalemia, in view of normal renal functions, Partly hemolysis Moderate respiratory distress: CHF vs Pneumonia Tachycardia and Leukocytosis ? UTI Hyperglycemia Leukocytosis other conditions: 1. Acute CVA. 2. Sepsis and UTI. under treatment 3. Hypertension and congestive heart failure. 4. History of chronic kidney disease. 5. Failure to thrive 6. Diarrhea; resolved; C diff negative 7.s/p Hypokalemia; corrected; Plan Stable from renal stand K IV and PO s/p CXR Right lung Opacification- had bronch- WIll repeat CXR today per ID and pulmonary monitor renal parameters Urine tests per orders Subjective ROS Limited/Unobtainable: No Constitutional: Reports: malaise Objective Objective Last 24 Hour Vital Signs Date Time Temp Pulse Resp B/P (MAP) Pulse Ox O2 Delivery O2 Flow Rate FiO2 12/24/19 08:00 98.6 86 20 115/77 (90) 98 12/24/19 04:00 97.7 108 19 108/77 (87) 96 12/24/19 04:00 91 12/24/19 00:00 98.0 103 19 114/75 (88) 95 12/24/19 00:00 107 12/23/19 21:00 Nasal Cannula 3.0 12/23/19 20:38 95 Nasal Cannula 2.0 28 12/23/19 20:00 98.6 93 18 123/73 (90) 98 12/23/19 20:00 103 12/23/19 16:00 98.0 91 18 120/76 (91) 98 12/23/19 16:00 130 12/23/19 12:00 98.9 103 17 110/70 (83) 98 12/23/19 12:00 94 Intake and Output 12/23/19 12/24/19 19:00 07:00 Intake Total 140 ml 140 ml Output Total 325 ml 200 ml Balance -185 ml -60 ml Intake Free Water 20 ml 40 ml Tube Feeding 120 ml 100 ml Output Urine Total 325 ml 200 ml # Bowel Movements 2 Current Medications Medications (Trade) Dose Ordered Sig/Leandra Route PRN Reason Start Time Stop Time Status Last Admin Dose Admin Acetaminophen (Tylenol) 650 mg Q4H PRN RECTAL FEVER 12/22/19 06:23 01/19/20 06:22 12/22/19 23:49 Dextrose/Sodium Chloride 1,000 ml @ 50 mls/hr Q20H IV 12/22/19 06:15 01/20/20 09:14 12/23/19 22:24 Heparin Sodium (Porcine) (Heparin 5000 units/ml) 5,000 units EVERY 12 HOURS SUBQ 12/22/19 09:00 01/09/20 08:59 12/23/19 20:25 Loperamide HCl (Imodium) 1 mg BIDPRN PRN NG Diarrhea 12/22/19 06:24 01/19/20 06:23 Metoclopramide HCl (Reglan) 10 mg Q6H PRN IVP Nausea & Vomiting 12/22/19 06:24 01/19/20 06:23 Morphine Sulfate (Morphine Sulfate) 1 mg Q4H PRN IVP pain scale 1-3 12/22/19 06:25 12/27/19 06:24 Morphine Sulfate (Morphine Sulfate) 2 mg Q4H PRN IVP pain scale 4-6 12/22/19 06:25 12/27/19 06:24 Morphine Sulfate (Morphine Sulfate) 4 mg Q4H PRN IVP pain score 7-10 12/22/19 06:26 12/27/19 06:25 Pantoprazole (Protonix) 40 mg Q12HR IVP 12/22/19 09:00 01/09/20 08:59 12/23/19 20:24 Piperacillin Sod/ Tazobactam Sod 3.375 gm/Sodium Chloride 110 ml @ 27.5 mls/hr Q8H IVPB 12/22/19 12:00 12/29/19 11:59 12/24/19 04:13 Potassium Chloride (K-Dur) 20 meq TWICE A DAY GT 12/23/19 11:30 01/22/20 11:29 12/23/19 17:08 Laboratory Tests 12/24/19 07:40: White Blood Count 15.2H, Red Blood Count 4.13L, Hemoglobin 13.1L, Hematocrit 39.8L, Mean Corpuscular Volume 96, Mean Corpuscular Hemoglobin 31.7H, Mean Corpuscular Hemoglobin Concent 32.9, Red Cell Distribution Width 13.2, Platelet Count 399, Mean Platelet Volume 6.0L, Neutrophils (%) (Auto) 81.2H, Lymphocytes (%) (Auto) 9.1L, Monocytes (%) (Auto) 5.8, Eosinophils (%) (Auto) 3.2H, Basophils (%) (Auto) 0.7, Sodium Level 149H, Potassium Level 3.1L, Chloride Level 114H, Carbon Dioxide Level 28, Anion Gap 7, Blood Urea Nitrogen 25H, Creatinine 1.1, Estimat Glomerular Filtration Rate , Glucose Level 154H, Calcium Level 9.0, Phosphorus Level 2.8, Magnesium Level 2.2, Total Bilirubin 0.6, Aspartate Amino Transf (AST/SGOT) 12L, Alanine Aminotransferase (ALT/SGPT) < 6L, Alkaline Phosphatase 112, Total Protein 6.5, Albumin 1.6L, Globulin 4.9, Albumin/Globulin Ratio 0.3L Height (Feet): 5 Height (Inches): 1.00 Weight (Pounds): 69 General Appearance: no apparent distress, lethargic Cardiovascular: tachycardia Respiratory/Chest: decreased breath sounds Abdomen: soft Valdo Anderson MD Dec 24, 2019 09:04
[2019-12-24] MEDS: Pantoprazole Inj IVP SCH ×2 (09:17→20:21)
--- NOTE | 2019-12-24 09:17 | NUR ---
CASE MANAGEMENT:REVIEW 12/24/19 SI: ACUTE CVA S/P PEG, BRONCHOSCOPY, ILEUS 98.6 86 20 115/77 98% ON 3L/NC WBC+15.2 NA+149 K-3.1 BUN+25 IS: IV KCL Q1HRS X4 K-DUR GT BID IV ZOSYN Q8HRS HEPARIN SQ Q12 IV PROTONIX Q12 IVF@50/HR : TELEMETRY STATUS DCP: FROM [facility]
[2019-12-24] MEDS: Heparin 5000 units/ml inj SUBQ SCH ×2 (09:20→20:25)
--- NOTE | 2019-12-24 11:06 | Infectious Diseases Prog Note ---
Assessment/Plan Assessment/Plan antibiotics : zosyn A 1. pneumonia 2. leucocytosis improving 3. hypertension 4. CHF 5. s/p GT placement P 1. continue zosyn 4 more days 2. will follow up cultures Subjective ROS Limited/Unobtainable: Yes Allergies: Uncoded Allergies: Green vegetables (Allergy, Unknown, 12/10/19) Objective Vital Signs Last 24 Hour Vital Signs Date Time Temp Pulse Resp B/P (MAP) Pulse Ox O2 Delivery O2 Flow Rate FiO2 12/24/19 08:00 98.6 86 20 115/77 (90) 98 12/24/19 08:00 89 12/24/19 04:00 97.7 108 19 108/77 (87) 96 12/24/19 04:00 91 12/24/19 00:00 98.0 103 19 114/75 (88) 95 12/24/19 00:00 107 12/23/19 21:00 Nasal Cannula 3.0 12/23/19 20:38 95 Nasal Cannula 2.0 28 12/23/19 20:00 98.6 93 18 123/73 (90) 98 12/23/19 20:00 103 12/23/19 16:00 98.0 91 18 120/76 (91) 98 12/23/19 16:00 130 12/23/19 12:00 98.9 103 17 110/70 (83) 98 12/23/19 12:00 94 Height (Feet): 5 Height (Inches): 1.00 Weight (Pounds): 69 Respiratory/Chest: crackles/rales Cardiovascular: normal rate, regular rhythm, no gallop/murmur Abdomen: soft, non tender, other - Gt, wound clean Extremities: no edema Laboratory Tests Test 12/24/19 07:40 White Blood Count 15.2 K/UL (4.8-10.8) H Red Blood Count 4.13 M/UL (4.70-6.10) L Hemoglobin 13.1 G/DL (14.2-18.0) L Hematocrit 39.8 % (42.0-52.0) L Mean Corpuscular Volume 96 FL (80-99) Mean Corpuscular Hemoglobin 31.7 PG (27.0-31.0) H Mean Corpuscular Hemoglobin Concent 32.9 G/DL (32.0-36.0) Red Cell Distribution Width 13.2 % (11.6-14.8) Platelet Count 399 K/UL (150-450) Mean Platelet Volume 6.0 FL (6.5-10.1) L Neutrophils (%) (Auto) 81.2 % (45.0-75.0) H Lymphocytes (%) (Auto) 9.1 % (20.0-45.0) L Monocytes (%) (Auto) 5.8 % (1.0-10.0) Eosinophils (%) (Auto) 3.2 % (0.0-3.0) H Basophils (%) (Auto) 0.7 % (0.0-2.0) Sodium Level 149 MMOL/L (136-145) H Potassium Level 3.1 MMOL/L (3.5-5.1) L Chloride Level 114 MMOL/L (98-107) H Carbon Dioxide Level 28 MMOL/L (21-32) Anion Gap 7 mmol/L (5-15) Blood Urea Nitrogen 25 mg/dL (7-18) H Creatinine 1.1 MG/DL (0.55-1.30) Estimat Glomerular Filtration Rate mL/min (>60) Glucose Level 154 MG/DL (74-106) H Calcium Level 9.0 MG/DL (8.5-10.1) Phosphorus Level 2.8 MG/DL (2.5-4.9) Magnesium Level 2.2 MG/DL (1.8-2.4) Total Bilirubin 0.6 MG/DL (0.2-1.0) Aspartate Amino Transf (AST/SGOT) 12 U/L (15-37) L Alanine Aminotransferase (ALT/SGPT) < 6 U/L (12-78) L Alkaline Phosphatase 112 U/L (46-116) Total Protein 6.5 G/DL (6.4-8.2) Albumin 1.6 G/DL (3.4-5.0) L Globulin 4.9 g/dL Albumin/Globulin Ratio 0.3 (1.0-2.7) L Current Medications Medications (Trade) Dose Ordered Sig/Leandra Route PRN Reason Start Time Stop Time Status Last Admin Dose Admin Acetaminophen (Tylenol) 650 mg Q4H PRN RECTAL FEVER 12/22/19 06:23 01/19/20 06:22 12/22/19 23:49 Dextrose/Sodium Chloride 1,000 ml @ 50 mls/hr Q20H IV 12/22/19 06:15 01/20/20 09:14 12/23/19 22:24 Heparin Sodium (Porcine) (Heparin 5000 units/ml) 5,000 units EVERY 12 HOURS SUBQ 12/22/19 09:00 01/09/20 08:59 12/24/19 09:20 Loperamide HCl (Imodium) 1 mg BIDPRN PRN NG Diarrhea 12/22/19 06:24 01/19/20 06:23 Metoclopramide HCl (Reglan) 10 mg Q6H PRN IVP Nausea & Vomiting 12/22/19 06:24 01/19/20 06:23 Morphine Sulfate (Morphine Sulfate) 1 mg Q4H PRN IVP pain scale 1-3 12/22/19 06:25 12/27/19 06:24 Morphine Sulfate (Morphine Sulfate) 2 mg Q4H PRN IVP pain scale 4-6 12/22/19 06:25 12/27/19 06:24 Morphine Sulfate (Morphine Sulfate) 4 mg Q4H PRN IVP pain score 7-10 12/22/19 06:26 12/27/19 06:25 Pantoprazole (Protonix) 40 mg Q12HR IVP 12/22/19 09:00 01/09/20 08:59 12/24/19 09:17 Piperacillin Sod/ Tazobactam Sod 3.375 gm/Sodium Chloride 110 ml @ 27.5 mls/hr Q8H IVPB 12/22/19 12:00 12/29/19 11:59 12/24/19 04:13 Potassium Chloride 100 ml @ 100 mls/hr Q1HR IVPB 12/24/19 10:00 12/24/19 13:59 12/24/19 09:18 Potassium Chloride (K-Dur) 20 meq TWICE A DAY GT 12/23/19 11:30 01/22/20 11:29 12/24/19 09:17 Jojo Li MD Dec 24, 2019 11:06
[2019-12-24 12:00] VITALS: BP 107/67
--- NOTE | 2019-12-24 14:36 | NUR ---
RD ASSESSMENT & RECOMMENDATIONS SEE CARE ACTIVITY FOR COMPLETE ASSESSMENT DAILY ESTIMATED NEEDS: Needs based on Underweight, cardiac/ 49kg 30-35 kcals/kg 6616-9176 total kcals 1-1.5 g protein/kg 49-74 g total protein 25-30 mL/kg 2073-6202 total fluid mLs NUTRITION DIAGNOSIS: * Swallowing difficulty R/T dysphagia, s/p acute CVA as evidenced by s/p MBSS w/ rec for nonoral feeds, s/p surgical PEJ placement. * Increased kcal/prot needs R/T wound healing as evidenced by pt w/ non-blanchable erythema @ BL heels. CURRENT TF:Glucerna 1.2 @ 10ml/hr x 24 hrs ENTERAL NUTRITION RECOMMENDATIONS: Glucerna 1.2 @ 55ml/hr x 24 hrs to provide 1320ml, 1584kcal, 79g prot, 1063ml free water -> As able, increase goal rate -> advance 10ml q 4-6 hrs as tolerated to goal rate -> HOB over 30 degrees/ water flush per MD ADDITIONAL RECOMMENDATIONS: * Calibrated bedscale wt for accurate CBW * Monitor tolerance to glucerna 1.2, increase goal rate as able * Rec NISS w/ continuous TF's. * Check A1C and lipid panel: Lipid panel wnl; A1C 6.0 pre DM * Monitor lytes, replete as needed * Wound healing: add MVI x 1, Vit C 250mg QD Cezar BID once TF well tolerated @ goal
--- NOTE | 2019-12-24 15:35 | Pulmonology Progress Note ---
Assessment/Plan Assessment/Plan PROBLEM LIST: 1. Acute CVA. 2. Sepsis and UTI. Resolved 3. Hypertension and congestive heart failure. 4. History of chronic kidney disease. 5. Failure to thrive 6. Diarrhea; resolved; C diff negative 7. R lung opacification;now resolved after bronchoscopy PLAN: 1. S/p feeding tube placement; tube feedings on hold 2. Cardiology, neuro, and ID consultations noted. 3. I have assumed care due Insurance. 4. Surgical consultation noted due to need for open gastrostomy 5. Sent stool for c diff'; negative 6. Surgical G tube per Dr Keen/done 7. Start abx 8. Begin TF per surgery; however ileus noted; will hold off 9. Remains DNR and DNI; discussed with daughter Salomón Bacon M.D. Subjective Interval Events: Tolerating diet (G tube) Constitutional: Reports: no symptoms HEENT: Repors: no symptoms Respiratory: Reports: no symptoms Cardiovascular: Reports: no symptoms Gastrointestinal/Abdominal: Reports: no symptoms Genitourinary: Reports: no symptoms Allergies: Uncoded Allergies: Green vegetables (Allergy, Unknown, 12/10/19) Objective Last 24 Hour Vital Signs Date Time Temp Pulse Resp B/P (MAP) Pulse Ox O2 Delivery O2 Flow Rate FiO2 12/24/19 12:00 97.8 103 18 107/67 (80) 97 12/24/19 12:00 104 12/24/19 09:00 Nasal Cannula 3.0 12/24/19 08:00 98.6 86 20 115/77 (90) 98 12/24/19 08:00 89 12/24/19 04:00 97.7 108 19 108/77 (87) 96 12/24/19 04:00 91 12/24/19 00:00 98.0 103 19 114/75 (88) 95 12/24/19 00:00 107 12/23/19 21:00 Nasal Cannula 3.0 12/23/19 20:38 95 Nasal Cannula 2.0 28 12/23/19 20:00 98.6 93 18 123/73 (90) 98 12/23/19 20:00 103 12/23/19 16:00 98.0 91 18 120/76 (91) 98 12/23/19 16:00 130 Intake and Output 12/23/19 12/24/19 19:00 07:00 Intake Total 140 ml 140 ml Output Total 325 ml 200 ml Balance -185 ml -60 ml Intake Free Water 20 ml 40 ml Tube Feeding 120 ml 100 ml Output Urine Total 325 ml 200 ml # Bowel Movements 2 General Appearance: no acute distress HEENT: normocephalic Respiratory/Chest: chest wall non-tender, lungs clear Cardiovascular: normal peripheral pulses, normal rate Abdomen: normal bowel sounds Laboratory Tests 12/24/19 07:40: White Blood Count 15.2H, Red Blood Count 4.13L, Hemoglobin 13.1L, Hematocrit 39.8L, Mean Corpuscular Volume 96, Mean Corpuscular Hemoglobin 31.7H, Mean Corpuscular Hemoglobin Concent 32.9, Red Cell Distribution Width 13.2, Platelet Count 399, Mean Platelet Volume 6.0L, Neutrophils (%) (Auto) 81.2H, Lymphocytes (%) (Auto) 9.1L, Monocytes (%) (Auto) 5.8, Eosinophils (%) (Auto) 3.2H, Basophils (%) (Auto) 0.7, Sodium Level 149H, Potassium Level 3.1L, Chloride Level 114H, Carbon Dioxide Level 28, Anion Gap 7, Blood Urea Nitrogen 25H, Creatinine 1.1, Estimat Glomerular Filtration Rate , Glucose Level 154H, Calcium Level 9.0, Phosphorus Level 2.8, Magnesium Level 2.2, Total Bilirubin 0.6, Aspartate Amino Transf (AST/SGOT) 12L, Alanine Aminotransferase (ALT/SGPT) < 6L, Alkaline Phosphatase 112, Total Protein 6.5, Albumin 1.6L, Globulin 4.9, Albumin/Globulin Ratio 0.3L Current Medications Medications (Trade) Dose Ordered Sig/Leandra Route PRN Reason Start Time Stop Time Status Last Admin Dose Admin Acetaminophen (Tylenol) 650 mg Q4H PRN RECTAL FEVER 12/22/19 06:23 01/19/20 06:22 12/22/19 23:49 Dextrose/Sodium Chloride 1,000 ml @ 50 mls/hr Q20H IV 12/22/19 06:15 01/20/20 09:14 12/23/19 22:24 Heparin Sodium (Porcine) (Heparin 5000 units/ml) 5,000 units EVERY 12 HOURS SUBQ 12/22/19 09:00 01/09/20 08:59 12/24/19 09:20 Loperamide HCl (Imodium) 1 mg BIDPRN PRN NG Diarrhea 12/22/19 06:24 01/19/20 06:23 Metoclopramide HCl (Reglan) 10 mg Q6H PRN IVP Nausea & Vomiting 12/22/19 06:24 01/19/20 06:23 Morphine Sulfate (Morphine Sulfate) 1 mg Q4H PRN IVP pain scale 1-3 12/22/19 06:25 12/27/19 06:24 Morphine Sulfate (Morphine Sulfate) 2 mg Q4H PRN IVP pain scale 4-6 12/22/19 06:25 12/27/19 06:24 Morphine Sulfate (Morphine Sulfate) 4 mg Q4H PRN IVP pain score 7-10 12/22/19 06:26 12/27/19 06:25 Pantoprazole (Protonix) 40 mg Q12HR IVP 12/22/19 09:00 01/09/20 08:59 12/24/19 09:17 Piperacillin Sod/ Tazobactam Sod 3.375 gm/Sodium Chloride 110 ml @ 27.5 mls/hr Q8H IVPB 12/22/19 12:00 12/29/19 11:59 12/24/19 11:32 Potassium Chloride (K-Dur) 20 meq TWICE A DAY GT 12/23/19 11:30 01/22/20 11:29 12/24/19 09:17 Salomón Bacon MD Dec 24, 2019 15:35
[2019-12-24 16:00] VITALS: BP 118/80
--- NOTE | 2019-12-24 16:14 | Surgery Progress Note ---
Surgery Progress Note Subjective Procedure Performed open jejunostomy feeding tube insertion lysis of adhesions open peritoneal mass biopsy Additional Comments leukocytosis improving labs improving tolerating tube feeds via j tube surgical site c/di Objective Last 24 Hour Vital Signs Date Time Temp Pulse Resp B/P (MAP) Pulse Ox O2 Delivery O2 Flow Rate FiO2 12/24/19 12:00 97.8 103 18 107/67 (80) 97 12/24/19 12:00 104 12/24/19 09:00 Nasal Cannula 3.0 12/24/19 08:00 98.6 86 20 115/77 (90) 98 12/24/19 08:00 89 12/24/19 04:00 97.7 108 19 108/77 (87) 96 12/24/19 04:00 91 12/24/19 00:00 98.0 103 19 114/75 (88) 95 12/24/19 00:00 107 12/23/19 21:00 Nasal Cannula 3.0 12/23/19 20:38 95 Nasal Cannula 2.0 28 12/23/19 20:00 98.6 93 18 123/73 (90) 98 12/23/19 20:00 103 I&O Intake and Output 12/23/19 12/24/19 19:00 07:00 Intake Total 140 ml 190 ml Output Total 325 ml 200 ml Balance -185 ml -10 ml Intake Free Water 20 ml 40 ml IV Total 50 ml Tube Feeding 120 ml 100 ml Output Urine Total 325 ml 200 ml # Bowel Movements 2 Dressing: dry Wound: clean Drains: other Cardiovascular: RSR Respiratory: clear, decreased breath sounds Abdomen: soft, non-tender, present bowel sounds, other Extremities: no cyanosis Laboratory Tests Test 12/24/19 07:40 White Blood Count 15.2 K/UL (4.8-10.8) H Red Blood Count 4.13 M/UL (4.70-6.10) L Hemoglobin 13.1 G/DL (14.2-18.0) L Hematocrit 39.8 % (42.0-52.0) L Mean Corpuscular Volume 96 FL (80-99) Mean Corpuscular Hemoglobin 31.7 PG (27.0-31.0) H Mean Corpuscular Hemoglobin Concent 32.9 G/DL (32.0-36.0) Red Cell Distribution Width 13.2 % (11.6-14.8) Platelet Count 399 K/UL (150-450) Mean Platelet Volume 6.0 FL (6.5-10.1) L Neutrophils (%) (Auto) 81.2 % (45.0-75.0) H Lymphocytes (%) (Auto) 9.1 % (20.0-45.0) L Monocytes (%) (Auto) 5.8 % (1.0-10.0) Eosinophils (%) (Auto) 3.2 % (0.0-3.0) H Basophils (%) (Auto) 0.7 % (0.0-2.0) Sodium Level 149 MMOL/L (136-145) H Potassium Level 3.1 MMOL/L (3.5-5.1) L Chloride Level 114 MMOL/L (98-107) H Carbon Dioxide Level 28 MMOL/L (21-32) Anion Gap 7 mmol/L (5-15) Blood Urea Nitrogen 25 mg/dL (7-18) H Creatinine 1.1 MG/DL (0.55-1.30) Estimat Glomerular Filtration Rate mL/min (>60) Glucose Level 154 MG/DL (74-106) H Calcium Level 9.0 MG/DL (8.5-10.1) Phosphorus Level 2.8 MG/DL (2.5-4.9) Magnesium Level 2.2 MG/DL (1.8-2.4) Total Bilirubin 0.6 MG/DL (0.2-1.0) Aspartate Amino Transf (AST/SGOT) 12 U/L (15-37) L Alanine Aminotransferase (ALT/SGPT) < 6 U/L (12-78) L Alkaline Phosphatase 112 U/L (46-116) Total Protein 6.5 G/DL (6.4-8.2) Albumin 1.6 G/DL (3.4-5.0) L Globulin 4.9 g/dL Albumin/Globulin Ratio 0.3 (1.0-2.7) L Plan Problems: (1) Failure to thrive Assessment & Plan: This is a 84-year-old male with failure to thrive, unfortunate history of stroke unable to have significant oral intake and indicating recommended for feeding tube placement. Unfortunately given prior gastric surgery unable to have endoscopic PEG tube placement. Surgical feeding tube placement indicated recommended. Will discuss with patient's family to obtain consent and schedule when appropriate. Thank you for let me participate in patient's care spoke with family obtained consent s/p j tube +CRYSTAL path noted exam okay tube okay trial tube feeds 10 cc/hr please make sure to flush after each use christian to be removed in 1 week okay to d/c f/u 1 week for staple removal and wound check DAILY ESTIMATED NEEDS: Needs based on Underweight, cardiac/ 49kg 30-35 kcals/kg 2466-2111 total kcals 1-1.5 g protein/kg 49-74 g total protein 25-30 mL/kg 1025-2223 total fluid mLs NUTRITION DIAGNOSIS: * Swallowing difficulty R/T dysphagia, s/p acute CVA as evidenced by NPO, pending MUSICAL INSTRUMENT MAKER OR REPAIRER eval, possible PEG placement. CURRENT DIET:NPO PO DIET RECOMMENDATIONS: IF SAFE FOR ORAL DIET -> LOW NA/ texture per MUSICAL INSTRUMENT MAKER OR REPAIRER ENTERAL NUTRITION RECOMMENDATIONS: IF MEDICALLY APPROPRIATE AND PART OF POC -> Glucerna 1.2 @ 55ml/hr x 24 hrs to provide 1320ml, 1584kcal, 79g prot, 1063ml free water * IF PART OF POC AND MEDICALLY INDICATED, OBTAIN GI ACCESS -> initiate Glucerna 1.2 @ 15ml/hr x 6 hrs -> advance 10ml q 4-6 hrs as tolerated to goal rate -> HOB over 30 degrees/ water flush per MDD ADDITIONAL RECOMMENDATIONS: * Calibrated bedscale wt for accurate CBW * F/up w/ MUSICAL INSTRUMENT MAKER OR REPAIRER rec: oral diet vs NPO * Check A1C and lipid panel: s/p acute CVA * Monitor lytes, replete as needed Pt's skin assessment complete with Primary nurse in attendance. All bony prominences assessed. Sacrum and both hips without erythema or evidence of skin breakdown. Both heels boggy with non-blanching erythema.NO other skin concerns noted. Moisture Barrier Paste applied to buttocks. Optifoam drsg placed over Sacrum to minimize friction.Cavilon Skin Barrier applied to both heels. Each Heel covered with Optifoam drsg. Pt positioned with pillow on his side. Both heels floated off mattress with pillow. Recommendations:Apply Moisture Barrier Paste to Sacrum. Cover with Optifoam drsg. Change every 3 days and prn. Apply Cavilon Skin Barrier to both heels. Cover each heel with Optifoam drsg. Change every 7 days and PRN. Reposition at least every 2hours or as tolerated. Off-load heels with pillow. Andrei Fischer Dec 24, 2019 16:14
[2019-12-24] MEDS: D5NS 1,000 ML IV SCH (17:14)
--- NOTE | 2019-12-24 19:17 | NUR ---
NURSE NOTES: Received pt from SUBHASH Carlos. Pt is awake and resting in bed in no distress. nasal cannula on at 3L, HOB elevated to semi clement's. Iv site intact and patent. Torres catheter intact and draining. Jtube intact and dressing clean/intact. Bed locked in lowest position, bed alarm on, call light within reach. Will continue with plan of care. Suction equipment at bedside.
[2019-12-24 20:00] VITALS: BP 134/78
--- NOTE | 2019-12-24 20:01 | NUR ---
HAND-OFF: Report given to Aman CULLEN. Patient stable but bleeding from Jtube site. Dressing changed. Endorsed plan of care.
--- NOTE | 2019-12-24 22:26 | General Progress Note ---
Assessment/Plan Status: stable Assessment/Plan: Assessment - dysphagia - s/p open surgical j tube - resolving ileus - improved leukocytosis - s/p past distal gastrectomy with Moncho II Recommendations - follow exam - abx - Reglan - although utility limited with ABDIAZIZ - surgical f/u - feeds per surgery - Elevated HOB Subjective Allergies: Uncoded Allergies: Green vegetables (Allergy, Unknown, 12/10/19) Subjective confused no change WBC better out of ICU on low rate TF Objective Last 24 Hour Vital Signs Date Time Temp Pulse Resp B/P (MAP) Pulse Ox O2 Delivery O2 Flow Rate FiO2 12/24/19 16:00 109 12/24/19 16:00 98.7 102 20 118/80 (93) 98 12/24/19 12:00 97.8 103 18 107/67 (80) 97 12/24/19 12:00 104 12/24/19 09:00 Nasal Cannula 3.0 12/24/19 08:00 98.6 86 20 115/77 (90) 98 12/24/19 08:00 89 12/24/19 04:00 97.7 108 19 108/77 (87) 96 12/24/19 04:00 91 12/24/19 00:00 98.0 103 19 114/75 (88) 95 12/24/19 00:00 107 Intake and Output 12/23/19 12/24/19 19:00 07:00 Intake Total 140 ml 190 ml Output Total 325 ml 200 ml Balance -185 ml -10 ml Intake Free Water 20 ml 40 ml IV Total 50 ml Tube Feeding 120 ml 100 ml Output Urine Total 325 ml 200 ml # Bowel Movements 2 Laboratory Tests 12/24/19 07:40: White Blood Count 15.2H, Red Blood Count 4.13L, Hemoglobin 13.1L, Hematocrit 39.8L, Mean Corpuscular Volume 96, Mean Corpuscular Hemoglobin 31.7H, Mean Corpuscular Hemoglobin Concent 32.9, Red Cell Distribution Width 13.2, Platelet Count 399, Mean Platelet Volume 6.0L, Neutrophils (%) (Auto) 81.2H, Lymphocytes (%) (Auto) 9.1L, Monocytes (%) (Auto) 5.8, Eosinophils (%) (Auto) 3.2H, Basophils (%) (Auto) 0.7, Sodium Level 149H, Potassium Level 3.1L, Chloride Level 114H, Carbon Dioxide Level 28, Anion Gap 7, Blood Urea Nitrogen 25H, Creatinine 1.1, Estimat Glomerular Filtration Rate , Glucose Level 154H, Calcium Level 9.0, Phosphorus Level 2.8, Magnesium Level 2.2, Total Bilirubin 0.6, Aspartate Amino Transf (AST/SGOT) 12L, Alanine Aminotransferase (ALT/SGPT) < 6L, Alkaline Phosphatase 112, Total Protein 6.5, Albumin 1.6L, Globulin 4.9, Albumin/Globulin Ratio 0.3L Height (Feet): 5 Height (Inches): 1.00 Weight (Pounds): 69 Objective brigette WM NCAT supple CTA RR abd soft ND, (+) J tube no edema OBS Paul Matute MD Dec 24, 2019 22:26
[2019-12-25] VITALS: BP 105/70
[2019-12-25 04:00] VITALS: BP 114/69
[2019-12-25] MEDS: Piperacillin/Tazobactam 3.375 GM in NS 110 ML IVPB SCH ×3 (04:00→20:23)
--- NOTE | 2019-12-25 07:17 | NUR ---
HAND-OFF: Report given to SUBHASH Carlos. Pt is awake and resting in bed in no acute distress, on oxygen therapy. Torres intact and draining. J tube intact, mild bleeding on dressing, endorsed to nurse.
[2019-12-25 08:00] VITALS: BP 116/71
--- NOTE | 2019-12-25 08:39 | NUR ---
CASE MANAGEMENT:REVIEW 12/25/19 SI: ACUTE CVA S/P JTUBE, BRONCHOSCOPY, ILEUS 97.9 109 28 114/69 93% ON 3L/NC IS: K-DUR JT BID IV ZOSYN Q8HRS HEPARIN SQ Q12 IV PROTONIX Q12 IVF@50/HR : TELEMETRY STATUS DCP: FROM [facility]
--- NOTE | 2019-12-25 08:48 | NUR ---
DISCHARGE PLANNING PATIENT HAS BEEN REFERRED BACK TO [facility] Addendum: 12/25/19 at 1358 by SIMON CHRISTIANSON LVN LVN SPOKE WITH TYLOR AT [facility] WHEN PATIENT IS READY FOR DISCHARGE THEY WILL ACCEPT HIM BACK TO ROOM 221
[2019-12-25] MEDS: Heparin 5000 units/ml inj SUBQ SCH ×2 (09:00→20:28)
[2019-12-25] MEDS: Pantoprazole Inj IVP SCH ×2 (09:13→20:27)
[2019-12-25 10:26] LABS: BASOPHILS % (AUTO) 0.9 % (0.0-2.0); EOSINOPHILS % (AUTO) 2.4 % (0.0-3.0); HEMOGLOBIN 13.2 G/DL (14.2-18.0); MEAN CORPUSCULAR VOLUME 96 FL (80-99); MONOCYTES % (AUTO) 5.9 % (1.0-10.0); NEUTROPHILS % (AUTO) 80.7 % (45.0-75.0); PLATELET COUNT 410 K/UL (150-450); RED BLOOD COUNT 4.15 M/UL (4.70-6.10); RED CELL DISTRIBUTION WIDTH 13.6 % (11.6-14.8); WHITE BLOOD COUNT 16.4 K/UL (4.8-10.8)
--- NOTE | 2019-12-25 10:26 | Infectious Diseases Prog Note ---
Assessment/Plan Assessment/Plan antibiotics : zosyn A 1. pneumonia 2. leucocytosis improving 3. hypertension 4. CHF 5. s/p GT placement P 1. continue zosyn 3 more days 2. will follow up cultures Subjective ROS Limited/Unobtainable: Yes Allergies: Uncoded Allergies: Green vegetables (Allergy, Unknown, 12/10/19) Objective Vital Signs Last 24 Hour Vital Signs Date Time Temp Pulse Resp B/P (MAP) Pulse Ox O2 Delivery O2 Flow Rate FiO2 12/25/19 04:00 97.9 109 28 114/69 (84) 93 12/25/19 04:00 109 12/25/19 00:00 98.6 129 26 105/70 (82) 92 12/25/19 00:00 124 12/24/19 21:00 Nasal Cannula 3.0 12/24/19 20:00 118 12/24/19 20:00 98.2 118 24 134/78 (96) 93 12/24/19 16:00 109 12/24/19 16:00 98.7 102 20 118/80 (93) 98 12/24/19 12:00 97.8 103 18 107/67 (80) 97 12/24/19 12:00 104 Height (Feet): 5 Height (Inches): 1.00 Weight (Pounds): 148 Respiratory/Chest: lungs clear Cardiovascular: normal rate, regular rhythm, no gallop/murmur Abdomen: soft, non tender Extremities: no edema Laboratory Tests Test 12/25/19 09:30 White Blood Count Pending Red Blood Count Pending Hemoglobin Pending Hematocrit Pending Mean Corpuscular Volume Pending Mean Corpuscular Hemoglobin Pending Mean Corpuscular Hemoglobin Concent Pending Red Cell Distribution Width Pending Platelet Count Pending Mean Platelet Volume Pending Neutrophils (%) (Auto) Pending Lymphocytes (%) (Auto) Pending Monocytes (%) (Auto) Pending Eosinophils (%) (Auto) Pending Basophils (%) (Auto) Pending Sodium Level Pending Potassium Level Pending Chloride Level Pending Carbon Dioxide Level Pending Blood Urea Nitrogen Pending Creatinine Pending Estimat Glomerular Filtration Rate Pending Glucose Level Pending Calcium Level Pending Phosphorus Level Pending Magnesium Level Pending Total Bilirubin Pending Aspartate Amino Transf (AST/SGOT) Pending Alanine Aminotransferase (ALT/SGPT) Pending Alkaline Phosphatase Pending Total Protein Pending Albumin Pending Globulin Pending Current Medications Medications (Trade) Dose Ordered Sig/Leandra Route PRN Reason Start Time Stop Time Status Last Admin Dose Admin Acetaminophen (Tylenol) 650 mg Q4H PRN RECTAL FEVER 12/22/19 06:23 01/19/20 06:22 12/22/19 23:49 Dextrose/Sodium Chloride 1,000 ml @ 50 mls/hr Q20H IV 12/22/19 06:15 01/20/20 09:14 12/24/19 17:14 Heparin Sodium (Porcine) (Heparin 5000 units/ml) 5,000 units EVERY 12 HOURS SUBQ 12/22/19 09:00 01/09/20 08:59 12/24/19 20:25 Loperamide HCl (Imodium) 1 mg BIDPRN PRN NG Diarrhea 12/22/19 06:24 01/19/20 06:23 Metoclopramide HCl (Reglan) 10 mg Q6H PRN IVP Nausea & Vomiting 12/22/19 06:24 01/19/20 06:23 Morphine Sulfate (Morphine Sulfate) 1 mg Q4H PRN IVP pain scale 1-3 12/22/19 06:25 12/27/19 06:24 Morphine Sulfate (Morphine Sulfate) 2 mg Q4H PRN IVP pain scale 4-6 12/22/19 06:25 12/27/19 06:24 Morphine Sulfate (Morphine Sulfate) 4 mg Q4H PRN IVP pain score 7-10 12/22/19 06:26 12/27/19 06:25 Pantoprazole (Protonix) 40 mg Q12HR IVP 12/22/19 09:00 01/09/20 08:59 12/25/19 09:13 Piperacillin Sod/ Tazobactam Sod 3.375 gm/Sodium Chloride 110 ml @ 27.5 mls/hr Q8H IVPB 12/22/19 12:00 12/29/19 11:59 12/25/19 04:00 Potassium Chloride (K-Dur) 20 meq TWICE A DAY GT 12/23/19 11:30 01/22/20 11:29 12/25/19 09:13 Jojo Li MD Dec 25, 2019 10:26
[2019-12-25 10:43] LABS: ANION GAP 8 mmol/L (5-15); BLOOD UREA NITROGEN 21 mg/dL (7-18); CALCIUM 9.1 MG/DL (8.5-10.1); CARBON DIOXIDE 28 MMOL/L (21-32); CHLORIDE 116 MMOL/L (98-107); POTASSIUM 3.6 MMOL/L (3.5-5.1); SODIUM 152 MMOL/L (136-145)
[2019-12-25 10:48] LABS: ALANINE AMINOTRANSFERASE 8 U/L (12-78); ALBUMIN 1.7 G/DL (3.4-5.0); ALBUMIN/GLOBULIN RATIO 0.3 (1.0-2.7); ALKALINE PHOSPHATASE 137 U/L (46-116); ASPARTATE AMINO TRANSFERASE 15 U/L (15-37); BILIRUBIN,TOTAL 0.5 MG/DL (0.2-1.0); PHOSPHORUS 2.6 MG/DL (2.5-4.9)
--- NOTE | 2019-12-25 10:53 | Pulmonology Progress Note ---
Assessment/Plan Assessment/Plan PROBLEM LIST: 1. Acute CVA. 2. Sepsis and UTI. Resolved 3. Hypertension and congestive heart failure. 4. History of chronic kidney disease. 5. Failure to thrive 6. Diarrhea; resolved; C diff negative 7. R lung opacification;now resolved after bronchoscopy PLAN: 1. S/p feeding tube placement; tube feedings on hold 2. Cardiology, neuro, and ID consultations noted. 3. I have assumed care due Insurance. 4. Surgical consultation noted due to need for open gastrostomy 5. Sent stool for c diff'; negative 6. Surgical G tube per Dr Keen/done 7. Start abx 8. Begin TF per surgery; tolerating 9. Remains DNR and DNI; discussed with daughter 10. Hypernatremia Salomón Bacon M.D. Subjective Interval Events: Tolerating TF's; Na now 152 Constitutional: Reports: no symptoms HEENT: Repors: no symptoms Respiratory: Reports: no symptoms Cardiovascular: Reports: no symptoms Gastrointestinal/Abdominal: Reports: no symptoms Genitourinary: Reports: no symptoms Allergies: Uncoded Allergies: Green vegetables (Allergy, Unknown, 12/10/19) Objective Last 24 Hour Vital Signs Date Time Temp Pulse Resp B/P (MAP) Pulse Ox O2 Delivery O2 Flow Rate FiO2 12/25/19 04:00 97.9 109 28 114/69 (84) 93 12/25/19 04:00 109 12/25/19 00:00 98.6 129 26 105/70 (82) 92 12/25/19 00:00 124 12/24/19 21:00 Nasal Cannula 3.0 12/24/19 20:00 118 12/24/19 20:00 98.2 118 24 134/78 (96) 93 12/24/19 16:00 109 12/24/19 16:00 98.7 102 20 118/80 (93) 98 12/24/19 12:00 97.8 103 18 107/67 (80) 97 12/24/19 12:00 104 Intake and Output 12/24/19 12/25/19 19:00 07:00 Intake Total 710.0 ml 20 ml Output Total 600 ml Balance 710.0 ml -580 ml IV Total 710.0 ml Tube Feeding 20 ml Output Urine Total 600 ml # Bowel Movements 1 General Appearance: no acute distress HEENT: normocephalic Respiratory/Chest: chest wall non-tender, lungs clear Cardiovascular: normal peripheral pulses Abdomen: soft, non tender Laboratory Tests 12/25/19 09:30: White Blood Count 16.4H, Red Blood Count 4.15L, Hemoglobin 13.2L, Hematocrit 40.0L, Mean Corpuscular Volume 96, Mean Corpuscular Hemoglobin 31.7H, Mean Corpuscular Hemoglobin Concent 32.9, Red Cell Distribution Width 13.6, Platelet Count 410, Mean Platelet Volume 5.9L, Neutrophils (%) (Auto) 80.7H, Lymphocytes (%) (Auto) 10.0L, Monocytes (%) (Auto) 5.9, Eosinophils (%) (Auto) 2.4, Basophils (%) (Auto) 0.9, Sodium Level 152H, Potassium Level 3.6, Chloride Level 116H, Carbon Dioxide Level 28, Anion Gap 8, Blood Urea Nitrogen 21H, Creatinine 1.0, Estimat Glomerular Filtration Rate , Glucose Level 168H, Calcium Level 9.1, Phosphorus Level 2.6, Magnesium Level 2.1, Total Bilirubin 0.5, Aspartate Amino Transf (AST/SGOT) 15, Alanine Aminotransferase (ALT/SGPT) 8L, Alkaline Phosphatase 137H, Total Protein 6.6, Albumin 1.7L, Globulin 4.9, Albumin/Globulin Ratio 0.3L Current Medications Medications (Trade) Dose Ordered Sig/Leandra Route PRN Reason Start Time Stop Time Status Last Admin Dose Admin Acetaminophen (Tylenol) 650 mg Q4H PRN RECTAL FEVER 12/22/19 06:23 01/19/20 06:22 12/22/19 23:49 Dextrose/Sodium Chloride 1,000 ml @ 50 mls/hr Q20H IV 12/22/19 06:15 01/20/20 09:14 12/24/19 17:14 Heparin Sodium (Porcine) (Heparin 5000 units/ml) 5,000 units EVERY 12 HOURS SUBQ 12/22/19 09:00 01/09/20 08:59 12/24/19 20:25 Loperamide HCl (Imodium) 1 mg BIDPRN PRN NG Diarrhea 12/22/19 06:24 01/19/20 06:23 Metoclopramide HCl (Reglan) 10 mg Q6H PRN IVP Nausea & Vomiting 12/22/19 06:24 01/19/20 06:23 Morphine Sulfate (Morphine Sulfate) 1 mg Q4H PRN IVP pain scale 1-3 12/22/19 06:25 12/27/19 06:24 Morphine Sulfate (Morphine Sulfate) 2 mg Q4H PRN IVP pain scale 4-6 12/22/19 06:25 12/27/19 06:24 Morphine Sulfate (Morphine Sulfate) 4 mg Q4H PRN IVP pain score 7-10 12/22/19 06:26 12/27/19 06:25 Pantoprazole (Protonix) 40 mg Q12HR IVP 12/22/19 09:00 01/09/20 08:59 12/25/19 09:13 Piperacillin Sod/ Tazobactam Sod 3.375 gm/Sodium Chloride 110 ml @ 27.5 mls/hr Q8H IVPB 12/22/19 12:00 12/29/19 11:59 12/25/19 04:00 Potassium Chloride (K-Dur) 20 meq TWICE A DAY GT 12/23/19 11:30 01/22/20 11:29 12/25/19 09:13 Salomón Bacon MD Dec 25, 2019 10:53
[2019-12-25 12:00] VITALS: BP 116/78
[2019-12-25] MEDS: D5NS 1,000 ML IV SCH (12:00)
--- NOTE | 2019-12-25 14:23 | Nephrology Progress Note ---
Assessment/Plan Problem List: (1) Hyperkalemia (2) Right lower lobe pneumonia (3) Hyperglycemia (4) Leukocytosis (5) Electrolyte imbalance Assessment: low K improving Assessment HyperKalemia, in view of normal renal functions, Partly hemolysis Moderate respiratory distress: CHF vs Pneumonia Tachycardia and Leukocytosis ? UTI Hyperglycemia Leukocytosis other conditions: 1. Acute CVA. 2. Sepsis and UTI. under treatment 3. Hypertension and congestive heart failure. 4. History of chronic kidney disease. 5. Failure to thrive 6. Diarrhea; resolved; C diff negative 7.s/p Hypokalemia; corrected; Plan chabge IV to D5w Stable from renal stand K IV and PO s/p CXR Right lung Opacification- had bronch- per ID and pulmonary monitor renal parameters Urine tests per orders Subjective ROS Limited/Unobtainable: No Constitutional: Reports: malaise, weakness Objective Objective Last 24 Hour Vital Signs Date Time Temp Pulse Resp B/P (MAP) Pulse Ox O2 Delivery O2 Flow Rate FiO2 12/25/19 12:00 97.5 108 24 116/78 (91) 97 12/25/19 09:00 Nasal Cannula 3.0 12/25/19 08:00 97.9 88 26 116/71 (86) 97 12/25/19 08:00 102 12/25/19 04:00 97.9 109 28 114/69 (84) 93 12/25/19 04:00 109 12/25/19 00:00 98.6 129 26 105/70 (82) 92 12/25/19 00:00 124 12/24/19 21:00 Nasal Cannula 3.0 12/24/19 20:00 118 12/24/19 20:00 98.2 118 24 134/78 (96) 93 12/24/19 16:00 109 12/24/19 16:00 98.7 102 20 118/80 (93) 98 Intake and Output 12/24/19 12/25/19 19:00 07:00 Intake Total 710.0 ml 20 ml Output Total 600 ml Balance 710.0 ml -580 ml IV Total 710.0 ml Tube Feeding 20 ml Output Urine Total 600 ml # Bowel Movements 1 Laboratory Tests 12/25/19 09:30: White Blood Count 16.4H, Red Blood Count 4.15L, Hemoglobin 13.2L, Hematocrit 40.0L, Mean Corpuscular Volume 96, Mean Corpuscular Hemoglobin 31.7H, Mean Corpuscular Hemoglobin Concent 32.9, Red Cell Distribution Width 13.6, Platelet Count 410, Mean Platelet Volume 5.9L, Neutrophils (%) (Auto) 80.7H, Lymphocytes (%) (Auto) 10.0L, Monocytes (%) (Auto) 5.9, Eosinophils (%) (Auto) 2.4, Basophils (%) (Auto) 0.9, Sodium Level 152H, Potassium Level 3.6, Chloride Level 116H, Carbon Dioxide Level 28, Anion Gap 8, Blood Urea Nitrogen 21H, Creatinine 1.0, Estimat Glomerular Filtration Rate , Glucose Level 168H, Calcium Level 9.1, Phosphorus Level 2.6, Magnesium Level 2.1, Total Bilirubin 0.5, Aspartate Amino Transf (AST/SGOT) 15, Alanine Aminotransferase (ALT/SGPT) 8L, Alkaline Phosphatase 137H, Total Protein 6.6, Albumin 1.7L, Globulin 4.9, Albumin/Globulin Ratio 0.3L Height (Feet): 5 Height (Inches): 1.00 Weight (Pounds): 148 General Appearance: no apparent distress Cardiovascular: tachycardia Respiratory/Chest: decreased breath sounds Abdomen: distended Objective no change Valdo Anderson MD Dec 25, 2019 14:23
--- NOTE | 2019-12-25 15:00 | NUR ---
NURSE NOTES: Jtube clogged. Attempting to dislodge with cranberry juice and cola. notified.
[2019-12-25 16:00] VITALS: BP 108/72
--- NOTE | 2019-12-25 16:27 | NUR ---
NURSE NOTES:WOUND CARE NOTES:Partial thickness pressure injury Sacrum. Base of wound is moist and viable with surrounding non-blanching erythema with additional shearing. (L)4.5cm x (W)4cm.No odor or exudate noted. Both heels are soft but easily blanchable. Abdominal incision with christian clean,dry and intact. No other skin concerns notedWound Tx are effective and continued as ordered. All wound prevention protocols continued as care-planned.
--- NOTE | 2019-12-25 17:07 | NUR ---
*-* INSURANCE *-* ALL CLINICALS AND REVIEWS HAVE BEEN FAXED TO: [facility] Bass Manager F: [phone]
--- NOTE | 2019-12-25 17:30 | NUR ---
NURSE NOTES: Dr. Fischer and Dr. Matute notified of clogged jtube. Per Aaliyah okay to just leave cola sitting in Jtube in hopes that it may open up after a few hours.
--- NOTE | 2019-12-25 19:10 | NUR ---
HAND-OFF: Report given to Aman CULLEN. Patient stable. Plan of care endorsed. Endorsed that Saiseiube is clogged.
--- NOTE | 2019-12-25 19:10 | NUR ---
NURSE NOTES: Received pt from SUBHASH Carlos. Pt is awake and resting in bed in no acute distress, on nasal cannula oxygen support. Iv site intact and patent. HOB in semi clement position. Jtube intact and clogged. Juju and Aaliyah made aware. Torres catheter intact and patent. Bed locked in lowest position, bed alarm on, call light within reach. Will continue with plan of care.
[2019-12-25 20:00] VITALS: BP 121/86
--- NOTE | 2019-12-25 20:16 | General Progress Note ---
Assessment/Plan Status: stable Assessment/Plan: Assessment - dysphagia - s/p open surgical j tube --> occluded - resolving ileus - improved leukocytosis - s/p past distal gastrectomy with Moncho II Recommendations - follow exam - abx - Reglan - although utility limited with ABDIAZIZ - surgical f/u re J tube status - Elevated HOB Subjective Allergies: Uncoded Allergies: Green vegetables (Allergy, Unknown, 12/10/19) Subjective confused called by RN re clogged J tube Objective Last 24 Hour Vital Signs Date Time Temp Pulse Resp B/P (MAP) Pulse Ox O2 Delivery O2 Flow Rate FiO2 12/25/19 16:00 97.9 109 20 108/72 (84) 95 12/25/19 16:00 94 12/25/19 12:00 97.5 108 24 116/78 (91) 97 12/25/19 12:00 102 12/25/19 09:00 Nasal Cannula 3.0 12/25/19 08:00 97.9 88 26 116/71 (86) 97 12/25/19 08:00 102 12/25/19 04:00 97.9 109 28 114/69 (84) 93 12/25/19 04:00 109 12/25/19 00:00 98.6 129 26 105/70 (82) 92 12/25/19 00:00 124 12/24/19 21:00 Nasal Cannula 3.0 Intake and Output 12/24/19 12/25/19 19:00 07:00 Intake Total 710.0 ml 20 ml Output Total 600 ml Balance 710.0 ml -580 ml IV Total 710.0 ml Tube Feeding 20 ml Output Urine Total 600 ml # Bowel Movements 1 Laboratory Tests 12/25/19 09:30: White Blood Count 16.4H, Red Blood Count 4.15L, Hemoglobin 13.2L, Hematocrit 40.0L, Mean Corpuscular Volume 96, Mean Corpuscular Hemoglobin 31.7H, Mean Corpuscular Hemoglobin Concent 32.9, Red Cell Distribution Width 13.6, Platelet Count 410, Mean Platelet Volume 5.9L, Neutrophils (%) (Auto) 80.7H, Lymphocytes (%) (Auto) 10.0L, Monocytes (%) (Auto) 5.9, Eosinophils (%) (Auto) 2.4, Basophils (%) (Auto) 0.9, Sodium Level 152H, Potassium Level 3.6, Chloride Level 116H, Carbon Dioxide Level 28, Anion Gap 8, Blood Urea Nitrogen 21H, Creatinine 1.0, Estimat Glomerular Filtration Rate , Glucose Level 168H, Calcium Level 9.1, Phosphorus Level 2.6, Magnesium Level 2.1, Total Bilirubin 0.5, Aspartate Amino Transf (AST/SGOT) 15, Alanine Aminotransferase (ALT/SGPT) 8L, Alkaline Phosphatase 137H, Total Protein 6.6, Albumin 1.7L, Globulin 4.9, Albumin/Globulin Ratio 0.3L Height (Feet): 5 Height (Inches): 1.00 Weight (Pounds): 148 Objective elkarina WM NCAT supple CTA RR abd soft ND, (+) J tube - clogged no edema OBS Paul Matute MD Dec 25, 2019 20:16
[2019-12-26] VITALS: BP 102/46
[2019-12-26 04:00] VITALS: BP 116/83
[2019-12-26] MEDS: Piperacillin/Tazobactam 3.375 GM in NS 110 ML IVPB SCH ×3 (04:00→21:00)
--- NOTE | 2019-12-26 07:15 | NUR ---
HAND-OFF: Report given to SUBHASH Zaman. Endorsed plan of care.
--- NOTE | 2019-12-26 07:58 | NUR ---
NURSE NOTES: Received patient from Paxton Newton. Patient is awake, opens eyes to name and answers questions appropriately with yes or no. Denies pain or discomfort at this time. Left upper and lower extremities flaccid. Torres catheter draining cj urine. JT clogged Dr. Fischer to come and see patient today as per night Rn. Patient. Fall/Aspirations/Seizure precautions in place. call frey within patients [id number]. will follow
[2019-12-26 08:00] VITALS: BP 112/82
--- NOTE | 2019-12-26 09:12 | NUR ---
CASE MANAGEMENT:REVIEW 12/26/19 SI: ACUTE CVA S/P JTUBE, BRONCHOSCOPY, ILEUS 97.5 97 28 116/83 95% ON 3L/NC IS: K-DUR JT BID IV ZOSYN Q8HRS HEPARIN SQ Q12 IV PROTONIX Q12 IVF@50/HR : TELEMETRY STATUS DCP: FROM [facility]
--- NOTE | 2019-12-26 09:14 | NUR ---
DISCHARGE PLANNING PATIENT HAS BEEN ACCEPTED BACK TO ROOM 221-1 AT [facility] AWAIT DISCHARGE ORDER WHEN APPROPRIATE
--- NOTE | 2019-12-26 09:27 | Pulmonology Progress Note ---
Assessment/Plan Assessment/Plan PROBLEM LIST: 1. Acute CVA. 2. Sepsis and UTI. Resolved 3. Hypertension and congestive heart failure. 4. History of chronic kidney disease. 5. Failure to thrive 6. Diarrhea; resolved; C diff negative 7. R lung opacification;now resolved after bronchoscopy PLAN: 1. S/p feeding tube placement; tube feedings on hold due to tube being clogged 2. Cardiology, neuro, and ID consultations noted. 3. I have assumed care due Insurance. 4. Surgical consultation noted due to need for open gastrostomy 5. Sent stool for c diff'; negative 6. Surgical G tube per Dr Keen/done 7. Start abx 8. TF per surgery; 9. Remains DNR and DNI; discussed with daughter 10. Hypernatremia Salomón Bacon M.D. Subjective Interval Events: G tube clogged; discussed with surgery Constitutional: Reports: no symptoms HEENT: Repors: no symptoms Respiratory: Reports: no symptoms Cardiovascular: Reports: no symptoms Gastrointestinal/Abdominal: Reports: no symptoms Genitourinary: Reports: no symptoms Allergies: Uncoded Allergies: Green vegetables (Allergy, Unknown, 12/10/19) Objective Last 24 Hour Vital Signs Date Time Temp Pulse Resp B/P (MAP) Pulse Ox O2 Delivery O2 Flow Rate FiO2 12/26/19 04:00 97 12/26/19 04:00 97.5 97 28 116/83 (94) 95 12/26/19 00:00 97.7 97 26 102/46 (64) 96 12/26/19 00:00 97 12/25/19 21:00 Nasal Cannula 3.0 12/25/19 20:00 108 12/25/19 20:00 98.1 108 28 121/86 (98) 95 12/25/19 16:00 97.9 109 20 108/72 (84) 95 12/25/19 16:00 94 12/25/19 12:00 97.5 108 24 116/78 (91) 97 12/25/19 12:00 102 Intake and Output 12/25/19 12/26/19 19:00 07:00 Output Total 400 ml 350 ml Balance -400 ml -350 ml Output Urine Total 400 ml 350 ml # Voids 1 # Bowel Movements 1 General Appearance: no acute distress HEENT: normocephalic Respiratory/Chest: chest wall non-tender Cardiovascular: normal peripheral pulses Abdomen: normal bowel sounds Laboratory Tests 12/25/19 09:30: White Blood Count 16.4H, Red Blood Count 4.15L, Hemoglobin 13.2L, Hematocrit 40.0L, Mean Corpuscular Volume 96, Mean Corpuscular Hemoglobin 31.7H, Mean Corpuscular Hemoglobin Concent 32.9, Red Cell Distribution Width 13.6, Platelet Count 410, Mean Platelet Volume 5.9L, Neutrophils (%) (Auto) 80.7H, Lymphocytes (%) (Auto) 10.0L, Monocytes (%) (Auto) 5.9, Eosinophils (%) (Auto) 2.4, Basophils (%) (Auto) 0.9, Sodium Level 152H, Potassium Level 3.6, Chloride Level 116H, Carbon Dioxide Level 28, Anion Gap 8, Blood Urea Nitrogen 21H, Creatinine 1.0, Estimat Glomerular Filtration Rate , Glucose Level 168H, Calcium Level 9.1, Phosphorus Level 2.6, Magnesium Level 2.1, Total Bilirubin 0.5, Aspartate Amino Transf (AST/SGOT) 15, Alanine Aminotransferase (ALT/SGPT) 8L, Alkaline Phosphatase 137H, Total Protein 6.6, Albumin 1.7L, Globulin 4.9, Albumin/Globulin Ratio 0.3L Current Medications Medications (Trade) Dose Ordered Sig/Leandra Route PRN Reason Start Time Stop Time Status Last Admin Dose Admin Acetaminophen (Tylenol) 650 mg Q4H PRN RECTAL FEVER 12/22/19 06:23 01/19/20 06:22 12/22/19 23:49 Dextrose 1,000 ml @ 50 mls/hr Q20H IV 12/25/19 14:23 01/24/20 14:22 12/25/19 16:00 Heparin Sodium (Porcine) (Heparin 5000 units/ml) 5,000 units EVERY 12 HOURS SUBQ 12/22/19 09:00 01/09/20 08:59 12/25/19 20:28 Loperamide HCl (Imodium) 1 mg BIDPRN PRN NG Diarrhea 12/22/19 06:24 01/19/20 06:23 Metoclopramide HCl (Reglan) 10 mg Q6H PRN IVP Nausea & Vomiting 12/22/19 06:24 01/19/20 06:23 Morphine Sulfate (Morphine Sulfate) 1 mg Q4H PRN IVP pain scale 1-3 12/22/19 06:25 12/27/19 06:24 Morphine Sulfate (Morphine Sulfate) 2 mg Q4H PRN IVP pain scale 4-6 12/22/19 06:25 12/27/19 06:24 12/25/19 22:20 Morphine Sulfate (Morphine Sulfate) 4 mg Q4H PRN IVP pain score 7-10 12/22/19 06:26 12/27/19 06:25 Pantoprazole (Protonix) 40 mg Q12HR IVP 12/22/19 09:00 01/09/20 08:59 12/25/19 20:27 Piperacillin Sod/ Tazobactam Sod 3.375 gm/Sodium Chloride 110 ml @ 27.5 mls/hr Q8H IVPB 12/22/19 12:00 12/29/19 11:59 12/26/19 04:00 Potassium Chloride (K-Dur) 20 meq TWICE A DAY GT 12/23/19 11:30 01/22/20 11:29 12/25/19 09:13 Salomón Bacon MD Dec 26, 2019 09:27
--- NOTE | 2019-12-26 09:32 | Surgery Progress Note ---
Surgery Progress Note Subjective Procedure Performed open jejunostomy feeding tube insertion lysis of adhesions open peritoneal mass biopsy Additional Comments J-tube clogged. Unfortunately unable to declog Objective Last 24 Hour Vital Signs Date Time Temp Pulse Resp B/P (MAP) Pulse Ox O2 Delivery O2 Flow Rate FiO2 12/26/19 04:00 97 12/26/19 04:00 97.5 97 28 116/83 (94) 95 12/26/19 00:00 97.7 97 26 102/46 (64) 96 12/26/19 00:00 97 12/25/19 21:00 Nasal Cannula 3.0 12/25/19 20:00 108 12/25/19 20:00 98.1 108 28 121/86 (98) 95 12/25/19 16:00 97.9 109 20 108/72 (84) 95 12/25/19 16:00 94 12/25/19 12:00 97.5 108 24 116/78 (91) 97 12/25/19 12:00 102 I&O Intake and Output 12/25/19 12/26/19 19:00 07:00 Output Total 400 ml 350 ml Balance -400 ml -350 ml Output Urine Total 400 ml 350 ml # Voids 1 # Bowel Movements 1 Dressing: dry Wound: clean Cardiovascular: RSR Respiratory: clear Abdomen: soft, non-tender, present bowel sounds, other Extremities: no cyanosis Plan Problems: (1) Failure to thrive Assessment & Plan: This is a 84-year-old male with failure to thrive, unfortunate history of stroke unable to have significant oral intake and indicating recommended for feeding tube placement. Unfortunately given prior gastric surgery unable to have endoscopic PEG tube placement. Surgical feeding tube placement indicated recommended. Will discuss with patient's family to obtain consent and schedule when appropriate. Thank you for let me participate in patient's care spoke with family obtained consent s/p j tube +CRYSTAL path noted exam okay tube okay trial tube feeds 10 cc/hr please make sure to flush after each use christian to be removed in 1 week okay to d/c f/u 1 week for staple removal and wound check J-tube has since been malfunctioning unfortunately too early for changes no well -formed tract made from this J-tube. Will follow with recommendations DAILY ESTIMATED NEEDS: Needs based on Underweight, cardiac/ 49kg 30-35 kcals/kg 5257-6385 total kcals 1-1.5 g protein/kg 49-74 g total protein 25-30 mL/kg 1979-4172 total fluid mLs NUTRITION DIAGNOSIS: * Swallowing difficulty R/T dysphagia, s/p acute CVA as evidenced by NPO, pending METAL OR WOOD BLOCKER eval, possible PEG placement. CURRENT DIET:NPO PO DIET RECOMMENDATIONS: IF SAFE FOR ORAL DIET -> LOW NA/ texture per METAL OR WOOD BLOCKER ENTERAL NUTRITION RECOMMENDATIONS: IF MEDICALLY APPROPRIATE AND PART OF POC -> Glucerna 1.2 @ 55ml/hr x 24 hrs to provide 1320ml, 1584kcal, 79g prot, 1063ml free water * IF PART OF POC AND MEDICALLY INDICATED, OBTAIN GI ACCESS -> initiate Glucerna 1.2 @ 15ml/hr x 6 hrs -> advance 10ml q 4-6 hrs as tolerated to goal rate -> HOB over 30 degrees/ water flush per MDD ADDITIONAL RECOMMENDATIONS: * Calibrated bedscale wt for accurate CBW * F/up w/ METAL OR WOOD BLOCKER rec: oral diet vs NPO * Check A1C and lipid panel: s/p acute CVA * Monitor lytes, replete as needed Pt's skin assessment complete with Primary nurse in attendance. All bony prominences assessed. Sacrum and both hips without erythema or evidence of skin breakdown. Both heels boggy with non-blanching erythema.NO other skin concerns noted. Moisture Barrier Paste applied to buttocks. Optifoam drsg placed over Sacrum to minimize friction.Cavilon Skin Barrier applied to both heels. Each Heel covered with Optifoam drsg. Pt positioned with pillow on his side. Both heels floated off mattress with pillow. Recommendations:Apply Moisture Barrier Paste to Sacrum. Cover with Optifoam drsg. Change every 3 days and prn. Apply Cavilon Skin Barrier to both heels. Cover each heel with Optifoam drsg. Change every 7 days and PRN. Reposition at least every 2hours or as tolerated. Off-load heels with pillow. Andrei Fischer Dec 26, 2019 09:32
[2019-12-26] MEDS: Pantoprazole Inj IVP SCH ×2 (09:41→21:00)
[2019-12-26] MEDS: Heparin 5000 units/ml inj SUBQ SCH ×2 (09:41→21:05)
--- NOTE | 2019-12-26 10:00 | NUR ---
NURSE NOTES: Dr. Ames on the floor attempted to declogged Jtube but unsuccessful. said theres nothing she can do at this time. will follow
--- NOTE | 2019-12-26 10:25 | Infectious Diseases Prog Note ---
Assessment/Plan Assessment/Plan antibiotics : zosyn A 1. pneumonia 2. leucocytosis improving 3. hypertension 4. CHF 5. s/p GT placement P 1. continue zosyn 2 more days 2. will follow up cultures Subjective ROS Limited/Unobtainable: Yes Allergies: Uncoded Allergies: Green vegetables (Allergy, Unknown, 12/10/19) Objective Vital Signs Last 24 Hour Vital Signs Date Time Temp Pulse Resp B/P (MAP) Pulse Ox O2 Delivery O2 Flow Rate FiO2 12/26/19 08:00 97.3 93 18 112/82 (92) 96 12/26/19 04:00 97 12/26/19 04:00 97.5 97 28 116/83 (94) 95 12/26/19 00:00 97.7 97 26 102/46 (64) 96 12/26/19 00:00 97 12/25/19 21:00 Nasal Cannula 3.0 12/25/19 20:00 108 12/25/19 20:00 98.1 108 28 121/86 (98) 95 12/25/19 16:00 97.9 109 20 108/72 (84) 95 12/25/19 16:00 94 12/25/19 12:00 97.5 108 24 116/78 (91) 97 12/25/19 12:00 102 Height (Feet): 5 Height (Inches): 1.00 Weight (Pounds): 150 Respiratory/Chest: lungs clear Cardiovascular: normal rate, regular rhythm, no gallop/murmur Abdomen: soft, non tender, other - GT, wound clean Extremities: no edema Current Medications Medications (Trade) Dose Ordered Sig/Leandra Route PRN Reason Start Time Stop Time Status Last Admin Dose Admin Acetaminophen (Tylenol) 650 mg Q4H PRN RECTAL FEVER 12/22/19 06:23 01/19/20 06:22 12/22/19 23:49 Dextrose 1,000 ml @ 50 mls/hr Q20H IV 12/25/19 14:23 01/24/20 14:22 12/25/19 16:00 Heparin Sodium (Porcine) (Heparin 5000 units/ml) 5,000 units EVERY 12 HOURS SUBQ 12/22/19 09:00 01/09/20 08:59 12/26/19 09:41 Loperamide HCl (Imodium) 1 mg BIDPRN PRN NG Diarrhea 12/22/19 06:24 01/19/20 06:23 Metoclopramide HCl (Reglan) 10 mg Q6H PRN IVP Nausea & Vomiting 12/22/19 06:24 01/19/20 06:23 Morphine Sulfate (Morphine Sulfate) 1 mg Q4H PRN IVP pain scale 1-3 12/22/19 06:25 12/27/19 06:24 Morphine Sulfate (Morphine Sulfate) 2 mg Q4H PRN IVP pain scale 4-6 12/22/19 06:25 12/27/19 06:24 12/25/19 22:20 Morphine Sulfate (Morphine Sulfate) 4 mg Q4H PRN IVP pain score 7-10 12/22/19 06:26 12/27/19 06:25 Pantoprazole (Protonix) 40 mg Q12HR IVP 12/22/19 09:00 01/09/20 08:59 12/26/19 09:41 Piperacillin Sod/ Tazobactam Sod 3.375 gm/Sodium Chloride 110 ml @ 27.5 mls/hr Q8H IVPB 12/22/19 12:00 12/29/19 11:59 12/26/19 04:00 Potassium Chloride (K-Dur) 20 meq TWICE A DAY GT 12/23/19 11:30 01/22/20 11:29 12/25/19 09:13 Jojo Li MD Dec 26, 2019 10:25
--- NOTE | 2019-12-26 11:52 | Nephrology Progress Note ---
Assessment/Plan Problem List: (1) Hyperkalemia (2) Right lower lobe pneumonia (3) Hyperglycemia (4) Leukocytosis (5) Electrolyte imbalance Assessment: low K improving Assessment HyperKalemia, in view of normal renal functions, Partly hemolysis Moderate respiratory distress: CHF vs Pneumonia Tachycardia and Leukocytosis ? UTI Hyperglycemia Leukocytosis other conditions: 1. Acute CVA. 2. Sepsis and UTI. under treatment 3. Hypertension and congestive heart failure. 4. History of chronic kidney disease. 5. Failure to thrive 6. Diarrhea; resolved; C diff negative 7.s/p Hypokalemia; corrected; Plan chabge IV to D5w Stable from renal stand K IV and PO as needed s/p CXR Right lung Opacification- had bronch- per ID and pulmonary monitor renal parameters Urine tests per orders Subjective ROS Limited/Unobtainable: No Constitutional: Reports: malaise, weakness Objective Objective Last 24 Hour Vital Signs Date Time Temp Pulse Resp B/P (MAP) Pulse Ox O2 Delivery O2 Flow Rate FiO2 12/26/19 09:00 Nasal Cannula 3.0 12/26/19 08:00 97.3 93 18 112/82 (92) 96 12/26/19 08:00 95 12/26/19 04:00 97 12/26/19 04:00 97.5 97 28 116/83 (94) 95 12/26/19 00:00 97.7 97 26 102/46 (64) 96 12/26/19 00:00 97 12/25/19 21:00 Nasal Cannula 3.0 12/25/19 20:00 108 12/25/19 20:00 98.1 108 28 121/86 (98) 95 12/25/19 16:00 97.9 109 20 108/72 (84) 95 12/25/19 16:00 94 12/25/19 12:00 97.5 108 24 116/78 (91) 97 12/25/19 12:00 102 Intake and Output 12/25/19 12/26/19 19:00 07:00 Output Total 400 ml 350 ml Balance -400 ml -350 ml Output Urine Total 400 ml 350 ml # Voids 1 # Bowel Movements 1 Height (Feet): 5 Height (Inches): 1.00 Weight (Pounds): 150 General Appearance: no apparent distress, lethargic Cardiovascular: tachycardia Respiratory/Chest: decreased breath sounds Abdomen: soft Objective no change Valdo Anderson MD Dec 26, 2019 11:52
[2019-12-26 12:00] VITALS: BP 113/76
[2019-12-26 16:00] VITALS: BP 124/87
--- NOTE | 2019-12-26 19:40 | NUR ---
HAND-OFF: Report given to Paxton Solano. Plan of care endorsed.
--- NOTE | 2019-12-26 19:45 | NUR ---
Received report from Junie Black RN. Pt in bed and in stable condition. No signs of symptoms of pain or distress noted. Bed alarm armed, bed in lowest position, call light within reach. Will continue plan of care and close monitoring.
[2019-12-26 20:00] VITALS: BP 136/84
--- NOTE | 2019-12-26 21:03 | General Progress Note ---
Assessment/Plan Status: stable Assessment/Plan: Assessment - dysphagia - s/p open surgical j tube --> occluded - resolved - improved leukocytosis - s/p past distal gastrectomy with Moncho II Recommendations - follow exam - abx - Reglan - surgical f/u re J tube status - Elevated HOB - If all fails, can consider NGT feeds until J tube tract mature Subjective Allergies: Uncoded Allergies: Green vegetables (Allergy, Unknown, 12/10/19) Subjective confused NAD J tube clogged Objective Last 24 Hour Vital Signs Date Time Temp Pulse Resp B/P (MAP) Pulse Ox O2 Delivery O2 Flow Rate FiO2 12/26/19 16:00 97.3 106 18 124/87 (99) 94 12/26/19 16:00 111 12/26/19 12:00 97.2 94 20 113/76 (88) 95 12/26/19 12:00 94 12/26/19 09:00 Nasal Cannula 3.0 12/26/19 08:00 97.3 93 18 112/82 (92) 96 12/26/19 08:00 95 12/26/19 04:00 97 12/26/19 04:00 97.5 97 28 116/83 (94) 95 12/26/19 00:00 97.7 97 26 102/46 (64) 96 12/26/19 00:00 97 Intake and Output 12/25/19 12/26/19 19:00 07:00 Output Total 400 ml 350 ml Balance -400 ml -350 ml Output Urine Total 400 ml 350 ml # Voids 1 # Bowel Movements 1 Height (Feet): 5 Height (Inches): 1.00 Weight (Pounds): 150 Objective eldely WM NCAT supple CTA RR abd soft ND, (+) J tube - clogged no edema OBS Paul Matute MD Dec 26, 2019 21:03
[2019-12-27] VITALS: BP 124/86
[2019-12-27] MEDS: Piperacillin/Tazobactam 3.375 GM in NS 110 ML IVPB SCH ×4 (03:35→20:21)
[2019-12-27 04:00] VITALS: BP 153/99
--- NOTE | 2019-12-27 07:34 | NUR ---
HAND-OFF: Report given to Abdullahi Oliver RN. Pt in stable condition, plan of care endorsed.
[2019-12-27 08:00] VITALS: BP 155/99
--- NOTE | 2019-12-27 08:04 | NUR ---
NURSE NOTES: pt awake alert, no distress. no sob. no c/o pain. ivf running. pt eating breakfast. call light within reach. bed in lowest position, locked. siri mack.
[2019-12-27] MEDS: Pantoprazole Inj IVP SCH ×2 (09:09→20:21)
[2019-12-27] MEDS: Heparin 5000 units/ml inj SUBQ SCH ×2 (09:10→20:25)
--- NOTE | 2019-12-27 10:29 | Nephrology Progress Note ---
Assessment/Plan Problem List: (1) Hyperkalemia (2) Right lower lobe pneumonia (3) Hyperglycemia (4) Leukocytosis (5) Electrolyte imbalance Assessment: low K improving Assessment HyperKalemia, in view of normal renal functions, Partly hemolysis Moderate respiratory distress: CHF vs Pneumonia Tachycardia and Leukocytosis ? UTI Hyperglycemia Leukocytosis other conditions: 1. Acute CVA. 2. Sepsis and UTI. under treatment 3. Hypertension and congestive heart failure. 4. History of chronic kidney disease. 5. Failure to thrive 6. Diarrhea; resolved; C diff negative 7.s/p Hypokalemia; corrected; Plan no labs today yet chabge IV to D5w Stable from renal stand K IV and PO as needed s/p CXR Right lung Opacification- had bronch- per ID and pulmonary monitor renal parameters Urine tests per orders Subjective ROS Limited/Unobtainable: No Constitutional: Reports: malaise, weakness Objective Objective Last 24 Hour Vital Signs Date Time Temp Pulse Resp B/P (MAP) Pulse Ox O2 Delivery O2 Flow Rate FiO2 12/27/19 08:00 98.2 102 24 155/99 (117) 94 12/27/19 07:57 Nasal Cannula 3.0 12/27/19 07:50 101 12/27/19 04:00 Nasal Cannula 3.0 12/27/19 04:00 90 12/27/19 04:00 98.2 106 24 153/99 (117) 94 12/27/19 00:00 98.1 102 18 124/86 (99) 94 12/27/19 00:00 111 12/27/19 00:00 Nasal Cannula 3.0 12/26/19 20:00 123 12/26/19 20:00 97.9 123 18 136/84 (101) 94 12/26/19 16:00 97.3 106 18 124/87 (99) 94 12/26/19 16:00 111 12/26/19 12:00 97.2 94 20 113/76 (88) 95 12/26/19 12:00 94 Intake and Output 12/26/19 12/27/19 19:00 07:00 Output Total 400 ml 350 ml Balance -400 ml -350 ml Output Urine Total 400 ml 350 ml # Bowel Movements 1 Height (Feet): 5 Height (Inches): 1.00 Weight (Pounds): 150 General Appearance: no apparent distress Cardiovascular: tachycardia Respiratory/Chest: decreased breath sounds Abdomen: distended Objective no change Valdo Anderson MD Dec 27, 2019 10:29
--- NOTE | 2019-12-27 10:55 | Surgery Progress Note ---
Surgery Progress Note Subjective Procedure Performed open jejunostomy feeding tube insertion lysis of adhesions open peritoneal mass biopsy Additional Comments was able to unclog tube this AM resume tube feeds please flush after each use d/c planning Objective Last 24 Hour Vital Signs Date Time Temp Pulse Resp B/P (MAP) Pulse Ox O2 Delivery O2 Flow Rate FiO2 12/27/19 08:00 98.2 102 24 155/99 (117) 94 12/27/19 07:57 Nasal Cannula 3.0 12/27/19 07:50 101 12/27/19 04:00 Nasal Cannula 3.0 12/27/19 04:00 90 12/27/19 04:00 98.2 106 24 153/99 (117) 94 12/27/19 00:00 98.1 102 18 124/86 (99) 94 12/27/19 00:00 111 12/27/19 00:00 Nasal Cannula 3.0 12/26/19 20:00 123 12/26/19 20:00 97.9 123 18 136/84 (101) 94 12/26/19 16:00 97.3 106 18 124/87 (99) 94 12/26/19 16:00 111 12/26/19 12:00 97.2 94 20 113/76 (88) 95 12/26/19 12:00 94 I&O Intake and Output 12/26/19 12/27/19 19:00 07:00 Output Total 400 ml 350 ml Balance -400 ml -350 ml Output Urine Total 400 ml 350 ml # Bowel Movements 1 Plan Problems: (1) Failure to thrive Assessment & Plan: This is a 84-year-old male with failure to thrive, unfortunate history of stroke unable to have significant oral intake and indicating recommended for feeding tube placement. Unfortunately given prior gastric surgery unable to have endoscopic PEG tube placement. Surgical feeding tube placement indicated recommended. Will discuss with patient's family to obtain consent and schedule when appropriate. Thank you for let me participate in patient's care spoke with family obtained consent s/p j tube +CRYSTAL path noted exam okay tube okay trial tube feeds 10 cc/hr please make sure to flush after each use christian to be removed in 1 week okay to d/c f/u 1 week for staple removal and wound check J-tube has since been malfunctioning unfortunately too early for changes no well -formed tract made from this J-tube. Will follow with recommendations DAILY ESTIMATED NEEDS: Needs based on Underweight, cardiac/ 49kg 30-35 kcals/kg 2489-8686 total kcals 1-1.5 g protein/kg 49-74 g total protein 25-30 mL/kg 6851-8825 total fluid mLs NUTRITION DIAGNOSIS: * Swallowing difficulty R/T dysphagia, s/p acute CVA as evidenced by NPO, pending DAMAGE ADJUSTER eval, possible PEG placement. CURRENT DIET:NPO PO DIET RECOMMENDATIONS: IF SAFE FOR ORAL DIET -> LOW NA/ texture per DAMAGE ADJUSTER ENTERAL NUTRITION RECOMMENDATIONS: IF MEDICALLY APPROPRIATE AND PART OF POC -> Glucerna 1.2 @ 55ml/hr x 24 hrs to provide 1320ml, 1584kcal, 79g prot, 1063ml free water * IF PART OF POC AND MEDICALLY INDICATED, OBTAIN GI ACCESS -> initiate Glucerna 1.2 @ 15ml/hr x 6 hrs -> advance 10ml q 4-6 hrs as tolerated to goal rate -> HOB over 30 degrees/ water flush per MDD ADDITIONAL RECOMMENDATIONS: * Calibrated bedscale wt for accurate CBW * F/up w/ DAMAGE ADJUSTER rec: oral diet vs NPO * Check A1C and lipid panel: s/p acute CVA * Monitor lytes, replete as needed Pt's skin assessment complete with Primary nurse in attendance. All bony prominences assessed. Sacrum and both hips without erythema or evidence of skin breakdown. Both heels boggy with non-blanching erythema.NO other skin concerns noted. Moisture Barrier Paste applied to buttocks. Optifoam drsg placed over Sacrum to minimize friction.Cavilon Skin Barrier applied to both heels. Each Heel covered with Optifoam drsg. Pt positioned with pillow on his side. Both heels floated off mattress with pillow. Recommendations:Apply Moisture Barrier Paste to Sacrum. Cover with Optifoam drsg. Change every 3 days and prn. Apply Cavilon Skin Barrier to both heels. Cover each heel with Optifoam drsg. Change every 7 days and PRN. Reposition at least every 2hours or as tolerated. Off-load heels with pillow. Andrei Fischer Dec 27, 2019 10:55
[2019-12-27 11:40] LABS: BASOPHILS % (AUTO) 0.9 % (0.0-2.0); EOSINOPHILS % (AUTO) 4.3 % (0.0-3.0); HEMATOCRIT 40.9 % (42.0-52.0); HEMOGLOBIN 13.2 G/DL (14.2-18.0); LYMPHOCYTES % (AUTO) 14.7 % (20.0-45.0); MEAN CORPUSCULAR VOLUME 97 FL (80-99); NEUTROPHILS % (AUTO) 74.2 % (45.0-75.0); PLATELET COUNT 450 K/UL (150-450); RED BLOOD COUNT 4.24 M/UL (4.70-6.10); RED CELL DISTRIBUTION WIDTH 13.1 % (11.6-14.8); WHITE BLOOD COUNT 12.6 K/UL (4.8-10.8)
--- NOTE | 2019-12-27 11:57 | NUR ---
CASE MANAGEMENT:REVIEW 12/27/19 SI: ACUTE CVA S/P JTUBE, BRONCHOSCOPY, ILEUS 98.2 102 24 155/99 94% ON 3L/NC WBC+12.6 IS: K-DUR JT BID IV ZOSYN Q8HRS HEPARIN SQ Q12 IV PROTONIX Q12 IVF@75/HR : TELEMETRY STATUS DCP: FROM [facility] PLAN: PLAN IS TO DISCHARGE BACK TO [facility] TODAY AFTER SEEN BY DR NUÑEZ
[2019-12-27 12:00] VITALS: BP_SYST 134; BP_SYST 142; BP_DIAS 84; BP_DIAS 95
[2019-12-27 12:05] LABS: ALANINE AMINOTRANSFERASE 15 U/L (12-78); ALBUMIN 1.7 G/DL (3.4-5.0); ALBUMIN/GLOBULIN RATIO 0.3 (1.0-2.7); ALKALINE PHOSPHATASE 160 U/L (46-116); ANION GAP 9 mmol/L (5-15); ASPARTATE AMINO TRANSFERASE 19 U/L (15-37); BILIRUBIN,TOTAL 0.5 MG/DL (0.2-1.0); BLOOD UREA NITROGEN 14 mg/dL (7-18); CALCIUM 8.9 MG/DL (8.5-10.1); CARBON DIOXIDE 26 MMOL/L (21-32); CHLORIDE 110 MMOL/L (98-107); CREATININE 0.9 MG/DL (0.55-1.30); PHOSPHORUS 2.9 MG/DL (2.5-4.9); POTASSIUM 3.4 MMOL/L (3.5-5.1); SODIUM 144 MMOL/L (136-145)
--- NOTE | 2019-12-27 15:29 | NUR ---
RD ASSESSMENT & RECOMMENDATIONS SEE CARE ACTIVITY FOR COMPLETE ASSESSMENT DAILY ESTIMATED NEEDS: Needs based on Underweight, cardiac/ 49kg 30-35 kcals/kg 9860-6529 total kcals 1-1.5 g protein/kg 49-74 g total protein 25-30 mL/kg 6876-3604 total fluid mLs NUTRITION DIAGNOSIS: * Swallowing difficulty R/T dysphagia, s/p acute CVA as evidenced by s/p MBSS w/ rec for nonoral feeds, s/p surgical PEJ placement. * Increased kcal/prot needs R/T wound healing as evidenced by pt w/ non-blanchable erythema @ BL heels. CURRENT TF:Glucerna 1.2 @ 10ml/hr x 24 hrs ENTERAL NUTRITION RECOMMENDATIONS: Glucerna 1.2 @ 55ml/hr x 24 hrs to provide 1320ml, 1584kcal, 79g prot, 1063ml free water -> As able, increase slowly to goal rate -> advance 10ml q 4-6 hrs as tolerated to goal rate -> HOB over 30 degrees/ water flush per MD ADDITIONAL RECOMMENDATIONS: * Calibrated bedscale wt for accurate CBW * Monitor tolerance to glucerna 1.2, increase goal rate as able * Rec NISS w/ continuous TF's. * Check A1C and lipid panel: Lipid panel wnl; A1C 6.0 pre DM * Monitor lytes, replete as needed * Wound healing: add MVI x 1, Vit C 250mg QD Cezar BID once TF well tolerated @ goal
[2019-12-27 16:00] VITALS: BP 134/84
--- NOTE | 2019-12-27 17:09 | NUR ---
*-* INSURANCE *-* ALL CLINICALS AND REVIEWS HAVE BEEN FAXED TO: [facility] [employer] F: [phone]
--- NOTE | 2019-12-27 17:34 | Pulmonology Progress Note ---
Assessment/Plan Assessment/Plan PROBLEM LIST: 1. Acute CVA. 2. Sepsis and UTI. Resolved 3. Hypertension and congestive heart failure. 4. History of chronic kidney disease. 5. Failure to thrive 6. Diarrhea; resolved; C diff negative 7. R lung opacification;now resolved after bronchoscopy PLAN: 1. S/p feeding tube placement; tube feedings resumed 2. Cardiology, neuro, and ID consultations noted. 3. I have assumed care due Insurance. 4. Surgical consultation noted due to need for open gastrostomy 5. Sent stool for c diff'; negative 6. Surgical G tube per Dr Keen/done 7. Start abx 8. TF per surgery; 9. Remains DNR and DNI; discussed with daughter 10. Hypernatremia Salomón Bacon M.D. Subjective Interval Events: G tube unclogged; K low Constitutional: Reports: no symptoms HEENT: Repors: no symptoms Respiratory: Reports: no symptoms Cardiovascular: Reports: no symptoms Gastrointestinal/Abdominal: Reports: no symptoms Allergies: Uncoded Allergies: Green vegetables (Allergy, Unknown, 12/10/19) Objective Last 24 Hour Vital Signs Date Time Temp Pulse Resp B/P (MAP) Pulse Ox O2 Delivery O2 Flow Rate FiO2 12/27/19 16:00 98.2 84 24 134/84 (101) 94 12/27/19 16:00 Nasal Cannula 3.0 12/27/19 12:00 98.2 106 24 142/95 (111) 94 12/27/19 12:00 Nasal Cannula 3.0 12/27/19 11:50 118 12/27/19 11:10 94 Nasal Cannula 3.0 32 12/27/19 08:00 98.2 102 24 155/99 (117) 94 12/27/19 07:57 Nasal Cannula 3.0 12/27/19 07:50 101 12/27/19 04:00 Nasal Cannula 3.0 12/27/19 04:00 90 12/27/19 04:00 98.2 106 24 153/99 (117) 94 12/27/19 00:00 98.1 102 18 124/86 (99) 94 12/27/19 00:00 111 12/27/19 00:00 Nasal Cannula 3.0 12/26/19 20:00 123 12/26/19 20:00 97.9 123 18 136/84 (101) 94 Intake and Output 12/26/19 12/27/19 19:00 07:00 Output Total 400 ml 350 ml Balance -400 ml -350 ml Output Urine Total 400 ml 350 ml # Bowel Movements 1 General Appearance: no acute distress HEENT: normocephalic Respiratory/Chest: chest wall non-tender, lungs clear Cardiovascular: normal peripheral pulses, normal rate Abdomen: normal bowel sounds Laboratory Tests 12/27/19 11:15: White Blood Count 12.6H, Red Blood Count 4.24L, Hemoglobin 13.2L, Hematocrit 40.9L, Mean Corpuscular Volume 97, Mean Corpuscular Hemoglobin 31.1H, Mean Corpuscular Hemoglobin Concent 32.2, Red Cell Distribution Width 13.1, Platelet Count 450, Mean Platelet Volume 6.1L, Neutrophils (%) (Auto) 74.2, Lymphocytes ( %) (Auto) 14.7L, Monocytes (%) (Auto) 6.0, Eosinophils (%) (Auto) 4.3H, Basophils (%) (Auto) 0.9, Sodium Level 144, Potassium Level 3.4L, Chloride Level 110H, Carbon Dioxide Level 26, Anion Gap 9, Blood Urea Nitrogen 14, Creatinine 0.9, Estimat Glomerular Filtration Rate > 60, Glucose Level 142H, Calcium Level 8.9, Phosphorus Level 2.9, Magnesium Level 1.8, Total Bilirubin 0.5, Aspartate Amino Transf (AST/SGOT) 19, Alanine Aminotransferase (ALT/SGPT) 15, Alkaline Phosphatase 160H, Total Protein 7.1, Albumin 1.7L, Globulin 5.4, Albumin/Globulin Ratio 0.3L Current Medications Medications (Trade) Dose Ordered Sig/Leandra Route PRN Reason Start Time Stop Time Status Last Admin Dose Admin Acetaminophen (Tylenol) 650 mg Q4H PRN RECTAL FEVER 12/22/19 06:23 01/19/20 06:22 12/22/19 23:49 Heparin Sodium (Porcine) (Heparin 5000 units/ml) 5,000 units EVERY 12 HOURS SUBQ 12/22/19 09:00 01/09/20 08:59 12/27/19 09:10 Loperamide HCl (Imodium) 1 mg BIDPRN PRN NG Diarrhea 12/22/19 06:24 01/19/20 06:23 Metoclopramide HCl (Reglan) 10 mg Q6H PRN IVP Nausea & Vomiting 12/22/19 06:24 01/19/20 06:23 Pantoprazole (Protonix) 40 mg Q12HR IVP 12/22/19 09:00 01/09/20 08:59 12/27/19 09:09 Piperacillin Sod/ Tazobactam Sod 3.375 gm/Sodium Chloride 110 ml @ 27.5 mls/hr Q8H IVPB 12/22/19 12:00 12/29/19 11:59 12/27/19 12:59 Potassium Chloride (K-Dur) 20 meq TWICE A DAY GT 12/23/19 11:30 01/22/20 11:29 12/27/19 17:15 Salomón Bacon MD Dec 27, 2019 17:34
[2019-12-27] MEDS ORDERED: K-TAB ER20 MEQ GT (17:35)
--- NOTE | 2019-12-27 19:30 | NUR ---
NURSE NOTES: Received patient from Abdullahi CULLEN. Patient in bed, on 2L NC, no signs of respiratory distress. No residual from J tube, on Glucerna 1.2 at 55ml/hr. Torres catheter intact. Bed in low position, locked, bed alarm on, call light within reach.
--- NOTE | 2019-12-27 19:39 | General Progress Note ---
Assessment/Plan Status: stable Assessment/Plan: Assessment - dysphagia - s/p open surgical j tube - resolved - improved leukocytosis - s/p past distal gastrectomy with Moncho II Recommendations - follow exam - abx - Reglan - surgical - Elevated HOB Subjective Allergies: Uncoded Allergies: Green vegetables (Allergy, Unknown, 12/10/19) Subjective confused NAD J tube opened Objective Last 24 Hour Vital Signs Date Time Temp Pulse Resp B/P (MAP) Pulse Ox O2 Delivery O2 Flow Rate FiO2 12/27/19 16:00 98.2 84 24 134/84 (101) 94 12/27/19 16:00 Nasal Cannula 3.0 12/27/19 15:28 104 12/27/19 12:00 98.2 106 24 142/95 (111) 94 12/27/19 12:00 Nasal Cannula 3.0 12/27/19 11:50 118 12/27/19 11:10 94 Nasal Cannula 3.0 32 12/27/19 08:00 98.2 102 24 155/99 (117) 94 12/27/19 07:57 Nasal Cannula 3.0 12/27/19 07:50 101 12/27/19 04:00 Nasal Cannula 3.0 12/27/19 04:00 90 12/27/19 04:00 98.2 106 24 153/99 (117) 94 12/27/19 00:00 98.1 102 18 124/86 (99) 94 12/27/19 00:00 111 12/27/19 00:00 Nasal Cannula 3.0 12/26/19 20:00 123 12/26/19 20:00 97.9 123 18 136/84 (101) 94 Intake and Output 12/26/19 12/27/19 19:00 07:00 Output Total 400 ml 350 ml Balance -400 ml -350 ml Output Urine Total 400 ml 350 ml # Bowel Movements 1 Laboratory Tests 12/27/19 11:15: White Blood Count 12.6H, Red Blood Count 4.24L, Hemoglobin 13.2L, Hematocrit 40.9L, Mean Corpuscular Volume 97, Mean Corpuscular Hemoglobin 31.1H, Mean Corpuscular Hemoglobin Concent 32.2, Red Cell Distribution Width 13.1, Platelet Count 450, Mean Platelet Volume 6.1L, Neutrophils (%) (Auto) 74.2, Lymphocytes ( %) (Auto) 14.7L, Monocytes (%) (Auto) 6.0, Eosinophils (%) (Auto) 4.3H, Basophils (%) (Auto) 0.9, Sodium Level 144, Potassium Level 3.4L, Chloride Level 110H, Carbon Dioxide Level 26, Anion Gap 9, Blood Urea Nitrogen 14, Creatinine 0.9, Estimat Glomerular Filtration Rate > 60, Glucose Level 142H, Calcium Level 8.9, Phosphorus Level 2.9, Magnesium Level 1.8, Total Bilirubin 0.5, Aspartate Amino Transf (AST/SGOT) 19, Alanine Aminotransferase (ALT/SGPT) 15, Alkaline Phosphatase 160H, Total Protein 7.1, Albumin 1.7L, Globulin 5.4, Albumin/Globulin Ratio 0.3L Height (Feet): 5 Height (Inches): 1.00 Weight (Pounds): 150 Objective eldely WM NCAT supple CTA RR abd soft ND, (+) J tube - clogged no edema OBS Paul Matute MD Dec 27, 2019 19:39
[2019-12-27 20:00] VITALS: BP 137/91
[2019-12-28] VITALS (15 sets, daily range): BP systolic 114–151; BP diastolic 57–99
--- NOTE | 2019-12-28 | NUR ---
NURSE NOTES: held feeding per npo order. jt flushed and patent. head of bed raised per aspiration precaution protocol. repositioned patient. patient in no acute distress. Addendum: 12/29/19 at 0610 by Tomas Vargas RN wrong date.
[2019-12-28] MEDS: Piperacillin/Tazobactam 3.375 GM in NS 110 ML IVPB SCH ×3 (03:36→20:11)
[2019-12-28 07:27] LABS: BASOPHILS % (AUTO) 0.6 % (0.0-2.0); EOSINOPHILS % (AUTO) 5.8 % (0.0-3.0); HEMATOCRIT 40.7 % (42.0-52.0); HEMOGLOBIN 13.4 G/DL (14.2-18.0); LYMPHOCYTES % (AUTO) 15.2 % (20.0-45.0); MEAN CORPUSCULAR VOLUME 96 FL (80-99); MONOCYTES % (AUTO) 5.2 % (1.0-10.0); NEUTROPHILS % (AUTO) 73.1 % (45.0-75.0); PLATELET COUNT 458 K/UL (150-450); RED BLOOD COUNT 4.22 M/UL (4.70-6.10); RED CELL DISTRIBUTION WIDTH 12.9 % (11.6-14.8); WHITE BLOOD COUNT 12.4 K/UL (4.8-10.8)
[2019-12-28 07:55] LABS: ANION GAP 6 mmol/L (5-15); BLOOD UREA NITROGEN 15 mg/dL (7-18); CARBON DIOXIDE 31 MMOL/L (21-32); CHLORIDE 111 MMOL/L (98-107); CREATININE 0.9 MG/DL (0.55-1.30); POTASSIUM 3.5 MMOL/L (3.5-5.1); SODIUM 148 MMOL/L (136-145)
--- NOTE | 2019-12-28 08:01 | NUR ---
HAND-OFF: Report given to Mariya CULLEN.
--- NOTE | 2019-12-28 08:04 | NUR ---
NURSE NOTES: Received pt from LUIS CULLEN at 0730, pt A&O x0, pt has SOB with shallow breathing, Dr NUÑEZ is aware and came on bed side and ordered stat ABG and CXR, noted and carried out, Dr NUÑEZ is aware about ABG result and ordered venturi mask, noted and carried out. pt has intact iv access R wrist 22g SL. Pt has Torres cath in place is working good. pt has J tube is on place is working well. RN asked Dr NUÑEZ for breathing treatment, no new order given. all needs attended, bed is locked and is in the lowest position, call light within easy reach. will continue to monitor.
--- NOTE | 2019-12-28 08:53 | NUR ---
STAT ABG done around 726. Result reported to Yesica (RN). Placed patient on VentiMAsk at 40% and informed Nurse due to patient's increased WOB/SOB. PT. WOB decreased post VM O2 mask. Pt. was suctioned via NT and obtained mod amt of thick mucoid white secretions. To NTS well. Nurse will enter new O2 order.
--- NOTE | 2019-12-28 09:04 | Diagnostic Imaging Report ---
Indication: Dyspnea Comparison: 12/22/2019 A single view chest radiograph was obtained. Findings: There is near complete opacification of the right hemithorax. Some volume loss noted with deviation of the trachea to the right. This is likely due to combination of atelectasis and pleural effusion. There is evidence of pulmonary vascular congestion. Cardiomegaly is present. The upper abdomen is hyperlucent probably on the basis of distended air-filled bowel. IMPRESSION: New complete atelectasis of the right lung. Superimposed pleural effusion suspected. Pulmonary edema
[2019-12-28] MEDS: Pantoprazole Inj IVP SCH ×2 (09:17→20:10)
[2019-12-28] MEDS: Heparin 5000 units/ml inj SUBQ SCH ×2 (09:18→20:12)
--- NOTE | 2019-12-28 10:00 | NUR ---
NURSE NOTES: pt transferred to ICU, Report given to BALDO CULLEN. Pt is awake, BP131/93 HR 92 RR 30 SPO2 95 with venturi mask. J tube dressing changed, denture is on bed side.
--- NOTE | 2019-12-28 10:02 | NUR ---
NURSE NOTES: LATE ENTRY: RECEIVED REPORT FROM BETH Parker PT TRANSFERRED FROM TELE 246. LETHARGIC. LABORED BREATHING. RESPONSIVE TO DEEP PAIN. ST113 ON MONITOR BP 131/93, RR 33. PUPILS 4MM SLUGGISH. LT UPPER AND LOWER EXTREMITY FLACCID. SHARPE DRAINING URINE. PT VENTURI 45% 13% SATING 90%. LUNGS LT WHEEZE AND RHONCHI, RT DIMINISHED. SECRETIONS WHITE. ONE BM AT THIS TIME, SMALL, PASTY. ABDOMEN ROUND, J TUBE PRESENT, SITE REDNESS, NO DRAINAGE. SKIN -SEE ASSESSMENT, PHOTO TAKEN, OPTIFOAM APPLIED. IV 22G, RT WRIST SLUGGISH. FALL AND STANDARD PRECAUTIONS IN PLACE. BED LOW AND LOCKED IN POSITION. EDUCATED PT ON PLAN OF CARE. WILL CONTINUE TO MONITOR PT.
--- NOTE | 2019-12-28 10:11 | Infectious Diseases Prog Note ---
Assessment/Plan Assessment/Plan antibiotics : zosyn A 1. pneumonia 2. leucocytosis improving 3. hypertension 4. CHF 5. s/p GT placement P 1. continue zosyn 2. will follow up cultures 3. sputum culture Subjective ROS Limited/Unobtainable: Yes Allergies: Uncoded Allergies: Green vegetables (Allergy, Unknown, 12/10/19) Objective Vital Signs Last 24 Hour Vital Signs Date Time Temp Pulse Resp B/P (MAP) Pulse Ox O2 Delivery O2 Flow Rate FiO2 12/28/19 09:00 Venturi Mask 10.0 Venturi Mask 10.0 12/28/19 08:00 96.6 105 30 146/57 (86) 92 12/28/19 07:53 109 12/28/19 07:27 88 Nasal Cannula 3.0 32 12/28/19 04:00 97 12/28/19 04:00 97.1 103 21 149/66 (93) 97 12/28/19 00:00 97.3 107 20 142/64 (90) 95 12/28/19 00:00 110 12/27/19 21:00 Nasal Cannula 2.0 Nasal Cannula 2.0 12/27/19 20:00 103 12/27/19 20:00 97.9 98 23 137/91 (106) 97 12/27/19 16:00 98.2 84 24 134/84 (101) 94 12/27/19 16:00 Nasal Cannula 3.0 12/27/19 15:28 104 12/27/19 12:00 98.2 106 24 142/95 (111) 94 12/27/19 12:00 Nasal Cannula 3.0 12/27/19 11:50 118 12/27/19 11:10 94 Nasal Cannula 3.0 32 Height (Feet): 5 Height (Inches): 1.00 Weight (Pounds): 150 Respiratory/Chest: lungs clear Cardiovascular: normal rate, regular rhythm, no gallop/murmur Abdomen: soft, non tender, other - GT Extremities: no edema Laboratory Tests Test 12/27/19 11:15 12/28/19 06:30 12/28/19 07:27 White Blood Count 12.6 K/UL (4.8-10.8) H 12.4 K/UL (4.8-10.8) H Red Blood Count 4.24 M/UL (4.70-6.10) L 4.22 M/UL (4.70-6.10) L Hemoglobin 13.2 G/DL (14.2-18.0) L 13.4 G/DL (14.2-18.0) L Hematocrit 40.9 % (42.0-52.0) L 40.7 % (42.0-52.0) L Mean Corpuscular Volume 97 FL (80-99) 96 FL (80-99) Mean Corpuscular Hemoglobin 31.1 PG (27.0-31.0) H 31.8 PG (27.0-31.0) H Mean Corpuscular Hemoglobin Concent 32.2 G/DL (32.0-36.0) 32.9 G/DL (32.0-36.0) Red Cell Distribution Width 13.1 % (11.6-14.8) 12.9 % (11.6-14.8) Platelet Count 450 K/UL (150-450) 458 K/UL (150-450) H Mean Platelet Volume 6.1 FL (6.5-10.1) L 5.9 FL (6.5-10.1) L Neutrophils (%) (Auto) 74.2 % (45.0-75.0) 73.1 % (45.0-75.0) Lymphocytes (%) (Auto) 14.7 % (20.0-45.0) L 15.2 % (20.0-45.0) L Monocytes (%) (Auto) 6.0 % (1.0-10.0) 5.2 % (1.0-10.0) Eosinophils (%) (Auto) 4.3 % (0.0-3.0) H 5.8 % (0.0-3.0) H Basophils (%) (Auto) 0.9 % (0.0-2.0) 0.6 % (0.0-2.0) Sodium Level 144 MMOL/L (136-145) 148 MMOL/L (136-145) H Potassium Level 3.4 MMOL/L (3.5-5.1) L 3.5 MMOL/L (3.5-5.1) Chloride Level 110 MMOL/L (98-107) H 111 MMOL/L (98-107) H Carbon Dioxide Level 26 MMOL/L (21-32) 31 MMOL/L (21-32) Anion Gap 9 mmol/L (5-15) 6 mmol/L (5-15) Blood Urea Nitrogen 14 mg/dL (7-18) 15 mg/dL (7-18) Creatinine 0.9 MG/DL (0.55-1.30) 0.9 MG/DL (0.55-1.30) Estimat Glomerular Filtration Rate > 60 mL/min (>60) > 60 mL/min (>60) Glucose Level 142 MG/DL (74-106) H 145 MG/DL (74-106) H Calcium Level 8.9 MG/DL (8.5-10.1) 9.0 MG/DL (8.5-10.1) Phosphorus Level 2.9 MG/DL (2.5-4.9) Magnesium Level 1.8 MG/DL (1.8-2.4) Total Bilirubin 0.5 MG/DL (0.2-1.0) Aspartate Amino Transf (AST/SGOT) 19 U/L (15-37) Alanine Aminotransferase (ALT/SGPT) 15 U/L (12-78) Alkaline Phosphatase 160 U/L (46-116) H Total Protein 7.1 G/DL (6.4-8.2) Albumin 1.7 G/DL (3.4-5.0) L Globulin 5.4 g/dL Albumin/Globulin Ratio 0.3 (1.0-2.7) L Arterial Blood pH 7.381 (7.350-7.450) Arterial Blood Partial Pressure CO2 49.8 mmHg (35.0-45.0) H Arterial Blood Partial Pressure O2 53.5 mmHg (75.0-100.0) L Arterial Blood HCO3 28.9 mmol/L (22.0-26.0) H Arterial Blood Oxygen Saturation 87.2 % (95-100) *L Arterial Blood Base Excess 2.9 (-2-2) H Alan Test Positive Current Medications Medications (Trade) Dose Ordered Sig/Leandra Route PRN Reason Start Time Stop Time Status Last Admin Dose Admin Acetaminophen (Tylenol) 650 mg Q4H PRN RECTAL FEVER 12/22/19 06:23 01/19/20 06:22 12/22/19 23:49 Heparin Sodium (Porcine) (Heparin 5000 units/ml) 5,000 units EVERY 12 HOURS SUBQ 12/22/19 09:00 01/09/20 08:59 12/28/19 09:18 Loperamide HCl (Imodium) 1 mg BIDPRN PRN NG Diarrhea 12/22/19 06:24 01/19/20 06:23 Metoclopramide HCl (Reglan) 10 mg Q6H PRN IVP Nausea & Vomiting 12/22/19 06:24 01/19/20 06:23 Pantoprazole (Protonix) 40 mg Q12HR IVP 12/22/19 09:00 01/09/20 08:59 12/28/19 09:17 Piperacillin Sod/ Tazobactam Sod 3.375 gm/Sodium Chloride 110 ml @ 27.5 mls/hr Q8H IVPB 12/22/19 12:00 12/29/19 11:59 12/28/19 03:36 Potassium Chloride (K-Dur) 20 meq TWICE A DAY GT 12/23/19 11:30 01/22/20 11:29 12/28/19 09:17 Jojo Li MD Dec 28, 2019 10:11
--- NOTE | 2019-12-28 10:34 | Nephrology Progress Note ---
Assessment/Plan Problem List: (1) Hyperkalemia (2) Right lower lobe pneumonia Assessment: with recurrent collapse of right lung (3) Hyperglycemia (4) Leukocytosis (5) Electrolyte imbalance Assessment: low K improving Assessment HyperKalemia, in view of normal renal functions, Partly hemolysis Moderate respiratory distress: CHF vs Pneumonia Tachycardia and Leukocytosis ? UTI Hyperglycemia Leukocytosis other conditions: 1. Acute CVA. 2. Sepsis and UTI. under treatment 3. Hypertension and congestive heart failure. 4. History of chronic kidney disease. 5. Failure to thrive 6. Diarrhea; resolved; C diff negative 7.s/p Hypokalemia; corrected; Plan IV fluid Stable from renal stand K IV and PO as needed CXR Right lung Opacification- had bronch- may need again per ID and pulmonary monitor renal parameters Urine tests per orders Subjective ROS Limited/Unobtainable: No Constitutional: Reports: malaise, weakness Objective Objective Last 24 Hour Vital Signs Date Time Temp Pulse Resp B/P (MAP) Pulse Ox O2 Delivery O2 Flow Rate FiO2 12/28/19 09:00 Venturi Mask 10.0 Venturi Mask 10.0 12/28/19 08:00 96.6 105 30 146/57 (86) 92 12/28/19 07:53 109 12/28/19 07:27 88 Nasal Cannula 3.0 32 12/28/19 04:00 97 12/28/19 04:00 97.1 103 21 149/66 (93) 97 12/28/19 00:00 97.3 107 20 142/64 (90) 95 12/28/19 00:00 110 12/27/19 21:00 Nasal Cannula 2.0 Nasal Cannula 2.0 12/27/19 20:00 103 12/27/19 20:00 97.9 98 23 137/91 (106) 97 12/27/19 16:00 98.2 84 24 134/84 (101) 94 12/27/19 16:00 Nasal Cannula 3.0 12/27/19 15:28 104 12/27/19 12:00 98.2 106 24 142/95 (111) 94 12/27/19 12:00 Nasal Cannula 3.0 12/27/19 11:50 118 12/27/19 11:10 94 Nasal Cannula 3.0 32 Intake and Output 12/27/19 12/28/19 19:00 07:00 Intake Total 940 ml Output Total 1100 ml Balance 940 ml -1100 ml Intake Free Water 500 ml Tube Feeding 440 ml Output Urine Total 1100 ml # Bowel Movements 1 Laboratory Tests 12/27/19 11:15: White Blood Count 12.6H, Red Blood Count 4.24L, Hemoglobin 13.2L, Hematocrit 40.9L, Mean Corpuscular Volume 97, Mean Corpuscular Hemoglobin 31.1H, Mean Corpuscular Hemoglobin Concent 32.2, Red Cell Distribution Width 13.1, Platelet Count 450, Mean Platelet Volume 6.1L, Neutrophils (%) (Auto) 74.2, Lymphocytes ( %) (Auto) 14.7L, Monocytes (%) (Auto) 6.0, Eosinophils (%) (Auto) 4.3H, Basophils (%) (Auto) 0.9, Sodium Level 144, Potassium Level 3.4L, Chloride Level 110H, Carbon Dioxide Level 26, Anion Gap 9, Blood Urea Nitrogen 14, Creatinine 0.9, Estimat Glomerular Filtration Rate > 60, Glucose Level 142H, Calcium Level 8.9, Phosphorus Level 2.9, Magnesium Level 1.8, Total Bilirubin 0.5, Aspartate Amino Transf (AST/SGOT) 19, Alanine Aminotransferase (ALT/SGPT) 15, Alkaline Phosphatase 160H, Total Protein 7.1, Albumin 1.7L, Globulin 5.4, Albumin/Globulin Ratio 0.3L 12/28/19 06:30: White Blood Count 12.4H, Red Blood Count 4.22L, Hemoglobin 13.4L, Hematocrit 40.7L, Mean Corpuscular Volume 96, Mean Corpuscular Hemoglobin 31.8H, Mean Corpuscular Hemoglobin Concent 32.9, Red Cell Distribution Width 12.9, Platelet Count 458H, Mean Platelet Volume 5.9L, Neutrophils (%) (Auto) 73.1, Lymphocytes (%) (Auto) 15.2L, Monocytes (%) (Auto) 5.2, Eosinophils (%) (Auto) 5.8H, Basophils (%) (Auto) 0.6, Sodium Level 148H, Potassium Level 3.5, Chloride Level 111H, Carbon Dioxide Level 31, Anion Gap 6, Blood Urea Nitrogen 15, Creatinine 0.9, Estimat Glomerular Filtration Rate > 60, Glucose Level 145H, Calcium Level 9.0 12/28/19 07:27: Arterial Blood pH 7.381, Arterial Blood Partial Pressure CO2 49.8H, Arterial Blood Partial Pressure O2 53.5L, Arterial Blood HCO3 28.9H, Arterial Blood Oxygen Saturation 87.2*L, Arterial Blood Base Excess 2.9H, Alan Test Positive Height (Feet): 5 Height (Inches): 1.00 Weight (Pounds): 150 General Appearance: lethargic, mild distress Cardiovascular: tachycardia Respiratory/Chest: decreased breath sounds Abdomen: distended Objective no change Valdo Anderson MD Dec 28, 2019 10:34
--- NOTE | 2019-12-28 11:52 | NUR ---
CASE MANAGEMENT:REVIEW 12/27/19 SI: ACUTE CVA S/P JTUBE, BRONCHOSCOPY, ILEUS 96.6 105 30 146/57 88% ON 3L/NC WBC+12.4 NA+148 PCO2+49.8 PO2-53.5 HCO3+28.9 O2 SAT-87.2 IS: PLACED ON VENTURI MASK K-DUR JT BID IV ZOSYN Q8HRS HEPARIN SQ Q12 IV PROTONIX Q12 : TRANSFERRED TO ICU DCP: FROM [facility] PLAN: DISCHARGE HELD D/T CHANGE IN CONDITION
[2019-12-28] MEDS ORDERED: Acetaminophen 650 MG SUPP RECTAL PRN (12:00)
[2019-12-28] MEDS ORDERED: Metoclopramide 10mg/2ml Inj IVP PRN (12:00)
[2019-12-28] MEDS ORDERED: Piperacillin/Tazobactam 3.375 GM in NS 110 ML IVPB SCH (12:00)
[2019-12-28] MEDS ORDERED: Lidocaine HCl 2% Jelly 6ml Tube TOPIC SCH ×2 (12:00)
--- NOTE | 2019-12-28 13:00 | NUR ---
NURSE NOTES: LATE ENTRY: LETHARGIC. LABORED BREATHING. RESPONSIVE TO DEEP PAIN. ST100 ON MONITOR BP 122/81, RR 30. PUPILS 4MM SLUGGISH. LT UPPER AND LOWER EXTREMITY FLACCID. SHARPE DRAINING URINE. PT VENTURI 45% 13% SATING 90%. LUNGS LT WHEEZE AND RHONCHI, RT DIMINISHED. SECRETIONS WHITE. ONE BM AT THIS TIME, MODERATE,LOOSE. ABDOMEN ROUND, J TUBE PRESENT, SITE REDNESS, NO DRAINAGE. IV 22G, RT WRIST REMOVED. REPLACED RT WRIST 22G, RT FA 20G, LT WRIST 20G. FALL AND STANDARD PRECAUTIONS IN PLACE. BED LOW AND LOCKED IN POSITION. WILL CONTINUE TO MONITOR PT.
--- NOTE | 2019-12-28 14:08 | Pulmonology Progress Note ---
Assessment/Plan Assessment/Plan PROBLEM LIST: 1. Acute CVA. 2. Sepsis and UTI. Resolved 3. Hypertension and congestive heart failure. 4. History of chronic kidney disease. 5. Failure to thrive 6. Diarrhea; resolved; C diff negative 7. R lung opacification;recurrent; transferred to ICU; may need re-bronch; will discuss with daughter PLAN: 1. S/p feeding tube placement; tube feedings resumed 2. Cardiology, neuro, and ID consultations noted. 3. I have assumed care due Insurance. 4. Surgical consultation noted due to need for open gastrostomy 5. Sent stool for c diff'; negative 6. Surgical G tube per Dr Keen/done 7. Start abx 8. TF per surgery; 9. Remains DNR and DNI; 10. Hypernatremia Salomón Bacon M.D. Subjective Interval Events: Tachypnic this AM Constitutional: Reports: no symptoms HEENT: Repors: no symptoms Respiratory: Reports: no symptoms Cardiovascular: Reports: no symptoms Gastrointestinal/Abdominal: Reports: no symptoms Genitourinary: Reports: no symptoms Allergies: Uncoded Allergies: Green vegetables (Allergy, Unknown, 12/10/19) Objective Last 24 Hour Vital Signs Date Time Temp Pulse Resp B/P (MAP) Pulse Ox O2 Delivery O2 Flow Rate FiO2 12/28/19 12:24 97.8 104 126/80 (95) 12/28/19 09:00 Venturi Mask 10.0 Venturi Mask 10.0 12/28/19 08:00 96.6 105 30 146/57 (86) 92 12/28/19 07:53 109 12/28/19 07:27 88 Nasal Cannula 3.0 32 12/28/19 04:00 97 12/28/19 04:00 97.1 103 21 149/66 (93) 97 12/28/19 00:00 97.3 107 20 142/64 (90) 95 12/28/19 00:00 110 12/27/19 21:00 Nasal Cannula 2.0 Nasal Cannula 2.0 12/27/19 20:00 103 12/27/19 20:00 97.9 98 23 137/91 (106) 97 12/27/19 16:00 98.2 84 24 134/84 (101) 94 12/27/19 16:00 Nasal Cannula 3.0 12/27/19 15:28 104 Intake and Output 12/27/19 12/28/19 19:00 07:00 Intake Total 940 ml Output Total 1100 ml Balance 940 ml -1100 ml Intake Free Water 500 ml Tube Feeding 440 ml Output Urine Total 1100 ml # Bowel Movements 1 General Appearance: no acute distress HEENT: normocephalic Respiratory/Chest: chest wall non-tender, decreased breath sounds Cardiovascular: normal peripheral pulses, normal rate Abdomen: normal bowel sounds Laboratory Tests 12/28/19 06:30: White Blood Count 12.4H, Red Blood Count 4.22L, Hemoglobin 13.4L, Hematocrit 40.7L, Mean Corpuscular Volume 96, Mean Corpuscular Hemoglobin 31.8H, Mean Corpuscular Hemoglobin Concent 32.9, Red Cell Distribution Width 12.9, Platelet Count 458H, Mean Platelet Volume 5.9L, Neutrophils (%) (Auto) 73.1, Lymphocytes (%) (Auto) 15.2L, Monocytes (%) (Auto) 5.2, Eosinophils (%) (Auto) 5.8H, Basophils (%) (Auto) 0.6, Sodium Level 148H, Potassium Level 3.5, Chloride Level 111H, Carbon Dioxide Level 31, Anion Gap 6, Blood Urea Nitrogen 15, Creatinine 0.9, Estimat Glomerular Filtration Rate > 60, Glucose Level 145H, Calcium Level 9.0 12/28/19 07:27: Arterial Blood pH 7.381, Arterial Blood Partial Pressure CO2 49.8H, Arterial Blood Partial Pressure O2 53.5L, Arterial Blood HCO3 28.9H, Arterial Blood Oxygen Saturation 87.2*L, Arterial Blood Base Excess 2.9H, Alan Test Positive Current Medications Medications (Trade) Dose Ordered Sig/Leandra Route PRN Reason Start Time Stop Time Status Last Admin Dose Admin Acetaminophen (Tylenol) 650 mg Q4H PRN RECTAL FEVER 12/28/19 12:00 01/19/20 11:59 Heparin Sodium (Porcine) (Heparin 5000 units/ml) 5,000 units EVERY 12 HOURS SUBQ 12/28/19 21:00 01/09/20 08:59 Lidocaine HCl (Xylocaine Jelly 2%) 1 applic ONCE TOPIC 12/28/19 12:00 12/28/19 16:00 Loperamide HCl (Imodium) 1 mg BIDPRN PRN NG Diarrhea 12/28/19 12:00 01/27/20 11:59 Metoclopramide HCl (Reglan) 10 mg Q6H PRN IVP Nausea & Vomiting 12/28/19 12:00 01/19/20 11:59 Pantoprazole (Protonix) 40 mg Q12HR IVP 12/28/19 21:00 01/09/20 08:59 Piperacillin Sod/ Tazobactam Sod 3.375 gm/Sodium Chloride 110 ml @ 27.5 mls/hr Q8H IVPB 12/28/19 12:00 01/04/20 11:59 12/28/19 13:18 Potassium Chloride (K-Dur) 20 meq TWICE A DAY GT 12/28/19 18:00 01/22/20 11:29 Salomón Bacon MD Dec 28, 2019 14:08
--- NOTE | 2019-12-28 14:45 | NUR ---
NURSE NOTES: Called pt's daughter Celsa Molina for consent for bronchoscopy. Consent obtained over the phone.
--- NOTE | 2019-12-28 14:47 | NUR ---
NURSE NOTES: Called and spoke with MD Bacon regarding Celsa sally granting consent, will call back with further orders. pt in bed, equipment at bedside. Sating 93%, bp 122/81.
--- NOTE | 2019-12-28 15:13 | NUR ---
*-* INSURANCE *-* ALL CLINICALS AND REVIEWS HAVE BEEN FAXED TO: [facility] Beeminder F: [phone]
--- NOTE | 2019-12-28 17:00 | NUR ---
NURSE NOTES: CONSENT OBTAINED FOR BRONCHOSCOPY FROM DAUGHTER. MD NUÑEZ WILL DO IN AM. TUBE FEEDING STARTED RUNNING AT GOAL 10ML/HR. GLUC 1.2. PT WILL BE NPO P M.
--- NOTE | 2019-12-28 18:02 | General Progress Note ---
Assessment/Plan Status: stable Assessment/Plan: Assessment - dysphagia - s/p open surgical j tube - respiratory distress - improved leukocytosis - s/p past distal gastrectomy with Moncho II Recommendations - follow exam - abx - Reglan - surgical f/u - Elevated HOB Subjective Allergies: Uncoded Allergies: Green vegetables (Allergy, Unknown, 12/10/19) Subjective confused NAD seen earlier today subsequently transferred to ICU for resp distress Objective Last 24 Hour Vital Signs Date Time Temp Pulse Resp B/P (MAP) Pulse Ox O2 Delivery O2 Flow Rate FiO2 12/28/19 17:00 92 26 116/81 (93) 96 12/28/19 16:00 97.9 96 26 116/81 (93) 94 12/28/19 16:00 Venturi Mask Venturi Mask 12/28/19 15:00 98 28 118/83 (95) 93 12/28/19 14:00 99 28 114/85 (95) 92 12/28/19 13:00 100 30 122/81 (95) 93 12/28/19 12:24 97.8 104 126/80 (95) 12/28/19 12:00 93 12/28/19 12:00 Venturi Mask Venturi Mask 12/28/19 09:00 Venturi Mask 10.0 Venturi Mask 10.0 12/28/19 08:00 96.6 105 30 146/57 (86) 92 12/28/19 07:53 109 12/28/19 07:27 88 Nasal Cannula 3.0 32 12/28/19 04:00 97 12/28/19 04:00 97.1 103 21 149/66 (93) 97 12/28/19 00:00 97.3 107 20 142/64 (90) 95 12/28/19 00:00 110 12/27/19 21:00 Nasal Cannula 2.0 Nasal Cannula 2.0 12/27/19 20:00 103 12/27/19 20:00 97.9 98 23 137/91 (106) 97 Intake and Output 12/27/19 12/28/19 19:00 07:00 Intake Total 940 ml Output Total 1100 ml Balance 940 ml -1100 ml Intake Free Water 500 ml Tube Feeding 440 ml Output Urine Total 1100 ml # Bowel Movements 1 Laboratory Tests 12/28/19 06:30: White Blood Count 12.4H, Red Blood Count 4.22L, Hemoglobin 13.4L, Hematocrit 40.7L, Mean Corpuscular Volume 96, Mean Corpuscular Hemoglobin 31.8H, Mean Corpuscular Hemoglobin Concent 32.9, Red Cell Distribution Width 12.9, Platelet Count 458H, Mean Platelet Volume 5.9L, Neutrophils (%) (Auto) 73.1, Lymphocytes (%) (Auto) 15.2L, Monocytes (%) (Auto) 5.2, Eosinophils (%) (Auto) 5.8H, Basophils (%) (Auto) 0.6, Sodium Level 148H, Potassium Level 3.5, Chloride Level 111H, Carbon Dioxide Level 31, Anion Gap 6, Blood Urea Nitrogen 15, Creatinine 0.9, Estimat Glomerular Filtration Rate > 60, Glucose Level 145H, Calcium Level 9.0 12/28/19 07:27: Arterial Blood pH 7.381, Arterial Blood Partial Pressure CO2 49.8H, Arterial Blood Partial Pressure O2 53.5L, Arterial Blood HCO3 28.9H, Arterial Blood Oxygen Saturation 87.2*L, Arterial Blood Base Excess 2.9H, Alan Test Positive Height (Feet): 5 Height (Inches): 1.00 Weight (Pounds): 150 Objective eldely WM NCAT supple CTA RR abd soft ND, (+) J tube - clogged no edema OBS Paul Matute MD Dec 28, 2019 18:02
--- NOTE | 2019-12-28 19:00 | NUR ---
NURSE NOTES: Received patient from Haydee CULLEN. Patient sleeping in bed with no acute distress. Patient AOx0, lethargic. Patient tachypneic; RR 32 SP02 95% ; presents with shallow labored breathing; venturi mask on at 45% 13LPM. JT intact and patent; flushed 10 cc; glucerna 1.2 running goal at 10ml/ hr. aspiration precautions observed; head of bed raised. Torres intact and patent; draining well to gravitiy. IV present on right wrist 22g, right forearm 20g, left hand 20 g; flushed and patent. 3+ weeping edema present on left upper extremity. fall precautions observed; bed locked at lowest position; bed alarm engaged; side rails raised x 3; call light within reach. will continue to monitor.
--- NOTE | 2019-12-28 19:57 | NUR ---
HAND-OFF: Report given to FREEDOM METCALF [facility]. Addendum: 12/29/19 at 0726 by Haydee Nixon RN correction SUBHASH William
--- NOTE | 2019-12-28 20:00 | NUR ---
NURSE NOTES: patient remains sleeping in bed with no acute distress. medicated patient with zosyn3.375g in ns 110 ml at 27.5ml/hr and protonix 40 mg ivp. heparin subq held for pending bronchoscopy in am. repositioned for comfort.
--- NOTE | 2019-12-28 22:00 | NUR ---
NURSE NOTES: pt sleeping in bed. venturi in place 45% 3LPM; rhonchi noted; shallow labored breathing. repositioned patient for comfort. provided patient with oral care. iv intact and patent. iv fluids running as prescribed.
--- NOTE | 2019-12-28 23:00 | NUR ---
NURSE NOTES: Sputum collected with RT. Sent down to lab.
[2019-12-29] VITALS (20 sets, daily range): BP systolic 117–159; BP diastolic 79–126
--- NOTE | 2019-12-29 | NUR ---
NURSE NOTES: held feeding per md npo order. jt flushed and patent. head of bed raised per aspiration precaution protocol. repositioned patient. patient in no acute distress.
--- NOTE | 2019-12-29 01:30 | NUR ---
[facility] Downtime: On 12/29/2019 From 0130 to 0600, The following electronic documentation will be located in the patient handwritten chart, Nursing Documentation Medication Administration Records Intake and Output / IV Spreadsheet
[2019-12-29] MEDS: Piperacillin/Tazobactam 3.375 GM in NS 110 ML IVPB SCH ×3 (04:00→20:11)
--- NOTE | 2019-12-29 06:00 | NUR ---
NURSE NOTES: patient sleeping in bed with no acute distress. venturi mask in place 45% 3LPM; pt tachypneic at 30 breaths per minute; shallow respirations. repositioned for comfort; provided with extra pillow; head of bead raised. obtained daily weight; 56.8 kg.
--- NOTE | 2019-12-29 07:26 | NUR ---
HAND-OFF: Report given to joshua Hubbard. patient in stable condition. endorsed pending bronchoscopy.
--- NOTE | 2019-12-29 07:33 | NUR ---
NURSE NOTES: LATE ENTRY: RECEIVED REPORT FROM ALEX BRONSON R.N. DROWSY. LABORED BREATHING. RESPONSIVE TO SHAKING. AFIB ON MONITOR HR 98 BP 129/87, RR 26. PUPILS 4MM SLUGGISH. LT UPPER AND LOWER EXTREMITY FLACCID. SHARPE DRAINING URINE. PT VENTURI 45% 13% SATING 90%. LUNGS LT WHEEZE AND RHONCHI, RT DIMINISHED. SECRETIONS WHITE. ABDOMEN ROUND, J TUBE PRESENT, SITE REDNESS, NO DRAINAGE. SKIN -SEE ASSESSMENT, IV 22G, RT WRIST SLUGGISH. FALL AND STANDARD PRECAUTIONS IN PLACE. BED LOW AND LOCKED IN POSITION. EDUCATED PT ON PLAN OF CARE. WILL CONTINUE TO MONITOR PT.
[2019-12-29] MEDS: Heparin 5000 units/ml inj SUBQ SCH ×2 (09:00→20:34)
[2019-12-29] MEDS ORDERED: Lidocaine HCl 2% Jelly 6ml Tube TOPIC SCH (09:00)
[2019-12-29 10:03] LABS: BASOPHILS % (AUTO) 1.2 % (0.0-2.0); EOSINOPHILS % (AUTO) 3.8 % (0.0-3.0); HEMATOCRIT 40.1 % (42.0-52.0); LYMPHOCYTES % (AUTO) 13.4 % (20.0-45.0); MEAN CORPUSCULAR VOLUME 95 FL (80-99); MONOCYTES % (AUTO) 4.7 % (1.0-10.0); NEUTROPHILS % (AUTO) 76.9 % (45.0-75.0); PLATELET COUNT 431 K/UL (150-450); RED CELL DISTRIBUTION WIDTH 12.9 % (11.6-14.8); WHITE BLOOD COUNT 11.2 K/UL (4.8-10.8)
[2019-12-29 10:11] LABS: ANION GAP 6 mmol/L (5-15); BLOOD UREA NITROGEN 13 mg/dL (7-18); CALCIUM 8.8 MG/DL (8.5-10.1); CARBON DIOXIDE 33 MMOL/L (21-32); CHLORIDE 109 MMOL/L (98-107); CREATININE 0.8 MG/DL (0.55-1.30); SODIUM 148 MMOL/L (136-145)
[2019-12-29] MEDS: Pantoprazole Inj IVP SCH ×2 (10:19→20:33)
--- NOTE | 2019-12-29 10:30 | NUR ---
NURSE NOTES: LATE ENTRY: MD NUÑEZ HERE TO DO BRONCHOSCOPY ON PT. PT IN BED PREP. VSS. WILL F/U PROCEDURE WITH CXR
--- NOTE | 2019-12-29 10:58 | Nephrology Progress Note ---
Assessment/Plan Problem List: (1) Hyperkalemia (2) Right lower lobe pneumonia Assessment: with recurrent collapse of right lung (3) Hyperglycemia (4) Leukocytosis (5) Electrolyte imbalance Assessment: low K improving Assessment HyperKalemia, in view of normal renal functions, Partly hemolysis Moderate respiratory distress: CHF vs Pneumonia Tachycardia and Leukocytosis ? UTI Hyperglycemia Leukocytosis other conditions: 1. Acute CVA. 2. Sepsis and UTI. under treatment 3. Hypertension and congestive heart failure. 4. History of chronic kidney disease. 5. Failure to thrive 6. Diarrhea; resolved; C diff negative 7.s/p Hypokalemia; corrected; Plan Due bronchoscopy shortly IV fluid as needed Stable from renal stand K IV and PO as needed CXR Right lung Opacification- had bronch- need repeat bronch 12/29 per ID and pulmonary monitor renal parameters Urine tests per orders Subjective ROS Limited/Unobtainable: No Constitutional: Reports: malaise, weakness Objective Objective Last 24 Hour Vital Signs Date Time Temp Pulse Resp B/P (MAP) Pulse Ox O2 Delivery O2 Flow Rate FiO2 12/29/19 10:00 118 32 145/106 (119) 96 12/29/19 09:00 97 26 159/126 (137) 97 12/29/19 08:00 98.0 99 26 140/93 (109) 99 12/29/19 07:00 105 30 136/83 (100) 95 12/29/19 06:30 100 28 12/29/19 06:00 104 30 122/85 (97) 96 12/29/19 04:00 99 12/29/19 04:00 Venturi Mask 13.0 Venturi Mask 13.0 12/29/19 01:00 100 28 133/92 (106) 95 12/29/19 00:00 Venturi Mask 13.0 Venturi Mask 13.0 12/29/19 00:00 127 12/29/19 00:00 97 28 128/91 (103) 96 12/28/19 23:14 92 Venturi Mask 10.0 45 12/28/19 23:00 100 30 151/96 (114) 95 12/28/19 22:00 98 29 122/84 (97) 96 12/28/19 21:00 97 28 128/86 (100) 96 12/28/19 20:00 Venturi Mask 13.0 Venturi Mask 13.0 12/28/19 20:00 91 12/28/19 20:00 96 28 128/86 (100) 96 12/28/19 19:00 98.0 96 28 135/99 (111) 96 12/28/19 18:00 101 26 135/60 (85) 93 12/28/19 17:00 92 26 116/81 (93) 96 12/28/19 16:00 97.9 96 26 116/81 (93) 94 12/28/19 16:00 Venturi Mask Venturi Mask 12/28/19 16:00 100 12/28/19 15:00 98 28 118/83 (95) 93 12/28/19 14:00 99 28 114/85 (95) 92 12/28/19 13:00 100 30 122/81 (95) 93 12/28/19 12:24 97.8 104 126/80 (95) 12/28/19 12:00 93 12/28/19 12:00 Venturi Mask Venturi Mask Intake and Output 12/28/19 12/29/19 19:00 07:00 Intake Total 112.5 ml 252.50 ml Output Total 430 ml 405 ml Balance -317.5 ml -152.50 ml Intake Free Water 20 ml IV Total 82.5 ml 192.50 ml Tube Feeding 30 ml 40 ml Output Urine Total 430 ml 405 ml # Bowel Movements 5 1 Laboratory Tests 12/29/19 09:20: White Blood Count 11.2H, Red Blood Count 4.20L, Hemoglobin 13.0L, Hematocrit 40.1L, Mean Corpuscular Volume 95, Mean Corpuscular Hemoglobin 30.9, Mean Corpuscular Hemoglobin Concent 32.4, Red Cell Distribution Width 12.9, Platelet Count 431, Mean Platelet Volume 6.0L, Neutrophils (%) (Auto) 76.9H, Lymphocytes (%) (Auto) 13.4L, Monocytes (%) (Auto) 4.7, Eosinophils (%) (Auto) 3.8H, Basophils (%) (Auto) 1.2, Sodium Level 148H, Potassium Level 3.0L, Chloride Level 109H, Carbon Dioxide Level 33H, Anion Gap 6, Blood Urea Nitrogen 13, Creatinine 0.8, Estimat Glomerular Filtration Rate > 60, Glucose Level 121H, Calcium Level 8.8 Height (Feet): 5 Height (Inches): 1.00 Weight (Pounds): 125 General Appearance: mild distress Cardiovascular: tachycardia Respiratory/Chest: decreased breath sounds Abdomen: distended Objective no change Valdo Anderson MD Dec 29, 2019 10:58
--- NOTE | 2019-12-29 11:07 | Operative Note - PDOC ---
Operative Note Operative Note Date of Operation/Procedure: Dec 29, 2019 Chief Complaint: R lung atelectasis Pre-op Diagnosis: Mucus plug Procedure: DATE OF OPERATION: 12/29/2019 This is an awake bronchoscopy. INDICATIONS: Right lung collapse. PREOPERATIVE DIAGNOSIS: Right lung mucus plug. POSTOPERATIVE DIAGNOSIS: Resolution of right lung mucus plug. FINDINGS: An x-ray chest was obtained, which showed complete opacification of the right lung. Consent obtained from daughter. The patient is a DNR/DNI. PROCEDURE: After informed consent obtained from the patient's daughter, the patient was placed supine and placed on NRBM. A bronchoscope was inserted through the right naris after topical lidocaine only and no conscious sedation. Upon entering the trachea, there were copious tracheal secretions that were noted. There were immediate findings of large amount of secretions and mucous plugging noted in the right mainstem, this was suctioned copiously using saline. There were no complications. Salomón Bacon M.D. Post-op Diagnosis: same as pre-op Anesthesia: general Specimen: none Complications: none Condition: stable Fluids: see records Estimated Blood Loss: none Drains: none Implant(s) used?: No Description of Procedure DATE OF OPERATION: 12/29/2019 This is an awake bronchoscopy. INDICATIONS: Right lung collapse. PREOPERATIVE DIAGNOSIS: Right lung mucus plug. POSTOPERATIVE DIAGNOSIS: Resolution of right lung mucus plug. FINDINGS: An x-ray chest was obtained, which showed complete opacification of the right lung. Consent obtained from daughter. The patient is a DNR/DNI. PROCEDURE: After informed consent obtained from the patient's daughter, the patient was placed supine and placed on NRBM. A bronchoscope was inserted through the right naris after topical lidocaine only and no conscious sedation. Upon entering the trachea, there were copious tracheal secretions that were noted. There were immediate findings of large amount of secretions and mucous plugging noted in the right mainstem, this was suctioned copiously using saline. There were no complications. Sandro Alfaro,Salomón Lawton MD Dec 29, 2019 11:07
--- NOTE | 2019-12-29 11:08 | Pulmonology Progress Note ---
Assessment/Plan Assessment/Plan PROBLEM LIST: 1. Acute CVA. 2. Sepsis and UTI. Resolved 3. Hypertension and congestive heart failure. 4. History of chronic kidney disease. 5. Failure to thrive 6. Diarrhea; resolved; C diff negative 7. R lung opacification;recurrent; transferred to ICU; will re-bronch; will discuss with daughter PLAN: 1. S/p feeding tube placement; tube feedings resumed 2. Cardiology, neuro, and ID consultations noted. 3. I have assumed care due Insurance. 4. Surgical consultation noted due to need for open gastrostomy 5. Sent stool for c diff'; negative 6. Surgical G tube per Dr Keen/done 7. Start abx 8. TF per surgery; 9. Remains DNR and DNI; 10. Hypernatremia 11. Bronch done today Salomón Bacon M.D. Subjective Interval Events: Moved to ICU for R lung collapse Constitutional: Reports: no symptoms HEENT: Repors: no symptoms Respiratory: Reports: no symptoms, shortness of breath Cardiovascular: Reports: no symptoms Gastrointestinal/Abdominal: Reports: no symptoms Allergies: Uncoded Allergies: Green vegetables (Allergy, Unknown, 12/10/19) Objective Last 24 Hour Vital Signs Date Time Temp Pulse Resp B/P (MAP) Pulse Ox O2 Delivery O2 Flow Rate FiO2 12/29/19 10:00 118 32 145/106 (119) 96 12/29/19 09:00 97 26 159/126 (137) 97 12/29/19 08:00 98.0 99 26 140/93 (109) 99 12/29/19 07:00 105 30 136/83 (100) 95 12/29/19 06:30 100 28 12/29/19 06:00 104 30 122/85 (97) 96 12/29/19 04:00 99 12/29/19 04:00 Venturi Mask 13.0 Venturi Mask 13.0 12/29/19 01:00 100 28 133/92 (106) 95 12/29/19 00:00 Venturi Mask 13.0 Venturi Mask 13.0 12/29/19 00:00 127 12/29/19 00:00 97 28 128/91 (103) 96 12/28/19 23:14 92 Venturi Mask 10.0 45 12/28/19 23:00 100 30 151/96 (114) 95 12/28/19 22:00 98 29 122/84 (97) 96 12/28/19 21:00 97 28 128/86 (100) 96 12/28/19 20:00 Venturi Mask 13.0 Venturi Mask 13.0 12/28/19 20:00 91 12/28/19 20:00 96 28 128/86 (100) 96 12/28/19 19:00 98.0 96 28 135/99 (111) 96 12/28/19 18:00 101 26 135/60 (85) 93 12/28/19 17:00 92 26 116/81 (93) 96 12/28/19 16:00 97.9 96 26 116/81 (93) 94 12/28/19 16:00 Venturi Mask Venturi Mask 12/28/19 16:00 100 12/28/19 15:00 98 28 118/83 (95) 93 12/28/19 14:00 99 28 114/85 (95) 92 12/28/19 13:00 100 30 122/81 (95) 93 12/28/19 12:24 97.8 104 126/80 (95) 12/28/19 12:00 93 12/28/19 12:00 Venturi Mask Venturi Mask Intake and Output 12/28/19 12/29/19 19:00 07:00 Intake Total 112.5 ml 252.50 ml Output Total 430 ml 405 ml Balance -317.5 ml -152.50 ml Intake Free Water 20 ml IV Total 82.5 ml 192.50 ml Tube Feeding 30 ml 40 ml Output Urine Total 430 ml 405 ml # Bowel Movements 5 1 General Appearance: no acute distress HEENT: normocephalic Respiratory/Chest: chest wall non-tender, decreased breath sounds Cardiovascular: normal peripheral pulses, normal rate Abdomen: normal bowel sounds Laboratory Tests 12/29/19 09:20: White Blood Count 11.2H, Red Blood Count 4.20L, Hemoglobin 13.0L, Hematocrit 40.1L, Mean Corpuscular Volume 95, Mean Corpuscular Hemoglobin 30.9, Mean Corpuscular Hemoglobin Concent 32.4, Red Cell Distribution Width 12.9, Platelet Count 431, Mean Platelet Volume 6.0L, Neutrophils (%) (Auto) 76.9H, Lymphocytes (%) (Auto) 13.4L, Monocytes (%) (Auto) 4.7, Eosinophils (%) (Auto) 3.8H, Basophils (%) (Auto) 1.2, Sodium Level 148H, Potassium Level 3.0L, Chloride Level 109H, Carbon Dioxide Level 33H, Anion Gap 6, Blood Urea Nitrogen 13, Creatinine 0.8, Estimat Glomerular Filtration Rate > 60, Glucose Level 121H, Calcium Level 8.8 Current Medications Medications (Trade) Dose Ordered Sig/Leandra Route PRN Reason Start Time Stop Time Status Last Admin Dose Admin Acetaminophen (Tylenol) 650 mg Q4H PRN RECTAL FEVER 12/28/19 12:00 01/19/20 11:59 Heparin Sodium (Porcine) (Heparin 5000 units/ml) 5,000 units EVERY 12 HOURS SUBQ 12/28/19 21:00 01/09/20 08:59 Lidocaine HCl (Xylocaine Jelly 2%) 1 applic ONCE TOPIC 12/29/19 09:00 12/29/19 23:59 12/29/19 10:21 Loperamide HCl (Imodium) 1 mg BIDPRN PRN NG Diarrhea 12/28/19 12:00 01/27/20 11:59 Metoclopramide HCl (Reglan) 10 mg Q6H PRN IVP Nausea & Vomiting 12/28/19 12:00 01/19/20 11:59 Pantoprazole (Protonix) 40 mg Q12HR IVP 12/28/19 21:00 01/09/20 08:59 12/29/19 10:19 Piperacillin Sod/ Tazobactam Sod 3.375 gm/Sodium Chloride 110 ml @ 27.5 mls/hr Q8H IVPB 12/28/19 12:00 01/04/20 11:59 12/29/19 04:00 Potassium Chloride 100 ml @ 100 mls/hr Q1H IVPB 12/29/19 11:30 12/29/19 15:29 Potassium Chloride (K-Dur) 20 meq TWICE A DAY GT 12/28/19 18:00 01/22/20 11:29 12/28/19 18:29 Sodium Chloride 400 ml @ 100 mls/hr Q4H IV 12/29/19 11:30 12/29/19 15:29 Salomón Bacon MD Dec 29, 2019 11:08
[2019-12-29] MEDS ORDERED: Sodium Chloride for KCL Premix X 4hrs IV SCH (11:30)
--- NOTE | 2019-12-29 11:40 | NUR ---
NURSE NOTES: LATE ENTRY: PROCEDURE COMPLETE VS: HR 100, BP 126/89, RR 25. BREATH SOUNDS RHONCHI, LESS LABORED. MINIMAL SECRETIONS. PT IN HIGH FOWLERS. W/ NON REBREATHER 100%. WILL CONTINUE TO MONITOR PT.
--- NOTE | 2019-12-29 12:13 | NUR ---
NURSE NOTES: MD NUÑEZ HERE TO CHECK UP ON PT. WAITING FOR F/U CXR. RECEIVED ORDER FOR MUCOMYST Q 6HHN
[2019-12-29] MEDS: Acetylcysteine 20% Soln 4ml HHN SCH (13:00)
--- NOTE | 2019-12-29 15:06 | Diagnostic Imaging Report ---
EXAM: XR Chest, 1 View CLINICAL HISTORY: F/U TECHNIQUE: Frontal view of the chest. COMPARISON: Chest radiograph on 12/28/2019 FINDINGS: Hardware: None. Lungs/pleura: Decreased opacification of the right lung with persistent opacity in the mid and lower right lung. Similar to slightly increased left mid and lower lung opacity. Heart/mediastinum: Mild enlargement of the cardiac silhouette. Atherosclerotic calcifications of the aorta. Soft tissues: Unremarkable. Bones: No acute fracture. Degenerative changes of the spine. Upper abdomen: Normal. IMPRESSION: Decreased opacification of the right lung with persistent opacity in the mid and lower right lung. Similar to slightly increased left mid and lower lung opacity. Findings may represent right greater than left pleural effusions with atelectasis versus pneumonia. Possible pulmonary edema.
--- NOTE | 2019-12-29 15:21 | General Progress Note ---
Assessment/Plan Status: stable Assessment/Plan: Assessment - dysphagia - s/p open surgical j tube - respiratory distress - improved leukocytosis - s/p past distal gastrectomy with Moncho II Recommendations - follow exam - abx - Reglan - repeat KUB - surgical f/u - Elevated HOB Subjective Allergies: Uncoded Allergies: Green vegetables (Allergy, Unknown, 12/10/19) Subjective confused NAD in ICU Objective Last 24 Hour Vital Signs Date Time Temp Pulse Resp B/P (MAP) Pulse Ox O2 Delivery O2 Flow Rate FiO2 12/29/19 12:00 Venturi Mask 13.0 Venturi Mask 13.0 12/29/19 10:00 118 32 145/106 (119) 96 12/29/19 09:30 100 Non-Rebreather 15.0 100 12/29/19 09:00 97 26 159/126 (137) 97 12/29/19 08:00 Venturi Mask 13.0 Venturi Mask 13.0 12/29/19 08:00 98.0 99 26 140/93 (109) 99 12/29/19 07:00 105 30 136/83 (100) 95 12/29/19 06:30 100 28 12/29/19 06:00 104 30 122/85 (97) 96 12/29/19 04:00 99 12/29/19 04:00 Venturi Mask 13.0 Venturi Mask 13.0 12/29/19 01:00 100 28 133/92 (106) 95 12/29/19 00:00 Venturi Mask 13.0 Venturi Mask 13.0 12/29/19 00:00 127 12/29/19 00:00 97 28 128/91 (103) 96 12/28/19 23:14 92 Venturi Mask 10.0 45 12/28/19 23:00 100 30 151/96 (114) 95 12/28/19 22:00 98 29 122/84 (97) 96 12/28/19 21:00 97 28 128/86 (100) 96 12/28/19 20:00 Venturi Mask 13.0 Venturi Mask 13.0 12/28/19 20:00 91 12/28/19 20:00 96 28 128/86 (100) 96 12/28/19 19:00 98.0 96 28 135/99 (111) 96 12/28/19 18:00 101 26 135/60 (85) 93 12/28/19 17:00 92 26 116/81 (93) 96 12/28/19 16:00 97.9 96 26 116/81 (93) 94 12/28/19 16:00 Venturi Mask Venturi Mask 12/28/19 16:00 100 Intake and Output 12/28/19 12/29/19 19:00 07:00 Intake Total 112.5 ml 252.50 ml Output Total 430 ml 405 ml Balance -317.5 ml -152.50 ml Intake Free Water 20 ml IV Total 82.5 ml 192.50 ml Tube Feeding 30 ml 40 ml Output Urine Total 430 ml 405 ml # Bowel Movements 5 1 Laboratory Tests 12/29/19 09:20: White Blood Count 11.2H, Red Blood Count 4.20L, Hemoglobin 13.0L, Hematocrit 40.1L, Mean Corpuscular Volume 95, Mean Corpuscular Hemoglobin 30.9, Mean Corpuscular Hemoglobin Concent 32.4, Red Cell Distribution Width 12.9, Platelet Count 431, Mean Platelet Volume 6.0L, Neutrophils (%) (Auto) 76.9H, Lymphocytes (%) (Auto) 13.4L, Monocytes (%) (Auto) 4.7, Eosinophils (%) (Auto) 3.8H, Basophils (%) (Auto) 1.2, Sodium Level 148H, Potassium Level 3.0L, Chloride Level 109H, Carbon Dioxide Level 33H, Anion Gap 6, Blood Urea Nitrogen 13, Creatinine 0.8, Estimat Glomerular Filtration Rate > 60, Glucose Level 121H, Calcium Level 8.8 Height (Feet): 5 Height (Inches): 1.00 Weight (Pounds): 125 Objective eldely WM NCAT supple CTA RR abd soft ND, (+) J tube - clogged no edema OBS Paul Matute MD Dec 29, 2019 15:21
[2019-12-29] MEDS ORDERED: Tubing IV Secondary IV ONE (15:58)
[2019-12-29] MEDS ORDERED: NS 500ML ONE (15:58)
--- NOTE | 2019-12-29 16:00 | NUR ---
NURSE NOTES: LATE ENTRY: FLAT EFFECT. LABORED BREATHING. AFIB ON MONITOR HR 98, BP 128/85, RR 24. PT HAD ONE DIAHRREA STOOL. PT CLEANED AND REPOSITIONED. ORAL CARE PROVIDED. SHARPE DRAINING URINE. PT VENTURI 45% 13% SATING 90%. LUNGS LT WHEEZE AND RHONCHI, RT DIMINISHED. SECRETIONS WHITE. J TUBE PRESENT, SITE REDNESS, NO DRAINAGE. FALL AND STANDARD PRECAUTIONS IN PLACE. BED LOW AND LOCKED IN POSITION. WILL CONTINUE TO MONITOR PT.
--- NOTE | 2019-12-29 19:00 | NUR ---
HAND-OFF: Report given to ANTHONY CULLEN. PT IN NO ACUTE DISTRESS. CALLED MD BAILEY WITH CXR RESULTS, AWAITING CALL BACK.
--- NOTE | 2019-12-29 20:00 | NUR ---
NURSE NOTES: Received pt in no acute distress, awake, alert but confused, non verbal.Moves right upper extremity purposefully but doesn't attempt to pull IV's out. Lying on high clement's, denies pain, but appears slightly short of breath on minimal exertion. On 45%VM saturating 93-96%. Chest sounds with scattered rhonchi RR 28-32. JT intact, TF with Glucerna 1.2 infuses at 10ml/h. Afebrile, Afib on the monitor, BP stable. PIV site on RFA patent, HL on Left hand intact. FC patent, draining sl cloudy urine. Sacral wound dressing dry and intact. Awaiting response from Dr Bacon, re: CXR result post bronch
--- NOTE | 2019-12-29 22:00 | NUR ---
NURSE NOTES: Awake but calm. HOB elevated. Continues on 45% VM, O2 sats 93-96%, chest sounds with scattered crackles. Oral suctioning done, obtained thick white sputum.
[2019-12-30] VITALS (24 sets, daily range): BP systolic 106–155; BP diastolic 69–105
--- NOTE | 2019-12-30 | NUR ---
NURSE NOTES: Afebrile, asleep, still on Afib. No distress otherwise
[2019-12-30] MEDS: Acetylcysteine 20% Soln 4ml HHN SCH ×4 (01:00→19:00)
--- NOTE | 2019-12-30 02:00 | NUR ---
NURSE NOTES: sleeping, no distress. TF continues at 10ml/h. No bloating, no nausea, no vomiting, no BM
[2019-12-30] MEDS: Piperacillin/Tazobactam 3.375 GM in NS 110 ML IVPB SCH ×3 (03:33→20:15)
--- NOTE | 2019-12-30 04:00 | NUR ---
NURSE NOTES: Complete bed bath done. Replaced optifoam on sacral area. No BM. Redressed JT exit site. Afebrile. Remains on Afib. IV site on RFA redressed
--- NOTE | 2019-12-30 07:21 | NUR ---
HAND-OFF: Report given to Silvano Campbell RN.
--- NOTE | 2019-12-30 07:22 | NUR ---
NURSE NOTES: Late entry: PT and report received from SUBHASH Guevara; PT received with open eyes doesn't follow staff confused passive; received with state assessed properties director showing a-fib, reported that PT is chronic a-fib; received on venturi 45% saturating at 96% bilateral lungs diminished, PT has JT feeding of glucerna @ 10cc/hr at goal no residual noted during drawback; hirsch intact patent draining at lowest position; PT has R-forearm 20g TKO upon receiving; PT is on p200 mattress, has SCD bilaterally for DVT prevention, will continue to monitor PT.
[2019-12-30 07:34] LABS: BASOPHILS % (AUTO) 0.7 % (0.0-2.0); HEMATOCRIT 39.1 % (42.0-52.0); HEMOGLOBIN 12.9 G/DL (14.2-18.0); LYMPHOCYTES % (AUTO) 14.1 % (20.0-45.0); MEAN CORPUSCULAR VOLUME 96 FL (80-99); MONOCYTES % (AUTO) 4.4 % (1.0-10.0); NEUTROPHILS % (AUTO) 76.8 % (45.0-75.0); PLATELET COUNT 447 K/UL (150-450); RED BLOOD COUNT 4.06 M/UL (4.70-6.10); RED CELL DISTRIBUTION WIDTH 12.8 % (11.6-14.8); WHITE BLOOD COUNT 10.1 K/UL (4.8-10.8)
[2019-12-30 08:25] LABS: ALANINE AMINOTRANSFERASE 23 U/L (12-78); ALBUMIN 1.7 G/DL (3.4-5.0); ALBUMIN/GLOBULIN RATIO 0.3 (1.0-2.7); ALKALINE PHOSPHATASE 130 U/L (46-116); ANION GAP 12 mmol/L (5-15); ASPARTATE AMINO TRANSFERASE 28 U/L (15-37); BILIRUBIN,TOTAL 0.6 MG/DL (0.2-1.0); BLOOD UREA NITROGEN 10 mg/dL (7-18); CALCIUM 8.8 MG/DL (8.5-10.1); CARBON DIOXIDE 28 MMOL/L (21-32); CHLORIDE 108 MMOL/L (98-107); CREATININE 0.8 MG/DL (0.55-1.30); PHOSPHORUS 2.4 MG/DL (2.5-4.9); POTASSIUM 3.6 MMOL/L (3.5-5.1); SODIUM 148 MMOL/L (136-145)
[2019-12-30] MEDS: Pantoprazole Inj IVP SCH ×2 (09:13→21:02)
[2019-12-30] MEDS: Heparin 5000 units/ml inj SUBQ SCH ×2 (09:14→21:03)
--- NOTE | 2019-12-30 10:00 | NUR ---
NURSE NOTES: PT VS stable, remains a-fib, PIV on R-forearm intact, patent, will continue to monitor PT.
[2019-12-30] MEDS ORDERED: NS 275ml ONE ×2 (10:24→10:32)
--- NOTE | 2019-12-30 10:28 | NUR ---
RD ASSESSMENT & RECOMMENDATIONS SEE CARE ACTIVITY FOR COMPLETE ASSESSMENT DAILY ESTIMATED NEEDS: Needs based on Underweight, cardiac/ 49kg 30-35 kcals/kg 7695-0427 total kcals 1-1.5 g protein/kg 49-74 g total protein 25-30 mL/kg 4491-5422 total fluid mLs NUTRITION DIAGNOSIS: * Swallowing difficulty R/T dysphagia, s/p acute CVA as evidenced by s/p MBSS w/ rec for nonoral feeds, s/p surgical PEJ placement. * Increased kcal/prot needs R/T wound healing as evidenced by pt w/ non-blanchable erythema @ BL heels. CURRENT DIET:NPO CURRENT TF: Glucerna 1.2 @ 10ml/hr x 24 hrs ENTERAL NUTRITION RECOMMENDATIONS: Glucerna 1.2 @ 55ml/hr x 24 hrs to provide 1320ml, 1584kcal, 79g prot, 1063ml free water -> As able, increase slowly to goal rate -> advance 10ml q 4-6 hrs as tolerated to goal rate -> HOB over 30 degrees/ water flush per MD ADDITIONAL RECOMMENDATIONS: * Calibrated bedscale wt for accurate CBW * Monitor tolerance to Glucerna 1.2, increase goal rate as able * Rec NISS w/ continuous TF's. * Check A1C and lipid panel: Lipid panel wnl; A1C 6.0 pre DM * Monitor lytes, replete as needed * Wound healing: add MVI x 1, Vit C 250mg QD Cezar BID once TF well tolerated @ goal
[2019-12-30] MEDS ORDERED: Tubing IV Secondary IV ONE (10:32)
--- NOTE | 2019-12-30 10:43 | Nephrology Progress Note ---
Assessment/Plan Problem List: (1) Hyperkalemia (2) Right lower lobe pneumonia Assessment: with recurrent collapse of right lung (3) Hyperglycemia (4) Leukocytosis (5) Electrolyte imbalance Assessment: low K improving Assessment HyperKalemia, in view of normal renal functions, Partly hemolysis Moderate respiratory distress: CHF vs Pneumonia Tachycardia and Leukocytosis ? UTI Hyperglycemia Leukocytosis other conditions: 1. Acute CVA. 2. Sepsis and UTI. under treatment 3. Hypertension and congestive heart failure. 4. History of chronic kidney disease. 5. Failure to thrive 6. Diarrhea; resolved; C diff negative 7.s/p Hypokalemia; corrected; Plan CRP lowering had bronchoscopy 12/29 IV fluid as needed Stable from renal stand K , Mag , Phos supplement as needed CXR Right lung Opacification- had bronch- need repeat bronch 12/29 per ID and pulmonary monitor renal parameters Urine tests per orders Subjective ROS Limited/Unobtainable: Yes Objective Objective Last 24 Hour Vital Signs Date Time Temp Pulse Resp B/P (MAP) Pulse Ox O2 Delivery O2 Flow Rate FiO2 12/30/19 08:00 Venturi Mask 13.0 Venturi Mask 13.0 12/30/19 08:00 97.1 88 25 147/105 (119) 93 12/30/19 07:00 97 24 129/84 (99) 95 12/30/19 06:00 102 23 140/95 (110) 97 12/30/19 05:00 111 29 123/89 (100) 93 12/30/19 04:00 97.7 124 31 155/100 (118) 93 12/30/19 04:00 Venturi Mask 13.0 Venturi Mask 13.0 12/30/19 04:00 124 12/30/19 03:00 97 26 117/85 (96) 95 12/30/19 02:00 100 26 125/86 (99) 97 12/30/19 01:00 108 31 127/90 (102) 94 12/30/19 00:00 Venturi Mask 13.0 Venturi Mask 13.0 12/30/19 00:00 109 12/30/19 00:00 97.8 109 28 134/97 (109) 94 12/29/19 23:00 107 30 128/89 (102) 94 12/29/19 22:00 99 26 117/79 (92) 93 12/29/19 21:00 115 30 119/82 (94) 94 12/29/19 20:00 98.1 114 32 119/83 (95) 96 12/29/19 20:00 Venturi Mask 13.0 Venturi Mask 13.0 12/29/19 20:00 116 12/29/19 19:00 104 28 120/94 (103) 96 12/29/19 18:00 111 27 120/80 (93) 96 12/29/19 17:00 111 27 128/85 (99) 96 12/29/19 16:00 93 12/29/19 16:00 98.8 98 24 128/85 (99) 100 12/29/19 16:00 Venturi Mask 13.0 Venturi Mask 13.0 12/29/19 15:00 102 25 130/92 (105) 100 12/29/19 14:00 100 24 118/83 (95) 100 12/29/19 13:00 93 23 124/87 (99) 100 12/29/19 12:00 98.3 95 24 123/88 (100) 100 12/29/19 12:00 104 12/29/19 12:00 Venturi Mask 13.0 Venturi Mask 13.0 12/29/19 11:00 100 25 126/89 (101) 100 Intake and Output 12/29/19 12/30/19 19:00 07:00 Intake Total 960.0 ml 312.5 ml Output Total 525 ml 900 ml Balance 435.0 ml -587.5 ml IV Total 910.0 ml 192.5 ml Tube Feeding 50 ml 120 ml Output Urine Total 525 ml 900 ml # Bowel Movements 4 Laboratory Tests 12/30/19 05:25: White Blood Count 10.1, Red Blood Count 4.06L, Hemoglobin 12.9L, Hematocrit 39.1L, Mean Corpuscular Volume 96, Mean Corpuscular Hemoglobin 31.8H, Mean Corpuscular Hemoglobin Concent 33.0, Red Cell Distribution Width 12.8, Platelet Count 447, Mean Platelet Volume 6.1L, Neutrophils (%) (Auto) 76.8H, Lymphocytes (%) (Auto) 14.1L, Monocytes (%) (Auto) 4.4, Eosinophils (%) (Auto) 4.0H, Basophils (%) (Auto) 0.7, Sodium Level 148H, Potassium Level 3.6, Chloride Level 108H, Carbon Dioxide Level 28, Anion Gap 12, Blood Urea Nitrogen 10, Creatinine 0.8, Estimat Glomerular Filtration Rate > 60, Glucose Level 113H, Uric Acid 3.2, Calcium Level 8.8, Phosphorus Level 2.4L, Magnesium Level 1.7L, Total Bilirubin 0.6, Aspartate Amino Transf (AST/SGOT) 28, Alanine Aminotransferase (ALT/SGPT) 23, Alkaline Phosphatase 130H, Troponin I 0.035, C- Reactive Protein, Quantitative 4.5H, Pro-B-Type Natriuretic Peptide 9355H, Total Protein 6.6, Albumin 1.7L, Globulin 4.9, Albumin/Globulin Ratio 0.3L 12/30/19 08:50: Arterial Blood pH 7.416, Arterial Blood Partial Pressure CO2 55.1*H, Arterial Blood Partial Pressure O2 58.2L, Arterial Blood HCO3 34.6H, Arterial Blood Oxygen Saturation 90.5L, Arterial Blood Base Excess 8.3H, Alan Test Positive Height (Feet): 5 Height (Inches): 1.00 Weight (Pounds): 96 General Appearance: no apparent distress, lethargic Cardiovascular: tachycardia Respiratory/Chest: decreased breath sounds Abdomen: soft Objective no change Valdo Anderson MD Dec 30, 2019 10:43
--- NOTE | 2019-12-30 11:00 | Infectious Diseases Prog Note ---
Assessment/Plan Assessment/Plan A; Sepsis Pneumonia UTI Right MCA CVA HPN Sacral pressure ulcer s/p J tube placement P: Continue Zosyn Will f/u sputum culture Subjective ROS Limited/Unobtainable: Yes Constitutional: Denies: fever Allergies: Uncoded Allergies: Green vegetables (Allergy, Unknown, 12/10/19) Objective Vital Signs Last 24 Hour Vital Signs Date Time Temp Pulse Resp B/P (MAP) Pulse Ox O2 Delivery O2 Flow Rate FiO2 12/30/19 08:00 Venturi Mask 13.0 Venturi Mask 13.0 12/30/19 08:00 97.1 88 25 147/105 (119) 93 12/30/19 07:00 97 24 129/84 (99) 95 12/30/19 06:00 102 23 140/95 (110) 97 12/30/19 05:00 111 29 123/89 (100) 93 12/30/19 04:00 97.7 124 31 155/100 (118) 93 12/30/19 04:00 Venturi Mask 13.0 Venturi Mask 13.0 12/30/19 04:00 124 12/30/19 03:00 97 26 117/85 (96) 95 12/30/19 02:00 100 26 125/86 (99) 97 12/30/19 01:00 108 31 127/90 (102) 94 12/30/19 00:00 Venturi Mask 13.0 Venturi Mask 13.0 12/30/19 00:00 109 12/30/19 00:00 97.8 109 28 134/97 (109) 94 12/29/19 23:00 107 30 128/89 (102) 94 12/29/19 22:00 99 26 117/79 (92) 93 12/29/19 21:00 115 30 119/82 (94) 94 12/29/19 20:00 98.1 114 32 119/83 (95) 96 12/29/19 20:00 Venturi Mask 13.0 Venturi Mask 13.0 12/29/19 20:00 116 12/29/19 19:00 104 28 120/94 (103) 96 12/29/19 18:00 111 27 120/80 (93) 96 12/29/19 17:00 111 27 128/85 (99) 96 12/29/19 16:00 93 12/29/19 16:00 98.8 98 24 128/85 (99) 100 12/29/19 16:00 Venturi Mask 13.0 Venturi Mask 13.0 12/29/19 15:00 102 25 130/92 (105) 100 12/29/19 14:00 100 24 118/83 (95) 100 12/29/19 13:00 93 23 124/87 (99) 100 12/29/19 12:00 98.3 95 24 123/88 (100) 100 12/29/19 12:00 104 12/29/19 12:00 Venturi Mask 13.0 Venturi Mask 13.0 12/29/19 11:00 100 25 126/89 (101) 100 Height (Feet): 5 Height (Inches): 1.00 Weight (Pounds): 96 General Appearance: no acute distress HEENT: mucous membranes moist Respiratory/Chest: lungs clear, other - oxygen by mask Cardiovascular: normal rate Abdomen: soft, non tender Extremities: no edema Neurologic/Psychiatric: other - sleeping Microbiology Date/Time Source Procedure Growth Status 12/29/19 15:20 Sputum Expectorated Gram Stain - Final Resulted 12/29/19 15:20 Sputum Expectorated Sputum Culture Pending Resulted 12/28/19 23:00 Sputum Gram Stain - Final Resulted 12/28/19 23:00 Sputum Sputum Culture Pending Resulted Laboratory Tests Test 12/30/19 05:25 12/30/19 08:50 White Blood Count 10.1 K/UL (4.8-10.8) Red Blood Count 4.06 M/UL (4.70-6.10) L Hemoglobin 12.9 G/DL (14.2-18.0) L Hematocrit 39.1 % (42.0-52.0) L Mean Corpuscular Volume 96 FL (80-99) Mean Corpuscular Hemoglobin 31.8 PG (27.0-31.0) H Mean Corpuscular Hemoglobin Concent 33.0 G/DL (32.0-36.0) Red Cell Distribution Width 12.8 % (11.6-14.8) Platelet Count 447 K/UL (150-450) Mean Platelet Volume 6.1 FL (6.5-10.1) L Neutrophils (%) (Auto) 76.8 % (45.0-75.0) H Lymphocytes (%) (Auto) 14.1 % (20.0-45.0) L Monocytes (%) (Auto) 4.4 % (1.0-10.0) Eosinophils (%) (Auto) 4.0 % (0.0-3.0) H Basophils (%) (Auto) 0.7 % (0.0-2.0) Sodium Level 148 MMOL/L (136-145) H Potassium Level 3.6 MMOL/L (3.5-5.1) Chloride Level 108 MMOL/L (98-107) H Carbon Dioxide Level 28 MMOL/L (21-32) Anion Gap 12 mmol/L (5-15) Blood Urea Nitrogen 10 mg/dL (7-18) Creatinine 0.8 MG/DL (0.55-1.30) Estimat Glomerular Filtration Rate > 60 mL/min (>60) Glucose Level 113 MG/DL (74-106) H Uric Acid 3.2 MG/DL (2.6-7.2) Calcium Level 8.8 MG/DL (8.5-10.1) Phosphorus Level 2.4 MG/DL (2.5-4.9) L Magnesium Level 1.7 MG/DL (1.8-2.4) L Total Bilirubin 0.6 MG/DL (0.2-1.0) Aspartate Amino Transf (AST/SGOT) 28 U/L (15-37) Alanine Aminotransferase (ALT/SGPT) 23 U/L (12-78) Alkaline Phosphatase 130 U/L (46-116) H Troponin I 0.035 ng/mL (0.000-0.056) C-Reactive Protein, Quantitative 4.5 mg/dL (0.00-0.90) H Pro-B-Type Natriuretic Peptide 9355 pg/mL (0-125) H Total Protein 6.6 G/DL (6.4-8.2) Albumin 1.7 G/DL (3.4-5.0) L Globulin 4.9 g/dL Albumin/Globulin Ratio 0.3 (1.0-2.7) L Arterial Blood pH 7.416 (7.350-7.450) Arterial Blood Partial Pressure CO2 55.1 mmHg (35.0-45.0) *H Arterial Blood Partial Pressure O2 58.2 mmHg (75.0-100.0) L Arterial Blood HCO3 34.6 mmol/L (22.0-26.0) H Arterial Blood Oxygen Saturation 90.5 % (95-100) L Arterial Blood Base Excess 8.3 (-2-2) H Alan Test Positive Current Medications Medications (Trade) Dose Ordered Sig/Leandra Route PRN Reason Start Time Stop Time Status Last Admin Dose Admin Acetaminophen (Tylenol) 650 mg Q4H PRN RECTAL FEVER 12/28/19 12:00 01/19/20 11:59 Acetylcysteine (Mucomyst) 200 mg Q6HRT HHN 12/29/19 13:00 01/28/20 12:59 Heparin Sodium (Porcine) (Heparin 5000 units/ml) 5,000 units EVERY 12 HOURS SUBQ 12/28/19 21:00 01/09/20 08:59 12/30/19 09:14 Loperamide HCl (Imodium) 1 mg BIDPRN PRN NG Diarrhea 12/28/19 12:00 01/27/20 11:59 Magnesium Sulfate 100 ml @ 100 mls/hr Q1H IVPB 12/30/19 11:00 12/30/19 12:59 Metoclopramide HCl (Reglan) 10 mg Q6H PRN IVP Nausea & Vomiting 12/28/19 12:00 01/19/20 11:59 Pantoprazole (Protonix) 40 mg Q12HR IVP 12/28/19 21:00 01/09/20 08:59 12/30/19 09:13 Piperacillin Sod/ Tazobactam Sod 3.375 gm/Sodium Chloride 110 ml @ 27.5 mls/hr Q8H IVPB 12/28/19 12:00 01/04/20 11:59 12/30/19 03:33 Potassium Phosphate 20 mm/ Sodium Chloride 281.6667 ml @ 46.944 m... ONCE ONCE IV 12/30/19 12:00 12/30/19 17:59 Potassium Chloride (K-Dur) 20 meq TWICE A DAY GT 12/28/19 18:00 01/22/20 11:29 12/30/19 09:13 Yobani Rosa MD Dec 30, 2019 11:00
--- NOTE | 2019-12-30 11:05 | General Progress Note ---
Assessment/Plan Status: stable Assessment/Plan: Assessment - dysphagia - s/p open surgical j tube - respiratory distress - improved leukocytosis - s/p past distal gastrectomy with Moncho II Recommendations - follow exam - abx - Reglan - repeat KUB - TF per surgery - J tube flushes q 4 hours - Elevated HOB Subjective Allergies: Uncoded Allergies: Green vegetables (Allergy, Unknown, 12/10/19) Subjective confused NAD in ICU J tube flush orders given to RN Objective Last 24 Hour Vital Signs Date Time Temp Pulse Resp B/P (MAP) Pulse Ox O2 Delivery O2 Flow Rate FiO2 12/30/19 08:00 Venturi Mask 13.0 Venturi Mask 13.0 12/30/19 08:00 97.1 88 25 147/105 (119) 93 12/30/19 07:00 97 24 129/84 (99) 95 12/30/19 06:00 102 23 140/95 (110) 97 12/30/19 05:00 111 29 123/89 (100) 93 12/30/19 04:00 97.7 124 31 155/100 (118) 93 12/30/19 04:00 Venturi Mask 13.0 Venturi Mask 13.0 12/30/19 04:00 124 12/30/19 03:00 97 26 117/85 (96) 95 12/30/19 02:00 100 26 125/86 (99) 97 12/30/19 01:00 108 31 127/90 (102) 94 12/30/19 00:00 Venturi Mask 13.0 Venturi Mask 13.0 12/30/19 00:00 109 12/30/19 00:00 97.8 109 28 134/97 (109) 94 12/29/19 23:00 107 30 128/89 (102) 94 12/29/19 22:00 99 26 117/79 (92) 93 12/29/19 21:00 115 30 119/82 (94) 94 12/29/19 20:00 98.1 114 32 119/83 (95) 96 12/29/19 20:00 Venturi Mask 13.0 Venturi Mask 13.0 12/29/19 20:00 116 12/29/19 19:00 104 28 120/94 (103) 96 12/29/19 18:00 111 27 120/80 (93) 96 12/29/19 17:00 111 27 128/85 (99) 96 12/29/19 16:00 93 12/29/19 16:00 98.8 98 24 128/85 (99) 100 12/29/19 16:00 Venturi Mask 13.0 Venturi Mask 13.0 12/29/19 15:00 102 25 130/92 (105) 100 12/29/19 14:00 100 24 118/83 (95) 100 12/29/19 13:00 93 23 124/87 (99) 100 12/29/19 12:00 98.3 95 24 123/88 (100) 100 12/29/19 12:00 104 12/29/19 12:00 Venturi Mask 13.0 Venturi Mask 13.0 Intake and Output 12/29/19 12/30/19 19:00 07:00 Intake Total 960.0 ml 312.5 ml Output Total 525 ml 900 ml Balance 435.0 ml -587.5 ml IV Total 910.0 ml 192.5 ml Tube Feeding 50 ml 120 ml Output Urine Total 525 ml 900 ml # Bowel Movements 4 Laboratory Tests 12/30/19 05:25: White Blood Count 10.1, Red Blood Count 4.06L, Hemoglobin 12.9L, Hematocrit 39.1L, Mean Corpuscular Volume 96, Mean Corpuscular Hemoglobin 31.8H, Mean Corpuscular Hemoglobin Concent 33.0, Red Cell Distribution Width 12.8, Platelet Count 447, Mean Platelet Volume 6.1L, Neutrophils (%) (Auto) 76.8H, Lymphocytes (%) (Auto) 14.1L, Monocytes (%) (Auto) 4.4, Eosinophils (%) (Auto) 4.0H, Basophils (%) (Auto) 0.7, Sodium Level 148H, Potassium Level 3.6, Chloride Level 108H, Carbon Dioxide Level 28, Anion Gap 12, Blood Urea Nitrogen 10, Creatinine 0.8, Estimat Glomerular Filtration Rate > 60, Glucose Level 113H, Uric Acid 3.2, Calcium Level 8.8, Phosphorus Level 2.4L, Magnesium Level 1.7L, Total Bilirubin 0.6, Aspartate Amino Transf (AST/SGOT) 28, Alanine Aminotransferase (ALT/SGPT) 23, Alkaline Phosphatase 130H, Troponin I 0.035, C- Reactive Protein, Quantitative 4.5H, Pro-B-Type Natriuretic Peptide 9355H, Total Protein 6.6, Albumin 1.7L, Globulin 4.9, Albumin/Globulin Ratio 0.3L 12/30/19 08:50: Arterial Blood pH 7.416, Arterial Blood Partial Pressure CO2 55.1*H, Arterial Blood Partial Pressure O2 58.2L, Arterial Blood HCO3 34.6H, Arterial Blood Oxygen Saturation 90.5L, Arterial Blood Base Excess 8.3H, Alan Test Positive Height (Feet): 5 Height (Inches): 1.00 Weight (Pounds): 96 Objective eldely WM NCAT supple CTA RR abd soft ND, (+) J tube no edema OBS Paul Matute MD Dec 30, 2019 11:05
--- NOTE | 2019-12-30 11:58 | Pulmonology Progress Note ---
Assessment/Plan Assessment/Plan PROBLEM LIST: 1. Acute CVA. 2. Sepsis and UTI. Resolved 3. Hypertension and congestive heart failure. 4. History of chronic kidney disease. 5. Failure to thrive 6. Diarrhea; resolved; C diff negative 7. R lung opacification;recurrent; transferred to ICU; s/p re-bronch; will discuss with daughter PLAN: 1. S/p feeding tube placement; tube feedings resumed 2. Cardiology, neuro, and ID consultations noted. 3. I have assumed care due Insurance. 4. Surgical consultation noted due to need for open gastrostomy 5. Sent stool for c diff'; negative 6. Surgical G tube per Dr Keen/done 7. Start abx 8. TF per surgery; 9. Remains DNR and DNI; 10. Hypernatremia 11. Bronch done yesterday Salomón Bacon M.D. Subjective Interval Events: Looking better Constitutional: Reports: no symptoms HEENT: Repors: no symptoms Respiratory: Reports: no symptoms Gastrointestinal/Abdominal: Reports: no symptoms Genitourinary: Reports: no symptoms Allergies: Uncoded Allergies: Green vegetables (Allergy, Unknown, 12/10/19) Objective Last 24 Hour Vital Signs Date Time Temp Pulse Resp B/P (MAP) Pulse Ox O2 Delivery O2 Flow Rate FiO2 12/30/19 08:00 Venturi Mask 13.0 Venturi Mask 13.0 12/30/19 08:00 97.1 88 25 147/105 (119) 93 12/30/19 07:00 97 24 129/84 (99) 95 12/30/19 06:00 102 23 140/95 (110) 97 12/30/19 05:00 111 29 123/89 (100) 93 12/30/19 04:00 97.7 124 31 155/100 (118) 93 12/30/19 04:00 Venturi Mask 13.0 Venturi Mask 13.0 12/30/19 04:00 124 12/30/19 03:00 97 26 117/85 (96) 95 12/30/19 02:00 100 26 125/86 (99) 97 12/30/19 01:00 108 31 127/90 (102) 94 12/30/19 00:00 Venturi Mask 13.0 Venturi Mask 13.0 12/30/19 00:00 109 12/30/19 00:00 97.8 109 28 134/97 (109) 94 12/29/19 23:00 107 30 128/89 (102) 94 12/29/19 22:00 99 26 117/79 (92) 93 12/29/19 21:00 115 30 119/82 (94) 94 12/29/19 20:00 98.1 114 32 119/83 (95) 96 12/29/19 20:00 Venturi Mask 13.0 Venturi Mask 13.0 12/29/19 20:00 116 12/29/19 19:00 104 28 120/94 (103) 96 12/29/19 18:00 111 27 120/80 (93) 96 12/29/19 17:00 111 27 128/85 (99) 96 12/29/19 16:00 93 12/29/19 16:00 98.8 98 24 128/85 (99) 100 12/29/19 16:00 Venturi Mask 13.0 Venturi Mask 13.0 12/29/19 15:00 102 25 130/92 (105) 100 12/29/19 14:00 100 24 118/83 (95) 100 12/29/19 13:00 93 23 124/87 (99) 100 12/29/19 12:00 98.3 95 24 123/88 (100) 100 12/29/19 12:00 104 12/29/19 12:00 Venturi Mask 13.0 Venturi Mask 13.0 Intake and Output 12/29/19 12/30/19 19:00 07:00 Intake Total 960.0 ml 312.5 ml Output Total 525 ml 900 ml Balance 435.0 ml -587.5 ml IV Total 910.0 ml 192.5 ml Tube Feeding 50 ml 120 ml Output Urine Total 525 ml 900 ml # Bowel Movements 4 General Appearance: no acute distress HEENT: normocephalic Respiratory/Chest: chest wall non-tender, decreased breath sounds Cardiovascular: normal peripheral pulses, normal rate Abdomen: normal bowel sounds Microbiology Date/Time Source Procedure Growth Status 12/29/19 15:20 Sputum Expectorated Gram Stain - Final Resulted 12/29/19 15:20 Sputum Expectorated Sputum Culture Pending Resulted 12/28/19 23:00 Sputum Gram Stain - Final Resulted 12/28/19 23:00 Sputum Sputum Culture Pending Resulted Laboratory Tests 12/30/19 05:25: White Blood Count 10.1, Red Blood Count 4.06L, Hemoglobin 12.9L, Hematocrit 39.1L, Mean Corpuscular Volume 96, Mean Corpuscular Hemoglobin 31.8H, Mean Corpuscular Hemoglobin Concent 33.0, Red Cell Distribution Width 12.8, Platelet Count 447, Mean Platelet Volume 6.1L, Neutrophils (%) (Auto) 76.8H, Lymphocytes (%) (Auto) 14.1L, Monocytes (%) (Auto) 4.4, Eosinophils (%) (Auto) 4.0H, Basophils (%) (Auto) 0.7, Sodium Level 148H, Potassium Level 3.6, Chloride Level 108H, Carbon Dioxide Level 28, Anion Gap 12, Blood Urea Nitrogen 10, Creatinine 0.8, Estimat Glomerular Filtration Rate > 60, Glucose Level 113H, Uric Acid 3.2, Calcium Level 8.8, Phosphorus Level 2.4L, Magnesium Level 1.7L, Total Bilirubin 0.6, Aspartate Amino Transf (AST/SGOT) 28, Alanine Aminotransferase (ALT/SGPT) 23, Alkaline Phosphatase 130H, Troponin I 0.035, C- Reactive Protein, Quantitative 4.5H, Pro-B-Type Natriuretic Peptide 9355H, Total Protein 6.6, Albumin 1.7L, Globulin 4.9, Albumin/Globulin Ratio 0.3L 12/30/19 08:50: Arterial Blood pH 7.416, Arterial Blood Partial Pressure CO2 55.1*H, Arterial Blood Partial Pressure O2 58.2L, Arterial Blood HCO3 34.6H, Arterial Blood Oxygen Saturation 90.5L, Arterial Blood Base Excess 8.3H, Alan Test Positive Current Medications Medications (Trade) Dose Ordered Sig/Leandra Route PRN Reason Start Time Stop Time Status Last Admin Dose Admin Acetaminophen (Tylenol) 650 mg Q4H PRN RECTAL FEVER 12/28/19 12:00 01/19/20 11:59 Acetylcysteine (Mucomyst) 200 mg Q6HRT HHN 12/29/19 13:00 01/28/20 12:59 Heparin Sodium (Porcine) (Heparin 5000 units/ml) 5,000 units EVERY 12 HOURS SUBQ 12/28/19 21:00 01/09/20 08:59 12/30/19 09:14 Loperamide HCl (Imodium) 1 mg BIDPRN PRN NG Diarrhea 12/28/19 12:00 01/27/20 11:59 Magnesium Sulfate 100 ml @ 100 mls/hr Q1H IVPB 12/30/19 11:00 12/30/19 12:59 Metoclopramide HCl (Reglan) 10 mg Q6H PRN IVP Nausea & Vomiting 12/28/19 12:00 01/19/20 11:59 Pantoprazole (Protonix) 40 mg Q12HR IVP 12/28/19 21:00 01/09/20 08:59 12/30/19 09:13 Piperacillin Sod/ Tazobactam Sod 3.375 gm/Sodium Chloride 110 ml @ 27.5 mls/hr Q8H IVPB 12/28/19 12:00 01/04/20 11:59 12/30/19 03:33 Potassium Phosphate 20 mm/ Sodium Chloride 281.6667 ml @ 46.944 m... ONCE ONCE IV 12/30/19 12:00 12/30/19 17:59 Potassium Chloride (K-Dur) 20 meq TWICE A DAY GT 12/28/19 18:00 01/22/20 11:29 12/30/19 09:13 Salomón Bacon MD Dec 30, 2019 11:58
[2019-12-30] MEDS ORDERED: Potassium Phosphate 20 MM in NS 275 ML IV ONE (12:00)
--- NOTE | 2019-12-30 12:18 | Diagnostic Imaging Report ---
EXAM: XR Abdomen, 2 Views CLINICAL HISTORY: DYSPHAGIA TECHNIQUE: Frontal view of the abdomen/pelvis with upright view of the abdomen. COMPARISON: Abdominal x-ray dated 12/21/19 FINDINGS: Intraperitoneal space: No evidence of intraperitoneal free air. Gastrointestinal tract: Unremarkable bowel gas pattern. Organs: The renal shadows are obscured by overlying bowel gas. Bones/joints: Degenerative changes in bilateral SI joints and hip joints and throughout the lumbar spine. Soft tissues: Midline laparotomy christian. Tubes, lines and devices: Radiodense catheter overlies the central abdomen. IMPRESSION: No acute findings.
--- NOTE | 2019-12-30 12:20 | Diagnostic Imaging Report ---
EXAM: XR Chest, 1 View CLINICAL HISTORY: ABN CHST TECHNIQUE: Frontal view of the chest. COMPARISON: Chest x-ray 12/29/19 and 12/28/19. FINDINGS: Limitations: Exam degraded by rotation. Lungs: Diffuse opacification of the right thorax, worsened compared to the prior chest x-ray. Persistent patchy interstitial and alveolar opacities throughout the left lung. Pleural space: Unremarkable. The costophrenic angles are sharp. No visible pneumothorax. Heart: Unremarkable. No cardiomegaly. Mediastinum: Unremarkable. Bones/joints: Unremarkable. Vasculature: Atherosclerotic calcifications are noted within the aortic arch. Tubes, lines and devices: Telemetry leads overlie the thorax. IMPRESSION: 1. Diffuse opacification of the right thorax, worsened compared to the prior chest x-ray. This may possibly be related to large pleural effusion. 2. Persistent patchy interstitial and alveolar opacities throughout the left lung.
--- NOTE | 2019-12-30 14:23 | NUR ---
NURSE NOTES: PT remains a-fib on inside wirer, saturating at 94% on venturi, will continue to monitor PT.
--- NOTE | 2019-12-30 15:46 | NUR ---
NURSE NOTES: Spoke with Shamar Jade; 4th bag of 1g MG fell off pyxis; advised to non-admin 4th bag, and reorder the 4th bag. Will place order for 4th bag of Mg.
[2019-12-30] MEDS: Albuterol/Ipratropium 3ml neb HHN SCH (18:00)
--- NOTE | 2019-12-30 18:44 | NUR ---
NURSE NOTES: Completed linens changed, no BM; wiped, cleaned, dried PT; edema noted on R-side; PT remains on bilateral wrist restraints for safety measures, tolerated HD well; VS stable, PT was anxious so administered PRN ativan. Becki called, updates given, will continue to monitor PT. Addendum: 12/30/19 at 1848 by Silvano Campbell RN NURSE NOTES: Wrong PT, note is for PT in bed Enrique Still M.
--- NOTE | 2019-12-30 18:53 | NUR ---
NURSE NOTES: Completed linens changed, wiped, cleaned, dried, PT has generalized edema, weeping noted on L-arm, elevated, no BM noted, will continue to monitor PT.
--- NOTE | 2019-12-30 19:04 | NUR ---
HAND-OFF: Report and PT given to SUBHASH Guevara.
--- NOTE | 2019-12-30 19:30 | NUR ---
NURSE NOTES: Received pt in no apparent distress. On high clement's position. Sleeping at this time. Continues on 45% ventimask and saturating 93-97%. Chest sounds with scattered rhonchi. Afebrile, rhythm atrial fib in the 80's BP stable. JT patent , TF with Glucerna 1.2 continues at 10ml/h. No BM at this time, abdomen flat, soft with hypoactive bowel sounds. PIV site on right FA and right hand intact, KPhos infusing. Left hand/arm edematous 2+. FC patent, draining cloudy urine at 80-100ml/h. Sacral wound dressing dry and intact. Will continue to monitor
--- NOTE | 2019-12-30 22:00 | NUR ---
NURSE NOTES: Sleeping with HOB at high clement's position. Continues on 45%VM sats at 93-96%. Oral care rendered as well as oral suctioning. Confused. Remains o n controlled afib, BP stable.
[2019-12-31] VITALS (24 sets, daily range): BP systolic 111–148; BP diastolic 49–101
--- NOTE | 2019-12-31 | NUR ---
NURSE NOTES: Afebrile; HR 87 on afib. Sleeping, no distress. Good UOP.
[2019-12-31] MEDS: Acetylcysteine 20% Soln 4ml HHN SCH ×4 (01:00→19:11)
[2019-12-31] MEDS: Albuterol/Ipratropium 3ml neb HHN SCH ×4 (01:00→19:11)
--- NOTE | 2019-12-31 02:00 | NUR ---
NURSE NOTES: tolerating JTF at 10ml/h. Abd soft, flat with hypoactive BS. Continues to sleep, no distress.
[2019-12-31] MEDS: Piperacillin/Tazobactam 3.375 GM in NS 110 ML IVPB SCH ×3 (03:54→20:00)
--- NOTE | 2019-12-31 04:00 | NUR ---
NURSE NOTES: Had 1 small semi liquid dark green stool. Sacral dressing contaminated with stool. Complete bed bath done. Called RT to do deep NT suctioning. Nasal trumpet placed to left nostril. Redressed sacral wound. PIV sites intact. Afebrile, still on Afib, rate 107. BP stable.
--- NOTE | 2019-12-31 07:18 | NUR ---
HAND-OFF: Report given to Deirdre Mckinney RN.
--- NOTE | 2019-12-31 07:30 | NUR ---
NURSE NOTES: Patient received from SUBHASH Guevara. Patient observed bedside. Patient does not appear to be in any acute distress. Patient is AAO 2-3. Patient follows commands, responds to questions with full sentences. Patient is able to fully move his R arm with strength 3/5 however L arm is weak and flaccid. Patient at time appears confused with speech that is not clear however will continue to attempt to speak his words and will make his clear sentence to make his need known. Patient is being monitored on the personnel monitor in controlled afib highest HR 110s. VS HR 93 BP 122/81 SPO2 94% RR 20. Patient has a Jtube that is patient running Gluc 1.2 at 10 ml. Patient has a loose stool will report to the MD. This is the 2nd in less than four hours. Patient has a Torres catheter that is draining YL urine to gravity. Patient has two PIV that are patent and TKO. Safety measures are in place with the bed locked and in the lowest position with call light within reach. Will continue to monitor and carry out plan of care.
--- NOTE | 2019-12-31 08:10 | NUR ---
NURSE NOTES: Dr Sarabia assessed patient bedside. Reported loose stools Tube Feeds will be changed. Patient was cleaned, meatal care performed, linen changed. Patient with VSS and not in any acute distress. Optiform dressing was changed on the sacral area as protection.
[2019-12-31] MEDS: Pantoprazole Inj IVP SCH ×2 (08:11→20:54)
[2019-12-31] MEDS: Heparin 5000 units/ml inj SUBQ SCH ×2 (08:23→21:00)
--- NOTE | 2019-12-31 10:20 | NUR ---
NURSE NOTES: Dr. Sarabia changed TF however not available. Replacement TF is now Vital AF 1.2 @ 10 ml. TF have been changed with tubing changed. No residuals. A very small flush was given with 20 ml. Will monitor for improved loose stools.
--- NOTE | 2019-12-31 10:26 | Nephrology Progress Note ---
Assessment/Plan Problem List: (1) Hyperkalemia (2) Right lower lobe pneumonia Assessment: with recurrent collapse of right lung (3) Hyperglycemia (4) Leukocytosis (5) Electrolyte imbalance Assessment: low K improving Assessment HyperKalemia, in view of normal renal functions, Partly hemolysis Moderate respiratory distress: CHF vs Pneumonia Tachycardia and Leukocytosis ? UTI Hyperglycemia Leukocytosis other conditions: 1. Acute CVA. 2. Sepsis and UTI. under treatment 3. Hypertension and congestive heart failure. 4. History of chronic kidney disease. 5. Failure to thrive 6. Diarrhea; resolved; C diff negative 7.s/p Hypokalemia; corrected; Plan CRP lowering had bronchoscopy 12/29 IV fluid as needed Stable from renal stand K , Mag , Phos supplement as needed CXR Right lung Opacification- had bronch- need repeat bronch 12/29 12/30: 1. Diffuse opacification of the right thorax, worsened compared to the prior chest x-ray. This may possibly be related to large pleural effusion. 2. Persistent patchy interstitial and alveolar opacities throughout the left lung. per ID and pulmonary monitor renal parameters Urine tests per orders Subjective ROS Limited/Unobtainable: No Constitutional: Reports: malaise, weakness Objective Objective Last 24 Hour Vital Signs Date Time Temp Pulse Resp B/P (MAP) Pulse Ox O2 Delivery O2 Flow Rate FiO2 12/31/19 08:00 Nasal Cannula 13.0 Nasal Cannula 13.0 12/31/19 07:01 92 20 99 Nasal Cannula 2.0 28 88 20 99 12/31/19 07:00 99 Nasal Cannula 2.0 28 12/31/19 06:59 88 20 99 Nasal Cannula 2.0 28 12/31/19 06:00 94 18 111/75 (87) 95 12/31/19 05:00 107 23 130/91 (104) 96 12/31/19 04:00 95 12/31/19 04:00 Venturi Mask 13.0 Venturi Mask 13.0 12/31/19 04:00 97.7 95 24 148/100 (116) 95 12/31/19 03:00 90 23 124/82 (96) 96 12/31/19 02:00 94 24 130/84 (99) 93 12/31/19 01:08 117 18 97 Venturi Mask 15.0 113 19 94 12/31/19 01:00 90 23 121/78 (92) 93 2/17/20 00:00 87 12/31/19 00:00 97.9 87 25 124/80 (95) 95 12/31/19 00:00 Venturi Mask 13.0 Venturi Mask 13.0 12/30/19 23:00 87 23 115/83 (94) 95 12/30/19 22:00 85 21 120/87 (98) 94 12/30/19 21:00 89 24 134/92 (106) 97 12/30/19 20:00 97.7 86 22 123/82 (96) 94 12/30/19 20:00 Venturi Mask 13.0 Venturi Mask 13.0 12/30/19 20:00 84 12/30/19 19:28 82 19 100 Venturi Mask 14.0 55 12/30/19 19:25 100 Venturi Mask 10.0 45 12/30/19 19:00 84 21 117/77 (90) 96 12/30/19 18:00 85 21 126/80 (95) 96 12/30/19 17:00 96 26 128/76 (93) 95 12/30/19 16:00 84 12/30/19 16:00 97.5 99 28 117/83 (94) 91 12/30/19 16:00 Venturi Mask 13.0 Venturi Mask 13.0 12/30/19 15:00 88 24 114/76 (89) 96 12/30/19 14:00 84 27 124/84 (97) 95 12/30/19 13:00 89 24 122/69 (86) 95 12/30/19 12:00 97.8 87 24 106/76 (86) 95 12/30/19 12:00 Venturi Mask 13.0 Venturi Mask 13.0 12/30/19 12:00 88 12/30/19 11:00 86 24 126/74 (91) 95 Intake and Output 12/30/19 12/31/19 19:00 07:00 Intake Total 773.888 ml 472.776 ml Output Total 1145 ml 1070 ml Balance -371.112 ml -597.224 ml IV Total 603.888 ml 352.776 ml Tube Feeding 120 ml 120 ml Other 50 ml Output Urine Total 1145 ml 1070 ml # Bowel Movements 1 Height (Feet): 5 Height (Inches): 1.00 Weight (Pounds): 97 General Appearance: no apparent distress, lethargic Cardiovascular: tachycardia Respiratory/Chest: decreased breath sounds Abdomen: distended Objective no change Valdo Anderson MD Dec 31, 2019 10:26
--- NOTE | 2019-12-31 10:47 | Infectious Diseases Prog Note ---
Assessment/Plan Assessment/Plan antibiotics : zosyn A 1. pneumonia 2. leucocytosis improving 3. hypertension 4. CHF 5. s/p GT placement 6. pleural effusion P 1. continue zosyn 2. will follow up cultures Subjective ROS Limited/Unobtainable: Yes Allergies: Uncoded Allergies: Green vegetables (Allergy, Unknown, 12/10/19) Objective Vital Signs Last 24 Hour Vital Signs Date Time Temp Pulse Resp B/P (MAP) Pulse Ox O2 Delivery O2 Flow Rate FiO2 12/31/19 08:00 Nasal Cannula 13.0 Nasal Cannula 13.0 12/31/19 08:00 99 23 119/77 (91) 92 12/31/19 07:01 92 20 99 Nasal Cannula 2.0 28 88 20 99 12/31/19 07:00 99 Nasal Cannula 2.0 28 12/31/19 07:00 97.9 93 20 122/81 (95) 94 12/31/19 06:59 88 20 99 Nasal Cannula 2.0 28 12/31/19 06:00 94 18 111/75 (87) 95 12/31/19 05:00 107 23 130/91 (104) 96 12/31/19 04:00 95 12/31/19 04:00 Venturi Mask 13.0 Venturi Mask 13.0 12/31/19 04:00 97.7 95 24 148/100 (116) 95 12/31/19 03:00 90 23 124/82 (96) 96 12/31/19 02:00 94 24 130/84 (99) 93 12/31/19 01:08 117 18 97 Venturi Mask 15.0 113 19 94 12/31/19 01:00 90 23 121/78 (92) 93 12/31/19 00:00 87 12/31/19 00:00 97.9 87 25 124/80 (95) 95 12/31/19 00:00 Venturi Mask 13.0 Venturi Mask 13.0 12/30/19 23:00 87 23 115/83 (94) 95 12/30/19 22:00 85 21 120/87 (98) 94 12/30/19 21:00 89 24 134/92 (106) 97 12/30/19 20:00 97.7 86 22 123/82 (96) 94 12/30/19 20:00 Venturi Mask 13.0 Venturi Mask 13.0 12/30/19 20:00 84 12/30/19 19:28 82 19 100 Venturi Mask 14.0 55 12/30/19 19:25 100 Venturi Mask 10.0 45 12/30/19 19:00 84 21 117/77 (90) 96 12/30/19 18:00 85 21 126/80 (95) 96 12/30/19 17:00 96 26 128/76 (93) 95 12/30/19 16:00 84 12/30/19 16:00 97.5 99 28 117/83 (94) 91 12/30/19 16:00 Venturi Mask 13.0 Venturi Mask 13.0 12/30/19 15:00 88 24 114/76 (89) 96 12/30/19 14:00 84 27 124/84 (97) 95 12/30/19 13:00 89 24 122/69 (86) 95 12/30/19 12:00 97.8 87 24 106/76 (86) 95 12/30/19 12:00 Venturi Mask 13.0 Venturi Mask 13.0 12/30/19 12:00 88 12/30/19 11:00 86 24 126/74 (91) 95 Height (Feet): 5 Height (Inches): 1.00 Weight (Pounds): 97 Respiratory/Chest: lungs clear Cardiovascular: normal rate, regular rhythm, no gallop/murmur Abdomen: soft, non tender, other - wound clean, GT Extremities: no edema Microbiology Date/Time Source Procedure Growth Status 12/29/19 15:20 Sputum Expectorated Gram Stain - Final Resulted 12/29/19 15:20 Sputum Expectorated Sputum Culture Pending Resulted 12/28/19 23:00 Sputum Gram Stain - Final Complete 12/28/19 23:00 Sputum Culture - Final Leny Albicans Usual Respiratory Hannah Complete Current Medications Medications (Trade) Dose Ordered Sig/Leandra Route PRN Reason Start Time Stop Time Status Last Admin Dose Admin Acetaminophen (Tylenol) 650 mg Q4H PRN RECTAL FEVER 12/28/19 12:00 01/19/20 11:59 Acetylcysteine (Mucomyst) 200 mg Q6HRT HHN 12/29/19 13:00 01/28/20 12:59 12/31/19 06:57 Albuterol/ Ipratropium (Albuterol/ Ipratropium) 3 ml Q6HRT HHN 12/30/19 18:00 01/04/20 17:59 12/31/19 06:57 Heparin Sodium (Porcine) (Heparin 5000 units/ml) 5,000 units EVERY 12 HOURS SUBQ 12/28/19 21:00 01/09/20 08:59 12/31/19 08:23 Loperamide HCl (Imodium) 1 mg BIDPRN PRN NG Diarrhea 12/28/19 12:00 01/27/20 11:59 Magnesium Sulfate 100 ml @ 100 mls/hr Q1H IVPB 12/31/19 10:30 12/31/19 12:29 UNV Metoclopramide HCl (Reglan) 10 mg Q6H PRN IVP Nausea & Vomiting 12/28/19 12:00 01/19/20 11:59 Pantoprazole (Protonix) 40 mg Q12HR IVP 12/28/19 21:00 01/09/20 08:59 12/31/19 08:11 Piperacillin Sod/ Tazobactam Sod 3.375 gm/Sodium Chloride 110 ml @ 27.5 mls/hr Q8H IVPB 12/28/19 12:00 01/04/20 11:59 12/31/19 03:54 Potassium Phosphate 250 ml @ 62.5 mls/hr Q4H IVPB 12/31/19 10:30 12/31/19 18:29 UNV Potassium Chloride (K-Dur) 20 meq TWICE A DAY GT 12/28/19 18:00 01/22/20 11:29 12/31/19 08:11 Jojo Li MD Dec 31, 2019 10:47
--- NOTE | 2019-12-31 10:48 | NUR ---
NURSE NOTES: Dr. Bacon assessed patient bedside. Discussed patient returning to SNF. Orders placed for SDU and SNF. Patient has now advanced to [place]. Will continue to monitor patient.
--- NOTE | 2019-12-31 10:50 | Pulmonology Progress Note ---
Assessment/Plan Assessment/Plan PROBLEM LIST: 1. Acute CVA. 2. Sepsis and UTI. Resolved 3. Hypertension and congestive heart failure. 4. History of chronic kidney disease. 5. Failure to thrive 6. Diarrhea; resolved; C diff negative 7. R lung opacification;recurrent; transferred to ICU; s/p re-bronch; now resolved PLAN: 1. S/p feeding tube placement; tube feedings resumed 2. Cardiology, neuro, and ID consultations noted. 3. I have assumed care due Insurance. 4. Surgical consultation noted due to need for open gastrostomy 5. Sent stool for c diff'; negative 6. Surgical G tube per Dr Keen/jordan 7. Start abx 8. TF per surgery; 9. Remains DNR and DNI; Dc to SNF WIll need aggressive pulmonary hygiene Salomón Bacon M.D. Subjective Interval Events: None new; breathing better'; still requiring frequent suctioning Constitutional: Reports: no symptoms HEENT: Repors: no symptoms Respiratory: Reports: no symptoms Cardiovascular: Reports: no symptoms Allergies: Uncoded Allergies: Green vegetables (Allergy, Unknown, 12/10/19) Objective Last 24 Hour Vital Signs Date Time Temp Pulse Resp B/P (MAP) Pulse Ox O2 Delivery O2 Flow Rate FiO2 12/31/19 08:00 Nasal Cannula 13.0 Nasal Cannula 13.0 12/31/19 08:00 99 23 119/77 (91) 92 12/31/19 07:01 92 20 99 Nasal Cannula 2.0 28 88 20 99 12/31/19 07:00 99 Nasal Cannula 2.0 28 12/31/19 07:00 97.9 93 20 122/81 (95) 94 12/31/19 06:59 88 20 99 Nasal Cannula 2.0 28 12/31/19 06:00 94 18 111/75 (87) 95 12/31/19 05:00 107 23 130/91 (104) 96 12/31/19 04:00 95 12/31/19 04:00 Venturi Mask 13.0 Venturi Mask 13.0 12/31/19 04:00 97.7 95 24 148/100 (116) 95 12/31/19 03:00 90 23 124/82 (96) 96 12/31/19 02:00 94 24 130/84 (99) 93 12/31/19 01:08 117 18 97 Venturi Mask 15.0 113 19 94 12/31/19 01:00 90 23 121/78 (92) 93 12/31/19 00:00 87 12/31/19 00:00 97.9 87 25 124/80 (95) 95 12/31/19 00:00 Venturi Mask 13.0 Venturi Mask 13.0 12/30/19 23:00 87 23 115/83 (94) 95 12/30/19 22:00 85 21 120/87 (98) 94 12/30/19 21:00 89 24 134/92 (106) 97 12/30/19 20:00 97.7 86 22 123/82 (96) 94 12/30/19 20:00 Venturi Mask 13.0 Venturi Mask 13.0 12/30/19 20:00 84 12/30/19 19:28 82 19 100 Venturi Mask 14.0 55 12/30/19 19:25 100 Venturi Mask 10.0 45 12/30/19 19:00 84 21 117/77 (90) 96 12/30/19 18:00 85 21 126/80 (95) 96 12/30/19 17:00 96 26 128/76 (93) 95 12/30/19 16:00 84 12/30/19 16:00 97.5 99 28 117/83 (94) 91 12/30/19 16:00 Venturi Mask 13.0 Venturi Mask 13.0 12/30/19 15:00 88 24 114/76 (89) 96 12/30/19 14:00 84 27 124/84 (97) 95 12/30/19 13:00 89 24 122/69 (86) 95 12/30/19 12:00 97.8 87 24 106/76 (86) 95 12/30/19 12:00 Venturi Mask 13.0 Venturi Mask 13.0 12/30/19 12:00 88 12/30/19 11:00 86 24 126/74 (91) 95 Intake and Output 12/30/19 12/31/19 19:00 07:00 Intake Total 773.888 ml 472.776 ml Output Total 1145 ml 1070 ml Balance -371.112 ml -597.224 ml IV Total 603.888 ml 352.776 ml Tube Feeding 120 ml 120 ml Other 50 ml Output Urine Total 1145 ml 1070 ml # Bowel Movements 1 General Appearance: no acute distress HEENT: normocephalic Respiratory/Chest: chest wall non-tender, lungs clear Cardiovascular: normal peripheral pulses, normal rate Abdomen: normal bowel sounds Microbiology Date/Time Source Procedure Growth Status 12/29/19 15:20 Sputum Expectorated Gram Stain - Final Resulted 12/29/19 15:20 Sputum Expectorated Sputum Culture Pending Resulted 12/28/19 23:00 Sputum Gram Stain - Final Complete 12/28/19 23:00 Sputum Culture - Final Leny Albicans Usual Respiratory Hannah Complete Current Medications Medications (Trade) Dose Ordered Sig/Leandra Route PRN Reason Start Time Stop Time Status Last Admin Dose Admin Acetaminophen (Tylenol) 650 mg Q4H PRN RECTAL FEVER 12/28/19 12:00 01/19/20 11:59 Acetylcysteine (Mucomyst) 200 mg Q6HRT N 12/29/19 13:00 01/28/20 12:59 12/31/19 06:57 Albuterol/ Ipratropium (Albuterol/ Ipratropium) 3 ml Q6HRT N 12/30/19 18:00 01/04/20 17:59 12/31/19 06:57 Heparin Sodium (Porcine) (Heparin 5000 units/ml) 5,000 units EVERY 12 HOURS SUBQ 12/28/19 21:00 01/09/20 08:59 12/31/19 08:23 Loperamide HCl (Imodium) 1 mg BIDPRN PRN NG Diarrhea 12/28/19 12:00 01/27/20 11:59 Magnesium Sulfate 100 ml @ 100 mls/hr Q1H IVPB 12/31/19 10:30 12/31/19 12:29 UNV Metoclopramide HCl (Reglan) 10 mg Q6H PRN IVP Nausea & Vomiting 12/28/19 12:00 01/19/20 11:59 Pantoprazole (Protonix) 40 mg Q12HR IVP 12/28/19 21:00 01/09/20 08:59 12/31/19 08:11 Piperacillin Sod/ Tazobactam Sod 3.375 gm/Sodium Chloride 110 ml @ 27.5 mls/hr Q8H IVPB 12/28/19 12:00 01/04/20 11:59 12/31/19 03:54 Potassium Phosphate 250 ml @ 62.5 mls/hr Q4H IVPB 12/31/19 10:30 12/31/19 18:29 UNV Potassium Chloride (K-Dur) 20 meq TWICE A DAY GT 12/28/19 18:00 01/22/20 11:29 12/31/19 08:11 Salomón Bacon MD Dec 31, 2019 10:50
[2019-12-31] MEDS: POTASSIUM PHOSPHATE IVPB SCH ×2 (11:40→17:38)
--- NOTE | 2019-12-31 12:25 | NUR ---
NURSE NOTES: Patient resting comfortably observed bedside. Patient sleeping comfortably. Patient easy to arouse makes his needs known and follows commands. Patient is being monitored on the equipment monitor phototypesetting in controlled afib highest HR 110s. VSS Patient has a Jtube that is patient running Vital AF at 10 ml and tolerating. Patient has a Torres catheter that is draining YL urine to gravity. Patient has two PIV that are patent and running KPhos 15 mm. Oral care and meatal care were done. Safety measures are in place with the bed locked and in the lowest position with call light within reach. Will continue to monitor and carry out plan of care.
--- NOTE | 2019-12-31 13:36 | NUR ---
TRAVELING REPAIR ACCOUNTANT NOTES PT ACCEPTED BACK TO [facility] ROOM 204 BED 1. NURSE TO CALL REPORT TO [phone]. [facility] TO TRANSPORT PT DCP TO CALL WITH CHANELLE.
--- NOTE | 2019-12-31 16:52 | NUR ---
NURSE NOTES: Patient observed bedside. Patient sleeping comfortably. Patient opens eyes spontaneously, makes his needs known verbally and follows commands however does appear confused at times. Patient is being monitored on the outsole splicer in controlled afib highest HR 90s. VSS Patient has a Jtube that is patient running Vital AF at 10 ml and tolerating. No BM Patient has a Torres catheter that is draining cloudy YL urine to gravity. Patient has two PIV that are patent and running KPhos 15 mm and Zosyn. Patient has 3+ edema BLE. Arms are elevated. Safety measures are in place with the bed locked and in the lowest position with call light within reach. Will continue to monitor and carry out plan of care.
--- NOTE | 2019-12-31 18:00 | NUR ---
NURSE NOTES: Patient had a very small BM that was greater than a smear. Much improved from previous BM. Patient was cleaned, VSS, patient was arousable. Spoke but garbled. Patient appears more confused although he is drowsy. Patient is not in any acute distress free from grimacing. Will continue to monitor.
--- NOTE | 2019-12-31 19:26 | NUR ---
HAND-OFF: Report given to SUBHASH Kauffman. VSS and patient in stable condition.
--- NOTE | 2019-12-31 20:00 | NUR ---
received report from from sari rn pt awake and alert follows command moving rt hand no movement left side off his body reposition and suction with thick section o2 sat 98-1oo% no acute resp distress reposition and suction urinary output good
--- NOTE | 2019-12-31 20:36 | General Progress Note ---
Assessment/Plan Status: stable Assessment/Plan: Assessment - dysphagia - s/p open surgical j tube - respiratory distress - improved leukocytosis - s/p past distal gastrectomy with Moncho II Recommendations - follow exam - abx - Reglan - repeat KUB - TF per surgery - J tube flushes q 4 hours - Elevated HOB Subjective Allergies: Uncoded Allergies: Green vegetables (Allergy, Unknown, 12/10/19) Subjective confused NAD in ICU Objective Last 24 Hour Vital Signs Date Time Temp Pulse Resp B/P (MAP) Pulse Ox O2 Delivery O2 Flow Rate FiO2 12/31/19 20:00 91 12/31/19 20:00 Nasal Cannula 13.0 Nasal Cannula 13.0 12/31/19 20:00 98 22 130/86 (101) 93 12/31/19 19:26 103 23 100 Nasal Cannula 2.0 28 12/31/19 19:26 103 23 100 Nasal Cannula 2.0 28 12/31/19 19:11 91 18 99 Nasal Cannula 2.0 28 12/31/19 19:11 99 Nasal Cannula 2.0 28 12/31/19 19:11 91 18 99 Nasal Cannula 2.0 28 12/31/19 19:00 98.0 98 22 126/73 (90) 99 12/31/19 18:00 84 18 114/79 (91) 95 12/31/19 17:00 96 17 111/71 (84) 94 12/31/19 16:00 88 12/31/19 16:00 97.6 90 21 117/83 (94) 99 12/31/19 16:00 Nasal Cannula 13.0 Nasal Cannula 13.0 12/31/19 15:00 89 21 117/83 (94) 99 12/31/19 14:00 89 20 125/101 (109) 99 12/31/19 13:17 90 20 98 Nasal Cannula 2.0 28 12/31/19 13:17 85 16 98 Nasal Cannula 2.0 28 12/31/19 13:11 89 18 99 Nasal Cannula 2.0 28 85 16 98 12/31/19 13:00 88 20 112/79 (90) 99 12/31/19 12:00 Nasal Cannula 13.0 Nasal Cannula 13.0 12/31/19 12:00 84 19 122/82 (95) 99 12/31/19 12:00 85 2/17/20 11:00 86 22 128/80 (96) 96 12/31/19 10:00 87 21 117/83 (94) 96 12/31/19 09:00 90 20 120/78 (92) 95 12/31/19 08:00 Nasal Cannula 13.0 Nasal Cannula 13.0 12/31/19 08:00 96 12/31/19 08:00 99 23 119/77 (91) 92 12/31/19 07:01 92 20 99 Nasal Cannula 2.0 28 88 20 99 12/31/19 07:00 99 Nasal Cannula 2.0 28 12/31/19 07:00 97.9 93 20 122/81 (95) 94 12/31/19 06:59 88 20 99 Nasal Cannula 2.0 28 12/31/19 06:00 94 18 111/75 (87) 95 12/31/19 05:00 107 23 130/91 (104) 96 12/31/19 04:00 95 12/31/19 04:00 Venturi Mask 13.0 Venturi Mask 13.0 12/31/19 04:00 97.7 95 24 148/100 (116) 95 12/31/19 03:00 90 23 124/82 (96) 96 12/31/19 02:00 94 24 130/84 (99) 93 12/31/19 01:08 117 18 97 Venturi Mask 15.0 113 19 94 12/31/19 01:00 90 23 121/78 (92) 93 12/31/19 00:00 87 12/31/19 00:00 97.9 87 25 124/80 (95) 95 12/31/19 00:00 Venturi Mask 13.0 Venturi Mask 13.0 12/30/19 23:00 87 23 115/83 (94) 95 12/30/19 22:00 85 21 120/87 (98) 94 12/30/19 21:00 89 24 134/92 (106) 97 Intake and Output 12/30/19 12/31/19 19:00 07:00 Intake Total 773.888 ml 472.776 ml Output Total 1145 ml 1070 ml Balance -371.112 ml -597.224 ml IV Total 603.888 ml 352.776 ml Tube Feeding 120 ml 120 ml Other 50 ml Output Urine Total 1145 ml 1070 ml # Bowel Movements 1 Height (Feet): 5 Height (Inches): 1.00 Weight (Pounds): 97 Objective brigette WM NCAT supple CTA RR abd soft ND, (+) J tube no edema OBS Paul Matute MD Dec 31, 2019 20:36
--- NOTE | 2019-12-31 22:00 | NUR ---
reposition and suction iv infusing site good
[2020-01-01] VITALS: BP 126/88
--- NOTE | 2020-01-01 | NUR ---
NURSE NOTES: no acute resp distress noted
[2020-01-01 01:00] VITALS: BP 125/83
[2020-01-01] MEDS: Albuterol/Ipratropium 3ml neb HHN SCH ×3 (01:01→13:01)
[2020-01-01] MEDS: Acetylcysteine 20% Soln 4ml HHN SCH ×3 (01:01→13:01)
--- NOTE | 2020-01-01 02:00 | NUR ---
NURSE NOTES: complete bed bath oral care done reposition and suction
[2020-01-01 03:00] VITALS: BP_SYST 123; BP_SYST 124; BP_DIAS 83; BP_DIAS 92
--- NOTE | 2020-01-01 03:30 | NUR ---
HAND-OFF: Report given to brody lewis tranfer to oru [phone] using sbar .
[2020-01-01 04:00] VITALS: BP 125/92
[2020-01-01] MEDS: Piperacillin/Tazobactam 3.375 GM in NS 110 ML IVPB SCH (04:21)
--- NOTE | 2020-01-01 07:16 | NUR ---
RESPIRATORY NOTE: Breathing Tx given without Mucomyst 20% due to unavailable med in the pyxis, check med in IDA but it's not available either. RN Dacia made aware. Pt is awake, alert and no SOB or resp ditress noted. Will give MM next schedule when it's available.
--- NOTE | 2020-01-01 07:19 | NUR ---
HAND-OFF: Report given to SUBHASH Romero.
--- NOTE | 2020-01-01 07:20 | NUR ---
NURSE NOTES: Report received from Tony Grider RN. Patient is drowsy, responsive to shaking, able to follows commands and make needs known. A fib 102 on manager cardiac cath. Receiving O2 via nasal cannula @ 2L/min, respirations even and unlabored. J-tube in place with clean dressing running Vital AF 1.2 @ 10 cc/hr. HoB elevated. Torres catheter patent and draining well. Sterling noted in abdomen, clean and dry. Right hand 22g and right forearm 20g IV sites intact and asymptomatic. Bed locked in lowest position with side rails up x 3. All needs attended to. Call light within reach. Will continue to monitor.
[2020-01-01 08:00] VITALS: BP 135/78
--- NOTE | 2020-01-01 08:00 | NUR ---
NURSE NOTES: Patient's tube feeding changed to dietitian recommendations. Vital AF 1.2 changed to Glucerna 1.2, rate increased to 20 cc/hr. Will continue to monitor and increase feeding to goal of 55 cc/hr as tolerated.
[2020-01-01] MEDS: Pantoprazole Inj IVP SCH (08:43)
[2020-01-01] MEDS: Heparin 5000 units/ml inj SUBQ SCH (08:44)
--- NOTE | 2020-01-01 10:50 | Infectious Diseases Prog Note ---
Assessment/Plan Assessment/Plan antibiotics : zosyn A 1. pneumonia 2. leucocytosis resolved 3. hypertension 4. CHF 5. s/p GT placement 6. pleural effusion P 1. d/c zosyn 2. observe off antibiotics Subjective ROS Limited/Unobtainable: Yes Allergies: Uncoded Allergies: Green vegetables (Allergy, Unknown, 12/10/19) Objective Vital Signs Last 24 Hour Vital Signs Date Time Temp Pulse Resp B/P (MAP) Pulse Ox O2 Delivery O2 Flow Rate FiO2 01/01/20 08:00 Nasal Cannula 2.0 01/01/20 08:00 97.7 101 20 135/78 (97) 96 01/01/20 07:45 109 01/01/20 07:15 91 18 97 Nasal Cannula 2.0 28 89 16 96 01/01/20 07:05 96 Nasal Cannula 2.0 28 01/01/20 04:00 Nasal Cannula 13.0 Nasal Cannula 13.0 01/01/20 04:00 91 01/01/20 04:00 100 22 125/92 (103) 98 01/01/20 03:00 101 22 123/92 (102) 98 01/01/20 03:00 106 22 124/83 (97) 98 01/01/20 01:16 113 25 100 Nasal Cannula 2.0 28 01/01/20 01:16 113 25 100 Nasal Cannula 2.0 28 01/01/20 01:01 97 17 98 Nasal Cannula 2.0 28 01/01/20 01:01 97 17 98 Nasal Cannula 2.0 28 01/01/20 01:00 22 125/83 (97) 98 01/01/20 00:00 Nasal Cannula 13.0 Nasal Cannula 13.0 01/01/20 00:00 99 01/01/20 00:00 98.0 22 126/88 (101) 98 12/31/19 23:00 20 124/88 (100) 98 12/31/19 22:00 90 20 122/49 (73) 98 12/31/19 21:00 95 20 121/75 (90) 95 12/31/19 20:00 91 12/31/19 20:00 Nasal Cannula 13.0 Nasal Cannula 13.0 12/31/19 20:00 98 22 130/86 (101) 93 12/31/19 19:26 103 23 100 Nasal Cannula 2.0 28 12/31/19 19:26 103 23 100 Nasal Cannula 2.0 28 12/31/19 19:11 91 18 99 Nasal Cannula 2.0 28 12/31/19 19:11 99 Nasal Cannula 2.0 28 12/31/19 19:11 91 18 99 Nasal Cannula 2.0 28 12/31/19 19:00 98.0 98 22 126/73 (90) 99 12/31/19 18:00 84 18 114/79 (91) 95 12/31/19 17:00 96 17 111/71 (84) 94 12/31/19 16:00 88 12/31/19 16:00 97.6 90 21 117/83 (94) 99 12/31/19 16:00 Nasal Cannula 13.0 Nasal Cannula 13.0 12/31/19 15:00 89 21 117/83 (94) 99 12/31/19 14:00 89 20 125/101 (109) 99 12/31/19 13:17 90 20 98 Nasal Cannula 2.0 28 12/31/19 13:17 85 16 98 Nasal Cannula 2.0 28 12/31/19 13:11 89 18 99 Nasal Cannula 2.0 28 85 16 98 12/31/19 13:00 88 20 112/79 (90) 99 12/31/19 12:00 Nasal Cannula 13.0 Nasal Cannula 13.0 12/31/19 12:00 84 19 122/82 (95) 99 12/31/19 12:00 85 12/31/19 11:00 86 22 128/80 (96) 96 Height (Feet): 5 Height (Inches): 1.00 Weight (Pounds): 98 Respiratory/Chest: lungs clear Cardiovascular: normal rate, regular rhythm, no gallop/murmur Abdomen: soft, non tender, other - wound clean, GT Extremities: no edema Microbiology Date/Time Source Procedure Growth Status 12/29/19 15:20 Sputum Expectorated Gram Stain - Final Complete 12/29/19 15:20 Sputum Culture - Final Leny Albicans Usual Respiratory Hannah Complete Current Medications Medications (Trade) Dose Ordered Sig/Leandra Route PRN Reason Start Time Stop Time Status Last Admin Dose Admin Acetaminophen (Tylenol) 650 mg Q4H PRN RECTAL FEVER 12/28/19 12:00 01/19/20 11:59 Acetylcysteine (Mucomyst) 200 mg Q6HRT HHN 12/29/19 13:00 01/28/20 12:59 01/01/20 01:01 Albuterol/ Ipratropium (Albuterol/ Ipratropium) 3 ml Q6HRT HHN 12/30/19 18:00 01/04/20 17:59 01/01/20 07:07 Heparin Sodium (Porcine) (Heparin 5000 units/ml) 5,000 units EVERY 12 HOURS SUBQ 12/28/19 21:00 01/09/20 08:59 01/01/20 08:44 Loperamide HCl (Imodium) 1 mg BIDPRN PRN NG Diarrhea 12/28/19 12:00 01/27/20 11:59 Metoclopramide HCl (Reglan) 10 mg Q6H PRN IVP Nausea & Vomiting 12/28/19 12:00 01/19/20 11:59 Pantoprazole (Protonix) 40 mg Q12HR IVP 12/28/19 21:00 01/09/20 08:59 01/01/20 08:43 Piperacillin Sod/ Tazobactam Sod 3.375 gm/Sodium Chloride 110 ml @ 27.5 mls/hr Q8H IVPB 12/28/19 12:00 01/04/20 11:59 01/01/20 04:21 Potassium Chloride (K-Dur) 20 meq TWICE A DAY GT 12/28/19 18:00 01/22/20 11:29 01/01/20 08:43 Jojo Li MD Jan 01, 2020 10:50
--- NOTE | 2020-01-01 11:21 | NUR ---
NURSE NOTES: Attempted to give report for discharge to [facility]. 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 Made aware of pick-up time at 12:00. Spoke to daughter Anay, notified of discharge.
[2020-01-01 12:00] VITALS: BP 125/85
--- NOTE | 2020-01-01 12:28 | Nephrology Progress Note ---
Assessment/Plan Problem List: (1) Hyperkalemia (2) Right lower lobe pneumonia Assessment: with recurrent collapse of right lung (3) Hyperglycemia (4) Leukocytosis (5) Electrolyte imbalance Assessment: low K improving Assessment HyperKalemia, in view of normal renal functions, Partly hemolysis Moderate respiratory distress: CHF vs Pneumonia Tachycardia and Leukocytosis ? UTI Hyperglycemia Leukocytosis other conditions: 1. Acute CVA. 2. Sepsis and UTI. under treatment 3. Hypertension and congestive heart failure. 4. History of chronic kidney disease. 5. Failure to thrive 6. Diarrhea; resolved; C diff negative 7.s/p Hypokalemia; corrected; Plan CRP lowering had bronchoscopy 12/29 IV fluid as needed Stable from renal stand K , Mag , Phos supplement as needed CXR Right lung Opacification- had bronch- need repeat bronch 12/29 12/30: 1. Diffuse opacification of the right thorax, worsened compared to the prior chest x-ray. This may possibly be related to large pleural effusion. 2. Persistent patchy interstitial and alveolar opacities throughout the left lung. per ID and pulmonary monitor renal parameters Urine tests per orders Subjective ROS Limited/Unobtainable: No Constitutional: Reports: malaise Objective Objective Last 24 Hour Vital Signs Date Time Temp Pulse Resp B/P (MAP) Pulse Ox O2 Delivery O2 Flow Rate FiO2 01/01/20 08:00 Nasal Cannula 2.0 01/01/20 08:00 97.7 101 20 135/78 (97) 96 01/01/20 07:45 109 01/01/20 07:15 91 18 97 Nasal Cannula 2.0 28 89 16 96 01/01/20 07:05 96 Nasal Cannula 2.0 28 01/01/20 04:00 Nasal Cannula 13.0 Nasal Cannula 13.0 01/01/20 04:00 91 01/01/20 04:00 100 22 125/92 (103) 98 01/01/20 03:00 101 22 123/92 (102) 98 01/01/20 03:00 106 22 124/83 (97) 98 01/01/20 01:16 113 25 100 Nasal Cannula 2.0 28 01/01/20 01:16 113 25 100 Nasal Cannula 2.0 28 01/01/20 01:01 97 17 98 Nasal Cannula 2.0 28 01/01/20 01:01 97 17 98 Nasal Cannula 2.0 28 01/01/20 01:00 22 125/83 (97) 98 01/01/20 00:00 Nasal Cannula 13.0 Nasal Cannula 13.0 01/01/20 00:00 99 01/01/20 00:00 98.0 22 126/88 (101) 98 12/31/19 23:00 20 124/88 (100) 98 12/31/19 22:00 90 20 122/49 (73) 98 12/31/19 21:00 95 20 121/75 (90) 95 12/31/19 20:00 91 12/31/19 20:00 Nasal Cannula 13.0 Nasal Cannula 13.0 12/31/19 20:00 98 22 130/86 (101) 93 12/31/19 19:26 103 23 100 Nasal Cannula 2.0 28 12/31/19 19:26 103 23 100 Nasal Cannula 2.0 28 12/31/19 19:11 91 18 99 Nasal Cannula 2.0 28 12/31/19 19:11 99 Nasal Cannula 2.0 28 12/31/19 19:11 91 18 99 Nasal Cannula 2.0 28 12/31/19 19:00 98.0 98 22 126/73 (90) 99 12/31/19 18:00 84 18 114/79 (91) 95 12/31/19 17:00 96 17 111/71 (84) 94 12/31/19 16:00 88 12/31/19 16:00 97.6 90 21 117/83 (94) 99 12/31/19 16:00 Nasal Cannula 13.0 Nasal Cannula 13.0 12/31/19 15:00 89 21 117/83 (94) 99 12/31/19 14:00 89 20 125/101 (109) 99 12/31/19 13:17 90 20 98 Nasal Cannula 2.0 28 12/31/19 13:17 85 16 98 Nasal Cannula 2.0 28 12/31/19 13:11 89 18 99 Nasal Cannula 2.0 28 85 16 98 12/31/19 13:00 88 20 112/79 (90) 99 Intake and Output 12/31/19 01/01/20 18:59 06:59 Intake Total 735.00 ml 290.0 ml Output Total 1100 ml 685 ml Balance -365.00 ml -395.0 ml Intake Free Water 80 ml IV Total 565.00 ml 110.0 ml Tube Feeding 120 ml 100 ml Other 50 ml Output Urine Total 1100 ml 685 ml # Bowel Movements 3 Current Medications Medications (Trade) Dose Ordered Sig/Leandra Route PRN Reason Start Time Stop Time Status Last Admin Dose Admin Acetaminophen (Tylenol) 650 mg Q4H PRN RECTAL FEVER 12/28/19 12:00 01/19/20 11:59 Acetylcysteine (Mucomyst) 200 mg Q6HRT N 12/29/19 13:00 01/28/20 12:59 01/01/20 01:01 Albuterol/ Ipratropium (Albuterol/ Ipratropium) 3 ml Q6HRT N 12/30/19 18:00 01/04/20 17:59 01/01/20 07:07 Heparin Sodium (Porcine) (Heparin 5000 units/ml) 5,000 units EVERY 12 HOURS SUBQ 12/28/19 21:00 01/09/20 08:59 01/01/20 08:44 Loperamide HCl (Imodium) 1 mg BIDPRN PRN NG Diarrhea 12/28/19 12:00 01/27/20 11:59 Metoclopramide HCl (Reglan) 10 mg Q6H PRN IVP Nausea & Vomiting 12/28/19 12:00 01/19/20 11:59 Pantoprazole (Protonix) 40 mg Q12HR IVP 12/28/19 21:00 01/09/20 08:59 01/01/20 08:43 Potassium Chloride (K-Dur) 20 meq TWICE A DAY GT 12/28/19 18:00 01/22/20 11:29 01/01/20 08:43 Height (Feet): 5 Height (Inches): 1.00 Weight (Pounds): 98 General Appearance: no apparent distress Objective no change Valdo Anderson MD Jan 01, 2020 12:28
--- NOTE | 2020-01-01 13:20 | NUR ---
Discharge: Patient is being discharged from medical care. Awake, alert and oriented x 1. Patient transported out by [facility] with all personal belongings in stable condition.
[2020-01-01] MEDS ORDERED: Tubing IV Secondary IV ONE (13:29)
[2020-01-01] MEDS ORDERED: NS 275ml ONE (13:29)
--- NOTE | 2020-01-02 20:04 | Discharge Summary ---
Discharge Summary Discharge Summary _ DATE OF ADMISSION: 12/09/2019 DATE OF DISCHARGE: 01/01/2020 DISCHARGED BY: Dr. Bacon REASON FOR ADMISSION: 84 years old male with past medical history of congestive heart failure, hypertension, chronic kidney disease, dementia, resident of [facility] facility, was transferred due to slurred speech, left-sided weakness and left- sided facial droop droop. In emergency department laboratory work-up was significant for sodium 152, potassium 3.2. Lactic acid was 3.2. Urinalysis revealed pyuria and many bacteria ,+2 leukocyte esterase, +3 protein. Chest x-ray revealed pulmonary vascular congestion. Abdominal x-ray revealed distended colon with moderate stool. CT of the head demonstrated acute to subacute nonhemorrhagic CVA, involving right middle cerebral artery territory with involvement of the right temporal lobe and parietal cortex as well as portion of the right basal ganglia. Moderate generalized atrophy. Evidence of extensive chronic small vessel disease involving periventricular white matter. 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 Patient subsequently admitted for further management. CONSULTANTS: internal medicine Dr Chakraborty ID specialist Dr. Li GI specialist Dr. Matute relationship specialist Dr. Anderson surgery [facility] COURSE: Patient admitted to direct observational unit. Echocardiogram demonstrated preserved ejection fraction of 55 to 60% with no evidence of wall motion abnormality. Right ventricular systolic pressure of 41 , consistent with a mild pulmonary hypertension. Lipid panel was stable. Patient was on antiplatelet therapy. Carotid duplex demonstrated less than 50% stenosis bilaterally. Patient failed bedside and video swallow evaluation. Patient demonstrated high silent aspiration risk. Speech therapist recommended n.p.o. and PEG placement. Patient undergone on 12/13 upper endoscopy with enteroscopy and biopsy. Unfortunately gastrostomy tube placement was aborted due to failure to identify location for placement of gastrostomy tube by usual palpation and transillumination techniques. Biopsy of gastric cardia polyp revealed fragments of benign gastric mucosa with hyperplastic changes. Biopsy was negative for intestinal metaplasia, dysplasia or malignancy. Negative for Helicobacter. Patient has had a distal gastrectomy with Billroth II anastomosis. Safe landmark for placement of the gastrostomy tube using a standard endoscopic technique could not be identity , as mentioned above. Therefore , patient required surgical evaluation for feeding tube placement. Subsequently surgery seen and evaluated patient , and patient undergone on 12/18 jejunostomy feeding tube insertion with open lysis of adhesion and peritoneal mass biopsy. Peritoneal mass biopsy revealed foreign suture like material and benign adipose tissue. No evidence of malignancy, The next day after J-tube placement, patient was noted to be dyspneic. Chest x-ray revealed complete opacification of the right lung. At that time further plan of care and goals of care were discussed with the patient daughter . CODE STATUS was changed to DNR/DNI. Patient undergone successful bronchoscopy with removal of right lung mucous plug. Postoperative chest x-ray demonstrated almost complete resolution of the right lung atelectasis. Patient started on empiric antibiotic for probable pneumonia. Sputum culture revealed Leny. Patient slowly started on tube feeding. Patient noted to have distended abdomen . Abdominal x-ray on 12/21 revealed suspected generalized ileus . Tube feeding was placed on hold. Symptomatic treatment for nausea/ vomiting provided. Ileus resolved. Patient slowly started on tube feeding with tube feeding formula and protein supplement as per registered nurse midwife recommendation Strict aspiration precaution maintained. Bowel regimen instituted. GI prophylaxis provided. Chest x-ray on 12/28 again showed near complete atelectasis of the right lung. Patient subsequently undergone another bronchoscopy on 12/29 with another removal of right lung mucous plug. Supplemental oxygen provided and titrated to keep pulse oximetry above 90%, bronchodilator treatment provided. Renal parameters and electrolytes were closely monitored. Electrolytes corrected as needed. Nephrotoxins were avoided. Patient noted to have diarrhea. Stool for C. difficile was negative. Diarrhea subsequently resolved. Leukocytosis resolved. Patient completed treatment for pneumonia. Patient clinically stabilized, although overall prognosis remained poor. [facility] subsequently [facility] to [facility] for [facility] of care FINAL DIAGNOSES: Acute CVA Sepsis UTI Right lung collapse Atelectasis right lung Status post bronchoscopy x2 Pneumonia Hypertension Congestive heart failure Chronic kidney disease Failure to thrive Protein calorie malnutrition Electrolyte imbalance Status post upper endoscopy Status post open jejunostomy feeding tube insertion, open lysis of adhesions, peritoneal mass biopsy History of distal gastrectomy with Billroth II DISCHARGE MEDICATIONS: See Medication Reconciliation list. DISCHARGE INSTRUCTIONS: Patient was [facility] to the [facility] facility. Follow up with medical doctor at the facility. I have been assigned to dictate discharge summary for this account. I was not involved in the patient's management. Mary Palacios NP Jan 02, 2020 20:04
== END 2020-01-01 13:30 | DRG 853 ==
LOC: EDBD 17:07 → EMR 19:11 → EDBEDREQ 20:22 → 4E 20:31 → ICU 12-20 11:27 → 2E 12-22 05:50 → ICU 12-28 10:05 → 2W 01-01 03:49
PROC: 0DD68ZX Extraction of Stomach, Via Natural or Artificial Opening Endoscopic, Diagnostic (ICD-10-PCS; principal; 2019-12-13 11:15)
PROC: 0DBW0ZZ Excision of Peritoneum, Open Approach (ICD-10-PCS; 2019-12-18)
PROC: 0DN80ZZ Release Small Intestine, Open Approach (ICD-10-PCS; 2019-12-18)
PROC: 0DHA0UZ Insertion of Feeding Device into Jejunum, Open Approach (ICD-10-PCS; 2019-12-18)
PROC: 0DBV0ZX Excision of Mesentery, Open Approach, Diagnostic (ICD-10-PCS; 2019-12-18)
PROC: 0BC38ZZ Extirpation of Matter from Right Main Bronchus, Via Natural or Artificial Opening Endoscopic (ICD-10-PCS; 2019-12-20)
PROC: 0BC38ZZ Extirpation of Matter from Right Main Bronchus, Via Natural or Artificial Opening Endoscopic (ICD-10-PCS; 2019-12-29)
DX: A41.9 Sepsis, unspecified organism (principal); I63.9 Cerebral infarction, unspecified; J18.9 Pneumonia, unspecified organism; G81.94 Hemiplegia, unspecified affecting left nondominant side; N39.0 Urinary tract infection, site not specified; E87.0 Hyperosmolality and hypernatremia; E46 Unspecified protein-calorie malnutrition; I13.0 Hypertensive heart and chronic kidney disease with heart failure and stage 1 through stage 4 chronic kidney disease, or unspecified chronic kidney disease; Z68.1 Body mass index [BMI] 19.9 or less, adult; E87.1 Hypo-osmolality and hyponatremia; T17.890A Other foreign object in other parts of respiratory tract causing asphyxiation, initial encounter; J98.11 Atelectasis; K66.0 Peritoneal adhesions (postprocedural) (postinfection); R29.810 Facial weakness; R47.81 Slurred speech; I50.9 Heart failure, unspecified; N18.9 Chronic kidney disease, unspecified; R73.9 Hyperglycemia, unspecified; F03.90 Unspecified dementia, unspecified severity, without behavioral disturbance, psychotic disturbance, mood disturbance, and anxiety; R62.7 Adult failure to thrive; E86.0 Dehydration; D75.1 Secondary polycythemia; R19.7 Diarrhea, unspecified; L89.159 Pressure ulcer of sacral region, unspecified stage; R13.10 Dysphagia, unspecified; X58.XXXA Exposure to other specified factors, initial encounter; Y92.239 Unspecified place in hospital as the place of occurrence of the external cause; Z66 Do not resuscitate
CPT/HCPCS: 36415; 36600; 70450; 71045; 74018; 74230; 80048; 80053; 80061; 80076; 81001; 81003; 82550; 82607; 82746; 82803; 82962; 83036; 83605; 83690; 83735; 83880; 84100; 84443; 84484; 84550; 85007; 85025; 85610; 85651; 85730; 86140; 87070; 87081; 87086; 87205; 87324; 92610; 93005; 93306; 93880; 94003; 94150; 94640; 94664; 96361; 96365; 96368; 99285; J2710; J7030; J7620; J8499